=== PATIENT | female | born 1945 | race Caucasian/White ===

== ENCOUNTER 2016-11-29 16:23 | Emergency (ER) | payer MEDICARE, OTHER ==
[~2016-11-29 16:23] MED LIST: ACET-704 PO; CARB200T PO; CIPR500T PO; CITA40TA12 PO; DIPH25CA58 PO; ESTR2TAB PO; FURO-68 PO; GABA-585 PO; GLYB5TAB3 PO; HYDR-971 PO; IBUP200T43 PO; IBUP800T PO; LOPE2TAB56 PO; MEMA10TA PO; METF500T4 PO; METH4TAB2 PO; OXYC-323 PO; PHEN100T2 PO; POTA10CA PO; PRAV40TA2 PO; PRIM50TA PO; RANI300T3 PO; TRIA1TAB5 PO; provastatin PO
--- NOTE | 2016-11-29 16:44 | ED.ADGEN ---
Past History Past Medical History: Anxiety, Diabetes, GERD, High Cholesterol, Hypertension, Seizure, Other Past Surgical History: Appendectomy, Hysterectomy, Tonsillectomy, Other Alcohol Use: Rarely Drug Use: None Adult General HPI HPI Patient is a 71-year-old female with a history of gait disturbance and frequent falls presents emergency department by EMS for a laceration/skin tear on her left arm and small abrasion above her left eye. Patient denies any other injuries. She states that she simply fell. She said it happened quickly. To me, she denies any loss of consciousness and states that she does not want any workup other than to have her abrasions evaluated. Review of Systems Review of Systems Constitutional: Denies fever or chills [] Eyes: Denies change in visual acuity, redness, or eye pain [] HENT: Denies nasal congestion or sore throat [] Respiratory: Denies cough or shortness of breath [] Cardiovascular: No additional information not addressed in HPI [] GI: Denies abdominal pain, nausea, vomiting, bloody stools or diarrhea [] : Denies dysuria or hematuria [] Musculoskeletal: Denies back pain or joint pain [] Integument: Denies rash or skin lesions [] Neurologic: Denies headache, focal weakness or sensory changes [] Endocrine: Denies polyuria or polydipsia [] Allergies Allergies Allergies Coded Allergies Type Severity Reaction Last Updated Verified banana Allergy Intermediate 10/13/15 Yes erythromycin base Allergy Intermediate 10/13/15 No Physical Exam Physical Exam Constitutional: Well developed, well nourished, no acute distress, non-toxic appearance. [] HENT: Normocephalic, atraumatic, bilateral external ears normal, oropharynx moist, no oral exudates, nose normal. [] Eyes: PERRLA, EOMI, conjunctiva normal, no discharge. [] Neck: Normal range of motion, no tenderness, supple, no stridor. [] Cardiovascular:Heart rate regular rhythm, no murmur [] Lungs & Thorax: Bilateral breath sounds clear to auscultation [] Abdomen: Bowel sounds normal, soft, no tenderness, no masses, no pulsatile masses. [] Skin: Warm, dry, no erythema, no rash. Large 8 x 1 cm skin tear to the left forearm, minor abrasion to the left eyebrow [] Back: No tenderness, no CVA tenderness. [] Extremities: No tenderness, no cyanosis, no clubbing, ROM intact, no edema. [] Neurologic: Alert and oriented X 3, normal motor function, normal sensory function, no focal deficits noted. [] Psychologic: Affect normal, judgement normal, mood normal. [] EKG EKG [] Radiology/Procedures Radiology/Procedures [] Course & Med Decision Making Course & Med Decision Making Pertinent Labs and Imaging studies reviewed. (See chart for details) Wounds were cleaned and dressed. Patient was given supportive care and follow- up instructions. [] Final Impression Final Impression Skin tear [] Problems: Dragon Disclaimer Dragon Disclaimer This electronic medical record was generated, in whole or in part, using a voice recognition dictation system. FELY ANDRADE MD Nov 29, 2016 16:44
[2016-11-29 17:30] VITALS: BP 146/61
== END 2016-11-29 17:30 | disposition home or self-care (01) ==
LOC: ER 16:23
DX: S41.112A Laceration without foreign body of left upper arm, initial encounter (principal); S00.212A Abrasion of left eyelid and periocular area, initial encounter; E11.9 Type 2 diabetes mellitus without complications; K21.9 Gastro-esophageal reflux disease without esophagitis; I10 Essential (primary) hypertension; E78.00 Pure hypercholesterolemia, unspecified; Z88.1 Allergy status to other antibiotic agents; Z91.018 Allergy to other foods; W19.XXXA Unspecified fall, initial encounter; Y93.89 Activity, other specified; Y99.8 Other external cause status; Y92.89 Other specified places as the place of occurrence of the external cause
CPT/HCPCS: 99284

== ENCOUNTER 2017-07-17 12:39 | Observation (INO) | payer OTHER ==
[~2017-07-17] VITALS: Ht 170.2 cm; Wt 102.3 kg
[~2017-07-17 12:39] MED LIST changes: -IBUP200T43 PO; +IBUP200T44 PO; -IBUP800T PO; +IBUP800T19 PO
[2017-07-17] MEDS ORDERED: IV NORMAL SALINE 1,000ML 1,000 ML IV ONE (12:45)
--- NOTE | 2017-07-17 12:56 | PHYS DOC ---
Past History Past Medical History: Diabetes, Seizure, Other Past Surgical History: Tonsillectomy, Other Alcohol Use: None Drug Use: None Adult General HPI HPI Patient is a 71 year old F who presents with frequent falls. Family called EMS because the patient was attempting to get up out of her chair and was extremely unsteady on her feet and fell multiple times. Patient has history of seizures however they do not think this was a seizure. When EMS arrived patient was bradycardic with wide complex therefore she received an amp of atropine. Patient and plans of her lies weakness and just not feeling well. Patient is a history of congestive heart failure with hypertension. Patient is currently on Lasix. Patient denies any chest pain returns of breath. Patient denies any loss consciousness. Patient denies any nausea/vomiting/diarrhea. Patient is no other complaints. Review of Systems Review of Systems GEN: Denies fevers, chills, sweats HEENT: Denies blurred vision, sore throat CV: Denies chest pain RESP: Denies shortness of air, cough GI: Denies n/v/d NEURO: Dizziness MSK: Denies weakness, joint pain/swelling All other systems were reviewed and found to be within normal limits, except as documented in this note. Current Medications Current Medications Current Medications Medications (Trade) Dose Ordered Sig/Alirio Start Time Stop Time Status Last Admin Dose Admin Sodium Chloride 1,000 ml @ 1,000 mls/hr 1X ONCE 07/17/17 12:45 07/17/17 13:44 Allergies Allergies Allergies Coded Allergies Type Severity Reaction Last Updated Verified banana Allergy Intermediate 10/13/15 Yes erythromycin base Allergy Intermediate 10/13/15 No Physical Exam Physical Exam GEN.: No apparent distress. Alert and oriented. HEENT: Head is normocephalic, atraumatic NECK: Supple. LUNGS: Decreased breath sounds bilaterally. HEART: Bradycardic, irregular irregular, S1, S2 present. Peripheral pulses intact ABDOMEN: Soft, nontender. Positive bowel sounds. EXTREMITIES: Without any cyanosis. Multiple superficial abrasions to both forearms bilaterally NEUROLOGIC: Normal speech, normal tone, cranial nerves II through XII are grossly intact without any focal neurological deficits PSYCHIATRIC: Normal affect, normal mood. SKIN: No ulcerations Current Patient Data Vital Signs Laboratory Tests Test 07/17/17 13:00 White Blood Count 6.3 x10^3/uL Red Blood Count 3.50 x10^6/uL Hemoglobin 11.9 g/dL Hematocrit 34.8 % Mean Corpuscular Volume 99 fL Mean Corpuscular Hemoglobin 34 pg Mean Corpuscular Hemoglobin Concent 34 g/dL Red Cell Distribution Width 14.2 % Platelet Count 269 x10^3/uL Neutrophils (%) (Auto) 68 % Lymphocytes (%) (Auto) 16 % Monocytes (%) (Auto) 6 % Eosinophils (%) (Auto) 10 % Basophils (%) (Auto) 1 % Neutrophils # (Auto) 4.3 x10^3uL Lymphocytes # (Auto) 1.0 x10^3/uL Monocytes # (Auto) 0.4 x10^3/uL Eosinophils # (Auto) 0.6 x10^3/uL Basophils # (Auto) 0.1 x10^3/uL Sodium Level 136 mmol/L Potassium Level 4.5 mmol/L Chloride Level 104 mmol/L Carbon Dioxide Level 21 mmol/L Anion Gap 11 Blood Urea Nitrogen 45 mg/dL Creatinine 1.6 mg/dL Estimated GFR (Cockcroft-Gault) 32.0 BUN/Creatinine Ratio 28 Glucose Level 160 mg/dL Lactic Acid Level 1.7 mmol/L Calcium Level 8.5 mg/dL Magnesium Level 2.1 mg/dL Total Bilirubin 0.2 mg/dL Aspartate Amino Transf (AST/SGOT) 19 U/L Alanine Aminotransferase (ALT/SGPT) 23 U/L Alkaline Phosphatase 152 U/L Total Protein 7.5 g/dL Albumin 3.3 g/dL Albumin/Globulin Ratio 0.8 Lipase 148 U/L Current Medications Medications (Trade) Dose Ordered Sig/Alirio Route PRN Reason Start Time Stop Time Status Last Admin Dose Admin Sodium Chloride 1,000 ml @ 1,000 mls/hr 1X ONCE IV 07/17/17 12:45 07/17/17 13:44 DC 07/17/17 13:28 EKG EKG 1253: EKG shows A. fib with a rate of 70 no STEMI[] Radiology/Procedures Radiology/Procedures Chest x-ray NAD CT scan of the head NAD[] Course & Med Decision Making Course & Med Decision Making Pertinent Labs and Imaging studies reviewed. (See chart for details) ED course: Patient was seen and examined emergency room CBC, CMP, troponin, UA, EKG, chest x-ray, CT scan of head were ordered 1340: Patient was updated on lab results and CT results and plan to admit for further evaluation and management of her new onset A. fib and bradycardia 1348: Discussed CC/HP/PMH with Dr. Ledesma and recommends admit to the ICU MDM: After reviewing the chart, CC/HPI/PMH, physical exam, [lab results], [ radiological results], I believe the patient has new onset A. fib with symptomatic bradycardia requiring further workup and management at this time. Patient be admitted to ICU. Critical care time was 35 minutes exclusive of procedures. [] Dragon Disclaimer Dragon Disclaimer This electronic medical record was generated, in whole or in part, using a voice recognition dictation system. Departure Departure: Impression: Primary Impression: New onset a-fib Additional Impression: Symptomatic bradycardia Disposition: ADMITTED INPATIENT Admitting Physician: Mark Ledesma Condition: IMPROVED Referrals: MARK LEDESMA MD (PCP) Problem Qualifiers CHARMAINE KYLE DO Jul 17, 2017 12:56
[2017-07-17 13:18] LABS: BASO # 0.1 x10^3/uL (0.0-0.2); BASO % 1 % (0-3); EOS # 0.6 x10^3/uL (0.0-0.7); EOS % 10 % (0-3); HEMATOCRIT 34.8 % (36.0-47.0); HEMOGLOBIN 11.9 g/dL (12.0-15.5); LYMPH % 16 % (24-48); MEAN CORPUSCULAR HEMOGLOBIN 34 pg (25-35); MEAN CORPUSCULAR HGB CONC 34 g/dL (31-37); MEAN CORPUSCULAR VOLUME 99 fL (79-100); MONO # 0.4 x10^3/uL (0.0-1.1); MONO % 6 % (0-9); NEUT # 4.3 x10^3uL (1.8-7.7); NEUT % 68 % (31-73); PLATELET COUNT 269 x10^3/uL (140-400); RED CELL DISTRIBUTION WIDTH 14.2 % (11.5-14.5); WHITE BLOOD COUNT 6.3 x10^3/uL (4.0-11.0)
[2017-07-17 13:26] LABS: ALBUMIN 3.3 g/dL (3.4-5.0); ALBUMIN/GLOBULIN RATIO 0.8 (1.0-1.7); CALCIUM 8.5 mg/dL (8.5-10.1); CREATININE 1.6 mg/dL (0.6-1.0); MAGNESIUM 2.1 mg/dL (1.8-2.4); POTASSIUM 4.5 mmol/L (3.5-5.1); TOTAL BILIRUBIN 0.2 mg/dL (0.2-1.0); TOTAL PROTEIN 7.5 g/dL (6.4-8.2)
--- NOTE | 2017-07-17 13:31 | RAD ---
Portable chest, 07/17/2017: History: Altered mental status Comparison is made to a study from 05/01/2015. The heart size and pulmonary vascularity are normal. No pulmonary infiltrates are seen. There is no evidence of pleural fluid. IMPRESSION: No acute cardiopulmonary abnormality is detected.
--- NOTE | 2017-07-17 13:35 | RAD ---
Indication: Mental status change. Two recent falls. Poor historian and limited clinical exam. Technique: Noncontrast CT head was obtained. CT cervical spine includes axial images and coronal and sagittal reformatted images. Comparison CT head is from November 19, 2004. One or more of the following individualized dose reduction techniques were utilized for this examination: 1. Automated exposure control 2. Adjustment of the mA and/or kV according to patient size 3. Use of iterative reconstruction technique Findings: Head: There is symmetric prominence of the ventricles and sulci. A few areas of decreased attenuation in the supratentorial white matter are nonspecific but most suggestive of minimal small vessel ischemic disease. There is no acute intracranial hemorrhage or extra-axial fluid collection. There is no mass effect or midline shift. Salcedo-white differentiation is preserved. The included paranasal sinuses and mastoid air cells are clear. Cervical spine: There is no fracture or dislocation. Prevertebral soft tissues are within normal limits. Craniovertebral junction is unremarkable. Mild to moderate endplate degenerative changes greatest from C5-C6 through C6-C7. There may be mild canal stenosis at these levels. There are several levels of foraminal narrowing suspected. Canal and foraminal contents would be better evaluated by MRI or postmyelogram CT nonemergently, if warranted clinically. Impression: 1. No acute intracranial findings. Brain parenchymal volume loss and minimal probable small vessel ischemic disease. 2. Negative for fracture or dislocation in the cervical spine. Degenerative changes in the cervical spine.
[2017-07-17] MEDS ORDERED: ACETAMINOPHEN 325 MG TABLET PO PRN (14:00)
[2017-07-17] MEDS ORDERED: MORPHINE SULFATE 4 MG/ML DISP.SYRIN. IV PRN (14:00)
[2017-07-17] MEDS ORDERED: ONDANSETRON PF 4 MG/2 ML VIAL. IV PRN (14:00)
--- NOTE | 2017-07-17 14:40 | EKG ---
[address] [address] Test Date: 2017-07-17 Test Time: 12:51:41 Pat Name: MARY STARR Department: Room: ICU06 1 Gender: F Offc Spec: OSCAR : 1945 Requested By: CHARMAINE KYLE Order Number: [id number] Reading MD: Jb Smiley MD Measurements Intervals [place] Rate: 70 P: VA: QRS: -90 QRSD: 138 T: 13 QT: 466 QTc: 507 Interpretive Statements AFIB RBBB LAFB Electronically Signed On 07-17-2017 16:23:11 SOUS CHEF by Jb Smiley MD
--- NOTE | 2017-07-17 15:00 | NUR ---
The patient, MARY STARR, 71 y/o, F admitted by AKIN GREEN MD, was given written information regarding hospital policies, unit procedures and contact persons. Valuables were checked and left in room. Family here upon admission. Pt states she sees Dr. Ponce for seizures, physician consulted. Dr. Webster consulted in regards to bradycardia and afib which is new onset. Echo ordered for AM. Pt is symptomatic when transferring, appears wear and slow to respond. Pt states this is not her norm. Denies dizzyness or complaints of room spinning. No SOA/N/V/D. Home medication list obtained. Pt bed alarm on and call light within reach. Able to verbalize POC, will continue to monitor. Dr. Webster plan to order lovenox and monitor throughout night, echo for AM.
[2017-07-17 15:36] VITALS: BP 123/54
[2017-07-17 15:37] LABS: AMPHETAMINE/METHAMPHETAMINE NEG (NEG); BARBITURATES POS (NEG); BENZODIAZEPINES NEG (NEG); CANNABINOIDS NEG (NEG); COCAINE NEG (NEG); METHADONE NEG (NEG); OPIATES NEG (NEG); PHENCYCLIDINE NEG (NEG)
[2017-07-17 15:43] LABS: BILIRUBIN,URINE NEG (NEG); CLARITY,URINE CLOUDY; COLOR,URINE YELLOW; GLUCOSE,URINE NEG (NEG)
[2017-07-17 15:44] LABS: BACTERIA,URINE MANY /HPF (0-FEW); NITRITE,URINE NEG (NEG); SQUAMOUS EPITHELIAL CELL,UR MOD /LPF; UROBILINOGEN,URINE 0.2 mg/dL (0.2 mg/dL)
--- NOTE | 2017-07-17 16:05 | CONS ---
DATE OF CONSULTATION: 07/17/2017 REASON FOR CONSULTATION: New onset AFib with bradycardia. HISTORY OF PRESENT ILLNESS: The patient is a 71-year-old woman with past medical history as noted below, who presents to the hospital in the setting of unsteadiness of gait. She apparently had few near syncopal events. Upon arrival to the ER, she was noted to be bradycardic with heart rates in 50s. The patient otherwise denies any chest pain, orthopnea, PND or lower extremity edema. No syncope or palpitations. Denies any new medications, but medication review from her home list reveals multiple anti-seizure medications as well as pain medications. PAST MEDICAL HISTORY: 1. Seizure disorder. 2. Possible dementia. 3. Chronic pain syndrome. 4. Hypertension. SOCIAL HISTORY: The patient denies any alcohol, tobacco or illicit drug use. ALLERGIES: BANANAS and ERYTHROMYCIN BASE. FAMILY HISTORY: Noncontributory. REVIEW OF SYSTEMS: Negative for 10 out of 14 systems reviewed, unless otherwise mentioned above in HPI. CURRENT CARDIOVASCULAR MEDICATIONS: Triamterene/hydrochlorothiazide 1 tablet p.o. b.i.d. PHYSICAL EXAMINATION: VITAL SIGNS: Afebrile, 62, 16, 116/61, 97% on room air. GENERAL: She appears alert and oriented, in no acute distress. HEAD AND NECK: Unremarkable. CARDIAC: Irregularly irregular without any murmurs, rubs or gallops. LUNGS: Clear to auscultation bilaterally. ABDOMEN: Soft, obese, nontender, nondistended. EXTREMITIES: No obvious clubbing, cyanosis or edema. She has multiple bilateral excoriations secondary to itching presumably. NEUROLOGIC: No obvious focal deficits are noted. DIAGNOSTIC STUDIES: EKG demonstrates occasional sinus beats, but most likely this is atrial fibrillation with slow ventricular response. She has a right bundle branch block at baseline. Hemoglobin 11.9, creatinine 1.6. ALT, AST within normal limits. Chest x-ray is unremarkable. IMPRESSION: 1. Lightheadedness and dizziness in the setting of bradycardia, etiology may be related to multiple depressant agents. 2. Mild hypertension. 3. Chronic kidney disease, cannot rule out acute kidney injury. 4. History of seizure disorder, evaluation pending for recurrent seizures, although presentation is not likely to be seizure in nature. RECOMMENDATIONS: Agree with continued monitoring for significant bradycardia. Physical therapy evaluation if she has any persistent lightheadedness, dizziness in the setting of bradycardia then we would consider pacemaker implantation. We will obtain Neurology consult to determine if any medication changes could be made enough to decrease her bradycardia. Thank you for this consultation. MEDINA ROCK MD DR: LAURA/keri JOB#: [id number] / [id number]
[2017-07-17 16:09] VITALS: BP 111/62
[2017-07-17] MEDS ORDERED: ACETAMINOPHEN/CODEINE 300/30MG TABLET PO PRN (18:15)
[2017-07-17] MEDS ORDERED: NON FORMULARY ITEM (Methylprednisolone (Medrol) 1 PKG) PO SCH (18:15)
[2017-07-17] MEDS ORDERED: oxyCODONE/APAP 5/325 1 TAB TABLET PO PRN (18:15)
[2017-07-17] MEDS ORDERED: HYDROcodone/APAP 5/325MG 1 TAB TABLET PO PRN (18:15)
--- NOTE | 2017-07-17 18:26 | NUR ---
Phenobarbital ordered per Dr. Ponce, states he was not aware she was on this medication. Pt states this was ordered by [facility] which she does not follow with them and then Dr. Ledesma reordered for her 2 weeks ago. Will obtain current level.
[2017-07-17] MEDS ORDERED: LEVO25TA4 PO (18:41)
[2017-07-17] MEDS ORDERED: RANI300C PO (18:41)
[2017-07-17] MEDS ORDERED: CITA40TA12 PO (18:41)
[2017-07-17] MEDS ORDERED: FURO-69 PO (18:41)
[2017-07-17 19:11] VITALS: BP 97/54
[2017-07-17] MEDS: TRIAMTERENE/HCTZ 75/50MG TABLET. PO SCH ×2 (20:53→21:00)
[2017-07-17] MEDS: PRAVASTATIN 20 MG TABLET. PO SCH (20:53)
[2017-07-17] MEDS: ENOXAPARIN ** NOTE DOSE ** SYRINGE SQ SCH (20:53)
[2017-07-17] MEDS: FAMOTIDINE 20 MG TABLET PO SCH (20:53)
[2017-07-17] MEDS: GABAPENTIN 300 MG CAPSULE. PO SCH (20:53)
[2017-07-17] MEDS: IV NORMAL SALINE 1,000ML 1,000 ML IV SCH (20:54)
[2017-07-17] MEDS: carBAMazepine 200 MG TABLET PO SCH (20:56)
[2017-07-17] MEDS ORDERED: CITALOPRAM HYDROBROMIDE PO SCH (21:00)
[2017-07-17] MEDS ORDERED: RANITIDINE HCL 300 MG PO SCH (21:00)
[2017-07-17] MEDS ORDERED: PRIMIDONE 50 MG TABLET PO SCH (21:00)
[2017-07-17] MEDS ORDERED: MEMANTINE 10 MG TABLET. PO SCH (21:00)
[2017-07-17 21:31] VITALS: BP 138/52
[2017-07-17] MEDS ORDERED: DIPH25CA58 PO (22:30)
[2017-07-17 22:38] VITALS: BP 109/48
[2017-07-17] MEDS: diphenhydrAMINE HCL 25 MG CAPSULE PO PRN (22:41)
[2017-07-17 23:32] VITALS: BP 106/45
[2017-07-18] VITALS (16 sets, daily range): BP systolic 91–134; BP diastolic 37–78
[2017-07-18] MEDS ORDERED: IBUPROFEN 200 MG TABLET PO SCH
[2017-07-18] MEDS: IV NORMAL SALINE 1,000ML 1,000 ML IV SCH ×2 (05:55→14:54)
[2017-07-18] MEDS: LEVOTHYROXINE 25 MCG TABLET. PO SCH (05:55)
[2017-07-18 06:49] LABS: BASO % 0 % (0-3); EOS # 0.5 x10^3/uL (0.0-0.7); EOS % 7 % (0-3); HEMATOCRIT 31.3 % (36.0-47.0); HEMOGLOBIN 10.4 g/dL (12.0-15.5); LYMPH # 1.3 x10^3/uL (1.0-4.8); LYMPH % 17 % (24-48); MEAN CORPUSCULAR HEMOGLOBIN 33 pg (25-35); MEAN CORPUSCULAR HGB CONC 33 g/dL (31-37); MEAN CORPUSCULAR VOLUME 100 fL (79-100); MONO # 0.6 x10^3/uL (0.0-1.1); MONO % 8 % (0-9); NEUT # 5.3 x10^3uL (1.8-7.7); NEUT % 68 % (31-73); PLATELET COUNT 235 x10^3/uL (140-400); RED BLOOD COUNT 3.13 x10^6/uL (3.50-5.40); RED CELL DISTRIBUTION WIDTH 14.2 % (11.5-14.5); WHITE BLOOD COUNT 7.8 x10^3/uL (4.0-11.0)
[2017-07-18 06:57] LABS: CREATININE 1.4 mg/dL (0.6-1.0); GFR 37.3; POTASSIUM 3.8 mmol/L (3.5-5.1)
[2017-07-18] MEDS: FUROSEMIDE 20 MG TABLET PO SCH (09:00)
[2017-07-18] MEDS ORDERED: PNEUMOC CONJ VACC 23-VALENT 0.5 ML VIAL. VAX IM ONE (09:00)
[2017-07-18] MEDS ORDERED: CITALOPRAM 20 MG TABLET. PO SCH ×2 (09:00→21:00)
[2017-07-18] MEDS: GABAPENTIN 300 MG CAPSULE. PO SCH ×3 (09:16→21:28)
[2017-07-18] MEDS: PHENOBARBITAL 100 MG PO SCH (09:16)
[2017-07-18] MEDS: POTASSIUM CHLORIDE 10 MEQ TABLET.ER. PO SCH ×2 (09:16→21:26)
[2017-07-18] MEDS: TRIAMTERENE/HCTZ 75/50MG TABLET. PO SCH ×2 (09:16→21:28)
[2017-07-18] MEDS: ENOXAPARIN ** NOTE DOSE ** SYRINGE SQ SCH ×2 (09:17→21:30)
[2017-07-18] MEDS: carBAMazepine 200 MG TABLET PO SCH ×2 (09:18→21:28)
--- NOTE | 2017-07-18 09:37 | PDOC ---
PROGRESS NOTES Diagnosis Problem Problems Medical Problems: (1) New onset a-fib Status: Acute (2) Symptomatic bradycardia Status: Acute Assessment Problems Medical Problems: (1) New onset a-fib Status: Acute (2) Symptomatic bradycardia Status: Acute 1. Lightheadedness and dizziness - she is currently denying any lightheadedness. 2. atrial fibrillation with SVR - Continues to have rates in low 40's upper 30' s. + rate response with activity with PT. No current indication for pacemaker. 3. Mild hypertension. - well controlled currently 4. Chronic kidney disease - Bun/ Cr improving. monitor. 5. seizure disorder, Neuro consulted and adjusting medications. Problems: Subjective denies lightheadedness, weakness, chest discomfort or dyspnea. Objective Vital Signs Date Time Temp Pulse Resp B/P (MAP) Pulse Ox O2 Delivery O2 Flow Rate FiO2 07/18/17 08:00 Room Air 07/18/17 07:03 97.3 07/18/17 06:13 52 24 103/49 (67) 97 Intake and Output 07/18/17 07:00 Intake Total 2655 ml Output Total 300 ml Balance 2355 ml Intake Oral 1080 ml IV Total 1575 ml Output Urine Total 300 ml # Voids 4 Abdomen: Normal bowel sounds, Soft Heart: Other (irregular rate and rhythm) General: Alert, Oriented X3, Cooperative Lungs: Clear to auscultation, Normal air movement Neuro: Normal speech Psych/Mental Status: Mood NL Review of Relevant I have reviewed the following items lesley (where applicable) has been applied. Labs Laboratory Tests Test 07/17/17 13:00 07/17/17 15:15 07/18/17 06:20 White Blood Count 6.3 x10^3/uL (4.0-11.0) 7.8 x10^3/uL (4.0-11.0) Red Blood Count 3.50 x10^6/uL (3.50-5.40) 3.13 x10^6/uL (3.50-5.40) Hemoglobin 11.9 g/dL (12.0-15.5) 10.4 g/dL (12.0-15.5) Hematocrit 34.8 % (36.0-47.0) 31.3 % (36.0-47.0) Mean Corpuscular Volume 99 fL (79-100) 100 fL (79-100) Mean Corpuscular Hemoglobin 34 pg (25-35) 33 pg (25-35) Mean Corpuscular Hemoglobin Concent 34 g/dL (31-37) 33 g/dL (31-37) Red Cell Distribution Width 14.2 % (11.5-14.5) 14.2 % (11.5-14.5) Platelet Count 269 x10^3/uL (140-400) 235 x10^3/uL (140-400) Neutrophils (%) (Auto) 68 % (31-73) 68 % (31-73) Lymphocytes (%) (Auto) 16 % (24-48) 17 % (24-48) Monocytes (%) (Auto) 6 % (0-9) 8 % (0-9) Eosinophils (%) (Auto) 10 % (0-3) 7 % (0-3) Basophils (%) (Auto) 1 % (0-3) 0 % (0-3) Neutrophils # (Auto) 4.3 x10^3uL (1.8-7.7) 5.3 x10^3uL (1.8-7.7) Lymphocytes # (Auto) 1.0 x10^3/uL (1.0-4.8) 1.3 x10^3/uL (1.0-4.8) Monocytes # (Auto) 0.4 x10^3/uL (0.0-1.1) 0.6 x10^3/uL (0.0-1.1) Eosinophils # (Auto) 0.6 x10^3/uL (0.0-0.7) 0.5 x10^3/uL (0.0-0.7) Basophils # (Auto) 0.1 x10^3/uL (0.0-0.2) 0.0 x10^3/uL (0.0-0.2) Sodium Level 136 mmol/L (136-145) 139 mmol/L (136-145) Potassium Level 4.5 mmol/L (3.5-5.1) 3.8 mmol/L (3.5-5.1) Chloride Level 104 mmol/L (98-107) 106 mmol/L (98-107) Carbon Dioxide Level 21 mmol/L (21-32) 23 mmol/L (21-32) Anion Gap 11 (6-14) 10 (6-14) Blood Urea Nitrogen 45 mg/dL (7-20) 39 mg/dL (7-20) Creatinine 1.6 mg/dL (0.6-1.0) 1.4 mg/dL (0.6-1.0) Estimated GFR (Cockcroft-Gault) 32.0 37.3 BUN/Creatinine Ratio 28 (6-20) Glucose Level 160 mg/dL (70-99) 133 mg/dL (70-99) Lactic Acid Level 1.7 mmol/L (0.4-2.0) Calcium Level 8.5 mg/dL (8.5-10.1) 8.0 mg/dL (8.5-10.1) Magnesium Level 2.1 mg/dL (1.8-2.4) Total Bilirubin 0.2 mg/dL (0.2-1.0) Aspartate Amino Transf (AST/SGOT) 19 U/L (15-37) Alanine Aminotransferase (ALT/SGPT) 23 U/L (14-59) Alkaline Phosphatase 152 U/L (46-116) Total Protein 7.5 g/dL (6.4-8.2) Albumin 3.3 g/dL (3.4-5.0) Albumin/Globulin Ratio 0.8 (1.0-1.7) Lipase 148 U/L (73-393) Urine Collection Type Unknown Urine Color Yellow Urine Clarity Cloudy Urine pH 5.5 Urine Specific Kenney 1.015 Urine Protein Neg (NEG-TRACE) Urine Glucose (UA) Neg mg/dL (NEG) Urine Ketones (Stick) Neg mg/dL (NEG) Urine Blood Neg (NEG) Urine Nitrite Neg (NEG) Urine Bilirubin Neg (NEG) Urine Urobilinogen Dipstick 0.2 mg/dL (0.2 mg/dL) Urine Leukocyte Esterase Trace (NEG) Urine RBC 1-2 /HPF (0-2) Urine WBC 11-20 /HPF (0-4) Urine Squamous Epithelial Cells Mod /LPF Urine Bacteria Many /HPF (0-FEW) Nasal Screen MRSA (PCR) Negative (Negative) Urine Opiates Screen Neg (NEG) Urine Methadone Screen Neg (NEG) Urine Barbiturates Pos (NEG) Urine Phencyclidine Screen Neg (NEG) Urine Amphetamine/Methamphetamine Neg (NEG) Urine Benzodiazepines Screen Neg (NEG) Urine Cocaine Screen Neg (NEG) Urine Cannabinoids Screen Neg (NEG) Urine Ethyl Alcohol Neg (NEG) Medications Current Medications Sodium Chloride 1,000 ml @ 1,000 mls/hr 1X ONCE IV Last administered on 07/17 13:28; Start 07/17/17 at 12:45; Stop 07/17/17 at 13:44; Status DC Ondansetron HCl (Zofran) 4 mg PRN Q4HRS PRN IV NAUSEA/VOMITING; Start at 14:00; Stop 07/18/17 at 13:59 Morphine Sulfate (Morphine 4mg Syringe) 4 mg PRN Q2HR PRN IV PAIN; Start 07/17 at 14:00; Stop 07/18/17 at 13:59 Acetaminophen (Tylenol) 650 mg PRN Q4HRS PRN PO FEVER; Start 07/17/17 at 14:00 ; Stop 07/18/17 at 13:59 Enoxaparin Sodium (Lovenox 100mg Syringe) 100 mg Q12HR SQ Last administered on 07/18/17 09:17; Start 07/17/17 at 21:00 Acetaminophen/ Codeine Phosphate (Tylenol #3) 1 tab PRN BID PRN PO PAIN Last administered on 07/18/17 00:40; Start 07/17/17 at 18:15 Carbamazepine (TEGretol) 200 mg BID PO Last administered on 07/18/17 09:18; Start 07/17/17 at 21:00 Gabapentin (Neurontin) 300 mg TID PO Last administered on 07/18/17 09:16; Start 07/17/17 at 21:00 Glyburide (Glynase) 6 mg QHS PO ; Start 07/17/17 at 21:00; Stop 07/17/17 at 21 :00; Status DC Acetaminophen/ Hydrocodone Bitart (Lortab 5/325) 1 tab PRN Q6HRS PRN PO PAIN; Start 07/17/17 at 18:15; Stop 07/17/17 at 18:47; Status DC Ibuprofen (Motrin) 600 mg Q6HRS PO ; Start 07/18/17 at 00:00; Stop 07/18/17 at 00:00; Status DC Memantine (Namenda) 10 mg BID PO Last administered on 07/17/17 20:53; Start 07/17/17 at 21:00; Stop 07/18/17 at 09:33; Status DC Oxycodone/ Acetaminophen (Percocet 5/325) 1 tab Q6HRS PRN PO SEVERE PAIN; Start 07/17/17 at 18:15; Stop 07/17/17 at 18:47; Status DC Phenobarbital (Luminal) 100 mg DAILY PO Last administered on 07/18/17 09:16; Start 07/18/17 at 09:00 Primidone (Mysoline) 50 mg HS PO ; Start 07/17/17 at 21:00; Stop 07/17/17 at 21:00; Status DC Triamterene/HCTZ (Maxzide 75/50mg) 1 tab BID PO Last administered on 09:16; Start 07/17/17 at 21:00 Non-Formulary Medication 1 tab BID PO ; Start 07/17/17 at 21:00; Stop at 21:00; Status DC Non-Formulary Medication 1 pkg UD PO ; Start 07/17/17 at 18:15; Stop 07/17/17 at 18:47; Status DC Potassium Chloride (Klor-Con) 10 meq BID PO Last administered on 07/18/17 09: 16; Start 07/18/17 at 09:00 Pravastatin Sodium (Pravachol) 40 mg QHS PO Last administered on 07/17/17 20: 53; Start 07/17/17 at 21:00 Non-Formulary Medication 300 mg BID PO ; Start 07/17/17 at 21:00; Stop at 21:00; Status DC Furosemide (Lasix) 20 mg DAILY PO ; Start 07/18/17 at 09:00 Levothyroxine Sodium (Synthroid) 25 mcg DAILY07 PO Last administered on 05:55; Start 07/18/17 at 07:00 Citalopram Hydrobromide (CeleXA) 40 mg DAILY PO ; Start 07/18/17 at 09:00; Stop 07/18/17 at 09:33; Status DC Famotidine (Pepcid) 20 mg QHS PO Last administered on 07/17/17 20:53; Start 07/17/17 at 21:00 Pneumococcal Polyvalent Vaccine (Pneumovax 23) 0.5 ml ONCE ONCE VAX IM ; Start 07/18/17 at 09:00; Stop 07/18/17 at 09:01; Status DC Sodium Chloride 1,000 ml @ 100 mls/hr Q10H IV Last administered on 07/18/17 05:55; Start 07/17/17 at 19:30 Diphenhydramine HCl (Benadryl) 25 mg PRN Q6HRS PRN PO ITCHING Last administered on 07/17/17 22:41; Start 07/17/17 at 22:30 Citalopram Hydrobromide (CeleXA) 40 mg HS PO ; Start 07/18/17 at 21:00; Status UNV Memantine (Namenda) 10 mg HS PO ; Start 07/18/17 at 21:00; Status UNV Active Scripts Active Reported Benadryl (Diphenhydramine Hcl) 25 Mg Capsule 25 Mg PO PRN Q6HRS PRN Celexa (Citalopram Hydrobromide) 40 Mg Tablet 40 Mg PO DAILY Levothyroxine Sodium 25 Mcg Tablet 1 Tab PO DAILY Ranitidine Hcl 300 Mg Capsule 1 Cap PO DAILY Lasix (Furosemide) 20 Mg Tablet 1 Tab PO DAILY Tylenol With Codeine #3 Tablet (Acetaminophen With Codeine) 1 Each Tablet 1 Tab PO BID PRN Triamterene-Hctz 75-50 Mg Tab (Triamterene/Hydrochlorothiazid) 1 Each Tablet 1 Tab PO BID Pravastatin Sodium 40 Mg Tablet 1 Tab PO QHS Anti-Diarrhea (Loperamide Hcl) 2 Mg Tablet 2 Mg PO Namenda (Memantine Hcl) 10 Mg Tablet 1 Tab PO BID Gabapentin 100 Mg Capsule 300 Mg PO TID Glyburide 5 Mg Tablet 6 Mg PO HS Potassium Chloride 10 Meq Capsule.er 1 Cap PO BID Phenobarbital 100 Mg Tablet 100 Mg PO DAILY Tegretol (Carbamazepine) 200 Mg Tablet 200 Mg PO BID Vitals/I & O Vital Sign - Last 24 Hours 07/17/17 07/17/17 07/17/17 07/17/17 12:49 13:15 13:45 14:00 Temp 98.0 Pulse 81 59 61 Resp 16 16 16 B/P (MAP) 143/64 (90) 125/78 (94) Pulse Ox 100 95 97 O2 Delivery Room Air Room Air Room Air 07/17/17 07/17/17 07/17/17 07/17/17 14:16 15:36 16:00 16:09 Temp 97.0 Pulse 62 53 53 Resp 16 20 20 B/P (MAP) 116/61 (79) 123/54 (77) 111/62 (78) Pulse Ox 97 98 98 O2 Delivery Room Air Room Air Room Air Room Air 07/17/17 07/17/17 07/17/17 07/17/17 17:37 18:14 19:11 20:00 Temp 98.5 Pulse 56 49 Resp 16 47 B/P (MAP) 97/54 (68) Pulse Ox 98 96 O2 Delivery Room Air Room Air Room Air Room Air 07/17/17 07/17/17 07/17/17 07/18/17 21:31 22:38 23:32 00:01 Pulse 57 66 62 Resp 22 20 20 B/P (MAP) 138/52 (80) 109/48 (68) 106/45 (65) Pulse Ox 98 96 98 O2 Delivery Room Air Room Air Room Air Room Air 07/18/17 07/18/17 07/18/17 07/18/17 00:38 00:40 02:39 02:50 Pulse 61 58 Resp 17 16 16 24 B/P (MAP) 126/74 (91) 133/57 (82) Pulse Ox 94 99 O2 Delivery Room Air Room Air Room Air Room Air 07/18/17 07/18/17 07/18/17 07/18/17 04:06 04:16 04:50 05:26 Pulse 52 47 59 Resp 20 B/P (MAP) 95/46 (62) 93/37 (55) 119/59 (79) Pulse Ox 98 O2 Delivery Room Air Room Air 07/18/17 07/18/17 07/18/17 06:13 07:03 08:00 Temp 97.3 Pulse 52 Resp 24 B/P (MAP) 103/49 (67) Pulse Ox 97 O2 Delivery Room Air Room Air Intake and Output 07/17/17 07/17/17 07/18/17 15:00 23:00 07:00 Intake Total 500 ml 1468 ml 687 ml Output Total 300 ml Balance 500 ml 1168 ml 687 ml AHMET WILLIAMSON [employer] Jul 18, 2017 09:37
[2017-07-18] MEDS: levoFLOXacin 500 MG TABLET PO SCH (10:34)
--- NOTE | 2017-07-18 11:01 | NUR ---
Pt worked with therapy today, HR remained in 70s when up walking with PT. Denies feeling SOA, dizzy or weak but was unsteady per PT. HR 38-55 at rest when sleeping and sitting in chair. Pt states she is feeling much better today. Fabienne CHAVEZ states patient is not a candidate for pacemaker at this time. Dr. Ponce here to see patient as well, will see pt in office to start decreasing seizure medications. Spoke with Dr. Ledesma in regards to patients output, pt has a strong urine odor. Fluids continued for hydration and order for Levaquin ordered for UTI.
--- NOTE | 2017-07-18 11:05 | HP ---
ADMIT DATE: 07/17/2017 HISTORY OF PRESENT ILLNESS: This 71-year-old female came in, who apparently fell at home, had EMS take her in and brought her in to the hospital. She was extremely unsteady on her feet, fell multiple times, history of seizures. The patient also had some bradycardia with wide complex evaluation. Apparently, her heart rate went down into the 30s and required an amp of atropine to bring her back into the 50s. The patient was admitted for sick sinus syndrome, bradycardia with multiple syncopal spells. The patient herself denied chest pain, claimed that she was taking large doses of up to 6 tablets of Imodium a day and that is what caused it, but that in and of itself does not appear to be the issue here. She was bradycardic for some other reason and Cardiology is evaluating that. PAST MEDICAL HISTORY: Cataracts, cataract extraction, dementia, history of Alzheimer's, seizures, cardiac disorders, hypercholesterolemia, hypertension, irritable bowel syndrome, abdominal surgery, multiple umbilical hernia repairs, appendectomy, obesity, GERD, hysterectomy, arthritis, back pain, and diabetes. IMMUNIZATIONS: For influenza and pneumococcal are up-to-date. ALLERGIES: Allergic to BANANA and ERYTHROMYCIN BASED COMPOUNDS. HOME MEDICATIONS: Include that of Tylenol, carbamazepine, Tegretol 200 b.i.d., Celexa 40, Benadryl 25, furosemide 20, gabapentin 100, glyburide 5 daily, levothyroxine 25 mcg, loperamide 2 mg daily, Namenda, phenobarbital 100 mg daily, potassium chloride 1 p.o. b.i.d., Zantac 300 mg a day, pravastatin 40 mg, Maxzide 75/50 one b.i.d. FAMILY HISTORY: Basically is history mother with hypertension and cardiovascular disease and father with some form of cancer. SOCIAL HISTORY: The patient denies smoking, alcohol, or drug use. REVIEW OF SYSTEMS: The patient presently denies any chest pain or shortness breath. Denies any abdominal pain. Denies any nausea, vomiting, melena, hematochezia, or hematemesis. The patient otherwise seems to be resting fairly comfortably in that regard there. PHYSICAL EXAMINATION: GENERAL: This is a pleasant white female, moderately obese. VITAL SIGNS: Blood pressure anywhere from 93/52, most recently 120/60, respiratory rate 24, pulse down in the 40s and back up into the 60s, afebrile, respiratory rate 22-24. HEENT: The patient's head was atraumatic, normocephalic. Eyes: PERRLA without jaundice. The mouth and throat were normal. NECK: Supple. LUNGS: Clear. CARDIOVASCULAR: Regular sinus rhythm. ABDOMEN: Soft, protuberant, nontender. No rebound or guarding. Positive bowel sounds. No hepatosplenomegaly. EXTREMITIES: No clubbing, cyanosis, or edema. NEUROLOGIC: The patient was alert and oriented x 3. Speech is fluent, spontaneous, appropriate . Cranial nerves 2 through 12 grossly intact. The patient will be consulted with Neurology, Cardiology for that as well. IMAGING STUDIES: CT scan of the head demonstrated no acute findings. The patient otherwise the neck area demonstrated some degenerative changes to the cervical spine, otherwise unremarkable. IMPRESSION: Sick sinus syndrome, multiple falls, syncope at home with falls at home, morbid obesity, type 2 diabetes, anemia of chronic disease, chronic kidney disease 3, moderate protein malnutrition, possible urinary tract infection. The patient will be seen by Cardiology and Neurology and continue to monitor and evaluate for possible pacemaker placement. AKIN GREEN MD DR: ARPIT/keri JOB#: [id number] / [id number]
--- NOTE | 2017-07-18 12:30 | NUR ---
Pt converted to SR at this time, HR 64 while at rest. Will continue to monitor.
[2017-07-18 14:06] LABS: PHENOBARB 20.1 mcg/mL (15.0-40.0)
--- NOTE | 2017-07-18 14:55 | NUR ---
Pt to transfer to [facility] 124, spoke with Dr. Smith to downgrade patient to telemetry status. Report given to Beverly BRAY.
--- NOTE | 2017-07-18 15:12 | CARD ---
APPROVED REPORT EXAM: Two-dimensional and M-mode echocardiogram with Doppler and color Doppler. Other Information Quality : Fair Rhythm : Atrial Fibrillation, bradycardia INDICATION Atrial Fibrillation 2D DIMENSIONS RVDd3.0 (2.9-3.5cm)Left Atrium(2D)3.5 (1.6-4.0cm) IVSd1.2 (0.7-1.1cm)Aortic Root(2D)2.6 (2.0-3.7cm) LVDd4.2 (3.9-5.9cm)LVOT Diameter2.0 (1.8-2.4cm) PWd1.3 (0.7-1.1cm)LVDs2.7 (2.5-4.0cm) FS (%) 35.2 %SV51.8 ml LVEF(%)64.9 (>50%) Aortic Valve AoV Peak Ming.129.3cm/sAoV VTI26.6cm AO Peak GR.6.7mmHgLVOT Peak Ming.110.3cm/s LVOT VTI 27.47cmAO Mean GR.4mmHg DIANA (VMAX)2.04wp9GCW (VTI)3.35cm2 Mitral Valve MV E Battaomg484.0cm/sMV E Peak Gr.5mmHg MV DECEL [id number] A Eehkemdl604.6cm/s MV E Mean Gr.2mmHgMV NNV46te E/A Ratio1.1MV A [id number] MVA (PHT)4.86cm2 Tricuspid Valve TR P. Ieskhpyg084qj/sRAP OWYHYYVJ5krVm TR Peak Gr.[id number] LEFT VENTRICLE The left ventricle is normal size. There is borderline concentric left ventricular hypertrophy. Left ventricle systolic function is normal. The Ejection Fraction is 55%. There is normal LV segmental wal l motion. Septal motion consistent with conduction abnormality. Tissue Doppler imaging reveals modera te left ventricular diastolic dysfunction. RIGHT VENTRICLE The right ventricle is normal size. The right ventricular systolic function is normal. ATRIA The left atrium size is normal. The right atrium size is normal. The interatrial septum is intact wit h no evidence for an atrial septal defect or patent foramen ovale as noted on 2-D or Doppler imaging. AORTIC VALVE The aortic valve is mildly sclerotic.The aortic valve is trileaflet. Doppler and Color Flow revealed trace aortic regurgitation. There is no significant aortic valvular stenosis. MITRAL VALVE The mitral valve is normal in structure and function. There is no mitral valve stenosis. Doppler and Color Flow revealed trace mitral regurgitation. TRICUSPID VALVE The tricuspid valve is not well visualized. Doppler and Color Flow revealed mild tricuspid regurgitat ion. The PA pressure was estimated at 37 mmHg. There is no tricuspid valve stenosis. PULMONIC VALVE The pulmonic valve is not well visualized. Doppler and Color Flow revealed no pulmonic valvular regur gitation. There is no pulmonic valvular stenosis. GREAT VESSELS The aortic root is normal in size. Pulmonary veins not recorded. The IVC is normal in size and collap ses >50% with inspiration. PERICARDIAL EFFUSION There is no evidence of significant pericardial effusion. Critical Notification Critical Value: No <Conclusion> Left ventricle systolic function is normal. The Ejection Fraction is 55%. There is normal LV segmental wall motion. Septal motion consistent with conduction abnormality.
[2017-07-18] MEDS ORDERED: MEMANTINE 10 MG TABLET. PO SCH (21:00)
[2017-07-18] MEDS: LACTOBACILLUS RHAMNOSUS GG 1 CAPSULE. PO SCH (21:26)
[2017-07-18] MEDS: PRAVASTATIN 20 MG TABLET. PO SCH (21:27)
[2017-07-18] MEDS: FAMOTIDINE 20 MG TABLET PO SCH (21:27)
[2017-07-18] MEDS: diphenhydrAMINE HCL 25 MG CAPSULE PO PRN (21:31)
[2017-07-19] MEDS ORDERED: MELATONIN 3 MG TABLET PO PRN (00:15)
[2017-07-19] MEDS: IV NORMAL SALINE 1,000ML 1,000 ML IV SCH (01:30)
--- NOTE | 2017-07-19 02:58 | CONS ---
DATE OF CONSULTATION: 07/17/2017 NEUROLOGIC CONSULTATION REFERRING PHYSICIAN: Dr. Ledesma. CHIEF COMPLAINT: Mental status changes with history of seizure. HISTORY OF PRESENT ILLNESS: This is a 71-year-old female, who was admitted to Emergency Room after she presented with chief complaints of generalized weakness and difficulty to walk. She did fall twice at home when she tried to stand up. The patient probably had near syncopal event. On arrival to the Emergency Room, she was found to have bradycardia with heart rate of 50s. The patient stated she has been suffering from diarrhea in the last few days and she has been taking Lomotil because she does want to stay long time in the bathroom. Apparently she took 4 tablets of Lomotil 1 day prior to this admission. The patient has longstanding history of seizure, but she has not had seizure for many years. She has been on phenobarbital and carbamazepine. The patient denies any recurrent seizures, chest pain, shortness of breath, or palpitations. She has been suffering from slowly progressive memory loss and possible symptoms of early dementia. In the Emergency Room, the patient was found to have atrial fibrillation with right bundle branch block. PAST MEDICAL HISTORY: Significant for seizure disorder, generalized weakness, chronic pain syndrome, hypertension, GERD, hyperlipidemia, obesity, arthritis, chronic lower back pain, diabetes mellitus. PAST SURGICAL HISTORY: Significant for appendectomy, multiple umbilical hernia repairs, hysterectomy, and cataract extraction. SOCIAL HISTORY: The patient is . She denies smoking, alcohol drinking, or illicit drug use. FAMILY HISTORY: Noncontributory. ALLERGIES: BANANA AND ERYTHROMYCIN BASE. CURRENT MEDICATIONS: Celexa 40 mg p.o. daily, Lasix 20 mg p.o. daily, potassium 10 mEq b.i.d., phenobarbital 100 mg daily, levothyroxine 25 mcg p.o. daily, Pepcid 20 mg at bedtime, pravastatin 40 mg at bedtime, Maxzide 75/50 one tablet b.i.d., Namenda 10 mg b.i.d., gabapentin 300 mg t.i.d., and carbamazepine 200 mg b.i.d. REVIEW OF SYSTEMS: A 10-point review of system was performed as mentioned above in history of present illness. The patient also complains of significant tremor of the hands. PHYSICAL EXAMINATION: GENERAL: Obese white female, not in acute distress. She weighs 225 pounds with BMI of 35.3. VITAL SIGNS: Blood pressure 125/78, pulse is 61, respiratory rate 16, temperature 97, oxygen saturation is 97% on room air. HEENT: Normocephalic, atraumatic, otherwise unremarkable. NECK: Supple, negative for carotid bruit, lymphadenopathy, or thyromegaly. LUNGS: Clear to A and P. CARDIOVASCULAR: Regular rhythm, normal S1, S2. No S3, S4, murmur, or gallop. ABDOMEN: Soft. Bowel sounds positive. Nontender. EXTREMITIES: Negative for cyanosis, clubbing, or pitting edema. SKIN: Shows ____ generalized rash, probably secondary to itching. NEUROLOGICAL EXAM: Mental Status: The patient is alert and oriented x 2. The speech is fluent. There is no language dysfunction. Memory, the patient recalls 2/3 objects immediately and 1/3 after 1 and 3 minutes. Judgment and abstract thinking are fair. The patient denies hallucination or delusion. Cranial Nerves: Visual dean are full. The pupils are reactive to light and accommodation. The extraocular movements are intact. There is no nystagmus. There is no facial motor or sensory deficit. Hearing is intact bilaterally. The palate is elevated symmetrically. Sternocleidomastoid muscles are powerful bilaterally. The patient shrugs her shoulders symmetrically and protrudes her tongue in the midline without fasciculation or atrophy. Motor: No focal muscle bulk was seen. The tone is normal. The strength is 4/5 throughout. The patient has asterixis of both hands. Sensory examination revealed normal pinprick, light touch, vibratory, and position senses. Deep tendon reflexes were symmetric and hypoactive with absent Achilles responses. Gait not tested. LABORATORY DATA: CBC revealed white blood cells of 6300, hemoglobin is 11.9, hematocrit 34.8, platelet count 269,000. Chemistry revealed sodium of 136, potassium 4.5, chloride 104, CO2 of 21, BUN 45, creatinine 1.6, glucose 160, calcium 8.5, magnesium 2.1. Liver enzymes are normal. Alkaline phosphatase is elevated at 152. Urinalysis revealed trace of urinary leukocyte esterase with white blood cells of 11-20. Urine drug screen is positive for barbiturate. DIAGNOSTIC: Initial nonenhanced head CT scan revealed no evidence of acute intracranial process, but generalized cortical atrophy and mild small vessel ischemic changes. CT of the cervical spine revealed multilevel degenerative disk disease at C5-C6 and C6-C7, otherwise unremarkable. Chest x-ray revealed no evidence of acute cardiopulmonary process. IMPRESSION: 1. Mental status changes with asterixis of the upper extremities likely due to underlying renal encephalopathy. 2. Chronic renal failure/dehydration, rule out acute renal failure. 3. New onset of atrial fibrillation with right bundle branch block. 4. Multiple medical problems include hypertension, hyperlipidemia, diabetes mellitus, gastroesophageal reflux disease, and seizure disorder. 5. Early symptoms of dementia. 6. Depression and anxiety. RECOMMENDATION: 1. Correct the underlying dehydration and renal failure. 2. Continue with Cardiology recommendations and workup. 3. We will continue with current home medication for seizure; however, we will arrange for an EEG and check level of carbamazepine and phenobarb and discuss with the patient about the further management for her seizure disorder and possible adjustment for anticonvulsants ____. M Klaudia BARDALES MD DR: STEF/keri JOB#: [id number] / [id number]
[2017-07-19 05:39] VITALS: BP 111/66
[2017-07-19] MEDS: LEVOTHYROXINE 25 MCG TABLET. PO SCH (05:55)
[2017-07-19 06:24] LABS: BASO % 0 % (0-3); EOS # 0.7 x10^3/uL (0.0-0.7); EOS % 9 % (0-3); HEMOGLOBIN 10.9 g/dL (12.0-15.5); LYMPH # 1.1 x10^3/uL (1.0-4.8); LYMPH % 15 % (24-48); MEAN CORPUSCULAR HEMOGLOBIN 34 pg (25-35); MEAN CORPUSCULAR HGB CONC 34 g/dL (31-37); MEAN CORPUSCULAR VOLUME 99 fL (79-100); MONO # 0.5 x10^3/uL (0.0-1.1); MONO % 7 % (0-9); NEUT # 5.2 x10^3uL (1.8-7.7); NEUT % 69 % (31-73); PLATELET COUNT 252 x10^3/uL (140-400); RED BLOOD COUNT 3.24 x10^6/uL (3.50-5.40); RED CELL DISTRIBUTION WIDTH 14.4 % (11.5-14.5); WHITE BLOOD COUNT 7.6 x10^3/uL (4.0-11.0)
[2017-07-19 06:39] LABS: CALCIUM 8.1 mg/dL (8.5-10.1); CREATININE 1.3 mg/dL (0.6-1.0); GFR 40.6; POTASSIUM 3.9 mmol/L (3.5-5.1)
[2017-07-19] MEDS: LACTOBACILLUS RHAMNOSUS GG 1 CAPSULE. PO SCH (07:47)
[2017-07-19] MEDS: TRIAMTERENE/HCTZ 75/50MG TABLET. PO SCH (07:48)
[2017-07-19] MEDS: POTASSIUM CHLORIDE 10 MEQ TABLET.ER. PO SCH (07:48)
[2017-07-19] MEDS: GABAPENTIN 300 MG CAPSULE. PO SCH ×2 (07:48→14:37)
[2017-07-19] MEDS: levoFLOXacin 500 MG TABLET PO SCH (07:48)
[2017-07-19] MEDS: carBAMazepine 200 MG TABLET PO SCH (07:48)
[2017-07-19] MEDS: FUROSEMIDE 20 MG TABLET PO SCH (07:48)
[2017-07-19] MEDS: ENOXAPARIN ** NOTE DOSE ** SYRINGE SQ SCH (07:49)
[2017-07-19] MEDS: PHENOBARBITAL 100 MG PO SCH (07:57)
--- NOTE | 2017-07-19 10:44 | NUR ---
Discontinued IV fluids per order, site flushed and capped. Site will be questionable, possible leakage noted. Dr. Ponce has been in to see pt and awaiting Dr. Smiley, cardiology consult to be completed.
[2017-07-19 10:48] VITALS: BP 128/56
[2017-07-19 13:35] LABS: CARBAM 6.7 mcg/mL (4.0-12.0)
[2017-07-19 14:50] VITALS: BP 110/67
[2017-07-19] MEDS ORDERED: LEVO500T59 PO (16:24)
--- NOTE | 2017-07-19 18:15 | NUR ---
Reviewed discharge instructions and medications with pt. Pt acknowledged understanding and will cook pickled meat antibiotic at [facility]. Antibiotic information sheet given to pt. IV site discontinued, pt dressed and all belongings gathered. Assisted in wheelchair to private vehicle for dismissal at this time.
--- NOTE | 2017-07-20 01:45 | PN ---
DATE: SUBJECTIVE: The patient denies any new medical neurological complaints; however, she had recurrent bouts of diarrhea last night, but she denies abdominal pain, hematochezia or hemoptysis. OBJECTIVE: GENERAL: Moderately obese white female, not in acute distress. VITAL SIGNS: Blood pressure 110/66, respiratory rate 18, pulse is 67, oxygen saturation is at 94%, and temperature 98. HEENT: Normocephalic, atraumatic. NECK: Supple, negative for carotid bruit, lymphadenopathy or thyromegaly. LUNGS: Clear to A and P. CARDIOVASCULAR: Regular rate and rhythm, normal S1, S2. ABDOMEN: Soft. Bowel sounds positive. EXTREMITIES: Negative for cyanosis, clubbing or pitting edema. NEUROLOGICAL EXAM: Mental Status: The patient is alert and oriented x 3. Speech is fluent. There is no language dysfunction. Cranial nerves are intact. No focal motor or sensory deficit. The strength was 4/5 throughout. Sensory examination revealed normal pinprick, light touch, vibratory and position senses. Deep tendon reflexes are symmetric and hypoactive with absent Achilles responses. Gait: The patient uses a walker for ambulation. LABORATORY DATA: CBC revealed white blood cells of 7600, hemoglobin 10.9, hematocrit 32, platelet count 252,000. Chemistry revealed sodium of 140, potassium 3.9, chloride 107, CO2 of 24, BUN 29, creatinine 1.3, glucose 124, and calcium 8.1. IMPRESSION: 1. Mild renal insufficiency - resolved. 2. New-onset of atrial fibrillation with current sinus rhythm. 3. Multiple medical problems include hypertension, hyperlipidemia, diabetes mellitus, gastroesophageal reflux disease and anemia. 4. Early dementia. 5. Seizure disorder - stable. RECOMMENDATIONS: 1. We would continue with current management initiated by Dr. Ledesma and follow Neurology recommendation. 2. Physical therapy as tolerated. M Klaudia BARDALES MD DR: STEF/keri JOB#: [id number] / [id number]
--- NOTE | 2017-07-20 04:25 | PN ---
DATE: SUBJECTIVE: The patient resting fairly comfortably, making fairly good progress overall, had change in mental status. Dr. Ponce, neurologist, reviewed the patient and pointed to multiple renal encephalopathy as the possible cause of this patient's change in mental status, her creatinine has come down from 1.6-1.3, and calcium has remained slightly low at 8.1, blood sugars slightly elevated. The patient also at times still bradycardic, Cardiology to review possible pacemaker placement. OBJECTIVE: VITAL SIGNS: Blood pressure 128/60, respiratory rate 20, pulse 60. Afebrile. GENERAL: The patient is alert and oriented. LUNGS: Diminished, but clear. CARDIOVASCULAR: Regular sinus rhythm. S1, S2. ABDOMEN: Soft, nontender. The patient otherwise will be monitored carefully and will see what Cardiology has to say about making further adjustments after medical treatment there. IMPRESSION: Bradycardia, change in mental status secondary to renal encephalopathy, type 2 diabetes, morbid obesity, anemia of chronic disease, history of seizures, new onset of atrial fibrillation, right bundle branch block, history of hypertension, hyperlipidemia, gastroesophageal reflux disease, history of mild early dementia, depression, anxiety. AKIN GREEN MD DR: ARPIT/keri JOB#: [id number] / [id number]
--- NOTE | 2017-07-20 09:26 | PN ---
DATE: 07/18/2017 SUBJECTIVE: The patient denies any new medical or neurological complaints. She continues to have regular heart beat; however, she denies headaches, visual disturbances, nausea, vomiting, chest pain, shortness of breath, or palpitation. OBJECTIVE: GENERAL: Obese white female, not in acute distress. VITAL SIGNS: Blood pressure ____/78, respiratory rate 18, pulse is 72 and regular, temperature is 97.3, and oxygen saturation is 97% on room air. HEENT: Normocephalic and atraumatic. Otherwise unremarkable. NECK: Supple. Negative for carotid bruit, lymphadenopathy, or thyromegaly. LUNGS: Clear to A and P. CARDIOVASCULAR: Regular rate and rhythm, normal S1 and S2. There is no S3, S4, or murmur. ABDOMEN: Soft. Bowel sounds positive. EXTREMITIES: Negative for cyanosis, clubbing, or edema. NEUROLOGIC: The patient is alert and oriented x3. Speech is fluent. There is no language dysfunction. Memory and judgment ____. The patient denies any hallucination or delusion. Cranial nerves are intact. Motor examination revealed no focal ____ is normal. The strength is 4/5 throughout. Sensory examination revealed normal pin prick to light touch ____. Deep tendon reflexes were symmetrical and hypoactive with absent Achilles responses. Gait is not tested at this time. LABORATORY DATA: CBC revealed white cells of ____, hemoglobin 10.4, hematocrit 31.3, and platelet count 235,000. Chemistry revealed sodium of 139, potassium 3.8, chloride 106, CO2 of 23, BUN 39, creatinine 1.4, glucose is 133, calcium is 8. Barbiturate level is 20.1. IMPRESSION: 1. Encephalopathy, probably due to dehydration versus renal failure. 2. Evidence of early dementia. 3. New-onset of atrial fibrillation. 4. Multiple medical problems to include hypertension, hyperlipidemia, diabetes mellitus, GERD and seizure disorder. 5. Anxiety and depression. 6. Anemia. DIAGNOSTIC DATA: Echocardiogram revealed normal left ventricular systolic function with ejection fraction of 55% and septal motion consistent with ____ abnormalities. EKG revealed evidence of atrial fibrillation with right bundle-branch block. RECOMMENDATIONS: 1. Continue with current management initiated by ____ and Cardiology recommendation. 2. Physical therapy as tolerated. M Klaudia BARDALES MD DR: Guillermo JOB#: [id number] / [id number]
--- NOTE | 2017-07-20 17:42 | DS ---
DATE OF DISCHARGE: 07/19/2017 HOSPITAL COURSE: The patient making fairly good progress. She has come out of her renal encephalopathy. She was noted to have bradycardia and was adjusted of some of her medications. The patient also was noted to have a low calcium, and she will be taking additional calcium supplement there. In any case, the patient made good progress during the rest of her hospitalization. Her heart rate did go down into the 30s, and she was followed by Cardiology. Her medications were adjusted and her heart rate came up into the 60s. IMPRESSION: Bradycardia, change in mental status secondary to renal encephalopathy, type 2 diabetes, morbid obesity, anemia of chronic disease, history of seizures, new onset of atrial fibrillation, right bundle-branch block, history of hypertension, hyperlipidemia, gastroesophageal reflux disease, history of mild early dementia, depression, anxiety. See MRAD. Decreased activity, and follow up accordingly with Cardiology as well as primarily care doctor. AKIN GREEN MD DR: ARPIT/keri JOB#: [id number] / [id number]
== END 2017-07-19 18:15 | disposition home or self-care (01) ==
LOC: ER 12:39 → ICU 13:46 → INTOOBSV 13:46 → OBSVTOIN 13:46 → 1 SOUTH 07-18 14:57
PROVIDERS: ADMIT Family Medicine; ATTEND Family Medicine
DX: I49.5 Sick sinus syndrome (principal); G93.40 Encephalopathy, unspecified; E66.01 Morbid (severe) obesity due to excess calories; E11.22 Type 2 diabetes mellitus with diabetic chronic kidney disease; R55 Syncope and collapse; E44.0 Moderate protein-calorie malnutrition; E78.00 Pure hypercholesterolemia, unspecified; K21.9 Gastro-esophageal reflux disease without esophagitis; M19.90 Unspecified osteoarthritis, unspecified site; D64.9 Anemia, unspecified; I13.0 Hypertensive heart and chronic kidney disease with heart failure and stage 1 through stage 4 chronic kidney disease, or unspecified chronic kidney disease; N18.3 Chronic kidney disease, stage 3 (moderate); I50.9 Heart failure, unspecified; E78.5 Hyperlipidemia, unspecified; F32.9 Major depressive disorder, single episode, unspecified; D63.8 Anemia in other chronic diseases classified elsewhere; G30.9 Alzheimer's disease, unspecified; F02.80 Dementia in other diseases classified elsewhere, unspecified severity, without behavioral disturbance, psychotic disturbance, mood disturbance, and anxiety; I48.91 Unspecified atrial fibrillation; K58.0 Irritable bowel syndrome with diarrhea; F41.9 Anxiety disorder, unspecified; G40.909 Epilepsy, unspecified, not intractable, without status epilepticus; R29.6 Repeated falls; G89.4 Chronic pain syndrome; I45.10 Unspecified right bundle-branch block; Z82.49 Family history of ischemic heart disease and other diseases of the circulatory system
CPT/HCPCS: 36415; 70450; 71010; 72125; 80048; 80053; 80156; 80184; 80307; 81001; 83605; 83690; 83735; 85025; 87040; 87086; 87186; 87324; 87641; 90471; 90732; 93005; 93306; 96360; 96361; 96372; 97161; 97166; 97530; 99291; G0378; G0379; G8978; G8979; G8987; G8988; J1650; Q0163; G0479; J7030

== ENCOUNTER 2018-02-28 13:56 | Observation (INO) | payer OTHER ==
[~2018-02-28] VITALS: Ht 162.6 cm; Wt 96.4 kg
[~2018-02-28 13:56] MED LIST changes: +FURO-69 PO; +LEVO25TA4 PO; +LEVO500T59 PO; -METF500T4 PO; +METF500T5 PO; +RANI300C PO
--- NOTE | 2018-02-28 14:45 | RAD ---
Single view of the chest. 02/28/2018 2:07 PM Indication: NEAR SYNCOPE Comparison: Chest radiograph July 17, 2017 Findings: There is no focal consolidation. There is no pleural effusion or pneumothorax. The cardiomediastinal silhouette and pulmonary vasculature are within normal limits. No acute osseous abnormalities are seen. Impression: No evidence of acute cardiopulmonary process. Electronically signed by: Micah Miller MD (02/28/2018 2:43 PM) [facility]
--- NOTE | 2018-02-28 14:45 | RAD ---
CT Head without contrast 02/28/2018 2:07 PM Indication: NEAR SYNCOPE Comparison: CT of the head without contrast July 17, 2017 Findings: No intracranial hemorrhage is seen. No evidence of acute territorial infarct is seen. Note that CT is limited in sensitivity for acute ischemia. Age-related atrophic changes are noted. Similar mild patchy periventricular and inflammatory hypoattenuation which is nonspecific but most commonly relates to chronic small vessel disease. No abnormal extra axial fluid collection is identified. No mass effect or midline shift is seen. No acute osseous abnormalities are seen. Impression: 1. No acute intracranial process identified 2. Age-related atrophy, and similar mild changes of chronic small vessel disease CT DOSING PQRS STATEMENT: One or more of the following individualized dose reduction techniques were utilized for this examination: 1. Automated exposure control 2. Adjustment of the mA and/or kV according to patient size 3. Use of iterative reconstruction technique Electronically signed by: Micah Miller MD (02/28/2018 2:42 PM) [facility]
[2018-02-28 14:46] LABS: BASO % 1 % (0-3); EOS # 0.5 x10^3/uL (0.0-0.7); EOS % 7 % (0-3); HEMATOCRIT 37.3 % (36.0-47.0); HEMOGLOBIN 12.4 g/dL (12.0-15.5); LYMPH # 1.1 x10^3/uL (1.0-4.8); LYMPH % 16 % (24-48); MEAN CORPUSCULAR HEMOGLOBIN 32 pg (25-35); MEAN CORPUSCULAR HGB CONC 33 g/dL (31-37); MEAN CORPUSCULAR VOLUME 97 fL (79-100); MONO # 0.4 x10^3/uL (0.0-1.1); MONO % 5 % (0-9); NEUT % 71 % (31-73); PLATELET COUNT 300 x10^3/uL (140-400); RED BLOOD COUNT 3.87 x10^6/uL (3.50-5.40); RED CELL DISTRIBUTION WIDTH 14.4 % (11.5-14.5)
[2018-02-28 14:55] LABS: BACTERIA,URINE FEW /HPF (0-FEW); BILIRUBIN,URINE NEG (NEG); CLARITY,URINE CLEAR; COLOR,URINE YELLOW; GLUCOSE,URINE NEG (NEG); NITRITE,URINE NEG (NEG); RBC,URINE 0 /HPF (0-2); SQUAMOUS EPITHELIAL CELL,UR MOD /LPF; UROBILINOGEN,URINE 0.2 mg/dL (0.2 mg/dL); WBC,URINE OCC /HPF (0-4)
[2018-02-28 15:00] LABS: ALBUMIN 3.6 g/dL (3.4-5.0); CALCIUM 8.7 mg/dL (8.5-10.1); CREATININE 1.3 mg/dL (0.6-1.0); GFR 40.5; POTASSIUM 4.1 mmol/L (3.5-5.1); TOTAL BILIRUBIN 0.2 mg/dL (0.2-1.0); TOTAL PROTEIN 7.2 g/dL (6.4-8.2)
[2018-02-28] MEDS ORDERED: IV NORMAL SALINE 500ML 500 ML IV ONE (15:15)
[2018-02-28] MEDS: IV NORMAL SALINE 1,000ML 1,000 ML IV SCH ×2 (15:28→16:15)
--- NOTE | 2018-02-28 15:43 | PHYS DOC ---
Past History Past Medical History: Dementia, Diabetes, Hypertension, Seizure Past Surgical History: Hysterectomy Alcohol Use: None Drug Use: None Adult General Chief Complaint Chief Complaint: NEAR SYCOPE HPI HPI 72-year-old female patient brought in by EMS because of dizziness. Patient states she was visiting her at this hospital and felt generalized weakness with near syncopal episode and blurred vision and headache without chest pain, palpitation, focal neuro deficit, vomiting and diarrhea, urinary symptom, fever and chills. Patient denies history of near syncope. She states for the last 1 week her was admitted at Hospital and she was with her frequently and did not have a good sleep or rest and good food and thinks she is just tired because of lack of sleep and rest. Review of Systems Review of Systems Constitutional: Denies fever or chills, reports generalized weakness. [] Eyes: Denies change in visual acuity, redness, or eye pain [] HENT: Denies nasal congestion or sore throat [] Respiratory: Denies cough or shortness of breath [] Cardiovascular: No additional information not addressed in HPI [] GI: Denies abdominal pain, nausea, vomiting, bloody stools or diarrhea [] : Denies dysuria or hematuria [] Musculoskeletal: Denies back pain or joint pain [] Integument: Denies rash or skin lesions [] Neurologic: Reports headache and dizziness, denies focal weakness or sensory changes [] Endocrine: Denies polyuria or polydipsia [] All other systems were reviewed and found to be within normal limits, except as documented in this note. Current Medications Current Medications Current Medications Medications (Trade) Dose Ordered Sig/Alirio Start Time Stop Time Status Last Admin Dose Admin Sodium Chloride 500 ml @ 0 mls/hr 1X ONCE 02/28/18 15:15 02/28/18 15:17 DC 02/28/18 15:22 500 MLS/HR Allergies Allergies Allergies Coded Allergies Type Severity Reaction Last Updated Verified banana Allergy Intermediate 07/17/17 Yes erythromycin base Allergy Intermediate 07/17/17 No Physical Exam Physical Exam Constitutional: Well developed, well nourished, mild distress, non-toxic appearance. [] HENT: Normocephalic, atraumatic, bilateral external ears normal, oropharynx moist, no oral exudates, nose normal. [] Eyes: PERRLA, EOMI, conjunctiva normal, no discharge. [] Neck: Normal range of motion, no tenderness, supple, no stridor. [] Cardiovascular:Heart rate regular rhythm, no murmur [] Lungs & Thorax: Bilateral breath sounds clear to auscultation [] Abdomen: Bowel sounds normal, soft, no tenderness, no masses, no pulsatile masses. [] Skin: Warm, dry, no erythema, no rash. [] Back: No tenderness, no CVA tenderness. [] Extremities: No tenderness, no cyanosis, no clubbing, ROM intact, no edema. [] Neurologic: Alert and oriented X 3, normal motor function, normal sensory function, no focal deficits noted. [] Psychologic: Affect normal, judgement normal, mood normal. [] Current Patient Data Vital Signs Vital Signs Date Time Temp Pulse Resp B/P (MAP) Pulse Ox O2 Delivery O2 Flow Rate FiO2 02/28/18 15:01 65 16 148/60 (89) 97 Room Air 02/28/18 14:00 98.2 Lab Results Laboratory Tests Test 02/28/18 14:24 02/28/18 14:29 Urine Collection Type Unknown Urine Color Yellow Urine Clarity Clear Urine pH 5.5 Urine Specific [place] 1.020 Urine Protein 30 mg/dl (NEG-TRACE) Urine Glucose (UA) Neg mg/dL (NEG) Urine Ketones (Stick) Neg mg/dL (NEG) Urine Blood Neg (NEG) Urine Nitrite Neg (NEG) Urine Bilirubin Neg (NEG) Urine Urobilinogen Dipstick 0.2 mg/dL (0.2 mg/dL) Urine Leukocyte Esterase Neg (NEG) Urine RBC 0 /HPF (0-2) Urine WBC Occ /HPF (0-4) Urine Squamous Epithelial Cells Mod /LPF Urine Bacteria Few /HPF (0-FEW) White Blood Count 7.0 x10^3/uL (4.0-11.0) Red Blood Count 3.87 x10^6/uL (3.50-5.40) Hemoglobin 12.4 g/dL (12.0-15.5) Hematocrit 37.3 % (36.0-47.0) Mean Corpuscular Volume 97 fL (79-100) Mean Corpuscular Hemoglobin 32 pg (25-35) Mean Corpuscular Hemoglobin Concent 33 g/dL (31-37) Red Cell Distribution Width 14.4 % (11.5-14.5) Platelet Count 300 x10^3/uL (140-400) Neutrophils (%) (Auto) 71 % (31-73) Lymphocytes (%) (Auto) 16 % (24-48) L Monocytes (%) (Auto) 5 % (0-9) Eosinophils (%) (Auto) 7 % (0-3) H Basophils (%) (Auto) 1 % (0-3) Neutrophils # (Auto) 5.0 x10^3uL (1.8-7.7) Lymphocytes # (Auto) 1.1 x10^3/uL (1.0-4.8) Monocytes # (Auto) 0.4 x10^3/uL (0.0-1.1) Eosinophils # (Auto) 0.5 x10^3/uL (0.0-0.7) Basophils # (Auto) 0.0 x10^3/uL (0.0-0.2) Sodium Level 142 mmol/L (136-145) Potassium Level 4.1 mmol/L (3.5-5.1) Chloride Level 107 mmol/L (98-107) Carbon Dioxide Level 29 mmol/L (21-32) Anion Gap 6 (6-14) Blood Urea Nitrogen 22 mg/dL (7-20) H Creatinine 1.3 mg/dL (0.6-1.0) H Estimated GFR (Cockcroft-Gault) 40.5 BUN/Creatinine Ratio 17 (6-20) Glucose Level 152 mg/dL (70-99) H Calcium Level 8.7 mg/dL (8.5-10.1) Total Bilirubin 0.2 mg/dL (0.2-1.0) Aspartate Amino Transferase (AST) 15 U/L (15-37) Alanine Aminotransferase (ALT) 18 U/L (14-59) Alkaline Phosphatase 138 U/L (46-116) H Troponin I Quantitative < 0.017 ng/mL (0-0.055) Total Protein 7.2 g/dL (6.4-8.2) Albumin 3.6 g/dL (3.4-5.0) Albumin/Globulin Ratio 1.0 (1.0-1.7) EKG EKG EKG interpreted by me. EKG at 1430 showed normal sinus rhythm at rate of 69, right axis deviation, left anterior fascicular block, no specific intraventricular block, no acute ST and T-wave abnormalities[] Radiology/Procedures Radiology/Procedures [][address] [address] IMAGING REPORT Signed PATIENT: MARY STARR ACCOUNT: [id number] : 1945 LOCATION: ER AGE: 72 SEX: F EXAM STATUS: REG ER ORD. PHYSICIAN: CHELSEA PEREZ MD REASON: near syncope PROCEDURE: PORTABLE CHEST 1V Single view of the chest. 02/28/2018 2:07 PM Indication: NEAR SYNCOPE [address] [address] IMAGING REPORT Signed PATIENT: MARY STARR ACCOUNT: [id number] : 1945 LOCATION: ER AGE: 72 SEX: F EXAM STATUS: REG ER ORD. PHYSICIAN: CHELSEA PEREZ MD REASON: near syncope PROCEDURE: CT HEAD WO CONTRAST CT Head without contrast 02/28/2018 2:07 PM Indication: NEAR SYNCOPE Comparison: CT of the head without contrast July 17, 2017 Findings: No intracranial hemorrhage is seen. No evidence of acute territorial infarct is seen. Note that CT is limited in sensitivity for acute ischemia. Age-related atrophic changes are noted. Similar mild patchy periventricular and inflammatory hypoattenuation which is nonspecific but most commonly relates to chronic small vessel disease. No abnormal extra axial fluid collection is identified. No mass effect or midline shift is seen. No acute osseous abnormalities are seen. Impression: 1. No acute intracranial process identified 2. Age-related atrophy, and similar mild changes of chronic small vessel disease CT DOSING PQRS STATEMENT: One or more of the following individualized dose reduction techniques were utilized for this examination: 1. Automated exposure control 2. Adjustment of the mA and/or kV according to patient size 3. Use of iterative reconstruction technique Electronically signed by: Micah Stevenson MD (02/28/2018 2:42 PM) [facility] DICTATED AND SIGNED BY: MICAH STEVENSON MD DATE: 02/28/18 2380 CC: AKIN GREEN MD; CHELSEA PEREZ MD ~ Comparison: Chest radiograph July 17, 2017 Findings: There is no focal consolidation. There is no pleural effusion or pneumothorax. The cardiomediastinal silhouette and pulmonary vasculature are within normal limits. No acute osseous abnormalities are seen. Impression: No evidence of acute cardiopulmonary process. Electronically signed by: Micah Stevenson MD (02/28/2018 2:43 PM) [facility] DICTATED AND SIGNED BY: MICAH STEVENSON MD DATE: 02/28/18 1442 CC: AKIN GREEN MD; CHELSEA PEREZ MD ~ Course & Med Decision Making Course & Med Decision Making Pertinent Labs and Imaging studies reviewed. (See chart for details) Evaluation of patient in ER showed 72-year-old female patient with multiple medical problems complaining of generalized weakness and dizziness and near syncope. Patient had unremarkable physical exam and orthostatic vitals labs except for mild dehydration. Patient treated with IV fluid and Dr. Green consulted at 1525 who agreed with plan of admission of the patient. [] Dragon Disclaimer Dragon Disclaimer This electronic medical record was generated, in whole or in part, using a voice recognition dictation system. Departure Departure: Impression: Primary Impression: Near syncope Additional Impressions: Dehydration Generalized weakness Disposition: 09 ADMITTED INPATIENT (At 1525) Referrals: AKIN GREEN MD (PCP) Problem Qualifiers CHELSEA PEREZ MD Feb 28, 2018 15:43
--- NOTE | 2018-02-28 16:16 | NUR ---
NURSING ADMIT: Pt Andrew, February admitted observation to room 125. Belongings accounted for. Routines discussed and pt oriented to room. Pt alert and oriented x4. Slow speech, pt reports this is normal for her alzheimers and seizures. Has been under a lot of stress lately with her husbands health. Will continue to monitor.
[2018-02-28 16:17] VITALS: BP 156/73
[2018-02-28] MEDS ORDERED: PNEUMOC CONJ VACC 23-VALENT 0.5 ML VIAL. VAX IM ONE (17:00)
[2018-02-28] MEDS ORDERED: ESTR2TAB PO (18:14)
[2018-02-28] MEDS ORDERED: ACETAMINOPHEN/CODEINE 300/30MG TABLET PO PRN (19:00)
[2018-02-28 19:29] VITALS: BP 158/80
[2018-02-28] MEDS: carBAMazepine 200 MG TABLET PO SCH (20:27)
[2018-02-28] MEDS: GABAPENTIN 300 MG CAPSULE. PO SCH (20:27)
[2018-02-28] MEDS: TRIAMTERENE/HCTZ 75/50MG TABLET. PO SCH (20:28)
[2018-02-28] MEDS: POTASSIUM CHLORIDE 10 MEQ TABLET.ER. PO SCH (20:28)
[2018-02-28] MEDS ORDERED: LORazepam 0.5 MG TABLET PO PRN (20:45)
[2018-02-28] MEDS ORDERED: PRAVASTATIN 20 MG TABLET. PO SCH (21:00)
[2018-02-28] MEDS ORDERED: CITALOPRAM 20 MG TABLET. PO SCH (21:00)
[2018-02-28] MEDS ORDERED: MEMANTINE 10 MG TABLET. PO SCH (21:00)
--- NOTE | 2018-02-28 21:57 | NUR ---
Nursing Note: Sitting with the pt at the beginning of the shift she is expressing a lot of anxiety and feeling very restless. Pt also reports that she has a headache rating it a 5/10. Pt states that she has been under a lot of stress the past couple of days due to a recent decline in her husbands health. Pt's was sent to a skilled nursing today, and her children are not agreeing with her decision. Pt given PRN pain medication as ordered, and obtained ordered for PRN Ativan. Pt requested to hold of on Pneumonia Vaccine until she was feeling a little better. Sat with pt awhile longer to talk. Pt given a HS snack and settled into bed.
[2018-02-28 22:38] VITALS: BP 138/76
[2018-03-01] MEDS: IV NORMAL SALINE 1,000ML 1,000 ML IV SCH ×2 (04:48→05:20)
[2018-03-01 06:04] VITALS: BP 177/76
[2018-03-01] MEDS: ACETAMINOPHEN/CODEINE 300/30MG TABLET PO PRN ×2 (06:09→06:16)
[2018-03-01 06:28] LABS: CALCIUM 8.1 mg/dL (8.5-10.1); CREATININE 1.1 mg/dL (0.6-1.0); GFR 49.1; POTASSIUM 4.1 mmol/L (3.5-5.1)
[2018-03-01 06:39] LABS: BASO % 1 % (0-3); EOS # 0.5 x10^3/uL (0.0-0.7); EOS % 7 % (0-3); HEMATOCRIT 33.2 % (36.0-47.0); HEMOGLOBIN 11.1 g/dL (12.0-15.5); LYMPH # 1.7 x10^3/uL (1.0-4.8); LYMPH % 24 % (24-48); MEAN CORPUSCULAR HEMOGLOBIN 32 pg (25-35); MEAN CORPUSCULAR HGB CONC 34 g/dL (31-37); MEAN CORPUSCULAR VOLUME 96 fL (79-100); MONO # 0.5 x10^3/uL (0.0-1.1); MONO % 7 % (0-9); NEUT # 4.5 x10^3uL (1.8-7.7); NEUT % 63 % (31-73); PLATELET COUNT 246 x10^3/uL (140-400); RED BLOOD COUNT 3.44 x10^6/uL (3.50-5.40); RED CELL DISTRIBUTION WIDTH 14.4 % (11.5-14.5); WHITE BLOOD COUNT 7.2 x10^3/uL (4.0-11.0)
[2018-03-01] MEDS: POTASSIUM CHLORIDE 10 MEQ TABLET.ER. PO SCH (08:28)
[2018-03-01] MEDS: carBAMazepine 200 MG TABLET PO SCH (08:28)
[2018-03-01] MEDS: TRIAMTERENE/HCTZ 75/50MG TABLET. PO SCH (08:28)
[2018-03-01] MEDS: GABAPENTIN 300 MG CAPSULE. PO SCH (08:28)
[2018-03-01] MEDS ORDERED: ACETAMINOPHEN 500 MG TABLET PO PRN (08:30)
[2018-03-01 08:39] VITALS: BP 159/82
[2018-03-01 08:41] VITALS: BP_SYST 130; BP_SYST 145; BP_DIAS 69; BP_DIAS 77
[2018-03-01] MEDS ORDERED: LORA0.5T96 PO (08:56)
[2018-03-01] MEDS ORDERED: FAMOTIDINE 20 MG TABLET PO SCH (09:00)
[2018-03-01] MEDS ORDERED: ESTRADIOL 1 MG TABLET PO SCH (09:00)
--- NOTE | 2018-03-01 10:01 | HP ---
ADMIT DATE: 02/28/2018 HISTORY OF PRESENT ILLNESS: A 72-year-old female came in through she was at the hospital visiting her when she became increasingly weak and blurred vision, near syncopal episode, palpitations. The patient has had a history of seizure activity. She was seen in the Emergency Room and then she was admitted for observation because of this situation where she could have had obviously a TIA or presyncopal spell. PAST MEDICAL HISTORY: Mild dementia, diabetes, hypertension, seizures. PAST SURGICAL HISTORY: Hysterectomy. SOCIAL HISTORY: The patient has social drinking. Denies smoking, alcohol or drug use. OTHER HISTORY: Cataract surgery, tonsillectomy, dementia, seizures, hypercholesterolemia, hypertension, asthma, irritable bowel syndrome, umbilical hernia, obesity, GERD, ovarian cancer, hysterectomy, musculoskeletal disorders, arthritis, diabetes, hypothyroidism, panic disorder, depression, anxiety and cancer as noted. Influenza and pneumococcal vaccines up-to-date. FAMILY HISTORY: Hypertension in the mother. Mother also with stroke, cardiovascular disease and father with cancer. ALLERGIES: BANANA AND ERYTHROMYCIN. MEDICATIONS: At home include pravastatin 40, Tylenol No. 3, Tegretol, gabapentin, Celexa, lorazepam 0.5, Namenda 10 mg, Maxzide, ranitidine and antidiarrheal medications. REVIEW OF SYSTEMS: The patient feels lightheaded and nears falling over. Denies chest pain, shortness of breath, marked dizziness. PHYSICAL EXAMINATION: GENERAL: Pleasant white female, moderate amount of distress. VITAL SIGNS: Blood pressure 145/77, respiratory rate 20, pulse 70, afebrile. HEENT: The patient's head atraumatic, normocephalic. Eyes: PERRLA without jaundice. Mouth and throat were normal. NECK: Supple, no JVD or thyromegaly. LUNGS: Diminished throughout, but clear. CARDIOVASCULAR: Regular sinus rhythm. S1, S2, without murmur, rub, thrill, or extra heart sounds. ABDOMEN: Soft, nontender, no rebound or guarding. Positive bowel sounds, no hepatosplenomegaly was noted. EXTREMITIES: No clubbing, cyanosis, nor edema. NEUROLOGIC: The patient was alert and oriented x 3. IMPRESSION: Near syncope, transient ischemic attacks. PLAN: The patient will be continued to be monitored carefully, make further evaluation on her as indicated and we will make further assessment as indicated. AKIN GREEN MD DR: ARPIT/keri JOB#: [id number] / [id number]
--- NOTE | 2018-03-01 10:15 | NUR ---
Discharge Note: MARY STARR [address] Discharge instructions and discharge home medications reviewed with PATIENT and a copy given. All questions have been answered and understanding verbalized. The following instructions and handouts were given: MEDICATIONS, FOLLOW UP INSTRUCTIONS, EDUCATIONAL HANDOUTS AND PRESCRIPTION GIVEN TO THE PATIENT. Discontinued lines and drains: PERIPHERAL IV DISCONTINUED WITH NO COMPLICATIONS. Patient discharged to HOME with [id number] via PRIVATE VEHICLE.
== END 2018-03-01 10:15 | disposition home or self-care (01) ==
LOC: ER 13:56 → INTOOBSV 15:33 → 1 SOUTH 15:33
PROVIDERS: ADMIT Family Medicine; ATTEND Family Medicine
DX: R55 Syncope and collapse (principal); E11.51 Type 2 diabetes mellitus with diabetic peripheral angiopathy without gangrene; E86.0 Dehydration; I10 Essential (primary) hypertension; E78.00 Pure hypercholesterolemia, unspecified; E03.9 Hypothyroidism, unspecified; F03.90 Unspecified dementia, unspecified severity, without behavioral disturbance, psychotic disturbance, mood disturbance, and anxiety; G45.9 Transient cerebral ischemic attack, unspecified; J45.909 Unspecified asthma, uncomplicated; K21.9 Gastro-esophageal reflux disease without esophagitis; K58.9 Irritable bowel syndrome, unspecified; Z80.9 Family history of malignant neoplasm, unspecified; Z82.3 Family history of stroke; Z82.49 Family history of ischemic heart disease and other diseases of the circulatory system; Z23 Encounter for immunization; Z85.43 Personal history of malignant neoplasm of ovary; Z90.710 Acquired absence of both cervix and uterus
CPT/HCPCS: 36415; 70450; 71045; 80048; 80053; 81001; 82947; 84484; 85025; 90471; 90732; 96360; 96361; 99285; G0378; J7040; G0379; J7030

== ENCOUNTER 2018-03-17 23:49 | Observation (INO) | payer OTHER ==
[~2018-03-17] VITALS: Ht 170.2 cm; Wt 93.2 kg
[~2018-03-17 23:49] MED LIST changes: +LORA0.5T96 PO; +METF500T16 PO; -METF500T5 PO
--- NOTE | 2018-03-18 00:11 | PHYS DOC ---
Past History Past Medical History: Dementia, Diabetes, Hypertension, Seizure Past Surgical History: Hysterectomy Alcohol Use: None Drug Use: None Adult General Chief Complaint Chief Complaint: LOWER EXT PAIN HPI HPI Patient is a 72 year old female who presents with cellulitis of the left lower leg. Patient states for the past 1-2 weeks she's had erythema and itching to the left lower leg. This progressively spread and now it is circumferential and tracking up towards the knee. Patient states that it's becoming worse she called her primary care who advised her to come in to be seen. Patient has a hx significant for dementia, diabetes, hypertension, seizures [on tegretol] asthma, irritable bowel syndrome, GERD, ovarian cancer, hysterectomy, panic disorder and depression, Review of Systems Review of Systems Constitutional: Denies fever or chills [] Eyes: Denies change in visual acuity, redness, or eye pain [] HENT: Denies nasal congestion or sore throat [] Respiratory: Denies cough or shortness of breath [] Cardiovascular: No additional information not addressed in HPI [] GI: Denies abdominal pain, nausea, vomiting, bloody stools or diarrhea [] : Denies dysuria or hematuria [] Musculoskeletal: Denies back pain or joint pain [] Integument: Denies rash or skin lesions [] Neurologic: Denies headache, focal weakness or sensory changes [] Endocrine: Denies polyuria or polydipsia [] All other systems were reviewed and found to be within normal limits, except as documented in this note. Allergies Allergies Allergies Coded Allergies Type Severity Reaction Last Updated Verified banana Allergy Intermediate 07/17/17 Yes erythromycin base Allergy Intermediate 07/17/17 No Physical Exam Physical Exam Constitutional: Well developed, well nourished, no acute distress, non-toxic appearance. [] HENT: Normocephalic, atraumatic, bilateral external ears normal, oropharynx moist, no oral exudates, nose normal. [] Eyes: PERRLA, EOMI, conjunctiva normal, no discharge. [] Neck: Normal range of motion, no tenderness, supple, no stridor. [] Cardiovascular:Heart rate regular rhythm, no murmur [] Lungs & Thorax: Bilateral breath sounds clear to auscultation [] Abdomen: Bowel sounds normal, soft, no tenderness, no masses, no pulsatile masses. [] Skin: Warm, dry, no erythema, no rash. [] Back: No tenderness, no CVA tenderness. [] Extremities: No tenderness, no cyanosis, no clubbing, ROM intact, no edema. Patient was circumferential erythema consistent with cellulitis to the left lower leg medial aspect greater than lateral aspect with the erythema tracking up towards the knee and covering greater than 70% of the lower extremity[] Neurologic: Alert and oriented X 3, normal motor function, normal sensory function, no focal deficits noted. [] Psychologic: Affect normal, judgement normal, mood normal. [] EKG EKG Bifasicular Block @ 67[] Radiology/Procedures Radiology/Procedures [address] [address] IMAGING REPORT Signed PATIENT: MARY STARR ACCOUNT: [id number] : 1945 LOCATION: ER AGE: 72 SEX: F EXAM STATUS: REG ER ORD. PHYSICIAN: ARIAN DASILVA MD REASON: pain PROCEDURE: VENOUS LOWER EXTREMITY LEFT EXAM: Left lower extremity venous Doppler. HISTORY: Left lower extremity redness, pain/swelling. COMPARISON: None. FINDINGS: Grayscale and Doppler analysis of the left lower extremity deep venous system was performed with graded compression and augmentation. The common femoral, greater saphenous, superficial femoral, popliteal and calf veins were assessed. There is no evidence of deep venous thrombosis. A small popliteal cyst measures 2.0 x 0.5 x 1.9 cm. Subcutaneous edema is noted distally. IMPRESSION: 1. No evidence of deep venous thrombosis. Electronically signed by: Renetta Coelho MD (03/18/2018 1:16 AM) [facility] DICTATED AND SIGNED BY: OSEI COELHO MD DATE: 03/18/18 0115 CC: AKIN GREEN MD; ARIAN DASILVA MD ~ Chest x-ray: NAD[] Course & Med Decision Making Course & Med Decision Making Pertinent Labs and Imaging studies reviewed. (See chart for details) Discussed with the hospitalist who agrees to admit the patient [] Dragon Disclaimer Dragon Disclaimer This electronic medical record was generated, in whole or in part, using a voice recognition dictation system. Departure Departure: Impression: Primary Impression: Cellulitis, leg Disposition: ADMITTED INPATIENT Admitting Physician: Other (Dr Garcia) Condition: STABLE Referrals: AKIN GREEN MD (PCP) ARIAN DASILVA MD Mar 18, 2018 00:11
[2018-03-18 00:47] LABS: BASO % 0 % (0-3); EOS # 0.5 x10^3/uL (0.0-0.7); EOS % 5 % (0-3); HEMATOCRIT 36.1 % (36.0-47.0); HEMOGLOBIN 12.1 g/dL (12.0-15.5); LYMPH # 1.8 x10^3/uL (1.0-4.8); LYMPH % 19 % (24-48); MEAN CORPUSCULAR HEMOGLOBIN 32 pg (25-35); MEAN CORPUSCULAR HGB CONC 34 g/dL (31-37); MEAN CORPUSCULAR VOLUME 97 fL (79-100); MONO # 0.6 x10^3/uL (0.0-1.1); MONO % 7 % (0-9); NEUT # 6.7 x10^3uL (1.8-7.7); NEUT % 69 % (31-73); PLATELET COUNT 318 x10^3/uL (140-400); RED BLOOD COUNT 3.74 x10^6/uL (3.50-5.40); RED CELL DISTRIBUTION WIDTH 14.5 % (11.5-14.5); WHITE BLOOD COUNT 9.6 x10^3/uL (4.0-11.0)
[2018-03-18 00:55] LABS: AMORPHOUS SEDIMENT,UR PRESENT /HPF; BACTERIA,URINE FEW /HPF (0-FEW); BILIRUBIN,URINE NEG (NEG); CLARITY,URINE HAZY; COLOR,URINE YELLOW; GLUCOSE,URINE NEG (NEG); NITRITE,URINE NEG (NEG); RBC,URINE 0 /HPF (0-2); SQUAMOUS EPITHELIAL CELL,UR MOD /LPF; UROBILINOGEN,URINE 0.2 mg/dL (0.2 mg/dL); WBC,URINE RARE /HPF (0-4)
[2018-03-18 00:56] LABS: GRANULAR CASTS,URINE FEW /HPF; HYALINE CASTS, URINE FEW /HPF
[2018-03-18 00:58] LABS: ALBUMIN 3.5 g/dL (3.4-5.0); ALBUMIN/GLOBULIN RATIO 0.8 (1.0-1.7); CREATININE 1.8 mg/dL (0.6-1.0); GFR 27.8; POTASSIUM 4.1 mmol/L (3.5-5.1); TOTAL BILIRUBIN 0.2 mg/dL (0.2-1.0); TOTAL PROTEIN 7.8 g/dL (6.4-8.2)
--- NOTE | 2018-03-18 01:19 | RAD ---
EXAM: Left lower extremity venous Doppler. HISTORY: Left lower extremity redness, pain/swelling. COMPARISON: None. FINDINGS: Grayscale and Doppler analysis of the left lower extremity deep venous system was performed with graded compression and augmentation. The common femoral, greater saphenous, superficial femoral, popliteal and calf veins were assessed. There is no evidence of deep venous thrombosis. A small popliteal cyst measures 2.0 x 0.5 x 1.9 cm. Subcutaneous edema is noted distally. IMPRESSION: 1. No evidence of deep venous thrombosis. Electronically signed by: Renetta Coelho MD (03/18/2018 1:16 AM) [facility]
[2018-03-18] MEDS ORDERED: PIPERACILLIN/TAZOBACTAM 3.375 GM VIAL IV ONE ×2 (01:25→01:27)
[2018-03-18] MEDS ORDERED: IV NORMAL SALINE 50ML 50 ML ONE ×2 (01:25→01:27)
[2018-03-18] MEDS ORDERED: PIPERACILLIN/TAZOBACTAM 3.375 GM in IV NORMAL SALINE 50ML 50 ML IV ONE (01:30)
--- NOTE | 2018-03-18 01:50 | EKG ---
[address] [address] Test Date: 2018-03-18 Test Time: 01:48:08 Pat Name: MARY STARR Department: Room: Gender: F Vest Finisher: ARIE : 1945 Requested By: ARIAN DASILVA Order Number: [id number] Reading MD: Jb Smiley MD Measurements Intervals [place] Rate: 67 P: 23 VA: 168 QRS: -82 QRSD: 134 T: 0 QT: 462 QTc: 491 Interpretive Statements SINUS RHYTHM ABNORMAL LEFT AXIS DEVIATION LEFT ANTERIOR FASCICULAR BLOCK RIGHT BUNDLE BRANCH BLOCK BIFASCICULAR BLOCK Electronically Signed On 03-22-2018 15:12:10 CDT by Jb Smiley MD
--- NOTE | 2018-03-18 02:28 | RAD ---
EXAM: CHEST 2 VIEWS. HISTORY: Chest pain. COMPARISON: February 28, 2018. FINDINGS: Frontal and lateral views of the chest are obtained. There are no confluent infiltrates. There is no pneumothorax or pleural effusion. The heart is not enlarged. The aorta is tortuous but stable in contour. IMPRESSION: 1. No confluent infiltrates. Electronically signed by: Renetta Coelho MD (03/18/2018 2:25 AM) [facility]
[2018-03-18] MEDS ORDERED: MORPHINE SULFATE 4 MG/ML DISP.SYRIN. IV PRN (03:15)
[2018-03-18] MEDS ORDERED: ONDANSETRON PF 4 MG/2 ML VIAL. IV PRN (03:15)
[2018-03-18 03:33] VITALS: BP 167/70
[2018-03-18 05:38] VITALS: BP 109/51
[2018-03-18] MEDS: PIPERACILLIN/TAZOBACTAM 3.375 GM in IV NORMAL SALINE 50ML 50 ML IV SCH ×4 (05:50→23:09)
[2018-03-18 10:19] LABS: CARBAM 10.7 mcg/mL (4.0-12.0)
[2018-03-18 10:40] VITALS: BP 133/71
[2018-03-18] MEDS ORDERED: ACETAMINOPHEN/CODEINE 300/30MG TABLET PO PRN (10:45)
[2018-03-18] MEDS ORDERED: LORazepam 0.5 MG TABLET PO PRN (10:45)
--- NOTE | 2018-03-18 11:18 | HP ---
ADMIT DATE: 03/18/2018 HISTORY OF PRESENT ILLNESS: An 72-year-old female came in through the Emergency Room. The patient was noted to have cellulitis to her left lower leg. She has had this for the last couple of weeks; however, she desired coming into the physician's office to get treated. The patient also notes that she has had a history of diabetes and is probably made it worse. She has extensive swelling and redness to the lower leg as well as pain. PAST MEDICAL HISTORY: Dementia, diabetes, hypertension, history of seizures, hysterectomy, cataracts, tonsillectomy, Alzheimer disease, hypercholesterolemia, has had problems with irritable bowel surgery, umbilical hernia repair, morbid obesity, GERD, history of ovarian cancer, hysterectomy, endocrine disorders of hypothyroidism, psychiatric problems of panic disorder and depression. VACCINATIONS: Influenza and pneumococcal vaccinations are up-to-date. FAMILY HISTORY: Mother had both hypertension and cardiovascular disease and father with some form of cancer. ALLERGIES: The patient has allergies to BANANA AND ERYTHROMYCIN based compounds. HOME MEDICATIONS: Tylenol No. 3, Tegretol 200 mg t.i.d., gabapentin 300 mg b.i.d., Celexa 40 mg a day, estradiol 2 mg daily, and her diarrhea medications, Ativan 0.5 q. 8, Namenda 10 mg at bedtime, potassium chloride 1 cap p.o. b.i.d., pravastatin 40 mg a day, Zantac 300 mg a day and Maxzide daily 75/50. SOCIAL HISTORY: The patient denies smoking, alcohol or drug use. REVIEW OF SYSTEMS: The patient denies any headaches, vision change, blurred vision, or double vision. Denies chest pain or shortness breath. Does have some chilling occasionally. The patient denies abdominal pain, nausea, vomiting, does have swelling, tenderness to that left lower leg and neurologically the patient is baseline for her. PHYSICAL EXAMINATION: GENERAL: This is a pleasant white female, in no apparent distress. VITAL SIGNS: Blood pressure 110/50, respiratory rate 20, pulse 80, afebrile. HEENT: The patient's head was atraumatic, normocephalic. Eyes: PERRLA without jaundice. Mouth and throat were normal. NECK: Supple without JVD or thyromegaly. LUNGS: Clear to auscultation. CARDIOVASCULAR: Regular sinus rhythm, S1, S2. ABDOMEN: Soft, nontender. EXTREMITIES: The patient's lower extremities show multiple nodular hard sclerotic gross, measuring approximately about half to 1.5 cm scattered over the lower legs. Left lower leg shows marked inflammation and irritation to the leg consistent with cellulitis with some mild streaking. The patient's pulses are noted normally in dorsal pedis. IMPRESSION: Cellulitis to the left lower leg, history of dementia, Alzheimer disease, diabetes, also she has chronic kidney disease stage 3. PLAN: The patient will be admitted. Continue on IV antibiotic therapy. Make further evaluation on her as indicated per those results. AKIN GREEN MD DR: ARPIT/keri JOB#: [id number] / [id number]
[2018-03-18] MEDS ORDERED: ENOXAPARIN 30 MG/0.3 ML SYRINGE. SQ SCH (12:30)
[2018-03-18] MEDS: ESTRADIOL 1 MG TABLET PO SCH (14:33)
[2018-03-18] MEDS: carBAMazepine 200 MG TABLET PO SCH ×2 (14:33→20:15)
[2018-03-18] MEDS: LACTOBACILLUS RHAMNOSUS GG 1 CAPSULE. PO SCH ×2 (14:33→19:38)
[2018-03-18 15:04] VITALS: BP 134/74
[2018-03-18 18:36] VITALS: BP 133/74
[2018-03-18] MEDS: POTASSIUM CHLORIDE 10 MEQ TABLET.ER. PO SCH (20:15)
[2018-03-18] MEDS: TRIAMTERENE/HCTZ 75/50MG TABLET. PO SCH (20:15)
[2018-03-18] MEDS: GABAPENTIN 300 MG CAPSULE. PO SCH (20:15)
[2018-03-18] MEDS: MEMANTINE 10 MG TABLET. PO SCH ×2 (20:16→20:50)
[2018-03-18] MEDS ORDERED: APIXABAN 2.5 MG TABLET PO SCH (21:00)
[2018-03-18] MEDS ORDERED: PRAVASTATIN 20 MG TABLET. PO SCH (21:00)
[2018-03-18] MEDS ORDERED: CITALOPRAM 20 MG TABLET. PO SCH (21:00)
[2018-03-18 22:04] VITALS: BP 142/73
[2018-03-19] MEDS: PIPERACILLIN/TAZOBACTAM 3.375 GM in IV NORMAL SALINE 50ML 50 ML IV SCH (05:01)
[2018-03-19 05:22] VITALS: BP 155/87
[2018-03-19 05:52] LABS: BASO # 0.1 x10^3/uL (0.0-0.2); BASO % 1 % (0-3); EOS # 0.5 x10^3/uL (0.0-0.7); EOS % 8 % (0-3); HEMATOCRIT 34.8 % (36.0-47.0); HEMOGLOBIN 11.5 g/dL (12.0-15.5); LYMPH # 1.7 x10^3/uL (1.0-4.8); LYMPH % 25 % (24-48); MEAN CORPUSCULAR HEMOGLOBIN 32 pg (25-35); MEAN CORPUSCULAR HGB CONC 33 g/dL (31-37); MEAN CORPUSCULAR VOLUME 96 fL (79-100); MONO # 0.5 x10^3/uL (0.0-1.1); MONO % 8 % (0-9); NEUT # 4.1 x10^3uL (1.8-7.7); NEUT % 59 % (31-73); PLATELET COUNT 300 x10^3/uL (140-400); RED BLOOD COUNT 3.61 x10^6/uL (3.50-5.40); RED CELL DISTRIBUTION WIDTH 14.2 % (11.5-14.5); WHITE BLOOD COUNT 6.9 x10^3/uL (4.0-11.0)
[2018-03-19] MEDS: LACTOBACILLUS RHAMNOSUS GG 1 CAPSULE. PO SCH (08:20)
[2018-03-19] MEDS: ESTRADIOL 1 MG TABLET PO SCH (08:20)
[2018-03-19] MEDS: TRIAMTERENE/HCTZ 75/50MG TABLET. PO SCH (08:20)
[2018-03-19] MEDS: carBAMazepine 200 MG TABLET PO SCH (08:21)
[2018-03-19] MEDS: POTASSIUM CHLORIDE 10 MEQ TABLET.ER. PO SCH (08:21)
[2018-03-19] MEDS: GABAPENTIN 300 MG CAPSULE. PO SCH (08:21)
[2018-03-19] MEDS ORDERED: FAMOTIDINE 20 MG TABLET PO SCH (09:00)
[2018-03-19] MEDS ORDERED: CEPH500C PO (09:26)
[2018-03-19 11:25] VITALS: BP 121/70
== END 2018-03-19 11:48 | disposition home health service (06) ==
LOC: ER 23:49 → INTOOBSV 03-18 02:18 → 1 SOUTH 03-18 02:18
PROVIDERS: ADMIT Family Medicine; ATTEND Family Medicine
DX: L03.116 Cellulitis of left lower limb (principal); E03.9 Hypothyroidism, unspecified; E11.22 Type 2 diabetes mellitus with diabetic chronic kidney disease; E78.00 Pure hypercholesterolemia, unspecified; G30.9 Alzheimer's disease, unspecified; F02.80 Dementia in other diseases classified elsewhere, unspecified severity, without behavioral disturbance, psychotic disturbance, mood disturbance, and anxiety; I12.9 Hypertensive chronic kidney disease with stage 1 through stage 4 chronic kidney disease, or unspecified chronic kidney disease; J45.909 Unspecified asthma, uncomplicated; K21.9 Gastro-esophageal reflux disease without esophagitis; K58.9 Irritable bowel syndrome, unspecified; N18.3 Chronic kidney disease, stage 3 (moderate); Z82.49 Family history of ischemic heart disease and other diseases of the circulatory system; Z85.43 Personal history of malignant neoplasm of ovary; Z90.710 Acquired absence of both cervix and uterus; Z90.89 Acquired absence of other organs; Z80.9 Family history of malignant neoplasm, unspecified
CPT/HCPCS: 36415; 71046; 80053; 80156; 81001; 83605; 84484; 85025; 85610; 85730; 87040; 93005; 93971; 96365; 96372; 96375; 96376; 99285; G0378; J1650; J2543; G0379

== ENCOUNTER 2018-05-18 17:57 | Observation (INO) | payer OTHER ==
[~2018-05-18] VITALS: Ht 165.1 cm; Wt 90.8 kg
[~2018-05-18 17:57] MED LIST changes: +CEPH500C PO
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
[2018-05-18] MEDS ORDERED: IV RINGERS SOLUTION,LACTATED 1,000 ML IV SCH (18:23)
[2018-05-18 18:50] LABS: BASO % 1 % (0-3); EOS # 0.3 x10^3/uL (0.0-0.7); EOS % 4 % (0-3); HEMATOCRIT 35.3 % (36.0-47.0); HEMOGLOBIN 12.1 g/dL (12.0-15.5); LYMPH # 0.8 x10^3/uL (1.0-4.8); LYMPH % 9 % (24-48); MEAN CORPUSCULAR HEMOGLOBIN 33 pg (25-35); MEAN CORPUSCULAR HGB CONC 34 g/dL (31-37); MEAN CORPUSCULAR VOLUME 95 fL (79-100); MONO # 0.5 x10^3/uL (0.0-1.1); MONO % 5 % (0-9); NEUT # 7.3 x10^3uL (1.8-7.7); NEUT % 81 % (31-73); PLATELET COUNT 355 x10^3/uL (140-400); RED CELL DISTRIBUTION WIDTH 13.9 % (11.5-14.5); WHITE BLOOD COUNT 8.9 x10^3/uL (4.0-11.0)
[2018-05-18 18:56] LABS: ETHANOL < 10 mg/dL (0-10); SALIC 0.6 mg/dL (2.8-20.0)
[2018-05-18] MEDS ORDERED: TETANUS AND DIPHTHERIA TOX/PF 0.5 ML VIAL. VAX IM ONE (19:00)
[2018-05-18 19:03] LABS: ALBUMIN 3.5 g/dL (3.4-5.0); CALCIUM 8.6 mg/dL (8.5-10.1); CREATININE 2.4 mg/dL (0.6-1.0); DIRECT BILIRUBIN 0.1 mg/dL (0.0-0.2); MAGNESIUM 2.2 mg/dL (1.8-2.4); POTASSIUM 3.3 mmol/L (3.5-5.1); TOTAL BILIRUBIN 0.3 mg/dL (0.2-1.0)
[2018-05-18 19:16] LABS: ACETAMIN < 2.0 mcg/mL (10-30)
[2018-05-18 19:19] LABS: BARBITURATES NEG (NEG); BENZODIAZEPINES NEG (NEG); CANNABINOIDS NEG (NEG); COCAINE NEG (NEG); METHADONE NEG (NEG); OPIATES NEG (NEG); PHENCYCLIDINE NEG (NEG)
[2018-05-18 19:20] LABS: AMPHETAMINE/METHAMPHETAMINE NEG (NEG)
[2018-05-18 19:39] LABS: BILIRUBIN,URINE NEG (NEG); CLARITY,URINE CLOUDY; COLOR,URINE YELLOW; GLUCOSE,URINE NEG (NEG); NITRITE,URINE NEG (NEG); UROBILINOGEN,URINE 0.2 mg/dL (0.2 mg/dL)
[2018-05-18 19:40] LABS: BACTERIA,URINE MANY /HPF (0-FEW); GRANULAR CASTS,URINE FEW /HPF; SQUAMOUS EPITHELIAL CELL,UR MOD /LPF; WBC,URINE >40 /HPF (0-4)
[2018-05-18 19:56] LABS: SEDIMENTATION RATE 69 (0-25)
[2018-05-18] MEDS ORDERED: cefTRIAXone IM 1 GM VIAL IM ONE (20:45)
[2018-05-18] MEDS ORDERED: POTASSIUM CHLORIDE 20 MEQ/15 ML ORAL LIQUID. PO ONE (20:45)
--- NOTE | 2018-05-18 22:04 | EKG ---
[address] [address] Test Date: 2018-05-18 Test Time: 18:29:05 Pat Name: MARY STARR Department: Room: Gender: F Rn Acute: : 1945 Requested By: HEBER FLANAGAN Order Number: [id number] Reading MD: Marino Prakash Measurements Intervals [place] Rate: 90 P: -44 ME: 150 QRS: -91 QRSD: 128 T: 38 QT: 414 QTc: 511 Interpretive Statements SINUS RHYTHM ABNORMAL RIGHT SUPERIOR AXIS DEVIATION LEFT ANTERIOR FASCICULAR BLOCK RIGHT BUNDLE BRANCH BLOCK ABNORMAL ECG Electronically Signed On 05-21-2018 11:09:11 CDT by Marino Prakash
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
[2018-05-18] MEDS ORDERED: LORazepam 2 MG/ML VIAL IV PRN (22:30)
[2018-05-18] MEDS ORDERED: ONDANSETRON PF 4 MG/2 ML VIAL. IV PRN (22:30)
[2018-05-18] MEDS ORDERED: LORazepam 2 MG/ML VIAL IV ONE (23:00)
[2018-05-18] MEDS ORDERED: levoFLOXacin 500 MG TABLET PO ONE (23:00)
[2018-05-19 01:16] LABS: CARBAM 10.4 mcg/mL (4.0-12.0)
--- NOTE | 2018-05-19 03:55 | NUR ---
Pt admitted from ER via ambulance to ICU bed3 med/surg overflow. Pt presents A&OX3, denies any complaints of pain, denies any thoughts or suicidal ideations at this time. Oriented unit, nurse, call light and plan of care. V/u stated. A full complete history and assessment obtain by Jannette BRAY. Will continue with admission and plan of care.
[2018-05-19 04:03] VITALS: BP 134/78
[2018-05-19 04:32] LABS: BASO % 1 % (0-3); EOS # 0.4 x10^3/uL (0.0-0.7); EOS % 5 % (0-3); HEMATOCRIT 32.8 % (36.0-47.0); HEMOGLOBIN 11.2 g/dL (12.0-15.5); LYMPH # 1.2 x10^3/uL (1.0-4.8); LYMPH % 15 % (24-48); MEAN CORPUSCULAR HEMOGLOBIN 33 pg (25-35); MEAN CORPUSCULAR HGB CONC 34 g/dL (31-37); MEAN CORPUSCULAR VOLUME 96 fL (79-100); MONO # 0.6 x10^3/uL (0.0-1.1); MONO % 7 % (0-9); NEUT # 5.7 x10^3uL (1.8-7.7); NEUT % 73 % (31-73); PLATELET COUNT 314 x10^3/uL (140-400); RED CELL DISTRIBUTION WIDTH 14.2 % (11.5-14.5); WHITE BLOOD COUNT 7.8 x10^3/uL (4.0-11.0)
[2018-05-19 04:36] LABS: CALCIUM 8.3 mg/dL (8.5-10.1); CREATININE 2.2 mg/dL (0.6-1.0); GFR 22.1; POTASSIUM 3.5 mmol/L (3.5-5.1)
[2018-05-19] MEDS ORDERED: AZEL205. NS (05:30)
[2018-05-19] MEDS ORDERED: ASPI-630 PO (05:30)
[2018-05-19] MEDS ORDERED: TRAZ-85 PO (05:30)
--- NOTE | 2018-05-19 07:38 | NUR ---
This nurse resumed care of the pt. Pt is a 1:1 and is currently sitting in the bed watching television. Pt states, "I want to go home as soon as possible." Consulted Dr. Vance per protocol. This nurse is sitting outside the pt's room as the 1:1, will CTM.
[2018-05-19] MEDS ORDERED: TRIAMCINOLONE ACETONIDE 0.1% TOPICAL CREAM 15GM TUBE. TP SCH (09:00)
[2018-05-19] MEDS ORDERED: KETOCONAZOLE 2% TOPICAL CREAM 30GM TUBE. TP SCH (09:00)
[2018-05-19] MEDS ORDERED: LACTOBACILLUS RHAMNOSUS GG 1 CAPSULE. PO SCH (09:00)
--- NOTE | 2018-05-19 09:25 | NUR ---
Pt decided to leave AMA, Dr. Ledesma aware of this decision. IV discontinued, risks instructed to the pt about leaving AMA. Taxi called for the pt's transportation.
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
[2018-05-19] MEDS ORDERED: levoFLOXacin 250 MG TABLET PO SCH (21:00)
== END 2018-05-19 09:33 | disposition left against medical advice (07) ==
LOC: ER 17:57 → ICU 22:00 → INTOOBSV 22:00
PROVIDERS: ADMIT Family Medicine; ATTEND Family Medicine
DX: T14.91XA Suicide attempt, initial encounter (principal); N39.0 Urinary tract infection, site not specified; E03.9 Hypothyroidism, unspecified; E11.9 Type 2 diabetes mellitus without complications; E78.00 Pure hypercholesterolemia, unspecified; F03.90 Unspecified dementia, unspecified severity, without behavioral disturbance, psychotic disturbance, mood disturbance, and anxiety; F32.9 Major depressive disorder, single episode, unspecified; F41.0 Panic disorder [episodic paroxysmal anxiety]; G40.909 Epilepsy, unspecified, not intractable, without status epilepticus; G47.00 Insomnia, unspecified; E66.9 Obesity, unspecified; E87.6 Hypokalemia; M19.90 Unspecified osteoarthritis, unspecified site; I10 Essential (primary) hypertension; K21.9 Gastro-esophageal reflux disease without esophagitis; K58.9 Irritable bowel syndrome, unspecified; Z80.9 Family history of malignant neoplasm, unspecified; Z82.49 Family history of ischemic heart disease and other diseases of the circulatory system; X78.1XXA Intentional self-harm by knife, initial encounter; Y93.89 Activity, other specified; Y92.89 Other specified places as the place of occurrence of the external cause; Y99.8 Other external cause status; Z23 Encounter for immunization
CPT/HCPCS: 36415; 71046; 80048; 80076; 80156; 80307; 81001; 82550; 83605; 83690; 83735; 83880; 84443; 84484; 85025; 85379; 85610; 85651; 85730; 86592; 87040; 87086; 87641; 90471; 90472; 90714; 90756; 93005; 96361; 96365; 96372; 96375; 99285; G0378; G0480; G6039; J0696; J2060; J2405; J7120; 87186; 96374; G0379; 82003; G0479; Q2035

== ENCOUNTER 2018-07-06 11:26 | Inpatient (IN) | payer OTHER ==
[~2018-07-06] VITALS: Ht 167.6 cm; Wt 90.3 kg
[~2018-07-06 11:26] MED LIST changes: +ASPI-630 PO; +AZEL205. NS; +TRAZ-85 PO
[2018-07-06] MEDS ORDERED: IV NORMAL SALINE 1,000ML 1,000 ML IV SCH (12:00)
--- NOTE | 2018-07-06 12:02 | PHYS DOC ---
Past History Past Medical History: Anxiety, Dementia, Depression, Diabetes, Hypertension, Seizure, UTI Past Surgical History: Hysterectomy Alcohol Use: Rarely Drug Use: None Adult General Chief Complaint Chief Complaint: multiple problem HPI HPI Patient is a 72 year old female with history of dementia and anxiety and recent hospitalization with suicidal ideation brought in by EMS because of complaining of not feeling her legs for 2 or 3 days days. Patient told triage nurse that she had weakness of her legs because of pain and unable to walk for one week. Patient stated to me that she passed out and unable to walk because of her leg are weak but denies any lower extremity pain. Patient denies chest pain, fever and chills, shortness of breath, focal neuro deficit. She is a poor historian. Patient lost her on June 22 and lives by herself. Review of Systems Review of Systems Constitutional: Denies fever or chills [] Eyes: Denies change in visual acuity, redness, or eye pain [] HENT: Denies nasal congestion or sore throat [] Respiratory: Denies cough or shortness of breath [] Cardiovascular: No additional information not addressed in HPI [] GI: Denies abdominal pain, nausea, vomiting, bloody stools or diarrhea [] : Denies dysuria or hematuria [] Musculoskeletal: Denies back pain or joint pain [] Integument: Denies rash or skin lesions [] Neurologic: Denies headache, focal weakness or sensory changes [] Endocrine: Denies polyuria or polydipsia [] All other systems were reviewed and found to be within normal limits, except as documented in this note. Current Medications Current Medications Current Medications Medications (Trade) Dose Ordered Sig/Alirio Start Time Stop Time Status Last Admin Dose Admin Sodium Chloride 1,000 ml @ 1,000 mls/hr Q1H 07/06/18 12:00 07/06/18 12:59 Allergies Allergies Allergies Coded Allergies Type Severity Reaction Last Updated Verified banana Allergy Intermediate 07/17/17 Yes erythromycin base Allergy Intermediate 07/17/17 No Physical Exam Physical Exam Constitutional: Mild distress, non-toxic appearance. [] HENT: Normocephalic, atraumatic, oropharynx moist, no oral exudates, nose normal. [] Eyes: PERRLA, EOMI, conjunctiva normal, no discharge. [] Neck: Normal range of motion, no tenderness, supple, no stridor. [] Cardiovascular:Heart rate regular rhythm, no murmur [] Lungs & Thorax: Bilateral breath sounds clear to auscultation [] Abdomen: Bowel sounds normal, soft, no tenderness, no masses, no pulsatile masses. [] Skin: Warm, extensive erythematous rash under breast, chest and upper abdominal wall and groin like candidiasis rash Back: No tenderness, no CVA tenderness. [] Extremities: No tenderness, no cyanosis, no clubbing, ROM intact, no edema. [] Neurologic: Alert and oriented X 2, normal motor function, normal sensory function, no focal deficits noted. [] Psychologic: Affect anxious, mood normal. [] EKG EKG Urgent interpreted by me. EKG at 1135 showed normal sinus rhythm at rate of 98, right superior axis deviation, left anterior fascicular block, right bundle branch block, bifascicular block, poor R-wave progress in anteroseptal leads, multiple artifact, no acute ST-T wave abnormality Radiology/Procedures Radiology/Procedures [] Course & Med Decision Making Course & Med Decision Making Pertinent Labs reviewed. (See chart for details) Evaluation of patient in ER showed 9-year-old female patient with multiple medical problems brought in by EMS because of different complaints. Patient complaining of lower extremity weakness but was able to move her extremities. Patient was anxious in ER and had extensive candidiasis rash. Dr. Ledesma accepted admission at 1151. Dragon Disclaimer Dragon Disclaimer This electronic medical record was generated, in whole or in part, using a voice recognition dictation system. Departure Departure: Impression: Primary Impression: Generalized weakness Additional Impressions: Anemia Candidiasis of breast Anxiety Renal insufficiency Hypocalcemia Hypoalbuminemia Disposition[place] [id number]) Admitting Physician: Mark Ledesma (accepted the admission at 1152) Condition: STABLE Referrals: MARK LEDESMA MD (PCP) Problem Qualifiers CHELSEA PEREZ MD Jul 06, 2018 12:02
[2018-07-06 12:42] LABS: BASO % 1 % (0-3); EOS % 0 % (0-3); HEMATOCRIT 32.2 % (36.0-47.0); HEMOGLOBIN 10.8 g/dL (12.0-15.5); LYMPH # 0.3 x10^3/uL (1.0-4.8); LYMPH % 4 % (24-48); MEAN CORPUSCULAR HEMOGLOBIN 32 pg (25-35); MEAN CORPUSCULAR HGB CONC 34 g/dL (31-37); MEAN CORPUSCULAR VOLUME 95 fL (79-100); MONO # 0.3 x10^3/uL (0.0-1.1); MONO % 4 % (0-9); NEUT # 6.6 x10^3uL (1.8-7.7); NEUT % 91 % (31-73); PLATELET COUNT 373 x10^3/uL (140-400); RED BLOOD COUNT 3.37 x10^6/uL (3.50-5.40); RED CELL DISTRIBUTION WIDTH 13.8 % (11.5-14.5); WHITE BLOOD COUNT 7.2 x10^3/uL (4.0-11.0)
[2018-07-06 13:03] LABS: ALBUMIN 2.7 g/dL (3.4-5.0); ALBUMIN/GLOBULIN RATIO 0.7 (1.0-1.7); CALCIUM 7.8 mg/dL (8.5-10.1); CREATININE 1.2 mg/dL (0.6-1.0); GFR 44.4; POTASSIUM 3.5 mmol/L (3.5-5.1); TOTAL BILIRUBIN 0.2 mg/dL (0.2-1.0); TOTAL PROTEIN 6.6 g/dL (6.4-8.2)
[2018-07-06] MEDS ORDERED: NON FORMULARY ITEM (Trazodone Hcl 50 MG) PO PRN (13:30)
[2018-07-06] MEDS ORDERED: cefTRIAXone SODIUM 1 GM VIAL IV ONE (13:34)
[2018-07-06] MEDS ORDERED: IV NORMAL SALINE 50ML 50 ML ONE (13:34)
[2018-07-06] MEDS ORDERED: NON FORMULARY ITEM (Cephalexin 1 CAP) PO SCH (14:00)
[2018-07-06] MEDS: HEPARIN PF for SUB-Q USE 5,000 UNIT/0.5 ML VIAL. SQ SCH ×2 (14:00→22:55)
--- NOTE | 2018-07-06 14:16 | RAD ---
Portable chest, 07/06/2018: HISTORY: Shortness of breath Comparison is made to a study from 05/18/2018. The heart size and pulmonary vascularity are normal. No pulmonary infiltrate is seen. There is no evidence of pleural fluid. IMPRESSION: No acute cardiopulmonary abnormality is detected. Electronically signed by: Everton Schmidt MD (07/06/2018 2:13 PM) [facility]
[2018-07-06 14:21] VITALS: BP 154/73
[2018-07-06] MEDS ORDERED: PHEN100T2 PO (15:19)
[2018-07-06] MEDS ORDERED: LEVO25TA4 PO (15:19)
[2018-07-06] MEDS ORDERED: FURO-69 PO (15:19)
[2018-07-06] MEDS ORDERED: MEMA10TA PO (15:19)
[2018-07-06] MEDS ORDERED: FLUCONAZOLE 400MG/200ML PREMIX 200 ML IV SCH (15:30)
[2018-07-06] MEDS ORDERED: FLUCONAZOLE 100 MG TABLET. PO ONE ×2 (16:00→23:00)
[2018-07-06] MEDS: NYSTATIN TOPICAL POWDER 15GM BOTTLE. TP SCH ×2 (16:30→22:56)
[2018-07-06 17:24] LABS: BILIRUBIN,URINE NEG (NEG); CLARITY,URINE HAZY; COLOR,URINE YELLOW; GLUCOSE,URINE NEG (NEG)
[2018-07-06 17:26] LABS: BACTERIA,URINE FEW /HPF (0-FEW); GRANULAR CASTS,URINE OCC /HPF; HYALINE CASTS, URINE OCC /HPF; NITRITE,URINE NEG (NEG); SQUAMOUS EPITHELIAL CELL,UR MOD /LPF; UROBILINOGEN,URINE 1 mg/dL (0.2 mg/dL)
[2018-07-06] MEDS ORDERED: VANCOMYCIN PER PHARMACY MC PRN (18:00)
--- NOTE | 2018-07-06 18:35 | PDOC ---
Exam Note: Jules Note: Please also refer to the separate dictated note~for this date of service dictated separately.~Patient seen individually. Discussed the patient with Nursing staff reviewed the chart.~Reviewed interim history and current functioning. Reviewed vital signs,~Labs/ Radiology~and current medications noted below. Continue current treatment with the changes noted in the dictated addendum note Assessment: Vital Signs: Vital Signs Date Time Temp Pulse Resp B/P (MAP) Pulse Ox O2 Delivery O2 Flow Rate FiO2 07/06/18 17:31 Room Air 07/06/18 14:21 99.2 92 18 154/73 (100) 99 Labs: Laboratory Tests Test 07/06/18 12:15 07/06/18 17:00 White Blood Count 7.2 x10^3/uL (4.0-11.0) Red Blood Count 3.37 x10^6/uL (3.50-5.40) L Hemoglobin 10.8 g/dL (12.0-15.5) L Hematocrit 32.2 % (36.0-47.0) L Mean Corpuscular Volume 95 fL (79-100) Mean Corpuscular Hemoglobin 32 pg (25-35) Mean Corpuscular Hemoglobin Concent 34 g/dL (31-37) Red Cell Distribution Width 13.8 % (11.5-14.5) Platelet Count 373 x10^3/uL (140-400) Neutrophils (%) (Auto) 91 % (31-73) H Lymphocytes (%) (Auto) 4 % (24-48) L Monocytes (%) (Auto) 4 % (0-9) Eosinophils (%) (Auto) 0 % (0-3) Basophils (%) (Auto) 1 % (0-3) Neutrophils # (Auto) 6.6 x10^3uL (1.8-7.7) Lymphocytes # (Auto) 0.3 x10^3/uL (1.0-4.8) L Monocytes # (Auto) 0.3 x10^3/uL (0.0-1.1) Eosinophils # (Auto) 0.0 x10^3/uL (0.0-0.7) Basophils # (Auto) 0.0 x10^3/uL (0.0-0.2) Prothrombin Time 10.4 SEC (9.4-11.4) Prothrombin Time INR 1.0 (0.9-1.1) Sodium Level 141 mmol/L (136-145) Potassium Level 3.5 mmol/L (3.5-5.1) Chloride Level 103 mmol/L (98-107) Carbon Dioxide Level 23 mmol/L (21-32) Anion Gap 15 (6-14) H Blood Urea Nitrogen 16 mg/dL (7-20) Creatinine 1.2 mg/dL (0.6-1.0) H Estimated GFR (Cockcroft-Gault) 44.4 BUN/Creatinine Ratio 13 (6-20) Glucose Level 161 mg/dL (70-99) H Lactic Acid Level 1.8 mmol/L (0.4-2.0) Calcium Level 7.8 mg/dL (8.5-10.1) L Total Bilirubin 0.2 mg/dL (0.2-1.0) Aspartate Amino Transferase (AST) 29 U/L (15-37) Alanine Aminotransferase (ALT) 22 U/L (14-59) Alkaline Phosphatase 87 U/L (46-116) Creatine Kinase 166 U/L (26-192) PQ-[id number]-Y-Type Natriuretic Peptide 509 pg/mL (0-124) H Total Protein 6.6 g/dL (6.4-8.2) Albumin 2.7 g/dL (3.4-5.0) L Albumin/Globulin Ratio 0.7 (1.0-1.7) L Urine Collection Type Void Urine Color Yellow Urine Clarity Hazy Urine pH 5.5 Urine Specific [place] 1.025 Urine Protein 100 mg/dl (NEG-TRACE) Urine Glucose (UA) Neg mg/dL (NEG) Urine Ketones (Stick) 40 mg/dL (NEG) Urine Blood Small (NEG) Urine Nitrite Neg (NEG) Urine Bilirubin Neg (NEG) Urine Urobilinogen Dipstick 1 mg/dL (0.2 mg/dL) Urine Leukocyte Esterase Neg (NEG) Urine RBC 3-5 /HPF (0-2) Urine WBC 1-4 /HPF (0-4) Urine Squamous Epithelial Cells Mod /LPF Urine Bacteria Few /HPF (0-FEW) Urine Hyaline Casts Occ /HPF Urine Granular Casts Occ /HPF Current Medications: Meds: Current Medications Sodium Chloride 1,000 ml @ 1,000 mls/hr Q1H IV Last administered on 07/06/18at 12:36; Start 07/06/18 at 12:00; Stop 07/06/18 at 12:59; Status DC Ceftriaxone Sodium 1 gm/ Sodium Chloride 50 ml @ 100 mls/hr 1X ONCE IV Last administered on 07/06/18at 13:35; Start 07/06/18 at 13:30; Stop 07/06/18 at 17:55 ; Status DC Carbamazepine (TEGretol) 200 mg QID PO ; Start 07/06/18 at 17:00; Status UNV Gabapentin (Neurontin) 300 mg BID PO ; Start 07/06/18 at 21:00; Status UNV Non-Formulary Medication (Aspirin ) 81 mg DAILY PO ; Start 07/07/18 at 09:00; Status UNV Non-Formulary Medication (Azelastine Hcl (Astepro)) 205.5 mcg DAILY NS ; Start 07/07/18 at 09:00; Stop 07/07/18 at 09:00; Status DC Non-Formulary Medication (Cephalexin ) 1 cap TID PO ; Start 07/06/18 at 14:00; Stop 07/06/18 at 17:55; Status DC Non-Formulary Medication (Citalopram Hydrobromide (Celexa)) 40 mg QHS PO ; Start 07/06/18 at 21:00; Status UNV Non-Formulary Medication (Potassium Chloride ) 1 cap BID PO ; Start 07/06/18 at 21:00; Status UNV Non-Formulary Medication (Pravastatin Sodium ) 1 tab QHS PO ; Start 07/06/18 at 21:00; Status UNV Non-Formulary Medication (Ranitidine Hcl ) 1 cap BID PO ; Start 07/06/18 at 21: 00; Status UNV Non-Formulary Medication (Trazodone Hcl ) 50 mg QHS PRN PO INSOMNIA; Start 07/06/18 at 13:30; Stop 07/06/18 at 17:55; Status DC Non-Formulary Medication (Triamterene/ Hydrochlorothiazid (Triamterene-Hctz 75- 50 Mg Tab)) 1 tab BID PO ; Start 07/06/18 at 21:00; Status UNV Heparin Sodium (Porcine) (Heparin Sq) 5,000 unit Q8HRS SQ ; Start 07/06/18 at 14 :00 Sodium Chloride 50 ml @ As Directed STK-MED ONCE .ROUTE ; Start 07/06/18 at 13: 34; Stop 07/06/18 at 13:35; Status DC Ceftriaxone Sodium (Rocephin) 1 gm STK-MED ONCE IV ; Start 07/06/18 at 13:34; Stop 07/06/18 at 17:55; Status DC Fluconazole/ Sodium Chloride 200 ml @ 100 mls/hr Q24H IV ; Start 07/06/18 at 15 :30; Stop 07/06/18 at 15:57; Status DC Fluconazole (Diflucan) 150 mg 1X ONCE PO ; Start 07/06/18 at 16:00; Stop at 16:01; Status DC Nystatin (Nystop) 1 fortunato BID TP Last administered on 07/06/18at 16:30; Start 07/06/18 at 16:30 Furosemide (Lasix) 20 mg DAILY PO ; Start 07/07/18 at 09:00; Status UNV Phenobarbital (Luminal) 100 mg DAILY PO ; Start 07/07/18 at 09:00; Status UNV Non-Formulary Medication (Levothyroxine Sodium ) 1 tab DAILY PO ; Start at 09:00; Status UNV Non-Formulary Medication (Memantine Hcl (Namenda)) 1 tab BID PO ; Start at 21:00; Status UNV Fluconazole (Diflucan) 100 mg DAILY PO ; Start 07/07/18 at 09:00; Status UNV Vancomycin HCl (Vanco Per Pharmacy) 1 each PRN DAILY PRN MC SEE COMMENTS; Start 07/06/18 at 18:00; Status UNV Active Scripts Active Cephalexin 500 Mg Capsule 1 Cap PO TID Reported Namenda (Memantine Hcl) 10 Mg Tablet 1 Tab PO BID Phenobarbital 100 Mg Tablet 100 Mg PO DAILY Levothyroxine Sodium 25 Mcg Tablet 1 Tab PO DAILY Lasix (Furosemide) 20 Mg Tablet 1 Tab PO DAILY Astepro (Azelastine Hcl) 205.5 Mcg/0.137 Ml [place].pump 205.5 Mcg NS DAILY Aspirin 81 Mg Tab.chew 81 Mg PO DAILY Trazodone Hcl 50 Mg Tablet 50 Mg PO QHS PRN Celexa (Citalopram Hydrobromide) 40 Mg Tablet 40 Mg PO QHS LAST DOSE GIVEN: DATE: YESTERDAY TIME: AT BEDTIME NEXT DOSE DUE: DATE: TODAY TIME: AT BEDTIME Ranitidine Hcl 300 Mg Capsule 1 Cap PO BID LAST DOSE GIVEN: DATE: TODAY TIME: AM NEXT DOSE DUE: DATE: TODAY TIME: PM Triamterene-Hctz 75-50 Mg Tab (Triamterene/Hydrochlorothiazid) 1 Each Tablet 1 Tab PO BID LAST DOSE GIVEN: DATE: TIME: AM NEXT DOSE DUE: DATE: TODAY TIME: PM Pravastatin Sodium 40 Mg Tablet 1 Tab PO QHS LAST DOSE GIVEN: DATE: YESTERDAY TIME: AT BEDTIME NEXT DOSE DUE: DATE: TODAY TIME: AT BEDTIME Anti-Diarrhea (Loperamide Hcl) 2 Mg Tablet 2 Mg PO NOT GIVEN TODAY NEXT DOSE DUE: DATE: TODAY TIME: IF AND WHEN NEEDED Gabapentin 100 Mg Capsule 300 Mg PO BID LAST DOSE GIVEN: DATE: TIME: AM NEXT DOSE DUE: DATE: TODAY TIME: PM Potassium Chloride 10 Meq Capsule.er 1 Cap PO BID LAST DOSE GIVEN: DATE: TIME: AM NEXT DOSE DUE: DATE: TODAY TIME: PM Tegretol (Carbamazepine) 200 Mg Tablet 200 Mg PO QID LAST DOSE GIVEN: DATE: TODAY TIME: AM NEXT DOSE DUE: DATE: TODAY TIME: AFTERNOON I have reviewed the current psychotropics carefully including drug interactions. Risk benefit ratio favors no change other than as noted in my dictated progress note. Diagnosis: Problems: (1) Anxiety disorder (2) Major depressive disorder, recurrent episode (3) Mild cognitive disorder KAYLAN CURRAN MD Jul 06, 2018 18:34
[2018-07-06 19:20] VITALS: BP 154/71
[2018-07-06] MEDS ORDERED: DEXTROSE 50% 25 GM / 50ML DISP.SYRIN. IV PRN (20:00)
[2018-07-06] MEDS ORDERED: CITALOPRAM 20 MG TABLET. PO SCH (21:00)
[2018-07-06] MEDS ORDERED: VANCOMYCIN 2 GM in IV NORMAL SALINE 500ML 500 ML IV ONE (21:00)
[2018-07-06] MEDS: FAMOTIDINE 20 MG TABLET PO SCH (22:51)
[2018-07-06] MEDS: PRAVASTATIN 20 MG TABLET. PO SCH (22:52)
[2018-07-06] MEDS: carBAMazepine 200 MG TABLET PO SCH (22:53)
[2018-07-06] MEDS: MIRTAZAPINE 7.5 MG TABLET. PO SCH (22:53)
[2018-07-06] MEDS: POTASSIUM CHLORIDE 10 MEQ TABLET.ER. PO SCH (22:53)
[2018-07-06] MEDS: GABAPENTIN 300 MG CAPSULE. PO SCH (22:53)
[2018-07-06] MEDS: LACTOBACILLUS RHAMNOSUS GG 1 CAPSULE. PO SCH (22:53)
[2018-07-06] MEDS: MEMANTINE 10 MG TABLET. PO SCH (22:54)
[2018-07-06 23:09] VITALS: BP 148/76
[2018-07-07 05:12] VITALS: BP 147/73
[2018-07-07] MEDS: LEVOTHYROXINE 25 MCG TABLET. PO SCH (06:15)
[2018-07-07] MEDS: HEPARIN PF for SUB-Q USE 5,000 UNIT/0.5 ML VIAL. SQ SCH ×3 (06:20→22:19)
[2018-07-07 06:34] LABS: BASO % 0 % (0-3); EOS % 0 % (0-3); HEMATOCRIT 30.2 % (36.0-47.0); HEMOGLOBIN 10.2 g/dL (12.0-15.5); LYMPH # 0.7 x10^3/uL (1.0-4.8); LYMPH % 10 % (24-48); MEAN CORPUSCULAR HEMOGLOBIN 32 pg (25-35); MEAN CORPUSCULAR HGB CONC 34 g/dL (31-37); MEAN CORPUSCULAR VOLUME 94 fL (79-100); MONO # 0.5 x10^3/uL (0.0-1.1); MONO % 7 % (0-9); NEUT # 6.1 x10^3uL (1.8-7.7); NEUT % 83 % (31-73); PLATELET COUNT 325 x10^3/uL (140-400); RED BLOOD COUNT 3.21 x10^6/uL (3.50-5.40); RED CELL DISTRIBUTION WIDTH 13.3 % (11.5-14.5); WHITE BLOOD COUNT 7.3 x10^3/uL (4.0-11.0)
[2018-07-07 06:48] LABS: CALCIUM 7.4 mg/dL (8.5-10.1); CREATININE 1.1 mg/dL (0.6-1.0); GFR 49.1
[2018-07-07 06:52] LABS: POTASSIUM 2.6 mmol/L (3.5-5.1)
--- NOTE | 2018-07-07 07:58 | EKG ---
[address] [address] Test Date: 2018-07-06 Test Time: 11:51:35 Pat Name: MARY STARR Department: Room: 124 A Gender: F [employer] Manager: : [id number] Requested By: CHELSEA PEREZ Order Number: [id number] Reading MD: Jb Smiley MD Measurements Intervals [place] Rate: 98 P: 0 [place]: 170 QRS: -109 QRSD: 136 T: 26 QT: 396 QTc: 508 Interpretive Statements SINUS RHYTHM ABNORMAL RIGHT SUPERIOR AXIS DEVIATION LEFT ANTERIOR FASCICULAR BLOCK RIGHT BUNDLE BRANCH BLOCK BIFASCICULAR BLOCK Electronically Signed On 07-09-2018 14:04:43 NURSING DEPARTMENT CHAIRPERSON by Jb Smiley MD
[2018-07-07] MEDS: INSULIN LISPRO 300 UNITS/3 ML INSULN.PEN. SQ SCH ×3 (08:00→17:00)
[2018-07-07] MEDS: GABAPENTIN 300 MG CAPSULE. PO SCH ×4 (08:49→21:24)
[2018-07-07] MEDS: POTASSIUM CHLORIDE 10 MEQ TABLET.ER. PO SCH ×2 (08:49→21:25)
[2018-07-07] MEDS: LACTOBACILLUS RHAMNOSUS GG 1 CAPSULE. PO SCH ×2 (08:49→21:24)
[2018-07-07] MEDS: FLUCONAZOLE 100 MG TABLET. PO SCH (08:49)
[2018-07-07] MEDS: PHENOBARBITAL 100 MG PO SCH (08:50)
[2018-07-07] MEDS: ASPIRIN 81 MG TAB.CHEW PO SCH (08:50)
[2018-07-07] MEDS: FAMOTIDINE 20 MG TABLET PO SCH ×2 (08:51→21:24)
[2018-07-07] MEDS: TRIAMTERENE/HCTZ 75/50MG TABLET. PO SCH ×2 (08:52→17:16)
[2018-07-07] MEDS: carBAMazepine 200 MG TABLET PO SCH ×4 (08:52→21:25)
[2018-07-07] MEDS: MEMANTINE 10 MG TABLET. PO SCH ×2 (08:52→21:24)
[2018-07-07] MEDS: FUROSEMIDE 20 MG TABLET PO SCH (08:52)
[2018-07-07] MEDS ORDERED: LORazepam 0.5 MG TABLET PO PRN (09:00)
[2018-07-07] MEDS ORDERED: AZELASTINE HCL 205.5 MCG NS SCH (09:00)
[2018-07-07] MEDS ORDERED: ELECTROLYTE (NON-ICU) PROTOCOL MC PRN (09:30)
[2018-07-07] MEDS ORDERED: IOHEXOL 300 MG/ML 75 ML VIAL. IV ONE (09:30)
[2018-07-07] MEDS: NYSTATIN TOPICAL POWDER 15GM BOTTLE. TP SCH ×2 (09:43→21:26)
[2018-07-07] MEDS: LOPERAMIDE 2 MG CAPSULE PO PRN ×2 (09:43→12:50)
[2018-07-07] MEDS ORDERED: GABAPENTIN 100 MG CAPSULE. PO ONE (09:45)
[2018-07-07 10:51] VITALS: BP 115/67
[2018-07-07] MEDS: POTASSIUM CHLORIDE 20 MEQ/15 ML ORAL LIQUID. PO SCH ×2 (10:57→12:50)
--- NOTE | 2018-07-07 13:16 | RAD ---
Examination: CT angiography chest HISTORY: History of shortness of breath, elevated d-dimer COMPARISON: None available technique: Axial CT and radiographic images of chest were performed with IV contrast. Coronal and sagittal 3-D MIP reformats are performed Exposure: One or more of the following individualized dose reduction techniques were utilized for this examination: 1. Automated exposure control 2. Adjustment of the mA and/or kV according to patient size 3. Use of iterative reconstruction technique FINDINGS: The visualized thyroid gland grossly appears unremarkable. The central airways are patent. The ascending aorta measures 3.2 cm in transverse dimension. There is no evidence of filling defect identified in the main pulmonary arterial trunk and right and left main pulmonary arteries. The evaluation of the distal lobar, segmental branches of the pulmonary arteries is limited. Coronary artery calcifications identified The lungs are clear. There is mild decreased attenuation noted in the liver likely hepatic steatosis. The visualized adrenal glands are minimally prominent. Partially visualized cystic structure identified in the left kidney probably a cyst. IMPRESSION: 1. No evidence of central pulmonary embolism. The evaluation the distal lobar, segmental branches of the pulmonary arteries is limited. 2. Coronary artery calcifications. Electronically signed by: Derek Joshua MD (07/07/2018 1:13 PM) [facility]
[2018-07-07 14:36] VITALS: BP 111/71
--- NOTE | 2018-07-07 18:46 | PDOC ---
Exam Note: Jules Note: Please also refer to the separate dictated note~for this date of service dictated separately.~Patient seen individually. Discussed the patient with Nursing staff reviewed the chart.~Reviewed interim history and current functioning. Reviewed vital signs,~Labs/ Radiology~and current medications noted below. Continue current treatment with the changes noted in the dictated addendum note Assessment: Vital Signs: Vital Signs Date Time Temp Pulse Resp B/P (MAP) Pulse Ox O2 Delivery O2 Flow Rate FiO2 07/07/18 14:36 98.0 73 20 111/71 (84) 94 07/07/18 08:30 Room Air I&O Intake and Output 07/07/18 07:00 Intake Total 2250 ml Output Total 757 ml Balance 1493 ml Intake Oral 700 ml IV Total 1550 ml Output Urine Total 600 ml Stool Total 5 ml Urine/Stool Mix 152 ml Labs: Laboratory Tests Test 07/06/18 18:57 07/06/18 20:55 07/07/18 06:00 07/07/18 08:02 D-Dimer (Bina) 2.40 mg/L (0.00-0.50) H Glucose (Fingerstick) 125 mg/dL (70-99) H 112 mg/dL (70-99) H White Blood Count 7.3 x10^3/uL (4.0-11.0) Red Blood Count 3.21 x10^6/uL (3.50-5.40) L Hemoglobin 10.2 g/dL (12.0-15.5) L Hematocrit 30.2 % (36.0-47.0) L Mean Corpuscular Volume 94 fL (79-100) Mean Corpuscular Hemoglobin 32 pg (25-35) Mean Corpuscular Hemoglobin Concent 34 g/dL (31-37) Red Cell Distribution Width 13.3 % (11.5-14.5) Platelet Count 325 x10^3/uL (140-400) Neutrophils (%) (Auto) 83 % (31-73) H Lymphocytes (%) (Auto) 10 % (24-48) L Monocytes (%) (Auto) 7 % (0-9) Eosinophils (%) (Auto) 0 % (0-3) Basophils (%) (Auto) 0 % (0-3) Neutrophils # (Auto) 6.1 x10^3uL (1.8-7.7) Lymphocytes # (Auto) 0.7 x10^3/uL (1.0-4.8) L Monocytes # (Auto) 0.5 x10^3/uL (0.0-1.1) Eosinophils # (Auto) 0.0 x10^3/uL (0.0-0.7) Basophils # (Auto) 0.0 x10^3/uL (0.0-0.2) Sodium Level 141 mmol/L (136-145) Potassium Level 2.6 mmol/L (3.5-5.1) *L Chloride Level 105 mmol/L (98-107) Carbon Dioxide Level 23 mmol/L (21-32) Anion Gap 13 (6-14) Blood Urea Nitrogen 13 mg/dL (7-20) Creatinine 1.1 mg/dL (0.6-1.0) H Estimated GFR (Cockcroft-Gault) 49.1 Glucose Level 104 mg/dL (70-99) H Calcium Level 7.4 mg/dL (8.5-10.1) L Test 07/07/18 12:11 07/07/18 15:55 07/07/18 16:23 Glucose (Fingerstick) 92 mg/dL (70-99) 128 mg/dL (70-99) H Potassium Level 3.8 mmol/L (3.5-5.1) Current Medications: Meds: Current Medications Sodium Chloride 1,000 ml @ 1,000 mls/hr Q1H IV Last administered on 07/06/18at 12:36; Start 07/06/18 at 12:00; Stop 07/06/18 at 12:59; Status DC Ceftriaxone Sodium 1 gm/ Sodium Chloride 50 ml @ 100 mls/hr 1X ONCE IV Last administered on 07/06/18at 13:35; Start 07/06/18 at 13:30; Stop 07/06/18 at 17:55 ; Status DC Carbamazepine (TEGretol) 200 mg QID PO Last administered on 07/07/18at 17:16; Start 07/06/18 at 21:00 Gabapentin (Neurontin) 300 mg BID PO Last administered on 07/07/18at 08:49; Start 07/06/18 at 21:00; Stop 07/07/18 at 09:01; Status DC Aspirin (Children'S Aspirin) 81 mg DAILYWBKFT PO Last administered on at 08:50; Start 07/07/18 at 08:00 Non-Formulary Medication (Azelastine Hcl (Astepro)) 205.5 mcg DAILY NS ; Start 07/07/18 at 09:00; Stop 07/07/18 at 09:00; Status DC Non-Formulary Medication (Cephalexin ) 1 cap TID PO ; Start 07/06/18 at 14:00; Stop 07/06/18 at 17:55; Status DC Citalopram Hydrobromide (CeleXA) 40 mg QHS PO Last administered on 07/06/18at 22 :53; Start 07/06/18 at 21:00 Potassium Chloride (Klor-Con) 10 meq BID PO Last administered on 07/07/18at 08: 49; Start 07/06/18 at 21:00 Pravastatin Sodium (Pravachol) 40 mg QHS PO Last administered on 07/06/18at 22: 52; Start 07/06/18 at 21:00 Famotidine (Pepcid) 40 mg BID PO Last administered on 07/07/18at 08:51; Start 07/06/18 at 21:00 Non-Formulary Medication (Trazodone Hcl ) 50 mg QHS PRN PO INSOMNIA; Start 07/06/18 at 13:30; Stop 07/06/18 at 17:55; Status DC Triamterene/HCTZ (Maxzide 75/50mg) 1 tab [id number] PO Last administered on at 17:16; Start 07/07/18 at 09:00 Heparin Sodium (Porcine) (Heparin Sq) 5,000 unit Q8HRS SQ Last administered on 07/07/18at 12:52; Start 07/06/18 at 14:00 Sodium Chloride 50 ml @ As Directed STK-MED ONCE .ROUTE ; Start 07/06/18 at 13: 34; Stop 07/06/18 at 13:35; Status DC Ceftriaxone Sodium (Rocephin) 1 gm STK-MED ONCE IV ; Start 07/06/18 at 13:34; Stop 07/06/18 at 17:55; Status DC Fluconazole/ Sodium Chloride 200 ml @ 100 mls/hr Q24H IV ; Start 07/06/18 at 15 :30; Stop 07/06/18 at 15:57; Status DC Fluconazole (Diflucan) 150 mg 1X ONCE PO ; Start 07/06/18 at 16:00; Stop at 16:01; Status DC Nystatin (Nystop) 1 fortunato BID TP Last administered on 07/07/18at 09:43; Start 07/06/18 at 16:30 Furosemide (Lasix) 20 mg DAILY PO Last administered on 07/07/18at 08:52; Start 07/07/18 at 09:00 Phenobarbital (Luminal) 100 mg DAILY PO Last administered on 07/07/18at 08:50; Start 07/07/18 at 09:00 Levothyroxine Sodium (Synthroid) 25 mcg DAILY06 PO Last administered on at 06:15; Start 07/07/18 at 06:00 Memantine (Namenda) 10 mg BID PO Last administered on 07/07/18at 08:52; Start 07/06/18 at 21:00 Fluconazole (Diflucan) 100 mg DAILY PO Last administered on 07/07/18at 08:49; Start 07/07/18 at 09:00 Vancomycin HCl (Vanco Per Pharmacy) 1 each PRN DAILY PRN MC SEE COMMENTS Last administered on 07/06/18at 19:05; Start 07/06/18 at 18:00 Lactobacillus Rhamnosus (Culturelle) 1 cap BID PO Last administered on at 08:49; Start 07/06/18 at 21:00 Vancomycin HCl 2 gm/Sodium Chloride 500 ml @ 250 mls/hr 1X ONCE IV Last administered on 07/06/18at 22:48; Start 07/06/18 at 21:00; Stop 07/06/18 at 22:59 ; Status DC Vancomycin HCl 1.25 gm/Sodium Chloride 250 ml @ 167 mls/hr Q24H IV ; Start 07/07/18 at 21:00 Vancomycin HCl (Vancomycin Trough Level) 1 each 1X ONCE MC ; Start 07/08/18 at 20:30; Stop 07/08/18 at 20:31 Influenza Virus Vaccine (Afluria Trivalent [id number] Syringe) 0.5 ml ONCE ONCE VAX IM Last administered on 07/07/18at 08:59; Start 07/07/18 at 09:00; Stop 07/07/18 at 09:01; Status DC Insulin Human Lispro (HumaLOG) 0-7 UNITS TIDWMEALS SQ ; Start 07/07/18 at 08:00 Dextrose 12.5 gm PRN Q15MIN PRN IV SEE COMMENTS; Start 07/06/18 at 20:00 Mirtazapine (Remeron) 7.5 mg QHS PO Last administered on 07/06/18at 22:53; Start 07/06/18 at 21:30 Fluconazole (Diflucan) 150 mg 1X ONCE PO Last administered on 07/06/18at 22:52 ; Start 07/06/18 at 23:00; Stop 07/06/18 at 23:01; Status DC Gabapentin (Neurontin) 300 mg TID PO Last administered on 07/07/18at 12:50; Start 07/07/18 at 09:00 Loperamide HCl (Imodium) 2 mg PRN Q15MIN PRN PO DIARRHEA Last administered on 07/07/18at 12:50; Start 07/07/18 at 09:00 Lorazepam (Ativan) 0.5 mg PRN QID PRN PO ANXIETY / AGITATION Last administered on 07/07/18at 09:43; Start 07/07/18 at 09:00 Mirtazapine (Remeron) 7.5 mg QHS PO ; Start 07/07/18 at 21:00; Stop 07/07/18 at 21:00; Status DC Info (Non-Icu Electrolyte Protocol) 1 ea CONT PRN PRN MC PER PROTOCOL; Start 07/07/18 at 09:30 Iohexol (Omnipaque 300 Mg/ml) 75 ml 1X ONCE IV Last administered on 07/07/18at 11:46; Start 07/07/18 at 09:30; Stop 07/07/18 at 09:31; Status DC Gabapentin (Neurontin) 200 mg 1X ONCE PO Last administered on 07/07/18at 09:49 ; Start 07/07/18 at 09:45; Stop 07/07/18 at 09:46; Status DC Potassium Chloride (KCl Oral Soln) 40 meq Q4HRS PO Last administered on at 12:50; Start 07/07/18 at 10:00; Stop 07/07/18 at 12:01; Status DC Active Scripts Active Reported Namenda (Memantine Hcl) 10 Mg Tablet 1 Tab PO BID Phenobarbital 100 Mg Tablet 100 Mg PO DAILY Levothyroxine Sodium 25 Mcg Tablet 1 Tab PO DAILY Lasix (Furosemide) 20 Mg Tablet 1 Tab PO DAILY Celexa (Citalopram Hydrobromide) 40 Mg Tablet 40 Mg PO QHS LAST DOSE GIVEN: DATE: YESTERDAY TIME: AT BEDTIME NEXT DOSE DUE: DATE: TIME: AT BEDTIME Ranitidine Hcl 300 Mg Capsule 1 Cap PO BID LAST DOSE GIVEN: DATE: TODAY TIME: AM NEXT DOSE DUE: DATE: TODAY TIME: PM Triamterene-Hctz 75-50 Mg Tab (Triamterene/Hydrochlorothiazid) 1 Each Tablet 1 Tab PO BID LAST DOSE GIVEN: DATE: TIME: AM NEXT DOSE DUE: DATE: TIME: PM Pravastatin Sodium 40 Mg Tablet 1 Tab PO QHS LAST DOSE GIVEN: DATE: YES TIME: AT BEDTIME NEXT DOSE DUE: DATE: TIME: AT BEDTIME Anti-Diarrhea (Loperamide Hcl) 2 Mg Tablet 2 Mg PO NOT GIVEN TODAY NEXT DOSE DUE: DATE: TIME: IF AND WHEN NEEDED Gabapentin 100 Mg Capsule 300 Mg PO BID LAST DOSE GIVEN: DATE: TIME: AM NEXT DOSE DUE: DATE: TODAY TIME: PM Potassium Chloride 10 Meq Capsule.er 1 Cap PO BID LAST DOSE GIVEN: DATE: TIME: AM NEXT DOSE DUE: DATE: TODAY TIME: PM Tegretol (Carbamazepine) 200 Mg Tablet 200 Mg PO QID LAST DOSE GIVEN: DATE: TIME: AM NEXT DOSE DUE: DATE: TODAY TIME: AFTERNOON I have reviewed the current psychotropics carefully including drug interactions. Risk benefit ratio favors no change other than as noted in my dictated progress note. Diagnosis: Problems: (1) Major depressive disorder, recurrent episode (2) Anxiety disorder (3) Mild cognitive disorder KAYLAN CURRAN MD Jul 07, 2018 18:46
[2018-07-07 19:40] VITALS: BP 130/57
[2018-07-07] MEDS ORDERED: MIRTAZAPINE 7.5 MG TABLET. PO SCH (21:00)
[2018-07-07] MEDS: MIRTAZAPINE 7.5 MG TABLET. PO SCH (21:25)
[2018-07-07] MEDS: PRAVASTATIN 20 MG TABLET. PO SCH (21:25)
[2018-07-07] MEDS: VANCOMYCIN 1.25 GM in IV NORMAL SALINE 250ML 250 ML IV SCH (21:29)
[2018-07-07 23:00] VITALS: BP 132/61
--- NOTE | 2018-07-07 23:09 | CONS ---
DATE OF CONSULTATION: 07/06/2018 This is a late entry for 07/06/2018 covers elements not covered in my initial note of 07/06/2018. IDENTIFYING DATA: The patient is a 72-year-old female, seen in bed 124, [facility] for a psychiatric consult requested by Dr. Ledesma on account of the patient's severe depression, anxiety, status post of her about 2 weeks ago. Reportedly, the patient has been caring for her with dementia and since he , she has been by herself at home, getting extremely depressed, refusing to eat, losing weight. She has been hospitalized for cellulitis and she has reportedly fungal infection under her breasts and groin area. She has been not taking care of herself at home. I have been asked to consult from a psychiatric standpoint to make recommendations for depression. CHIEF COMPLAINT: "Yes, I have been depressed. No, I have not been suicidal. Yes, I tried to stab myself with a knife in the past, but at that time, I was frustrated." Reportedly, the past suicide gesture with a knife ended up in the knife hitting her sternal area as noted in records by Dr. Ledesma. She was not actively suicidal, but frustrated with the entire situation at the time. HISTORY OF PRESENT ILLNESS: The patient has a history of worsening symptoms of depression for some time, much worse for the past 2 weeks since her . She complains of significant insomnia, poor appetite, weight loss, inability to take care of self. She admits to feeling helpless, hopeless, worthless, has been somewhat paranoid, having increased short-term memory deficits. No active suicidal or homicidal ideation. No clear history of bipolar disorder. PAST PSYCHIATRIC HISTORY: As above. MEDICAL HISTORY: Positive for diabetes mellitus, hypertension, seizure disorder, UTI. SURGICAL HISTORY: Hysterectomy, weakness of legs, inability to walk. She was seen in the ER, diagnosed with generalized weakness, anemia, candidiasis of the breast, renal insufficiency, hypocalcemia, hypoalbuminemia. ALLERGIES: BANANA AND ERYTHROMYCIN. CURRENT PSYCHOTROPICS: Celexa 40 mg a day. She is on Tegretol 200 mg 4 times a day for seizure disorder. FAMILY HISTORY: Noncontributory. CODE STATUS: Full code. SOCIAL HISTORY: No alcohol or drug abuse history is noted. MENTAL STATUS EXAMINATION: The patient was seen individually in the evening of 07/06/2018. She is oriented to place, situation and date. She is lying in bed, quite apathetic, amotivated, admits to being depressed, denied active suicidal ideation. Speech has some latency, coherent. Abstraction fair, computation impaired, language function intact. Attention span short. No active suicidal or homicidal ideation. Mood is depressed. Affect is mood congruent. ASSETS: Supportive family. IMPRESSION: Major depressive disorder, recurrent; anxiety disorder, unspecified; cognitive disorder, unspecified. Rest as above. PLAN: From a psychiatric standpoint given the marked insomnia and poor appetite, we will go ahead and start her on Remeron 7.5 mg p.o. at bedtime to help stimulate her appetite and help with insomnia. She will continue Celexa for now the evening of 07/06/2018, which we will then plan to change this to Cymbalta 30 mg a day on 07/07/2018 depending on her progress and may need to increase it in due course. We will make further recommendations as her hospitalization progresses. Dr. Ledesma, thank you for the opportunity to participate in your patient's care. We will follow with you. KAYLAN CURRAN MD DR: KELLY/keri JOB#: [id number] / [id number]
[2018-07-08] MEDS: metroNIDAZOLE 500 MG TABLET PO SCH ×3 (06:08→22:00)
[2018-07-08] MEDS: LEVOTHYROXINE 25 MCG TABLET. PO SCH (06:08)
[2018-07-08] MEDS: HEPARIN PF for SUB-Q USE 5,000 UNIT/0.5 ML VIAL. SQ SCH ×3 (06:09→22:20)
[2018-07-08 06:27] VITALS: BP 117/55
[2018-07-08 07:01] LABS: BASO % 1 % (0-3); EOS # 0.5 x10^3/uL (0.0-0.7); EOS % 8 % (0-3); HEMATOCRIT 30.2 % (36.0-47.0); HEMOGLOBIN 10.2 g/dL (12.0-15.5); LYMPH # 1.5 x10^3/uL (1.0-4.8); LYMPH % 27 % (24-48); MEAN CORPUSCULAR HEMOGLOBIN 32 pg (25-35); MEAN CORPUSCULAR HGB CONC 34 g/dL (31-37); MEAN CORPUSCULAR VOLUME 94 fL (79-100); MONO # 0.4 x10^3/uL (0.0-1.1); MONO % 7 % (0-9); NEUT # 3.4 x10^3uL (1.8-7.7); NEUT % 58 % (31-73); PLATELET COUNT 355 x10^3/uL (140-400); RED CELL DISTRIBUTION WIDTH 14.1 % (11.5-14.5); WHITE BLOOD COUNT 5.8 x10^3/uL (4.0-11.0)
[2018-07-08 07:12] LABS: CALCIUM 7.6 mg/dL (8.5-10.1); CREATININE 1.3 mg/dL (0.6-1.0); GFR 40.5; POTASSIUM 3.8 mmol/L (3.5-5.1)
[2018-07-08] MEDS: INSULIN LISPRO 300 UNITS/3 ML INSULN.PEN. SQ SCH ×3 (08:00→17:00)
[2018-07-08] MEDS: NYSTATIN TOPICAL POWDER 15GM BOTTLE. TP SCH ×2 (09:00→21:30)
[2018-07-08] MEDS: DULoxetine HCL 30 MG CAPSULE.DR PO SCH (09:08)
[2018-07-08] MEDS: FLUCONAZOLE 100 MG TABLET. PO SCH (09:08)
[2018-07-08] MEDS: POTASSIUM CHLORIDE 10 MEQ TABLET.ER. PO SCH ×2 (09:08→21:29)
[2018-07-08] MEDS: FAMOTIDINE 20 MG TABLET PO SCH ×2 (09:08→21:29)
[2018-07-08] MEDS: ASPIRIN 81 MG TAB.CHEW PO SCH (09:08)
[2018-07-08] MEDS: TRIAMTERENE/HCTZ 75/50MG TABLET. PO SCH ×2 (09:08→16:59)
[2018-07-08] MEDS: carBAMazepine 200 MG TABLET PO SCH ×4 (09:08→21:29)
[2018-07-08] MEDS: GABAPENTIN 300 MG CAPSULE. PO SCH ×3 (09:08→21:28)
[2018-07-08] MEDS: FUROSEMIDE 20 MG TABLET PO SCH (09:08)
[2018-07-08] MEDS: LACTOBACILLUS RHAMNOSUS GG 1 CAPSULE. PO SCH ×2 (09:08→21:00)
[2018-07-08] MEDS: PHENOBARBITAL 100 MG PO SCH (09:09)
[2018-07-08] MEDS: MEMANTINE 10 MG TABLET. PO SCH ×2 (09:09→21:29)
[2018-07-08 11:14] VITALS: BP 135/68
[2018-07-08 14:19] VITALS: BP 130/57
--- NOTE | 2018-07-08 18:52 | PN ---
DATE: 07/08/2018 SUBJECTIVE: The patient in with cellulitis to underneath her breasts, severe as well as yeast infection. The patient also was noted to have Clostridium difficile for her diarrhea that she has been suffering with. She was placed on Flagyl for that. She says she feels a little better, but she is still very depressed, affect, loss of her . PHYSICAL EXAMINATION: VITAL SIGNS: Blood pressure 135/70, respiratory rate 20, pulse 70, afebrile. GENERAL: The patient is alert and oriented x 3. Speech fluent. Cranial nerves 2-12 grossly intact. The patient's breast tissue underneath the breasts. The skin seems to be healing up a little bit better with the vancomycin. She had a positive D-dimer and her CTA was negative for clots, although she does have coronary artery calcifications. LUNGS: The patient's lungs clear. Otherwise, unremarkable. ABDOMEN: Soft, still having diarrhea as indicated. She had slowing down a little bit there. PLAN: We will go ahead and continue with the Flagyl and the vancomycin, and nystatin powder for her breast tissue there. IMPRESSION: Cellulitis, Clostridium difficile colitis, yeast infection under the breast, hyperglycemia, hypocalcemia, and tqfieozd-[id number]-emncrl protein malnutrition. AKIN GREEN MD DR: ARPIT/keri JOB#: [id number] / [id number]
--- NOTE | 2018-07-08 19:16 | PN ---
DATE: 07/07/2018 This is a late entry for 07/07/2018 covers elements not covered in my initial note. SUBJECTIVE: I met with the patient in the evening. Overall, the patient has slept a large part of the day on 07/07/2018 and she slept some the previous night, better than before, but still somewhat disturbed. Appetite is a little better. Subjectively, as I met with her in the evening, she said she felt "better." REVIEW OF SYSTEMS: Positive for some tiredness. No CV, , pulmonary, eye, ENT system symptoms on review. MENTAL STATUS EXAM: The patient is reasonably oriented. Speech is coherent, has some latency. Abstraction fair. Computation impaired. Language function intact. Short-term memory has some impairment, but reasonably oriented. No active suicidal or homicidal ideation. LABORATORY DATA: Reviewed. IMPRESSION: Major depressive disorder, recurrent, insomnia, poor appetite, anxiety disorder, unspecified; cognitive disorder, unspecified. PLAN: From a psychiatric standpoint, continue Remeron 7.5 mg p.o. at bedtime, start Cymbalta [address] of Celexa. The patient also has chronic pain symptoms consequent to peripheral neuropathy and Cymbalta should help with this in addition to being a more robust antidepressant as an SNRI agent as opposed to Celexa being an SSRI agent. We will adjust dosage gradually depending on her progress. KAYLAN CURRAN MD DR: KELLY/keri JOB#: [id number] / [id number]
[2018-07-08 19:28] VITALS: BP 132/65
[2018-07-08 20:42] LABS: VANC TR 14.6 mcg/mL (10.0-20.0)
[2018-07-08] MEDS: VANCOMYCIN 1.25 GM in IV NORMAL SALINE 250ML 250 ML IV SCH (21:27)
[2018-07-08] MEDS: MIRTAZAPINE 7.5 MG TABLET. PO SCH (21:28)
[2018-07-08] MEDS: PRAVASTATIN 20 MG TABLET. PO SCH (21:28)
[2018-07-08 23:12] VITALS: BP 115/52
[2018-07-09 05:06] VITALS: BP 109/51
[2018-07-09] MEDS: metroNIDAZOLE 500 MG TABLET PO SCH ×2 (06:18→14:34)
[2018-07-09] MEDS: LEVOTHYROXINE 25 MCG TABLET. PO SCH (06:18)
[2018-07-09] MEDS: HEPARIN PF for SUB-Q USE 5,000 UNIT/0.5 ML VIAL. SQ SCH (06:19)
[2018-07-09] MEDS: INSULIN LISPRO 300 UNITS/3 ML INSULN.PEN. SQ SCH ×2 (08:00→12:00)
[2018-07-09] MEDS: ASPIRIN 81 MG TAB.CHEW PO SCH (08:55)
[2018-07-09] MEDS: LACTOBACILLUS RHAMNOSUS GG 1 CAPSULE. PO SCH (08:56)
[2018-07-09] MEDS: DULoxetine HCL 30 MG CAPSULE.DR PO SCH (08:56)
[2018-07-09] MEDS: FUROSEMIDE 20 MG TABLET PO SCH (08:57)
[2018-07-09] MEDS: POTASSIUM CHLORIDE 10 MEQ TABLET.ER. PO SCH (08:57)
[2018-07-09] MEDS: FLUCONAZOLE 100 MG TABLET. PO SCH (08:57)
[2018-07-09] MEDS: MEMANTINE 10 MG TABLET. PO SCH (08:58)
[2018-07-09] MEDS: PHENOBARBITAL 100 MG PO SCH (08:58)
[2018-07-09] MEDS: GABAPENTIN 300 MG CAPSULE. PO SCH ×2 (08:58→14:34)
[2018-07-09] MEDS: TRIAMTERENE/HCTZ 75/50MG TABLET. PO SCH (08:58)
[2018-07-09] MEDS: NYSTATIN TOPICAL POWDER 15GM BOTTLE. TP SCH (08:59)
[2018-07-09] MEDS: carBAMazepine 200 MG TABLET PO SCH ×2 (08:59→14:34)
[2018-07-09] MEDS: FAMOTIDINE 20 MG TABLET PO SCH (08:59)
[2018-07-09 10:05] VITALS: BP 118/58
[2018-07-09] MEDS ORDERED: DULO30CA2 PO (10:06)
[2018-07-09] MEDS ORDERED: METR500T PO (10:06)
[2018-07-09] MEDS ORDERED: ASPI-630 PO (10:06)
[2018-07-09] MEDS ORDERED: NYST60PO TP (10:06)
[2018-07-09] MEDS ORDERED: INSU100I11 SQ (10:06)
[2018-07-09] MEDS ORDERED: GABA-586 PO (10:06)
[2018-07-09] MEDS ORDERED: FLUC100T7 PO (10:06)
[2018-07-09] MEDS ORDERED: LACT1CAP19 PO (10:06)
[2018-07-09] MEDS ORDERED: MIRT7.5T8 PO (10:06)
[2018-07-09] MEDS ORDERED: LORA0.5T96 PO (10:06)
--- NOTE | 2018-07-09 18:28 | PN ---
DATE: 07/08/2018 PSYCHIATRIC PROGRESS NOTE This is a late entry, 07/08, covers elements not covered in my initial note. SUBJECTIVE: I met with the patient in the evening. Per nursing report, the patient has been doing better. She slept better last night. Appetite somewhat better according to the patient. Subjectively, she states her mood is improved as well. REVIEW OF SYSTEMS: Still complains of some tiredness. No CV, , pulmonary, eye, ENT system symptoms on review. MENTAL STATUS EXAM: Reasonably oriented. Speech is coherent, has some latency. Abstraction fair, computation impaired, language function intact, attention span short. Mood and affect is somewhat improved. No suicidal ideation. LABORATORY DATA: Reviewed. IMPRESSION: Major depressive disorder, recurrent, in partial remission; anxiety disorder, unspecified. PLAN: From a psychiatric standpoint, maintain Remeron 7.5 mg at bedtime, Cymbalta 30 mg a day, but this may need to be increased gradually perhaps as an outpatient. I have been informed that case management is looking into appropriate post-hospital placement for the patient at this time. KAYLAN CURRAN MD DR: KELLY/keri JOB#: [id number] / [id number]
--- NOTE | 2018-07-10 12:07 | DS ---
DATE OF DISCHARGE: 07/09/2018 A 72-year-old female initially came in through the Emergency Room extremely weak, unable to stand up on her legs, unable to walk for about a week. The patient was also noted to have an infection under her breast from the yeast infection had turned into cellulitis and the patient in term was thought to be septic. She was placed on IV vancomycin for that. The patient was also having severe diarrhea and the patient was found to have C. diff. The patient was placed on oral Flagyl for that. The patient was extremely weak. She received physical and occupational therapy. The patient's other labs demonstrated chronic anemia and blood sugars were brought under control. She had an elevated D-dimer. Her CTA was unremarkable. The patient; however, did note coronary artery calcifications. She was encouraged to go to a nursing facility for further rehabilitation care. She was still extremely weak when she was discharged; however, she refused. Numerous attempts to convince her. In any case, she was discharged home. She will be on a diabetic diet, decreased activity, received PT, OT and make further evaluation on her as indicated. AKIN GREEN MD DR: ARPIT/keri JOB#: [id number] / [id number]
== END 2018-07-09 14:45 | disposition home health service (06) | DRG 871 ==
LOC: ER 11:26 → INTOOBSV 11:59 → 1 SOUTH 11:59 → OBSVTOIN 15:12
PROVIDERS: ADMIT Family Medicine; ATTEND Family Medicine
DX: A41.9 Sepsis, unspecified organism (principal); E43 Unspecified severe protein-calorie malnutrition; B37.89 Other sites of candidiasis; A04.72 Enterocolitis due to Clostridium difficile, not specified as recurrent; L03.90 Cellulitis, unspecified; D64.9 Anemia, unspecified; E11.65 Type 2 diabetes mellitus with hyperglycemia; E83.51 Hypocalcemia; F03.90 Unspecified dementia, unspecified severity, without behavioral disturbance, psychotic disturbance, mood disturbance, and anxiety; F09 Unspecified mental disorder due to known physiological condition; F33.41 Major depressive disorder, recurrent, in partial remission; F41.9 Anxiety disorder, unspecified; G40.909 Epilepsy, unspecified, not intractable, without status epilepticus; G47.00 Insomnia, unspecified; I10 Essential (primary) hypertension; N28.9 Disorder of kidney and ureter, unspecified; Z90.710 Acquired absence of both cervix and uterus; Z87.440 Personal history of urinary (tract) infections; Z88.1 Allergy status to other antibiotic agents; Z91.018 Allergy to other foods; Z68.32 Body mass index [BMI] 32.0-32.9, adult; Z79.84 Long term (current) use of oral hypoglycemic drugs
CPT/HCPCS: 36415; 71045; 71275; 80048; 80053; 80202; 81001; 82550; 82947; 83605; 83880; 84132; 85025; 85379; 85610; 87040; 87070; 87205; 87493; 87641; 90471; 90756; 93005; 96361; 96365; G0378; G0379; J0696; J1815; J3370; J7040; J7050; Q9967; 99285-25; J7030; Q2035

== ENCOUNTER 2018-07-09 22:27 | Inpatient (IN) | payer MEDICARE, OTHER ==
[~2018-07-09] VITALS: Ht 167.6 cm; Wt 85.7 kg
[~2018-07-09 22:27] MED LIST changes: +DULO30CA2 PO; +FLUC100T7 PO; +GABA-586 PO; +INSU100I11 SQ; +LACT1CAP19 PO; +METR500T PO; +MIRT7.5T8 PO; +NYST60PO TP
[2018-07-09] MEDS ORDERED: IV NORMAL SALINE 1,000ML 1,000 ML IV SCH (22:44)
--- NOTE | 2018-07-09 23:01 | EKG ---
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
--- NOTE | 2018-07-09 23:13 | RAD ---
EXAM: Chest, single view. HISTORY: Chest pain. Cough. COMPARISON: 07/07/2018 FINDINGS: A frontal view the chest is obtained. There is no infiltrate, pleural effusion or pneumothorax. The heart is normal in size. IMPRESSION: No acute pulmonary finding. Electronically signed by: Radha Miller MD (07/09/2018 11:09 PM) [facility]
[2018-07-09 23:46] LABS: BASO # 0.1 x10^3/uL (0.0-0.2); BASO % 1 % (0-3); EOS # 0.5 x10^3/uL (0.0-0.7); EOS % 7 % (0-3); HEMATOCRIT 34.9 % (36.0-47.0); HEMOGLOBIN 11.6 g/dL (12.0-15.5); LYMPH # 1.2 x10^3/uL (1.0-4.8); LYMPH % 16 % (24-48); MEAN CORPUSCULAR HEMOGLOBIN 32 pg (25-35); MEAN CORPUSCULAR HGB CONC 33 g/dL (31-37); MEAN CORPUSCULAR VOLUME 95 fL (79-100); MONO # 0.3 x10^3/uL (0.0-1.1); MONO % 5 % (0-9); NEUT % 71 % (31-73); PLATELET COUNT 406 x10^3/uL (140-400); RED BLOOD COUNT 3.68 x10^6/uL (3.50-5.40)
[2018-07-09 23:59] LABS: ALBUMIN 2.8 g/dL (3.4-5.0); ALBUMIN/GLOBULIN RATIO 0.7 (1.0-1.7); CALCIUM 8.1 mg/dL (8.5-10.1); CREATININE 1.4 mg/dL (0.6-1.0); GFR 37.2; POTASSIUM 4.3 mmol/L (3.5-5.1); TOTAL BILIRUBIN 0.2 mg/dL (0.2-1.0); TOTAL PROTEIN 6.9 g/dL (6.4-8.2)
[2018-07-10] VITALS (7 sets, daily range): BP systolic 125–136; BP diastolic 49–83
--- NOTE | 2018-07-10 00:49 | PHYS DOC ---
Adult General Chief Complaint Chief Complaint Generalized weakness HPI HPI 72 years old female with multiple medical problem including C. difficile colitis , depression, cellulitis was discharged today from a hospital presented again to the emergency department with the failure to thrive she is unable to eat or drink diarrhea continuous She denies chest pain no urgency no frequency no abdominal pain Review of Systems Review of Systems Constitutional: Denies fever or chills [] Eyes: Denies change in visual acuity, redness, or eye pain [] HENT: Denies nasal congestion or sore throat [] Respiratory: Denies cough or shortness of breath [] Cardiovascular: No additional information not addressed in HPI [] GI: Denies abdominal pain, nausea, vomiting, : Denies dysuria or hematuria [] Musculoskeletal: Denies back pain or joint pain [] Integument: Denies rash or skin lesions [] Neurologic: Denies headache, focal weakness or sensory changes [] Endocrine: Denies polyuria or polydipsia [] All other systems were reviewed and found to be within normal limits, except as documented in this note. Current Medications Current Medications Current Medications Medications (Trade) Dose Ordered Sig/Alirio Start Time Stop Time Status Last Admin Dose Admin Acetaminophen (Tylenol) 650 mg PRN Q4HRS PRN 07/10/18 00:45 07/11/18 00:44 UNV Ondansetron HCl (Zofran) 4 mg PRN Q4HRS PRN 07/10/18 00:45 07/11/18 00:44 UNV Sodium Chloride 1,000 ml @ 0 mls/hr Q0M 07/10/18 00:45 UNV Allergies Allergies Allergies Coded Allergies Type Severity Reaction Last Updated Verified banana Allergy Intermediate 07/17/17 Yes erythromycin base Allergy Intermediate 07/17/17 No Physical Exam Physical Exam Constitutional: Well developed, well nourished, no acute distress, non-toxic appearance. [] HENT: Normocephalic, atraumatic, bilateral external ears normal, oropharynx moist, no oral exudates, nose normal. [] Eyes: PERRLA, EOMI, conjunctiva normal, no discharge. [] Neck: Normal range of motion, no tenderness, supple, no stridor. [] Cardiovascular:Heart rate regular rhythm, no murmur [] Lungs & Thorax: Bilateral breath sounds clear to auscultation [] Abdomen: Bowel sounds normal, soft, no tenderness, no masses, no pulsatile masses. [] Skin: Warm, dry, no erythema, no rash. [] Back: No tenderness, no CVA tenderness. [] Extremities: No tenderness, no cyanosis, no clubbing, ROM intact, no edema. [] Neurologic: Alert and oriented X 3, normal motor function, normal sensory function, no focal deficits noted. [] Psychologic: Affect normal, judgement normal, mood normal. [] Current Patient Data Lab Results Laboratory Tests Test 07/09/18 23:25 White Blood Count 7.0 x10^3/uL (4.0-11.0) Red Blood Count 3.68 x10^6/uL (3.50-5.40) Hemoglobin 11.6 g/dL (12.0-15.5) L Hematocrit 34.9 % (36.0-47.0) L Mean Corpuscular Volume 95 fL (79-100) Mean Corpuscular Hemoglobin 32 pg (25-35) Mean Corpuscular Hemoglobin Concent 33 g/dL (31-37) Red Cell Distribution Width 14.0 % (11.5-14.5) Platelet Count 406 x10^3/uL (140-400) H Neutrophils (%) (Auto) 71 % (31-73) Lymphocytes (%) (Auto) 16 % (24-48) L Monocytes (%) (Auto) 5 % (0-9) Eosinophils (%) (Auto) 7 % (0-3) H Basophils (%) (Auto) 1 % (0-3) Neutrophils # (Auto) 5.0 x10^3uL (1.8-7.7) Lymphocytes # (Auto) 1.2 x10^3/uL (1.0-4.8) Monocytes # (Auto) 0.3 x10^3/uL (0.0-1.1) Eosinophils # (Auto) 0.5 x10^3/uL (0.0-0.7) Basophils # (Auto) 0.1 x10^3/uL (0.0-0.2) Sodium Level 137 mmol/L (136-145) Potassium Level 4.3 mmol/L (3.5-5.1) Chloride Level 100 mmol/L (98-107) Carbon Dioxide Level 28 mmol/L (21-32) Anion Gap 9 (6-14) Blood Urea Nitrogen 24 mg/dL (7-20) H Creatinine 1.4 mg/dL (0.6-1.0) H Estimated GFR (Cockcroft-Gault) 37.2 BUN/Creatinine Ratio 17 (6-20) Glucose Level 129 mg/dL (70-99) H Calcium Level 8.1 mg/dL (8.5-10.1) L Total Bilirubin 0.2 mg/dL (0.2-1.0) Aspartate Amino Transferase (AST) 35 U/L (15-37) Alanine Aminotransferase (ALT) 28 U/L (14-59) Alkaline Phosphatase 90 U/L (46-116) Troponin I Quantitative < 0.017 ng/mL (0-0.055) Total Protein 6.9 g/dL (6.4-8.2) Albumin 2.8 g/dL (3.4-5.0) L Albumin/Globulin Ratio 0.7 (1.0-1.7) L EKG EKG [] Radiology/Procedures Radiology/Procedures [] Course & Med Decision Making Course & Med Decision Making Pertinent Labs and Imaging studies reviewed. (See chart for details) [] Final Impression Final Impression [] Problems: (1) Clostridium difficile diarrhea Dragon Disclaimer Dragon Disclaimer This electronic medical record was generated, in whole or in part, using a voice recognition dictation system. KEN CLARK MD Jul 10, 2018 00:49
[2018-07-10 01:00] LABS: INFLUENZA A PATIENT NEGATIVE (NEGATIVE); INFLUENZA B PATIENT NEGATIVE (NEGATIVE)
[2018-07-10] MEDS ORDERED: ONDANSETRON PF 4 MG/2 ML VIAL. IV PRN (01:00)
[2018-07-10] MEDS ORDERED: IV NORMAL SALINE 1,000ML 1,000 ML IV SCH (01:00)
[2018-07-10] MEDS ORDERED: ACETAMINOPHEN 325 MG TABLET PO PRN (01:00)
[2018-07-10 01:13] LABS: BACTERIA,URINE 0 /HPF (0-FEW); BILIRUBIN,URINE NEG (NEG); CLARITY,URINE CLEAR; COLOR,URINE YELLOW; GLUCOSE,URINE NEG (NEG); NITRITE,URINE NEG (NEG); RBC,URINE 0 /HPF (0-2); SQUAMOUS EPITHELIAL CELL,UR OCC /LPF; UROBILINOGEN,URINE 0.2 mg/dL (0.2 mg/dL); WBC,URINE RARE /HPF (0-4)
--- NOTE | 2018-07-10 06:27 | NUR ---
PT TRANSFERRED FROM ED TO UNIT BY EMS @ 0200 WITH IVF. PT IS AXO4. PT IS ADMITTED TO DR. QUEEN. ASSESSMENT CHARTED. VSS. PT ABLE TO USE BEDSIDE COMMODE WITH SBA. PT IS ABLE TO TURN FREQUENTLY FOR COMFORT. NO SIGNIFICANT CHANGES IN ASSESSMENT SINCE ARRIVAL TO UNIT. CALL LIGHT IN REACH. ALL NEEDS ADDRESSED. CONTINUE WITH PLAN OF CARE.
--- NOTE | 2018-07-10 23:41 | NUR ---
Pt has been able to get to bedside commode and back with no trouble or needing help with call light in reach. Pt is showing increase in strength in the last few hours during this shift. pt has no complaints. continue to monitor.
[2018-07-11 04:29] VITALS: BP 176/85
--- NOTE | 2018-07-11 05:26 | NUR ---
PT HAS IMPROVED THIS NOC SHIFT WHERE SHE IS MORE CAPABLE OF TRANSFERRING HERSELF TO COMMODE AND BACK TO BED. ASSESSMENT CHARTED. PT ABLE TO SLEEP WELL WITH MINIMAL INTERRUPTIONS. PLANS ARE POSSIBLE TRANSFER TO ANOTHER UNIT IF PATIENT IS IMPROVING. CALL LIGHT IN REACH. CONTINUE WITH PLAN OF CARE.
[2018-07-11 06:25] LABS: BASO % 0 % (0-3); EOS # 0.4 x10^3/uL (0.0-0.7); EOS % 6 % (0-3); HEMATOCRIT 33.4 % (36.0-47.0); HEMOGLOBIN 11.3 g/dL (12.0-15.5); LYMPH # 1.4 x10^3/uL (1.0-4.8); LYMPH % 24 % (24-48); MEAN CORPUSCULAR HEMOGLOBIN 32 pg (25-35); MEAN CORPUSCULAR HGB CONC 34 g/dL (31-37); MEAN CORPUSCULAR VOLUME 94 fL (79-100); MONO # 0.4 x10^3/uL (0.0-1.1); MONO % 7 % (0-9); NEUT # 3.8 x10^3uL (1.8-7.7); NEUT % 63 % (31-73); PLATELET COUNT 381 x10^3/uL (140-400); RED BLOOD COUNT 3.56 x10^6/uL (3.50-5.40)
[2018-07-11 06:42] LABS: ALBUMIN 2.5 g/dL (3.4-5.0); ALBUMIN/GLOBULIN RATIO 0.7 (1.0-1.7); CALCIUM 7.9 mg/dL (8.5-10.1); CREATININE 1.2 mg/dL (0.6-1.0); GFR 44.4; POTASSIUM 3.9 mmol/L (3.5-5.1); TOTAL BILIRUBIN 0.2 mg/dL (0.2-1.0); TOTAL PROTEIN 6.2 g/dL (6.4-8.2)
--- NOTE | 2018-07-11 07:30 | NUR ---
PT PRESSED CALL LIGHT, UPON ENTERING ROOM NURSE OBSERVED PT IN BED WITH SOILED LINENS AND GOWN. PT REQUIRED ASSISTANCE TO CLEAN HERSELF UP AND TRANSFERRING FROM BEDSIDE COMMODE TO BED.
[2018-07-11] MEDS ORDERED: GABAPENTIN 300 MG CAPSULE. PO SCH (10:30)
[2018-07-11] MEDS ORDERED: TRIAMTERENE/HCTZ 75/50MG TABLET. PO SCH (10:30)
[2018-07-11] MEDS ORDERED: LOPERAMIDE 2 MG CAPSULE PO PRN (10:45)
[2018-07-11] MEDS ORDERED: LORazepam 0.5 MG TABLET PO PRN (10:45)
[2018-07-11] MEDS: GABAPENTIN 300 MG CAPSULE. PO SCH ×2 (10:52→20:35)
[2018-07-11] MEDS: PHENOBARBITAL 100 MG PO SCH (10:52)
[2018-07-11] MEDS: FAMOTIDINE 20 MG TABLET PO SCH ×2 (10:52→20:35)
[2018-07-11] MEDS: LEVOTHYROXINE 25 MCG TABLET. PO SCH (10:52)
[2018-07-11] MEDS: FLUCONAZOLE 100 MG TABLET. PO SCH (10:52)
[2018-07-11] MEDS: ASPIRIN 81 MG TAB.CHEW PO SCH (10:52)
[2018-07-11] MEDS: POTASSIUM CHLORIDE 10 MEQ TABLET.ER. PO SCH ×2 (10:53→17:28)
[2018-07-11] MEDS: carBAMazepine 200 MG TABLET PO SCH ×4 (10:53→20:35)
[2018-07-11] MEDS: NYSTATIN TOPICAL POWDER 15GM BOTTLE. TP SCH ×2 (10:56→20:39)
[2018-07-11] MEDS: DULoxetine HCL 30 MG CAPSULE.DR PO SCH (10:56)
[2018-07-11 10:58] VITALS: BP 107/63
[2018-07-11] MEDS: INSULIN LISPRO 300 UNITS/3 ML INSULN.PEN. SQ SCH ×2 (10:59→17:00)
[2018-07-11] MEDS: MEMANTINE 10 MG TABLET. PO SCH ×2 (11:02→20:34)
--- NOTE | 2018-07-11 11:13 | HP ---
ADMIT DATE: 07/10/2018 HISTORY OF PRESENT ILLNESS: A 72-year-old female came back in through the Emergency Room and recently been discharged, who came back in because she was falling at home. The patient had refused to remain in the hospital initially and in the skilled opportunity, but refused. Anyway, the patient is so weak and that she has trouble bearing weight on her legs and consequently is having trouble with this. She is not safe to be left alone at home as she is the only one that lives there presently. Consequently due to the fact that the patient has increased weakness and her inability to care for herself without causing more significant injury to herself and she already has. The patient was admitted in the hospital for further evaluation and treatment thereof. Otherwise, see previous histories. PAST MEDICAL HISTORY: Cataract, tonsillectomy, dementia, epilepsy, hypercholesterolemia, irritable bowel syndrome, umbilical hernia, attempted suicide in the past, obesity, ovarian cancer, hysterectomy, arthritis, hypothyroidism, psychiatric problems, panic disorder, depression, history of cancer. Vaccinations up to date, pressure ulcer healed. C. difficile colitis as well as yeast infection underneath the breast, although those are clearing up very nicely. FAMILY HISTORY: Positive for hypertension, heart disease. Mother, father with cancer. ALLERGIES: BANANA, ERYTHROMYCIN-BASED COMPOUNDS. MEDICATIONS: Include fluconazole, metronidazole, pravastatin, aspirin, carbamazepine, Tegretol, gabapentin, Celexa 40 at bedtime, Cymbalta 30 mg, she is being followed by Psychiatry for that and Remeron 7.5 mg at bedtime, phenobarbital 100 mg daily, lorazepam 0.5 mg, Namenda 10 mg, Lasix 20 mg backside daily, loperamide 2 mg, ranitidine 300 mg, lactobacillus, insulin sliding scale, and nystatin powder. SOCIAL HISTORY: The patient denies smoking, alcohol or drug use. Recently lost her , still grieving over there. REVIEW OF SYSTEMS: Generalized weakness, unable to continue to hold her weight up, does not look like she has any significant orthostasis there. Denies chest pain or shortness of breath. Denies any melena, hematochezia, or hematemesis. Neurologically intact. PHYSICAL EXAMINATION: GENERAL: This is a pleasant white female, moderate amount of distress, generalized weakness. VITAL SIGNS: Blood pressure 130/80, respiratory rate 22, pulse 96, afebrile. HEENT: The patient's head was atraumatic, normocephalic. Eyes: PERRLA without jaundice. Mouth and throat were normal. NECK: Supple without JVD or carotid bruits. No thyromegaly. LUNGS: Diminished throughout, poor movement of air, but otherwise clear. CARDIOVASCULAR: Regular sinus rhythm. ABDOMEN: Soft, protuberant. EXTREMITIES: No clubbing, cyanosis or edema. NEUROLOGIC: The patient was alert and oriented, somewhat depressed, fatigued and will bear weight, high risk for falling and fracturing something else. ASSESSMENT AND PLAN: We will go ahead and continue to monitor the patient accordingly and make further evaluation on her as indicated. AKIN GREEN MD DR: ARPIT/keri JOB#: [id number] / [id number]
--- NOTE | 2018-07-11 12:57 | NUR ---
PT HAS BEEN CONSISTENTLY PRESSING CALL LIGHT TO HAVE 1-2 PERSON ASSIST FROM BED TO TOILET. PT USING WALKER TO TRANSFER FROM TOILET TO BED APPROXIMATELY 3 STEPS. PT REQUIRES 1-2 PERSON ASSIST TO STAND FROM TOILET. PT REQUESTS TO HAVE HELP WITH S[employer]Y-[employer] AND PULLING UP BRIEF. PT CONTINUALLY STATES "MY LEGS ARE SO WEAK RIGHT NOW." PT REPORTS SHE HAS A SON AT HOME THAT HELPS HER BUT HE IS "IN AND OUT OF THE HOUSE" AND UNABLE TO RELY ON HIM AT THIS TIME.
[2018-07-11] MEDS: metroNIDAZOLE 500 MG TABLET PO SCH ×2 (14:58→20:35)
[2018-07-11 18:19] VITALS: BP 179/81
--- NOTE | 2018-07-11 20:00 | NUR ---
Spoke to patient about her requesting 1-2 person assist during day shift. Previous shift, pt was doing everything her self, was stable getting herself up to the commode and moving about her room. Patient states that she hasn't felt like doing anything today because she is down in the dumps emotionally today. Patient also states that she has not been feeling weak today. Patient was taken over to 1 south for a shower. Patient was able to shower herself and dress herself with minimal prompting. Patient was steady on her own feet the entire time. Spoke to patient in depth about feeling down and not wanting to do something vs being physically unable to do things. Patient states that when she is feeling so down, she doesn't want to be alone. Advised patient that if she is misinforming staff, then we can't assist her appropriately or obtain the proper assistance she requires. Patient has done much better and communicating her concerns.
[2018-07-11] MEDS: LACTOBACILLUS RHAMNOSUS GG 1 CAPSULE. PO SCH (20:34)
[2018-07-11] MEDS: TRIAMTERENE/HCTZ 75/50MG TABLET. PO SCH (20:35)
[2018-07-11 21:00] VITALS: BP 123/60
[2018-07-11] MEDS ORDERED: MIRTAZAPINE 7.5 MG TABLET. PO SCH (21:00)
[2018-07-11] MEDS ORDERED: CITALOPRAM 20 MG TABLET. PO SCH (21:00)
[2018-07-11] MEDS ORDERED: PRAVASTATIN 20 MG TABLET. PO SCH (21:00)
[2018-07-12] MEDS: LEVOTHYROXINE 25 MCG TABLET. PO SCH (05:57)
[2018-07-12] MEDS: metroNIDAZOLE 500 MG TABLET PO SCH (05:57)
--- NOTE | 2018-07-12 06:00 | NUR ---
Patient has done well this shift. Patient has been getting up to toilet herself with supervision. Patient has no complaints of dizziness or weakness. Patient has been steady on her feet and has been able to remove undergarments and replace them without assistance. Patient slept well during the night.
[2018-07-12] MEDS: INSULIN LISPRO 300 UNITS/3 ML INSULN.PEN. SQ SCH (08:00)
[2018-07-12 08:30] VITALS: BP 105/52
[2018-07-12] MEDS: LACTOBACILLUS RHAMNOSUS GG 1 CAPSULE. PO SCH (08:55)
[2018-07-12] MEDS: FAMOTIDINE 20 MG TABLET PO SCH (08:55)
[2018-07-12] MEDS: PHENOBARBITAL 100 MG PO SCH (08:56)
[2018-07-12] MEDS: ASPIRIN 81 MG TAB.CHEW PO SCH (08:56)
[2018-07-12] MEDS: POTASSIUM CHLORIDE 10 MEQ TABLET.ER. PO SCH (08:56)
[2018-07-12] MEDS: carBAMazepine 200 MG TABLET PO SCH (08:56)
[2018-07-12] MEDS: FLUCONAZOLE 100 MG TABLET. PO SCH (08:56)
[2018-07-12] MEDS: GABAPENTIN 300 MG CAPSULE. PO SCH (08:56)
[2018-07-12] MEDS: MEMANTINE 10 MG TABLET. PO SCH (08:57)
[2018-07-12] MEDS: DULoxetine HCL 30 MG CAPSULE.DR PO SCH (08:57)
[2018-07-12] MEDS ORDERED: FUROSEMIDE 20 MG TABLET PO SCH (09:00)
[2018-07-12] MEDS: TRIAMTERENE/HCTZ 75/50MG TABLET. PO SCH (09:00)
[2018-07-12] MEDS: NYSTATIN TOPICAL POWDER 15GM BOTTLE. TP SCH (09:01)
--- NOTE | 2018-07-12 09:49 | NUR ---
Dr. Ledesma here this morning, plan is to discharge home with home health services. Patient able to verbalize poc, nurse went into room at this time appeared motivated and asked to get dressed.
[2018-07-12 10:09] VITALS: BP 110/54
[2018-07-12] MEDS ORDERED: LEVO500T59 PO (10:22)
[2018-07-12] MEDS ORDERED: METR500T PO (10:22)
--- NOTE | 2018-07-12 11:03 | NUR ---
Patient ambulated off unit via wheelchair to personal car with daughter. Educated daughter and patient in regards to new medications, plan is to dc home with home health services. Hospice chaplan to follow up with patient for grieving services. IV discontinued and belongings left with patient at this time.
--- NOTE | 2018-07-12 15:43 | DS ---
DATE OF DISCHARGE: 07/12/2018 HOSPITAL COURSE: The patient was admitted for generalized weakness. The patient came in through the Emergency Room. She was falling at home. The patient had previously refused skill from her previous discharge. The patient made good progress during the rest of her hospitalization here and we will continue on her oral Flagyl for the C. diff, started on Levaquin for culture and sensitivity report. She had a pseudomonal infection from her previous admission, so we will keep her on Levaquin. IMPRESSION: Generalized weakness, pseudomonal bronchitis, falling, severe depression, morbid obesity, type 2 diabetes, oquo-vn-mkezjziz protein malnutrition. PLAN: As above. Continue to monitor the patient accordingly and continue with oral antibiotics. She will receive home health counseling and the like as an outpatient. online services manager, Jeanette, spent approximately 30 minutes ____ with the patient, needs to do as well rn social services and home health services to carry out. AKIN GREEN MD DR: ARPIT/keri JOB#: [id number] / [id number]
== END 2018-07-12 11:00 | disposition home health service (06) | DRG 372 ==
LOC: ER 22:27 → ICU 07-10 00:30
PROVIDERS: ADMIT Family Medicine; ATTEND Family Medicine
DX: A04.72 Enterocolitis due to Clostridium difficile, not specified as recurrent (principal); E44.0 Moderate protein-calorie malnutrition; J40 Bronchitis, not specified as acute or chronic; R62.7 Adult failure to thrive; E66.9 Obesity, unspecified; M19.90 Unspecified osteoarthritis, unspecified site; B96.5 Pseudomonas (aeruginosa) (mallei) (pseudomallei) as the cause of diseases classified elsewhere; E11.9 Type 2 diabetes mellitus without complications; E66.01 Morbid (severe) obesity due to excess calories; E78.00 Pure hypercholesterolemia, unspecified; E03.9 Hypothyroidism, unspecified; F03.90 Unspecified dementia, unspecified severity, without behavioral disturbance, psychotic disturbance, mood disturbance, and anxiety; F32.9 Major depressive disorder, single episode, unspecified; G40.909 Epilepsy, unspecified, not intractable, without status epilepticus; W18.39XA Other fall on same level, initial encounter; Y93.89 Activity, other specified; Y92.098 Other place in other non-institutional residence as the place of occurrence of the external cause; Z68.30 Body mass index [BMI] 30.0-30.9, adult; Y99.8 Other external cause status; Z79.899 Other long term (current) drug therapy; Z80.9 Family history of malignant neoplasm, unspecified; Z82.49 Family history of ischemic heart disease and other diseases of the circulatory system; Z90.710 Acquired absence of both cervix and uterus; Z85.43 Personal history of malignant neoplasm of ovary; Z88.1 Allergy status to other antibiotic agents; Z91.018 Allergy to other foods; Z71.89 Other specified counseling
CPT/HCPCS: 36415; 71045; 80053; 81001; 82947; 84484; 85025; 87641; 87804; 93005; 96360; J1815; 99285-25; J7030

== ENCOUNTER 2018-07-14 19:17 | Inpatient (IN) | payer OTHER ==
[~2018-07-14] VITALS: Ht 167.6 cm; Wt 86.4 kg
[~2018-07-14 19:17] MED LIST changes: +HYDR-3165 PO; -HYDR-971 PO
[2018-07-14] MEDS ORDERED: BACITRACIN/POLYMYXIN B TOPICAL OINT 15GM TUBE. TP ONE (19:22)
--- NOTE | 2018-07-14 20:10 | RAD ---
Bilateral knees 3 views each. HISTORY:, Fall Right knee 3 views were taken of the right knee. There is minimal spurring from arthritis. There is no fracture or joint effusion or other acute osseous abnormality. There is vascular calcification Left knee 3 views of the left knee show mild spurring from arthritis. There is a calcification along the lateral femoral condyle probably an old injury. There is no acute fracture or joint effusion. There is extensive vascular calcification. IMPRESSION: 1. Mild arthritis in each knee. 2. No acute fracture. Electronically signed by: Gerry Julian MD (07/14/2018 8:07 PM) [facility]
[2018-07-14] MEDS ORDERED: BACITRACIN TOPICAL OINT 28GM TUBE. TP STA (20:40)
[2018-07-14 20:50] LABS: BASO % 0 % (0-3); EOS # 0.1 x10^3/uL (0.0-0.7); EOS % 1 % (0-3); HEMATOCRIT 37.5 % (36.0-47.0); HEMOGLOBIN 12.6 g/dL (12.0-15.5); LYMPH # 0.8 x10^3/uL (1.0-4.8); LYMPH % 7 % (24-48); MEAN CORPUSCULAR HEMOGLOBIN 32 pg (25-35); MEAN CORPUSCULAR HGB CONC 34 g/dL (31-37); MEAN CORPUSCULAR VOLUME 95 fL (79-100); MONO # 0.6 x10^3/uL (0.0-1.1); MONO % 5 % (0-9); NEUT # 9.5 x10^3uL (1.8-7.7); NEUT % 87 % (31-73); PLATELET COUNT 485 x10^3/uL (140-400); RED BLOOD COUNT 3.95 x10^6/uL (3.50-5.40); RED CELL DISTRIBUTION WIDTH 14.5 % (11.5-14.5)
--- NOTE | 2018-07-14 21:26 | PHYS DOC ---
Past History Past Medical History: Anxiety, Dementia, Depression, Diabetes, Hypertension, Seizure, UTI, Other Past Surgical History: Hysterectomy Alcohol Use: Rarely Drug Use: None Adult General Chief Complaint Chief Complaint: MECHANICAL FALL HPI HPI Patient is a 72-year-old female who presents via EMS with report of multiple falls over the last 24 hours. Patient indicates that she has been feeling very weak. She was just recently discharged from the hospital after being treated for C. difficile. Patient states that she has injury to both her knees from most recent fall. She states that pain is worse in the left knee. She also indicates that she has an infection under both breasts that she has been treating with nystatin cream. She has been treating this for a little over a week but states that she is not seeing any improvement. She also has an area of swelling, pain and erythema under her right arm that extends from the axilla down to her elbow. She rates pain a 7 out of 10. Patient states she is not sure whether or not she has been running a fever. She states that nothing seems to be improving her symptoms. Review of Systems Review of Systems Constitutional: Denies fever or chills [] Respiratory: Denies cough or shortness of breath [] Cardiovascular: No additional information not addressed in HPI [] GI: Denies abdominal pain, nausea, vomiting. Reports continued diarrhea. [] : Denies dysuria or hematuria [] Musculoskeletal: Complains of bilateral knee pain[] Integument: Complains of rash/redness in the folds of both breasts. Also complains of redness, swelling and warmth to right inner arm.[] Neurologic: Denies headache, focal weakness or sensory changes [] All other systems were reviewed and found to be within normal limits, except as documented in this note. Current Medications Current Medications Current Medications Medications (Trade) Dose Ordered Sig/Alirio Start Time Stop Time Status Last Admin Dose Admin Bacitracin (Bacitracin Topical) 1 fortunato 1X STAT 07/14/18 20:40 07/14/18 20:50 DC 07/14/18 20:40 1 FORTUNATO Bacitracin/ Polymyxin B Sulfate (Polysporin) 15 fortunato STK-MED ONCE 07/14/18 19:22 07/14/18 19:23 DC Allergies Allergies Allergies Coded Allergies Type Severity Reaction Last Updated Verified banana Allergy Intermediate 07/14/18 Yes erythromycin base Allergy Intermediate 07/14/18 No Physical Exam Physical Exam Constitutional: Well developed, well nourished, no acute distress, non-toxic appearance. [] HENT: Normocephalic, atraumatic, bilateral external ears normal, oropharynx moist, no oral exudates, nose normal. [] Eyes: PERRLA, EOMI, conjunctiva normal, no discharge. [] Neck: Normal range of motion, no tenderness, supple. [] Cardiovascular:Heart rate regular rhythm [] Lungs & Thorax: Bilateral breath sounds clear to auscultation [] Abdomen: Bowel sounds normal, soft, no tenderness. [] Skin: There is significant redness and warmth with skin breakdown noted in the folds underneath both breasts. Right upper arm also demonstrates erythema, warmth, swelling and tenderness extending from the axilla down to the inner arm around the elbow. [] Extremities: Bilateral knees demonstrate mild abrasions with soft tissue swelling from recent fall. [] Neurologic: Alert and oriented appropriate for patient, normal motor function, normal sensory function, no focal deficits noted. [] Current Patient Data Lab Results Laboratory Tests Test 07/14/18 20:30 White Blood Count 11.0 x10^3/uL (4.0-11.0) # Red Blood Count 3.95 x10^6/uL (3.50-5.40) Hemoglobin 12.6 g/dL (12.0-15.5) Hematocrit 37.5 % (36.0-47.0) Mean Corpuscular Volume 95 fL (79-100) Mean Corpuscular Hemoglobin 32 pg (25-35) Mean Corpuscular Hemoglobin Concent 34 g/dL (31-37) Red Cell Distribution Width 14.5 % (11.5-14.5) Platelet Count 485 x10^3/uL (140-400) H Neutrophils (%) (Auto) 87 % (31-73) H Lymphocytes (%) (Auto) 7 % (24-48) L Monocytes (%) (Auto) 5 % (0-9) Eosinophils (%) (Auto) 1 % (0-3) Basophils (%) (Auto) 0 % (0-3) Neutrophils # (Auto) 9.5 x10^3uL (1.8-7.7) H Lymphocytes # (Auto) 0.8 x10^3/uL (1.0-4.8) L Monocytes # (Auto) 0.6 x10^3/uL (0.0-1.1) Eosinophils # (Auto) 0.1 x10^3/uL (0.0-0.7) Basophils # (Auto) 0.0 x10^3/uL (0.0-0.2) EKG EKG [] Radiology/Procedures Radiology/Procedures [] Course & Med Decision Making Course & Med Decision Making Pertinent Labs and Imaging studies reviewed. (See chart for details) [] Dragon Disclaimer Dragon Disclaimer This electronic medical record was generated, in whole or in part, using a voice recognition dictation system. Departure Departure: Impression: Primary Impression: Cellulitis of right arm Additional Impressions: Clostridium difficile diarrhea Generalized weakness Alanna infection Disposition: ADMITTED INPATIENT Admitting Physician: Akin Ledesma Condition: GOOD Referrals: AKIN LEDESMA MD (PCP) Problem Qualifiers IZZY HACKETT Jr. DO Jul 14, 2018 21:26
[2018-07-14 21:38] LABS: ALBUMIN 2.8 g/dL (3.4-5.0); ALBUMIN/GLOBULIN RATIO 0.6 (1.0-1.7); CREATININE 1.6 mg/dL (0.6-1.0); GFR 31.9; TOTAL BILIRUBIN 0.2 mg/dL (0.2-1.0); TOTAL PROTEIN 7.2 g/dL (6.4-8.2)
[2018-07-14] MEDS ORDERED: VANCOMYCIN 1 GM VIAL. ONE (21:48)
[2018-07-14] MEDS ORDERED: IV NORMAL SALINE 250ML 250 ML ONE (21:48)
[2018-07-14] MEDS ORDERED: VANCOMYCIN 1 GM in IV NORMAL SALINE 250ML 250 ML IV ONE (22:00)
[2018-07-14] MEDS ORDERED: ONDANSETRON PF 4 MG/2 ML VIAL. IV PRN (22:00)
[2018-07-14 23:00] VITALS: BP 122/58
[2018-07-15] MEDS: IV NORMAL SALINE 1,000ML 1,000 ML IV SCH ×3 (00:59→15:17)
[2018-07-15 03:52] VITALS: BP 100/67
[2018-07-15] MEDS: LEVOTHYROXINE 25 MCG TABLET. PO SCH (06:18)
[2018-07-15 06:39] VITALS: BP 142/83
[2018-07-15 07:03] LABS: BASO # 0.1 x10^3/uL (0.0-0.2); BASO % 1 % (0-3); EOS # 0.2 x10^3/uL (0.0-0.7); EOS % 3 % (0-3); HEMATOCRIT 36.8 % (36.0-47.0); HEMOGLOBIN 12.1 g/dL (12.0-15.5); LYMPH # 1.7 x10^3/uL (1.0-4.8); LYMPH % 22 % (24-48); MEAN CORPUSCULAR HEMOGLOBIN 31 pg (25-35); MEAN CORPUSCULAR HGB CONC 33 g/dL (31-37); MEAN CORPUSCULAR VOLUME 95 fL (79-100); MONO # 0.6 x10^3/uL (0.0-1.1); MONO % 8 % (0-9); NEUT # 5.2 x10^3uL (1.8-7.7); NEUT % 67 % (31-73); PLATELET COUNT 441 x10^3/uL (140-400); RED BLOOD COUNT 3.87 x10^6/uL (3.50-5.40); RED CELL DISTRIBUTION WIDTH 14.1 % (11.5-14.5); WHITE BLOOD COUNT 7.8 x10^3/uL (4.0-11.0)
[2018-07-15 07:16] LABS: CALCIUM 8.3 mg/dL (8.5-10.1); CREATININE 1.5 mg/dL (0.6-1.0); GFR 34.3
[2018-07-15] MEDS: DULoxetine HCL 30 MG CAPSULE.DR PO SCH (11:17)
[2018-07-15] MEDS: FAMOTIDINE 20 MG TABLET PO SCH (11:17)
[2018-07-15] MEDS: POTASSIUM CHLORIDE 10 MEQ TABLET.ER. PO SCH ×2 (11:18→20:35)
[2018-07-15] MEDS: MEMANTINE 10 MG TABLET. PO SCH ×2 (11:18→20:35)
[2018-07-15] MEDS: GABAPENTIN 300 MG CAPSULE. PO SCH ×2 (11:18→20:36)
[2018-07-15] MEDS: LACTOBACILLUS RHAMNOSUS GG 1 CAPSULE. PO SCH ×2 (11:18→20:35)
[2018-07-15] MEDS: TRIAMTERENE/HCTZ 75/50MG TABLET. PO SCH ×2 (11:18→20:35)
[2018-07-15 11:36] VITALS: BP 128/52
[2018-07-15] MEDS: NYSTATIN TOPICAL POWDER 15GM BOTTLE. TP SCH ×2 (11:57→20:36)
[2018-07-15] MEDS ORDERED: VANCOMYCIN 1 GM in IV NORMAL SALINE 250ML 250 ML IV ONE (14:00)
[2018-07-15] MEDS ORDERED: VANCOMYCIN PER PHARMACY MC PRN (14:00)
--- NOTE | 2018-07-15 14:09 | NUR ---
Pharmacy Vancomycin Dosing Note S:Consulted to monitor and dose vancomycin started 07/15/18. O:MARY STARR is a 72 year old F with Cellulitis . Height: 5 feet, 6 inches Weight: 85.5 kg [place] Body Weight: 59.30 Adjusted Body Weight: 69.78 Dosing Weight: Actual Other Antibiotics: LABS: Last BUN: 23 Last Creatinine: 1.5 Creatinine Clearance: 38.4 Last WBC: 738 Last Platelets: 441 Vancomycin Dosing: Loading Dose: 2000 mg x1 Dosing Weight: Actual Target Trough: 10-20 A: Initial dosing is based on height, actual weight, renal function, and indication. P: 1. Total Vancomycin loading dose is 2000mg (1000mg in ER and 1000mg on 1 South), then Vancomycin 1250 mg IV q24h starting at 2200 on 07/15/18. 2. Follow up Trough level on 07/17/18 at 2130 3. Pharmacy will continue to monitor, follow and adjust therapy as needed. [facility] 07/15/18 1409 Signed: 07/15/18 at 1412 by GAURAV ANGELA PHA
[2018-07-15] MEDS: FLUCONAZOLE 100 MG TABLET. PO SCH (15:16)
[2018-07-15] MEDS: metroNIDAZOLE 500 MG TABLET PO SCH ×2 (15:16→21:26)
[2018-07-15 16:00] VITALS: BP 118/65
[2018-07-15] MEDS ORDERED: DEXTROSE 50% 25 GM / 50ML DISP.SYRIN. IV PRN (19:15)
[2018-07-15 19:16] VITALS: BP 111/58
[2018-07-15] MEDS: MIRTAZAPINE 7.5 MG TABLET. PO SCH (20:35)
[2018-07-15] MEDS: CITALOPRAM 20 MG TABLET. PO SCH (20:35)
[2018-07-15] MEDS: PRAVASTATIN 20 MG TABLET. PO SCH (20:35)
[2018-07-15] MEDS: HEPARIN PF for SUB-Q USE 5,000 UNIT/0.5 ML VIAL. SQ SCH (21:26)
[2018-07-15] MEDS: VANCOMYCIN 1.25 GM in IV NORMAL SALINE 250ML 250 ML IV SCH (21:26)
[2018-07-15 23:12] VITALS: BP 106/62
[2018-07-16 05:40] VITALS: BP 129/69
[2018-07-16] MEDS: metroNIDAZOLE 500 MG TABLET PO SCH ×3 (06:07→21:07)
[2018-07-16] MEDS: LEVOTHYROXINE 25 MCG TABLET. PO SCH (06:07)
[2018-07-16] MEDS: HEPARIN PF for SUB-Q USE 5,000 UNIT/0.5 ML VIAL. SQ SCH ×3 (06:08→21:07)
[2018-07-16 06:19] LABS: CREATININE 1.3 mg/dL (0.6-1.0); GFR 40.5; POTASSIUM 4.1 mmol/L (3.5-5.1)
[2018-07-16 06:27] LABS: BASO % 0 % (0-3); EOS # 0.3 x10^3/uL (0.0-0.7); EOS % 4 % (0-3); HEMATOCRIT 30.7 % (36.0-47.0); HEMOGLOBIN 10.5 g/dL (12.0-15.5); LYMPH # 1.5 x10^3/uL (1.0-4.8); LYMPH % 20 % (24-48); MEAN CORPUSCULAR HEMOGLOBIN 32 pg (25-35); MEAN CORPUSCULAR HGB CONC 34 g/dL (31-37); MEAN CORPUSCULAR VOLUME 95 fL (79-100); MONO # 0.6 x10^3/uL (0.0-1.1); MONO % 8 % (0-9); NEUT % 68 % (31-73); PLATELET COUNT 366 x10^3/uL (140-400); RED BLOOD COUNT 3.24 x10^6/uL (3.50-5.40); RED CELL DISTRIBUTION WIDTH 14.5 % (11.5-14.5); WHITE BLOOD COUNT 7.5 x10^3/uL (4.0-11.0)
[2018-07-16] MEDS: INSULIN LISPRO 300 UNITS/3 ML INSULN.PEN. SQ SCH ×3 (08:00→17:00)
--- NOTE | 2018-07-16 08:02 | HP ---
ADMIT DATE: 07/14/2018 HISTORY OF PRESENT ILLNESS: The patient readmitted. The patient apparently went home. She refused to be sent to a nursing facility, said she had people there to take care of her, she did not. The patient fell a couple of times at home and apparently not able to take care of herself as the patient has a lot of inflammation under her breast, more so than it was previous where we had it under good control. At any case, the patient came in through the Emergency Room with increased weakness and infection underneath the breast. The patient otherwise also been treated for C. diff, although she says her stool is markedly improved. We will go ahead and continue to monitor the patient accordingly. See previous medication list, previous history is in the chart just from a previous admission. ALLERGIES: She has allergies to BANANAS and ERYTHROMYCIN BASES. FAMILY HISTORY: Unchanged from previous. SOCIAL HISTORY: The patient denies smoking, alcohol or drug use. Recent loss of , still in some type of a denial and loss there, but does not have good family support in terms of able to take care of her at home. REVIEW OF SYSTEMS: The patient has generalized weakness, extremely depressed affect looking. Denies chest pain per se from cardiovascular but does have this massive inflammation of her breast under each side, worsened, as bad as it was when she first came in on her second or first admission. PHYSICAL EXAMINATION: GENERAL: Pleasant white female, moderate amount of distress, looking very weak and depressed. VITAL SIGNS: Blood pressure 118/65, respiratory rate 24, pulse 90, afebrile. Pulse up almost to 100. HEENT: The patient's head was atraumatic, normocephalic. Eyes: PERRLA without jaundice. The mouth and throat were normal. NECK: Supple, no JVD or thyromegaly. LUNGS: Diminished throughout, but clear. CARDIOVASCULAR: Regular sinus rhythm. Massive inflammation to the chest wall from one side to the other end of the breast. ABDOMEN: Soft, nontender, no rebound or guarding, positive bowel sounds. No hepatosplenomegaly was noted. EXTREMITIES: No clubbing, cyanosis, nor edema. NEUROLOGIC: The patient is alert, depressed affect, but seems to be aware of orientation and like. AKIN GREEN MD DR: ARPIT/keri JOB#: [id number] / [id number]
[2018-07-16] MEDS: MEMANTINE 10 MG TABLET. PO SCH ×2 (09:06→20:39)
[2018-07-16] MEDS: TRIAMTERENE/HCTZ 75/50MG TABLET. PO SCH ×2 (09:06→20:39)
[2018-07-16] MEDS: LACTOBACILLUS RHAMNOSUS GG 1 CAPSULE. PO SCH ×2 (09:06→20:39)
[2018-07-16] MEDS: POTASSIUM CHLORIDE 10 MEQ TABLET.ER. PO SCH ×2 (09:06→20:39)
[2018-07-16] MEDS: DULoxetine HCL 30 MG CAPSULE.DR PO SCH (09:06)
[2018-07-16] MEDS: FAMOTIDINE 20 MG TABLET PO SCH (09:06)
[2018-07-16] MEDS: FLUCONAZOLE 100 MG TABLET. PO SCH ×2 (09:06→09:50)
[2018-07-16] MEDS: GABAPENTIN 300 MG CAPSULE. PO SCH ×2 (09:06→20:40)
[2018-07-16] MEDS ORDERED: LORazepam 0.5 MG TABLET PO PRN (09:15)
[2018-07-16] MEDS: PHENOBARBITAL 100 MG PO SCH (09:50)
[2018-07-16] MEDS: carBAMazepine 200 MG TABLET PO SCH ×4 (09:50→20:40)
[2018-07-16] MEDS: ASPIRIN 81 MG TAB.CHEW PO SCH (09:50)
[2018-07-16] MEDS: NYSTATIN TOPICAL POWDER 15GM BOTTLE. TP SCH ×2 (09:50→20:46)
[2018-07-16] MEDS: FUROSEMIDE 20 MG TABLET PO SCH (09:50)
[2018-07-16 10:47] VITALS: BP 103/66
[2018-07-16] MEDS: LOPERAMIDE 2 MG CAPSULE PO PRN ×2 (13:08→20:39)
--- NOTE | 2018-07-16 14:00 | PN ---
DATE: SUBJECTIVE: This is a 72-year-old female who came back in with severe cellulitis of her chest wall area. The patient is unable to take care of herself at home, apparently obvious is the third admission. The patient does not have anybody look after her. She has trouble monitoring her own medications. It is doubtful she has been taking her medications as she has noted. She also fell. She had bruising to her face as well and over the bridge of the nose. She has fallen. She needs to be monitored carefully, but she has no one at home and she barely able to walk. She has to use a walker now. She also showed marked dehydration and renal stasis since her creatinine has gone from 1.6 down to 1.3. Blood sugars are much better now. She shows [id number]-jm-mklxfy protein malnutrition as well. OBJECTIVE: VITAL SIGNS: Blood pressure that of 130/70, respiratory rate 20, pulse 70, afebrile. GENERAL: The patient is alert and oriented, but very lethargic in her speech. The patient continues to be monitored carefully and she definitely needs some type of total care such as the nursing facility or like to help maintain this patient's general health, otherwise she will just keep returning back to the hospital as she has inability to take care of herself and she has no one at home to really help handle her complicated multiple medical conditions. IMPRESSION: Cellulitis to the chest wall, generalized weakness, falling at home, contusions to the face, failure to thrive, imeojhju-rd-bsiddf protein malnutrition, generalized weakness, deconditioning, history of seizures, type 2 diabetes, morbid obesity. AKIN GREEN MD DR: ARPIT/keri JOB#: [id number] / [id number]
[2018-07-16 15:37] VITALS: BP 115/72
[2018-07-16 19:22] VITALS: BP 138/80
[2018-07-16] MEDS: MIRTAZAPINE 7.5 MG TABLET. PO SCH (20:39)
[2018-07-16] MEDS: CITALOPRAM 20 MG TABLET. PO SCH (20:39)
[2018-07-16] MEDS: PRAVASTATIN 20 MG TABLET. PO SCH (20:40)
[2018-07-16] MEDS: VANCOMYCIN 1.25 GM in IV NORMAL SALINE 250ML 250 ML IV SCH (21:08)
[2018-07-16 22:29] VITALS: BP 96/58
--- NOTE | 2018-07-17 01:52 | NUR ---
Nursing: Pt able to call for assistance with amb/toileting throughout the evening. Assist x1 to bathroom as pt is unsteady and tires quickly. Able to pull pants up/down with min assist. Now resting in bed with call light in reach.
[2018-07-17 05:00] VITALS: BP 118/71
[2018-07-17] MEDS: LEVOTHYROXINE 25 MCG TABLET. PO SCH (05:20)
[2018-07-17] MEDS: metroNIDAZOLE 500 MG TABLET PO SCH ×2 (05:20→13:09)
[2018-07-17] MEDS: HEPARIN PF for SUB-Q USE 5,000 UNIT/0.5 ML VIAL. SQ SCH ×2 (05:20→13:09)
[2018-07-17] MEDS: INSULIN LISPRO 300 UNITS/3 ML INSULN.PEN. SQ SCH ×2 (08:00→12:00)
[2018-07-17] MEDS: FAMOTIDINE 20 MG TABLET PO SCH (08:54)
[2018-07-17] MEDS: FUROSEMIDE 20 MG TABLET PO SCH (08:54)
[2018-07-17] MEDS: LACTOBACILLUS RHAMNOSUS GG 1 CAPSULE. PO SCH (08:54)
[2018-07-17] MEDS: DULoxetine HCL 30 MG CAPSULE.DR PO SCH (08:54)
[2018-07-17] MEDS: carBAMazepine 200 MG TABLET PO SCH ×2 (08:54→13:08)
[2018-07-17] MEDS: GABAPENTIN 300 MG CAPSULE. PO SCH (08:54)
[2018-07-17] MEDS: ASPIRIN 81 MG TAB.CHEW PO SCH (08:54)
[2018-07-17] MEDS: TRIAMTERENE/HCTZ 75/50MG TABLET. PO SCH (08:56)
[2018-07-17] MEDS: POTASSIUM CHLORIDE 10 MEQ TABLET.ER. PO SCH (08:56)
[2018-07-17] MEDS: NYSTATIN TOPICAL POWDER 15GM BOTTLE. TP SCH (08:56)
[2018-07-17] MEDS: MEMANTINE 10 MG TABLET. PO SCH (08:56)
[2018-07-17] MEDS: FLUCONAZOLE 100 MG TABLET. PO SCH (08:56)
[2018-07-17] MEDS: PHENOBARBITAL 100 MG PO SCH (09:00)
--- NOTE | 2018-07-17 14:19 | DISCH ---
DISCHARGE ORDERS CONDITION AT DISCHARGE: Stable Code Status: Full SNF STAY <30 DAYS: Yes POST DISCHARGE ORDERS: ACTIVITY ORDERS: Activity as tolerated WEIGHT BEARING STATUS: As tolerated DIET AFTER DISCHARGE: ADA WOUND/INCISION CARE: No wound care needed CHECKS AFTER DISCHARGE: CHECKS AFTER DISCHARGE: Check blood sugar, ac/hs TREATMENT/EQUIPMENT ORDERS: ADAPTIVE EQUIPMENT NEEDED: None, Front wheeled walker DISCHARGE MEDICATIONS: Home Meds Active Scripts Levofloxacin (LEVAQUIN) 500 Mg Tablet, 1 TAB PO DAILY for infection in sputum, # 7 TAB Prov:AKIN GREEN MD 07/12/18 Metronidazole (FLAGYL) 500 Mg Tablet, 500 MG PO Q8HRS for c-diff for 5 Days, # 15 TAB Prov:AKIN GREEN MD 07/12/18 Lorazepam (ATIVAN) 0.5 Mg Tablet, 0.5 MG PO PRN QID PRN for ANXIETY / AGITATION , #20 TAB Prov:AKIN GREEN MD 07/09/18 Lactobacillus Rhamnosus Gg (CULTURELLE) 1 Each Cap.sprink, 1 CAP PO BID for preventative, #60 CAP 3 Refills Prov:AKIN GREEN MD 07/09/18 Nystatin (NYSTOP) 60 Gm Powder, 1 TERRY TP BID for yeast, #1 MISC Prov:AKIN GREEN MD 07/09/18 Gabapentin (GABAPENTIN) 300 Mg Capsule, 300 MG PO TID for neuropathy, #90 CAP 6 Refills Prov:AKIN GREEN MD 07/09/18 Mirtazapine (MIRTAZAPINE) 7.5 Mg Tablet, 7.5 MG PO QHS for sleep aid, #30 TAB 6 Refills Prov:AKIN GREEN MD 07/09/18 Aspirin (ASPIRIN) 81 Mg Tab.chew, 81 MG PO DAILYWBKFT for preventative, #90 TAB.CHEW Prov:AKIN GREEN MD 07/09/18 Duloxetine Hcl (CYMBALTA) 30 Mg Capsule.dr, 30 MG PO DAILY for depression, #30 CAP 6 Refills Prov:AKIN GREEN MD 07/09/18 Fluconazole (DIFLUCAN) 100 Mg Tablet, 100 MG PO DAILY for yeast infection, #5 TAB Prov:AKIN GREEN MD 07/09/18 Reported Medications Memantine Hcl (NAMENDA) 10 Mg Tablet, 1 TAB PO BID for MEMORY, #180 TAB 1 Refill LAST DOSE GIVEN: DATE:Today TIME: AM NEXT DOSE DUE: DATE: Today TIME: PM 07/06/18 Phenobarbital (PHENOBARBITAL) 100 Mg Tablet, 100 MG PO DAILY for SEIZURES, TAB LAST DOSE GIVEN: DATE:Today TIME: AM NEXT DOSE DUE: DATE: Tomorrow TIME:AM 07/06/18 Levothyroxine Sodium (LEVOTHYROXINE SODIUM) 25 Mcg Tablet, 1 TAB PO DAILY for THYROID HORMONE SUPPLEMENT, #30 TAB 5 Refills LAST DOSE GIVEN: DATE:Today TIME: Before Breakfast NEXT DOSE DUE: DATE: Tomorrow TIME: Before Breakfast 07/06/18 Furosemide (LASIX) 20 Mg Tablet, 1 TAB PO DAILY for HIGH BLOOD PRESSUREW, #90 TAB 1 Refill LAST DOSE GIVEN: DATE:Today TIME:AM NEXT DOSE DUE: DATE:Tomorrow TIME:AM 07/06/18 Citalopram Hydrobromide (CELEXA) 40 Mg Tablet, 40 MG PO QHS for DEPRESSION LAST DOSE GIVEN: DATE: YESTERDAY TIME: AT BEDTIME NEXT DOSE DUE: DATE: TODAY TIME: AT BEDTIME 07/17/17 Ranitidine Hcl (RANITIDINE HCL) 300 Mg Capsule, 1 CAP PO BID for HEARTBURN LAST DOSE GIVEN: DATE: TODAY TIME: AM NEXT DOSE DUE: DATE: TODAY TIME: PM 07/17/17 Triamterene/Hydrochlorothiazid (TRIAMTERENE-HCTZ 75-50 MG TAB) 1 Each Tablet, 1 TAB PO BID for HIGH BLOOD PRESSURE LAST DOSE GIVEN: DATE: TIME: AM NEXT DOSE DUE: DATE: TODAY TIME: PM 02/03/15 Pravastatin Sodium (PRAVASTATIN SODIUM) 40 Mg Tablet, 1 TAB PO QHS for HIGH CHOLESTEROL LAST DOSE GIVEN: DATE: YESTERDAY TIME: AT BEDTIME NEXT DOSE DUE: DATE: TODAY TIME: AT BEDTIME 02/03/15 Loperamide Hcl (ANTI-DIARRHEA) 2 Mg Tablet, 2 MG PO PRN for Diarrhea NOT GIVEN TODAY NEXT DOSE DUE: DATE: TODAY TIME: IF AND WHEN NEEDED 12/03/14 Potassium Chloride (POTASSIUM CHLORIDE) 10 Meq Capsule.er, 1 CAP PO BID for SUPPLEMENT LAST DOSE GIVEN: DATE: TIME: AM NEXT DOSE DUE: DATE: TODAY TIME: PM 06/30/14 Carbamazepine (TEGRETOL) 200 Mg Tablet, 200 MG PO QID for PREVENT SEIZURES LAST DOSE GIVEN: DATE: TODAY TIME: AM NEXT DOSE DUE: DATE: TODAY TIME: 8pm 06/30/14 Discontinued Reported Medications Gabapentin (GABAPENTIN) 100 Mg Capsule, 300 MG PO BID for NERVE PAIN LAST DOSE GIVEN: DATE: TODAY TIME: AM NEXT DOSE DUE: DATE: TODAY TIME: PM 12/03/14 Discontinued Scripts Insulin Lispro (HUMALOG) 100 Unit/1 Ml Insuln.pen, 0 UNITS SQ TIDWMEALS for diabetes, #2 EACH As per sliding scale Prov:AKIN GREEN MD 07/09/18 AKIN GREEN MD Jul 17, 2018 14:19
[2018-07-17 15:21] VITALS: BP 105/69
--- NOTE | 2018-07-17 16:13 | NUR ---
Pt's transportation called to go to [facility], IV discontinued. Awaiting transportation.
--- NOTE | 2018-07-17 16:58 | NUR ---
Pt's transportation here for pt to d/c. Pt off the unit via wheelchair accompanied by transportation staff.
== END 2018-07-17 16:59 | DRG 871 ==
LOC: ER 19:17 → 1 SOUTH 22:14
PROVIDERS: ADMIT Family Medicine; ATTEND Family Medicine
DX: A41.9 Sepsis, unspecified organism (principal); E43 Unspecified severe protein-calorie malnutrition; L03.113 Cellulitis of right upper limb; A04.72 Enterocolitis due to Clostridium difficile, not specified as recurrent; E66.01 Morbid (severe) obesity due to excess calories; F32.9 Major depressive disorder, single episode, unspecified; F41.9 Anxiety disorder, unspecified; R62.7 Adult failure to thrive; S00.83XA Contusion of other part of head, initial encounter; B37.9 Candidiasis, unspecified; E11.9 Type 2 diabetes mellitus without complications; E86.0 Dehydration; F03.90 Unspecified dementia, unspecified severity, without behavioral disturbance, psychotic disturbance, mood disturbance, and anxiety; I10 Essential (primary) hypertension; R29.6 Repeated falls; W18.39XA Other fall on same level, initial encounter; Y93.89 Activity, other specified; Z87.440 Personal history of urinary (tract) infections; Z68.30 Body mass index [BMI] 30.0-30.9, adult; Y92.098 Other place in other non-institutional residence as the place of occurrence of the external cause; Y99.8 Other external cause status; Z90.710 Acquired absence of both cervix and uterus
CPT/HCPCS: 36415; 73562; 80048; 80053; 82947; 85025; 87040; 96365; J3370; J7050; 97110; 97530; 99285-25; J7030

== ENCOUNTER 2018-07-20 09:42 | Inpatient (IN) | payer OTHER ==
[~2018-07-20] VITALS: Ht 167.6 cm; Wt 86.0 kg
--- NOTE | 2018-07-20 10:11 | EKG ---
[address] [address] Test Date: 2018-07-20 Test Time: 10:09:07 Pat Name: MARY STARR Department: Room: Gender: F Post Graduate Intern: : 1945 Requested By: IZZY HACKETT Order Number: [id number] Reading MD: Jb Smiley MD Measurements Intervals [place] Rate: 78 P: 37 DE: 178 QRS: -90 QRSD: 132 T: 19 QT: 432 QTc: 497 Interpretive Statements SINUS RHYTHM LAFB Electronically Signed On 07-23-2018 13:20:32 [employer] by Jb Smiley MD
[2018-07-20 10:13] LABS: BASO # 0.1 x10^3/uL (0.0-0.2); BASO % 0 % (0-3); EOS # 0.4 x10^3/uL (0.0-0.7); EOS % 3 % (0-3); HEMATOCRIT 36.5 % (36.0-47.0); HEMOGLOBIN 11.9 g/dL (12.0-15.5); LYMPH % 8 % (24-48); MEAN CORPUSCULAR HEMOGLOBIN 32 pg (25-35); MEAN CORPUSCULAR HGB CONC 33 g/dL (31-37); MEAN CORPUSCULAR VOLUME 96 fL (79-100); MONO # 0.5 x10^3/uL (0.0-1.1); MONO % 4 % (0-9); NEUT # 10.2 x10^3uL (1.8-7.7); NEUT % 84 % (31-73); PLATELET COUNT 387 x10^3/uL (140-400); RED BLOOD COUNT 3.79 x10^6/uL (3.50-5.40); RED CELL DISTRIBUTION WIDTH 15.1 % (11.5-14.5); WHITE BLOOD COUNT 12.1 x10^3/uL (4.0-11.0)
--- NOTE | 2018-07-20 10:25 | PHYS DOC ---
Past History Past Medical History: Dementia, Depression, Diabetes, High Cholesterol, Hypertension Past Surgical History: Appendectomy, Cholecystectomy, Hysterectomy Alcohol Use: None Drug Use: None Adult General Chief Complaint Chief Complaint: SEIZURE HPI HPI Patient is 72-year-old female who presents from rehabilitation unit via EMS with report of recurrent petit mal seizures. Patient reportedly has history of seizure disorder and takes Tegretol and phenobarbital for seizures. Rehabilitation unit also indicates that patient has been a little bit more confused and weaker than usual. Upon arrival, patient denying any specific complaints, stating that she has no pain anywhere to include no chest pain, headache, neck or back pain. She also denies any nausea or vomiting. Review of Systems Review of Systems Constitutional: Denies fever or chills [] Respiratory: Denies cough or shortness of breath [] Cardiovascular: No additional information not addressed in HPI [] GI: Denies abdominal pain, nausea, vomiting or diarrhea [] Musculoskeletal: Denies back pain or joint pain [] Neurologic: Denies headache. Reports seizures. [] All other systems were reviewed and found to be within normal limits, except as documented in this note. Allergies Allergies Allergies Coded Allergies Type Severity Reaction Last Updated Verified banana Allergy Intermediate 07/14/18 Yes erythromycin base Allergy Intermediate 07/14/18 No Physical Exam Physical Exam Constitutional: Well developed, well nourished, no acute distress, non-toxic appearance. [] HENT: Normocephalic, atraumatic, bilateral external ears normal, oropharynx moist, no oral exudates, nose normal. [] Eyes: PERRLA, EOMI, conjunctiva normal, no discharge. [] Neck: Normal range of motion, no tenderness, supple, no stridor. [] Cardiovascular:Heart rate regular rhythm [] Lungs & Thorax: Bilateral breath sounds clear to auscultation [] Abdomen: Bowel sounds normal, soft, no tenderness. [] Skin: Warm, dry, no erythema, no rash. [] Extremities: No tenderness, no cyanosis, no clubbing, ROM intact, no edema. [] Neurologic: Alert and oriented X 3, normal motor function, normal sensory function, no focal deficits noted. [] Current Patient Data Vital Signs Vital Signs Date Time Temp Pulse Resp B/P (MAP) Pulse Ox O2 Delivery O2 Flow Rate FiO2 07/20/18 10:15 77 18 113/51 (71) 98 Room Air 11/16/18 09:54 98.2 Lab Results Laboratory Tests Test 07/20/18 09:58 White Blood Count 12.1 x10^3/uL (4.0-11.0) #H Red Blood Count 3.79 x10^6/uL (3.50-5.40) Hemoglobin 11.9 g/dL (12.0-15.5) L Hematocrit 36.5 % (36.0-47.0) Mean Corpuscular Volume 96 fL (79-100) Mean Corpuscular Hemoglobin 32 pg (25-35) Mean Corpuscular Hemoglobin Concent 33 g/dL (31-37) Red Cell Distribution Width 15.1 % (11.5-14.5) H Platelet Count 387 x10^3/uL (140-400) Neutrophils (%) (Auto) 84 % (31-73) H Lymphocytes (%) (Auto) 8 % (24-48) L Monocytes (%) (Auto) 4 % (0-9) Eosinophils (%) (Auto) 3 % (0-3) Basophils (%) (Auto) 0 % (0-3) Neutrophils # (Auto) 10.2 x10^3uL (1.8-7.7) H Lymphocytes # (Auto) 1.0 x10^3/uL (1.0-4.8) Monocytes # (Auto) 0.5 x10^3/uL (0.0-1.1) Eosinophils # (Auto) 0.4 x10^3/uL (0.0-0.7) Basophils # (Auto) 0.1 x10^3/uL (0.0-0.2) EKG EKG [] Radiology/Procedures Radiology/Procedures [] Course & Med Decision Making Course & Med Decision Making Pertinent Labs and Imaging studies reviewed. (See chart for details) [] Dragon Disclaimer Dragon Disclaimer This electronic medical record was generated, in whole or in part, using a voice recognition dictation system. Departure Departure: Impression: Primary Impression: Recurrent seizures Additional Impressions: Mynzn-jn-wjjouzl kidney injury Hyperkalemia Disposition: ADMITTED INPATIENT Admitting Physician: Mark Ledesma Condition: IMPROVED Referrals: MARK LEDESMA MD (PCP) Problem Qualifiers Additional Impressions: Aluus-eo-khdadeh kidney injury Acute renal failure type: unspecified Chronic kidney disease stage: unspecified stage Qualified Codes: N17.9 - Acute kidney failure, unspecified; N18.9 - Chronic kidney disease, unspecified IZZY HACKETT Jr. DO Jul 20, 2018 10:25
[2018-07-20 10:29] LABS: ALBUMIN 2.9 g/dL (3.4-5.0); ALBUMIN/GLOBULIN RATIO 0.7 (1.0-1.7); CALCIUM 8.6 mg/dL (8.5-10.1); CREATININE 1.7 mg/dL (0.6-1.0); GFR 29.7; POTASSIUM 5.2 mmol/L (3.5-5.1); TOTAL BILIRUBIN 0.2 mg/dL (0.2-1.0); TOTAL PROTEIN 7.2 g/dL (6.4-8.2)
[2018-07-20] MEDS ORDERED: IV NORMAL SALINE 1,000ML 1,000 ML IV ONE (11:00)
[2018-07-20 12:11] LABS: BACTERIA,URINE 0 /HPF (0-FEW); BILIRUBIN,URINE NEG (NEG); CLARITY,URINE HAZY; COLOR,URINE YELLOW; GLUCOSE,URINE NEG (NEG); NITRITE,URINE NEG (NEG); RBC,URINE 0 /HPF (0-2); UROBILINOGEN,URINE 0.2 mg/dL (0.2 mg/dL)
[2018-07-20 12:12] LABS: SQUAMOUS EPITHELIAL CELL,UR FEW /LPF
[2018-07-20 13:52] VITALS: BP 123/76
[2018-07-20] MEDS ORDERED: ASPI-630 PO (14:30)
[2018-07-20] MEDS ORDERED: DULO30CA2 PO (14:30)
[2018-07-20] MEDS ORDERED: NYST15PO9 TP (14:37)
[2018-07-20] MEDS ORDERED: LORA0.5T PO (14:37)
[2018-07-20] MEDS ORDERED: GABA-586 PO (14:37)
[2018-07-20] MEDS ORDERED: LACT1CAP2 PO (14:37)
[2018-07-20] MEDS ORDERED: PRAV40TA PO (14:37)
[2018-07-20] MEDS ORDERED: MIRT7.5T8 PO (14:37)
[2018-07-20] MEDS ORDERED: FLUC100T4 PO (14:39)
[2018-07-20] MEDS ORDERED: METR500T PO (14:43)
[2018-07-20 15:49] LABS: CARBAM 14.6 mcg/mL (4.0-12.0); PHENOBARB 11.8 mcg/mL (15.0-40.0)
[2018-07-20 16:02] VITALS: BP 104/70
[2018-07-20] MEDS ORDERED: LOPERAMIDE 2 MG CAPSULE PO PRN (17:00)
[2018-07-20] MEDS ORDERED: carBAMazepine 200 MG TABLET PO SCH (17:00)
[2018-07-20] MEDS ORDERED: LORazepam 1 MG TABLET PO PRN (17:00)
[2018-07-20] MEDS: INSULIN LISPRO 300 UNITS/3 ML INSULN.PEN. SQ SCH (17:15)
[2018-07-20] MEDS ORDERED: DEXTROSE 50% 25 GM / 50ML DISP.SYRIN. IV PRN (17:15)
[2018-07-20 18:46] VITALS: BP 108/53
[2018-07-20] MEDS: MIRTAZAPINE 7.5 MG TABLET. PO SCH (20:39)
[2018-07-20] MEDS: LACTOBACILLUS RHAMNOSUS GG 1 CAPSULE. PO SCH (20:39)
[2018-07-20] MEDS: PRAVASTATIN 20 MG TABLET. PO SCH (20:40)
[2018-07-20] MEDS: IV NORMAL SALINE 1,000ML 1,000 ML IV SCH (20:40)
[2018-07-20] MEDS: GABAPENTIN 300 MG CAPSULE. PO SCH (20:40)
[2018-07-20] MEDS: metroNIDAZOLE 500 MG TABLET PO SCH (20:40)
[2018-07-20] MEDS: NYSTATIN TOPICAL POWDER 15GM BOTTLE. TP SCH (20:40)
[2018-07-20] MEDS: MEMANTINE 10 MG TABLET. PO SCH (20:40)
[2018-07-20] MEDS: VANCOMYCIN 125 MG/2.5 ML ORAL SOLUTION. PO SCH (20:40)
[2018-07-20] MEDS: TRIAMTERENE/HCTZ 75/50MG TABLET. PO SCH (21:00)
[2018-07-21] MEDS: metroNIDAZOLE 500 MG TABLET PO SCH ×3 (05:26→20:56)
[2018-07-21] MEDS: LEVOTHYROXINE 25 MCG TABLET. PO SCH (05:26)
[2018-07-21] MEDS: IV NORMAL SALINE 1,000ML 1,000 ML IV SCH ×2 (05:26→08:36)
[2018-07-21 05:53] VITALS: BP 160/72
[2018-07-21] MEDS: INSULIN LISPRO 300 UNITS/3 ML INSULN.PEN. SQ SCH ×3 (08:00→17:44)
[2018-07-21] MEDS ORDERED: POTASSIUM CHLORIDE 10 MEQ TABLET.ER. PO SCH (08:00)
[2018-07-21] MEDS: ASPIRIN 81 MG TAB.CHEW PO SCH (08:37)
[2018-07-21] MEDS: FUROSEMIDE 20 MG TABLET PO SCH (08:37)
[2018-07-21] MEDS: FAMOTIDINE 20 MG TABLET PO SCH (08:37)
[2018-07-21] MEDS: LACTOBACILLUS RHAMNOSUS GG 1 CAPSULE. PO SCH ×2 (08:37→20:49)
[2018-07-21] MEDS: TRIAMTERENE/HCTZ 75/50MG TABLET. PO SCH ×2 (08:37→20:49)
[2018-07-21] MEDS: GABAPENTIN 300 MG CAPSULE. PO SCH ×3 (08:37→20:49)
[2018-07-21] MEDS: FLUCONAZOLE 100 MG TABLET. PO SCH (08:37)
[2018-07-21] MEDS: VANCOMYCIN 125 MG/2.5 ML ORAL SOLUTION. PO SCH ×4 (08:37→20:49)
[2018-07-21] MEDS: DULoxetine HCL 30 MG CAPSULE.DR PO SCH (08:37)
[2018-07-21] MEDS: MEMANTINE 10 MG TABLET. PO SCH ×2 (08:37→20:49)
[2018-07-21] MEDS: NYSTATIN TOPICAL POWDER 15GM BOTTLE. TP SCH ×2 (08:38→20:50)
[2018-07-21] MEDS ORDERED: PHENOBARBITAL 100 MG PO SCH (09:00)
[2018-07-21 10:43] VITALS: BP 115/71
[2018-07-21] MEDS: LOPERAMIDE 2 MG CAPSULE PO PRN (13:07)
[2018-07-21 14:58] VITALS: BP 119/72
[2018-07-21] MEDS: PHENobarbital 32.4 MG TABLET. PO SCH (15:45)
--- NOTE | 2018-07-21 18:22 | CONS ---
DATE OF CONSULTATION: 07/20/2018 NEUROLOGIC CONSULTATION REASON FOR CONSULTATION: Generalized weakness and possible breakthrough seizure. HISTORY OF PRESENT ILLNESS: This is a 72-year-old right-handed female, who was admitted through Emergency Room after she presented with a chief complaints of generalized weakness and possible breakthrough seizure. The patient did not recall the seizure; however, on arrival to Emergency Room, she was confused and disoriented. The patient has been recently discharged from [facility] to rehab center. She has had a history of seizure disorder, described as grand mal type of seizure. The last seizure was the day of admission. The patient did not recall the events and she did not feel that she had a usual type of seizure. Currently, she denies headaches, visual disturbances, nausea, vomiting, chest pain, shortness of breath or palpitation, dysarthria or dysphagia. PAST MEDICAL HISTORY: Quite extensive including early dementia, seizure disorder, peripheral neuropathy in the lower extremities, GERD, irritable bowel syndrome, ovarian cancer, urinary incontinence, arthritis, chronic lower back pain, diabetes mellitus, hypothyroidism, depressions and anxiety. PAST SURGICAL HISTORY: Significant for umbilical hernia repair, hysterectomy, and cataract extraction. SOCIAL HISTORY: The patient is . CURRENT HOME MEDICATIONS: Celexa 40 mg at bedtime, Imodium 2 mg p.r.n. for diarrhea, famotidine 20 mg daily, Diflucan 100 mg daily, Cymbalta 30 mg daily, phenobarbital 100 mg daily, furosemide 20 mg daily, aspirin 81 mg daily, levothyroxine 25 mcg p.o. daily. Metronidazole 500 mg q. 8 hours, pravastatin 40 mg at bedtime, memantine 10 mg b.i.d., mirtazapine 7.5 mg at bedtime, gabapentin 300 mg t.i.d., and insulin 0.7 units on sliding scale and lorazepam 1 mg t.i.d. for agitation. PHYSICAL EXAMINATION: GENERAL: Well-developed, well-nourished female, not in acute distress. VITAL SIGNS: Blood pressure 108/53, respiratory rate 20, pulse is 83 and regular, temperature 99.1, oxygen saturation 93% on room air. HEENT: Normocephalic, atraumatic, otherwise unremarkable. NECK: Supple. Negative for carotid bruit, lymphadenopathy, or thyromegaly. LUNGS: Clear to A and P. CARDIOVASCULAR: Regular rate and rhythm, normal S1, S2. ABDOMEN: Soft. Bowel sounds positive. EXTREMITIES: Negative for cyanosis, clubbing or edema. NEUROLOGICAL: Mental Status: The patient is alert and oriented x 3. Speech is slow, but coherent. There is no language dysfunction. Memory, judgment, and abstract thinking are fair. The patient denies hallucination or delusion. CRANIAL NERVES: Visual dean are full. The pupils are reactive to light and accommodation. The extraocular movements are intact. There is no nystagmus. There is no facial motor or sensory deficit. Hearing is intact bilaterally. The palate is elevated symmetrically. Sternocleidomastoid muscles are powerful bilaterally. The patient shrugs her shoulders symmetrically and protrudes her tongue in the midline without fasciculation or atrophy. MOTOR: No focal muscle bulk was seen. The tone is normal. The strength is 4/5 throughout. Sensory examination revealed diminished pinprick and light touch senses and patchy distributions in both lower extremities. Deep tendon reflexes were symmetric and hypoactive without pathology responses. Gait not tested at this time. LABORATORY DATA: CBC revealed white blood cells of 12.1 thousand, hemoglobin 11.9, hematocrit 36.5, and platelet count 387,000. Chemistry revealed sodium of 134, potassium 5.2, chloride 97, CO2 26, BUN 30, creatinine 1.7, glucose 263, and calcium is 8.6. Liver enzymes are normal. Urinalysis is negative for urinary tract infections. Carbamazepine level is 14.6 and phenobarbital 11.8. IMPRESSION: 1. Possible breakthrough seizure described as "petit mal seizure." The patient did not recall the event and high carbamazepine level and low phenobarbital level. 2. Acute/chronic renal failure. 3. Multiple medical problems include diabetes mellitus, hypothyroidism, gastroesophageal reflux disease, arthritis, depressions, anxiety, and dementia. RECOMMENDATIONS: 1. We will hold on carbamazepine for now and check the level in the next morning. 2. Continue with phenobarbital and other home medications. M Klaudia BARDALES MD DR: STEF/keri JOB#: [id number] / [id number]
[2018-07-21 19:23] VITALS: BP 117/77
[2018-07-21] MEDS: CITALOPRAM 20 MG TABLET. PO SCH (20:49)
[2018-07-21] MEDS: PRAVASTATIN 20 MG TABLET. PO SCH (20:49)
[2018-07-21] MEDS: MIRTAZAPINE 7.5 MG TABLET. PO SCH (20:49)
[2018-07-22] MEDS: LEVOTHYROXINE 25 MCG TABLET. PO SCH (05:35)
[2018-07-22] MEDS: metroNIDAZOLE 500 MG TABLET PO SCH ×3 (05:35→20:26)
[2018-07-22 05:47] VITALS: BP 165/74
[2018-07-22 07:13] LABS: CALCIUM 8.4 mg/dL (8.5-10.1); CREATININE 1.4 mg/dL (0.6-1.0); GFR 37.2; POTASSIUM 3.9 mmol/L (3.5-5.1)
[2018-07-22] MEDS: INSULIN LISPRO 300 UNITS/3 ML INSULN.PEN. SQ SCH ×3 (08:00→17:41)
[2018-07-22] MEDS: NYSTATIN TOPICAL POWDER 15GM BOTTLE. TP SCH ×2 (09:00→20:31)
[2018-07-22] MEDS: ASPIRIN 81 MG TAB.CHEW PO SCH (09:17)
[2018-07-22] MEDS: TRIAMTERENE/HCTZ 75/50MG TABLET. PO SCH ×2 (09:17→20:25)
[2018-07-22] MEDS: FLUCONAZOLE 100 MG TABLET. PO SCH (09:17)
[2018-07-22] MEDS: MEMANTINE 10 MG TABLET. PO SCH ×2 (09:17→20:26)
[2018-07-22] MEDS: LACTOBACILLUS RHAMNOSUS GG 1 CAPSULE. PO SCH ×2 (09:17→20:25)
[2018-07-22] MEDS: DULoxetine HCL 30 MG CAPSULE.DR PO SCH (09:18)
[2018-07-22] MEDS: PHENobarbital 32.4 MG TABLET. PO SCH (09:18)
[2018-07-22] MEDS: VANCOMYCIN 125 MG/2.5 ML ORAL SOLUTION. PO SCH ×4 (09:18→20:25)
[2018-07-22] MEDS: FUROSEMIDE 20 MG TABLET PO SCH (09:18)
[2018-07-22] MEDS: FAMOTIDINE 20 MG TABLET PO SCH (09:18)
[2018-07-22] MEDS: GABAPENTIN 300 MG CAPSULE. PO SCH ×3 (09:18→20:26)
[2018-07-22 11:12] VITALS: BP 104/67
[2018-07-22 15:55] VITALS: BP 114/68
--- NOTE | 2018-07-22 17:21 | PN ---
DATE: SUBJECTIVE: The patient is a 72-year-old female in with seizure activity. The patient apparently was having seizure activity at rehab facility. The patient has been doing much better. Dr. Ponce has reviewed the patient and made further evaluation on her and adjustments on her medications. She is making good progress overall and will continue to be monitored accordingly. Otherwise, she is alert and oriented x 3. Speech fluent, spontaneous and appropriate. Cranial nerves 2-12. IMPRESSION: Therefore, seizures, hyperkalemia, chronic kidney disease stage 3, [id number] protein malnutrition, morbid obesity, type 2 diabetes. AKIN GREEN MD DR: ARPIT/keri JOB#: [id number] / [id number]
--- NOTE | 2018-07-22 18:39 | PN ---
DATE: SUBJECTIVE: The patient denies any new medical or neurological complaints. She has been walking a little bit using a walker. She denies headaches, visual disturbances, nausea, vomiting, or vertigo. She continues to have generalized weakness. OBJECTIVE: GENERAL: Well-developed, well-nourished female not in acute distress. VITAL SIGNS: Blood pressure 104/67, respiratory rate 20, pulse is 87, temperature 98.1, oxygen saturation 94% on room air. HEENT: Normocephalic, atraumatic, otherwise unremarkable. NECK: Supple. Negative for carotid bruit, lymphadenopathy, or thyromegaly. LUNGS: Clear to A and P. CARDIOVASCULAR: Regular rate and rhythm. Normal S1, S2. ABDOMEN: Soft. Bowel sounds positive. EXTREMITIES: Negative for cyanosis, clubbing, or edema. NEUROLOGICAL: Mental Status: The patient is alert and oriented x 2. Speech is fluent. There is no language dysfunction. Memory, judgment, and abstract thinking are fair. The patient denies hallucination or delusion. Cranial nerves are intact. Motor examination: No focal motor or sensory deficit. The strength is 4/5 throughout. Deep tendon reflexes are symmetric and hypoactive with absent Achilles responses. Gait: The patient uses a walker for ambulation. IMPRESSION: 1. Questionable of breakthrough seizure, described by ER physicians as petit mal seizure. However, the patient has had a history of grand mal type of seizure. 2. Toxic level of carbamazepine on the day of admission, which was discontinued. 3. History of seizure disorder without recurrence since admission. 4. Multiple medical problems include diabetes mellitus, hypothyroidism, gastroesophageal reflux disease, arthritis, depression, anxiety, and dementia. RECOMMENDATIONS: 1. Continue with current anticonvulsant and home medications. 2. Continue with current management initiated by Dr. Ledesma. The [facility] of [facility]. M Klaudia BARDALES MD DR: STEF/keri JOB#: [id number] / [id number]
[2018-07-22 20:17] VITALS: BP 111/72
[2018-07-22] MEDS: MIRTAZAPINE 7.5 MG TABLET. PO SCH (20:25)
[2018-07-22] MEDS: PRAVASTATIN 20 MG TABLET. PO SCH (20:26)
[2018-07-22] MEDS: CITALOPRAM 20 MG TABLET. PO SCH (20:31)
[2018-07-22 22:53] VITALS: BP 118/56
[2018-07-23 05:56] VITALS: BP 113/73
[2018-07-23] MEDS: metroNIDAZOLE 500 MG TABLET PO SCH ×3 (06:22→21:07)
[2018-07-23] MEDS: LEVOTHYROXINE 25 MCG TABLET. PO SCH (06:22)
[2018-07-23] MEDS: INSULIN LISPRO 300 UNITS/3 ML INSULN.PEN. SQ SCH ×3 (08:00→17:27)
[2018-07-23] MEDS: LACTOBACILLUS RHAMNOSUS GG 1 CAPSULE. PO SCH ×2 (08:15→21:06)
[2018-07-23] MEDS: FUROSEMIDE 20 MG TABLET PO SCH (08:15)
[2018-07-23] MEDS: FLUCONAZOLE 100 MG TABLET. PO SCH (08:15)
[2018-07-23] MEDS: FAMOTIDINE 20 MG TABLET PO SCH (08:15)
[2018-07-23] MEDS: ASPIRIN 81 MG TAB.CHEW PO SCH (08:15)
[2018-07-23] MEDS: TRIAMTERENE/HCTZ 75/50MG TABLET. PO SCH ×2 (08:15→21:07)
[2018-07-23] MEDS: PHENobarbital 32.4 MG TABLET. PO SCH (08:16)
[2018-07-23] MEDS: NYSTATIN TOPICAL POWDER 15GM BOTTLE. TP SCH ×2 (08:16→21:08)
[2018-07-23] MEDS: DULoxetine HCL 30 MG CAPSULE.DR PO SCH (08:16)
[2018-07-23] MEDS: MEMANTINE 10 MG TABLET. PO SCH ×2 (08:16→21:06)
[2018-07-23] MEDS: VANCOMYCIN 125 MG/2.5 ML ORAL SOLUTION. PO SCH ×4 (09:35→21:08)
[2018-07-23] MEDS: GABAPENTIN 300 MG CAPSULE. PO SCH ×3 (09:36→21:06)
--- NOTE | 2018-07-23 10:02 | DISCH ---
DISCHARGE ORDERS CONDITION AT DISCHARGE: Stable Code Status: Full SNF STAY <30 DAYS: Yes POST DISCHARGE ORDERS: ACTIVITY ORDERS: Activity as tolerated WEIGHT BEARING STATUS: As tolerated DIET AFTER DISCHARGE: ADA WOUND/INCISION CARE: No wound care needed CHECKS AFTER DISCHARGE: CHECKS AFTER DISCHARGE: Check blood sugar, ac/hs TREATMENT/EQUIPMENT ORDERS: ADAPTIVE EQUIPMENT NEEDED: None, Front wheeled walker DISCHARGE MEDICATIONS: Home Meds Reported Medications Metronidazole (FLAGYL) 500 Mg Tablet, 1 TAB PO TID for CDIFF INFECTION 07/20/18 Fluconazole (FLUCONAZOLE) 100 Mg Tablet, 1 TAB PO DAILY for YEAST INFECTION 07/20/18 Pravastatin Sodium (PRAVACHOL) 40 Mg Tablet, 1 TAB PO HS for HIGH CHOLESTEROL 07/20/18 Nystatin (NYSTATIN) 15 Gm Powder, 1 TERRY TP BID for YEAST INFECTION BREAST/GROIN 07/20/18 Mirtazapine (MIRTAZAPINE) 7.5 Mg Tablet, 7.5 MG PO HS for DEPRESSION 07/20/18 Lorazepam (LORAZEPAM) 0.5 Mg Tablet, 1 TAB PO TID PRN for ANXIETY 07/20/18 Lactobacillus Acidophilus (ACIDOPHILUS) 1 Each Capsule, 1 EACH PO DAILY for INTESTINAL HEALTH 07/20/18 Gabapentin (GABAPENTIN) 300 Mg Capsule, 300 MG PO TID for NERVE PAIN 07/20/18 Duloxetine Hcl (CYMBALTA) 30 Mg Capsule.dr, 1 CAP PO DAILY for DEPRESSION 07/20/18 Aspirin (ASPIRIN) 81 Mg Tab.chew, 81 MG PO DAILY for HEART HEALTH, TAB 07/20/18 Memantine Hcl (NAMENDA) 10 Mg Tablet, 1 TAB PO BID for MEMORY LAST DOSE GIVEN: DATE:Today TIME: AM NEXT DOSE DUE: DATE: Today TIME: PM 07/06/18 Phenobarbital (PHENOBARBITAL) 100 Mg Tablet, 100 MG PO DAILY for SEIZURES LAST DOSE GIVEN: DATE:Today TIME: AM NEXT DOSE DUE: DATE: Tomorrow TIME:AM 07/06/18 Levothyroxine Sodium (LEVOTHYROXINE SODIUM) 25 Mcg Tablet, 1 TAB PO DAILY for THYROID HORMONE SUPPLEMENT LAST DOSE GIVEN: DATE:Today TIME: Before Breakfast NEXT DOSE DUE: DATE: Tomorrow TIME: Before Breakfast 07/06/18 Furosemide (LASIX) 20 Mg Tablet, 1 TAB PO DAILY for HIGH BLOOD PRESSUREW LAST DOSE GIVEN: DATE:Today TIME:AM NEXT DOSE DUE: DATE:Tomorrow TIME:AM 07/06/18 Citalopram Hydrobromide (CELEXA) 40 Mg Tablet, 40 MG PO QHS for DEPRESSION LAST DOSE GIVEN: DATE: YESTERDAY TIME: AT BEDTIME NEXT DOSE DUE: DATE: TODAY TIME: AT BEDTIME 07/17/17 Ranitidine Hcl (RANITIDINE HCL) 300 Mg Capsule, 1 CAP PO BID for HEARTBURN LAST DOSE GIVEN: DATE: TODAY TIME: AM NEXT DOSE DUE: DATE: TODAY TIME: PM 07/17/17 Triamterene/Hydrochlorothiazid (TRIAMTERENE-HCTZ 75-50 MG TAB) 1 Each Tablet, 1 TAB PO BID for HIGH BLOOD PRESSURE LAST DOSE GIVEN: DATE: TODAY TIME: AM NEXT DOSE DUE: DATE: TODAY TIME: PM 02/03/15 Loperamide Hcl (ANTI-DIARRHEA) 2 Mg Tablet, 2 MG PO PRN for Diarrhea NOT GIVEN TODAY NEXT DOSE DUE: DATE: TODAY TIME: IF AND WHEN NEEDED 12/03/14 Potassium Chloride (POTASSIUM CHLORIDE) 10 Meq Capsule.er, 1 CAP PO BID for SUPPLEMENT LAST DOSE GIVEN: DATE: TODAY TIME: AM NEXT DOSE DUE: DATE: TODAY TIME: PM 06/30/14 Carbamazepine (TEGRETOL) 200 Mg Tablet, 200 MG PO QID for PREVENT SEIZURES LAST DOSE GIVEN: DATE: TODAY TIME: AM NEXT DOSE DUE: DATE: TODAY TIME: 8pm 06/30/14 AKIN GREEN MD Jul 23, 2018 10:02
[2018-07-23] MEDS ORDERED: PHEN32.424 PO (10:14)
[2018-07-23] MEDS ORDERED: FLUC100T4 PO (10:14)
[2018-07-23] MEDS ORDERED: VANC500V PO (10:14)
[2018-07-23] MEDS ORDERED: LACT1CAP2 PO (10:14)
[2018-07-23 11:03] VITALS: BP 118/70
--- NOTE | 2018-07-23 11:47 | DS ---
DATE OF DISCHARGE: 07/23/2018 HOSPITAL COURSE: The patient came in with seizure activity, it was noted in nursing facility, began to have grand mal seizures, came in and was evaluated by Dr. Ponce and adjusted on her medications as well as noting that some of her levels were low, but he adjusted those. She did markedly better and was discharged home for followup as an outpatient. She had an x-ray of her knee. When she had her seizure she fell that showed mild arthritis, otherwise the patient made good progress during the rest of her hospitalization. Her blood sugars were monitored with Accu-Cheks a.c. and at bedtime. IMPRESSION: Therefore; epileptic condition, chronic kidney disease stage 3, type 2 diabetes, morbid obesity, [id number] protein malnutrition. AKIN GREEN MD DR: ARPIT/keri JOB#: [id number] / [id number]
--- NOTE | 2018-07-23 16:56 | PN ---
DATE: SUBJECTIVE: The patient denies any new medical or neurological complaints. OBJECTIVE: GENERAL: Well-developed, well-nourished female, not in acute distress. VITAL SIGNS: Stable, blood pressure 113/73, respiratory rate 18, pulse 67, temperature 98, oxygen saturation 96% on room air. HEENT: Normocephalic, atraumatic, otherwise, unremarkable. NECK: Supple. Negative for carotid bruit, lymphadenopathy or thyromegaly. LUNGS: Clear to A and P. CARDIOVASCULAR: Regular rhythm, normal S1, S2. ABDOMEN: Soft. Bowel sounds positive. EXTREMITIES: Negative for cyanosis, clubbing or pitting edema. NEUROLOGIC: The patient is alert and oriented x 3. The speech is fluent. There is no language dysfunction. Memory, judgment, and abstract thinking are fair. The patient denies hallucination or delusion. Cranial nerves are intact. No focal motor deficit. Strength is 4/5 throughout. Sensory examination revealed diminished pinprick and light touch senses in stocking distributions. Deep tendon reflexes were symmetric and hypoactive with absent Achilles responses. Gait: The patient uses a walker for ambulation. IMPRESSION: 1. Possible breakthrough seizure, no recurrence since admission. 2. History of seizure disorder of unknown etiology. 3. Multiple medical problems include diabetes mellitus, hypothyroidism, dementia, gastroesophageal reflux disease, anxiety, and depressions. RECOMMENDATIONS: 1. The patient is going for 2-week rehabilitation from generalized weakness. 2. Continue with current management initiated by Dr. Ledesma. Followup visit with Dr. Ponce after 2 weeks from discharge. M Klaudia PONCE MD DR: STEF/keri JOB#: [id number] / [id number]
[2018-07-23 20:02] VITALS: BP 129/79
[2018-07-23] MEDS: MIRTAZAPINE 7.5 MG TABLET. PO SCH (21:06)
[2018-07-23] MEDS: PRAVASTATIN 20 MG TABLET. PO SCH (21:06)
[2018-07-23] MEDS: CITALOPRAM 20 MG TABLET. PO SCH (21:07)
[2018-07-23 23:17] VITALS: BP 136/74
[2018-07-24] MEDS: LEVOTHYROXINE 25 MCG TABLET. PO SCH (05:42)
[2018-07-24] MEDS: metroNIDAZOLE 500 MG TABLET PO SCH ×3 (05:42→21:39)
[2018-07-24 05:57] VITALS: BP 114/64
[2018-07-24] MEDS: INSULIN LISPRO 300 UNITS/3 ML INSULN.PEN. SQ SCH ×3 (08:00→17:00)
[2018-07-24] MEDS: PHENobarbital 32.4 MG TABLET. PO SCH (08:32)
[2018-07-24] MEDS: DULoxetine HCL 30 MG CAPSULE.DR PO SCH (08:33)
[2018-07-24] MEDS: ASPIRIN 81 MG TAB.CHEW PO SCH (08:33)
[2018-07-24] MEDS: MEMANTINE 10 MG TABLET. PO SCH ×2 (08:33→21:40)
[2018-07-24] MEDS: FAMOTIDINE 20 MG TABLET PO SCH (08:33)
[2018-07-24] MEDS: GABAPENTIN 300 MG CAPSULE. PO SCH ×3 (08:33→21:39)
[2018-07-24] MEDS: FLUCONAZOLE 100 MG TABLET. PO SCH (08:33)
[2018-07-24] MEDS: TRIAMTERENE/HCTZ 75/50MG TABLET. PO SCH ×2 (08:33→21:40)
[2018-07-24] MEDS: FUROSEMIDE 20 MG TABLET PO SCH (08:33)
[2018-07-24] MEDS: LACTOBACILLUS RHAMNOSUS GG 1 CAPSULE. PO SCH ×2 (08:34→21:39)
[2018-07-24] MEDS: VANCOMYCIN 125 MG/2.5 ML ORAL SOLUTION. PO SCH ×4 (08:35→21:39)
[2018-07-24] MEDS: NYSTATIN TOPICAL POWDER 15GM BOTTLE. TP SCH ×2 (08:36→21:39)
[2018-07-24] MEDS: LOPERAMIDE 2 MG CAPSULE PO PRN (11:18)
[2018-07-24 14:36] VITALS: BP 94/60
[2018-07-24 20:17] VITALS: BP 109/73
[2018-07-24] MEDS: CITALOPRAM 20 MG TABLET. PO SCH (21:39)
[2018-07-24] MEDS: carBAMazepine 200 MG TABLET PO SCH (21:40)
[2018-07-24] MEDS: PRAVASTATIN 20 MG TABLET. PO SCH (21:41)
[2018-07-24] MEDS: MIRTAZAPINE 7.5 MG TABLET. PO SCH (21:41)
[2018-07-24 23:20] VITALS: BP 114/70
[2018-07-25] MEDS: LEVOTHYROXINE 25 MCG TABLET. PO SCH (05:38)
[2018-07-25] MEDS: metroNIDAZOLE 500 MG TABLET PO SCH ×2 (05:38→13:59)
[2018-07-25 06:05] VITALS: BP 114/56
[2018-07-25] MEDS: DULoxetine HCL 30 MG CAPSULE.DR PO SCH (09:08)
[2018-07-25] MEDS: LACTOBACILLUS RHAMNOSUS GG 1 CAPSULE. PO SCH (09:09)
[2018-07-25] MEDS: GABAPENTIN 300 MG CAPSULE. PO SCH ×2 (09:09→13:59)
[2018-07-25] MEDS: FUROSEMIDE 20 MG TABLET PO SCH (09:09)
[2018-07-25] MEDS: FAMOTIDINE 20 MG TABLET PO SCH (09:09)
[2018-07-25] MEDS: PHENobarbital 32.4 MG TABLET. PO SCH (09:09)
[2018-07-25] MEDS: FLUCONAZOLE 100 MG TABLET. PO SCH (09:09)
[2018-07-25] MEDS: TRIAMTERENE/HCTZ 75/50MG TABLET. PO SCH (09:09)
[2018-07-25] MEDS: carBAMazepine 200 MG TABLET PO SCH ×2 (09:09→13:59)
[2018-07-25] MEDS: NYSTATIN TOPICAL POWDER 15GM BOTTLE. TP SCH (09:10)
[2018-07-25] MEDS: VANCOMYCIN 125 MG/2.5 ML ORAL SOLUTION. PO SCH ×2 (09:10→13:59)
[2018-07-25] MEDS: MEMANTINE 10 MG TABLET. PO SCH (09:12)
[2018-07-25] MEDS: ASPIRIN 81 MG TAB.CHEW PO SCH (09:12)
[2018-07-25] MEDS: INSULIN LISPRO 300 UNITS/3 ML INSULN.PEN. SQ SCH ×2 (09:12→12:38)
[2018-07-25 10:42] VITALS: BP 123/76
--- NOTE | 2018-07-25 13:25 | PN ---
DATE: 07/24/2018 SUBJECTIVE: The patient stated she has had ringing of the ears and possible warning for breakthrough seizure. The patient stated when she had a seizure in the past, she usually started having ringing in the ears. Otherwise, she denies any other medical or neurological complaints. OBJECTIVE: GENERAL: Well-developed, well-nourished female, not in acute distress. VITAL SIGNS: Blood pressure 109/73, respiratory rate 18, pulse is 80, temperature 98.1, and oxygen saturation 96% on room air. HEENT: Normocephalic, atraumatic, otherwise unremarkable. NECK: Supple. Negative for carotid bruit, lymphadenopathy or thyromegaly. LUNGS: Clear to A and P. CARDIOVASCULAR: Regular rate rhythm, normal S1, S2. There is no S3, S4 or murmur. ABDOMEN: Soft. Bowel sounds positive. EXTREMITIES: Negative for cyanosis, clubbing or pitting edema. NEUROLOGICAL EXAM: The patient is alert and oriented x 3. Speech is fluent. There is no language dysfunction. Judgment and abstracting thinking are fair. The patient denies hallucination or delusion. Cranial nerves are intact. No focal motor muscle bulk was seen. The strength was 4/5 throughout. Sensory examination revealed diminished pinprick and light touch senses in stocking distributions. Deep tendon reflexes were symmetric and hypoactive with absent Achilles responses. Gait: The patient uses a walker for ambulation. IMPRESSION: 1. Possible breakthrough seizure, preceded by ringing of the ears. 2. Longstanding history of seizure disorder. 3. Multiple medical problems include hypothyroidism, diabetes mellitus, dementia, gastroesophageal reflux, anxiety, and depression. RECOMMENDATIONS: 1. We will resume carbamazepine at 200 mg q.i.d. 2. Continue with current management. 3. Physical therapy as tolerated. M Klaudia BARDALES MD DR: STEF/keri JOB#: [id number] / [id number]
== END 2018-07-25 16:40 | DRG 100 ==
LOC: ER 09:42 → 1 SOUTH 13:23
PROVIDERS: ADMIT Family Medicine; ATTEND Family Medicine
DX: G40.409 Other generalized epilepsy and epileptic syndromes, not intractable, without status epilepticus (principal); N17.0 Acute kidney failure with tubular necrosis; E44.0 Moderate protein-calorie malnutrition; T42.1X5A Adverse effect of iminostilbenes, initial encounter; E03.9 Hypothyroidism, unspecified; E11.22 Type 2 diabetes mellitus with diabetic chronic kidney disease; E11.42 Type 2 diabetes mellitus with diabetic polyneuropathy; E66.01 Morbid (severe) obesity due to excess calories; E78.00 Pure hypercholesterolemia, unspecified; E87.5 Hyperkalemia; F03.90 Unspecified dementia, unspecified severity, without behavioral disturbance, psychotic disturbance, mood disturbance, and anxiety; F32.9 Major depressive disorder, single episode, unspecified; F41.9 Anxiety disorder, unspecified; I12.9 Hypertensive chronic kidney disease with stage 1 through stage 4 chronic kidney disease, or unspecified chronic kidney disease; K21.9 Gastro-esophageal reflux disease without esophagitis; K58.0 Irritable bowel syndrome with diarrhea; M19.90 Unspecified osteoarthritis, unspecified site; Z79.82 Long term (current) use of aspirin; Z79.899 Other long term (current) drug therapy; Z85.43 Personal history of malignant neoplasm of ovary; Z90.49 Acquired absence of other specified parts of digestive tract; Z90.710 Acquired absence of both cervix and uterus; G89.29 Other chronic pain; M54.5 Low back pain; N18.3 Chronic kidney disease, stage 3 (moderate)
CPT/HCPCS: 36415; 80048; 80053; 80156; 80184; 81001; 82947; 85025; 87641; 93005; 96360; 96361; J1815; 97530; 99285-25; J7030

== ENCOUNTER 2018-08-19 16:42 | Inpatient (IN) | payer OTHER ==
[~2018-08-19] VITALS: Ht 167.6 cm; Wt 89.8 kg
[~2018-08-19 16:42] MED LIST changes: +FLUC100T4 PO; +LACT1CAP2 PO; +LORA0.5T PO; +NYST15PO9 TP; -OXYC-323 PO; +OXYC1TAB15 PO; +PHEN32.424 PO; +PRAV40TA PO; +VANC500V PO
--- NOTE | 2018-08-19 18:18 | ED.ADGEN ---
Past History Past Medical History: Dementia, Depression, Diabetes, High Cholesterol, Hypertension Past Surgical History: Appendectomy, Cholecystectomy, Hysterectomy Alcohol Use: None Drug Use: None Adult General Chief Complaint Chief Complaint "... got this infection of my stomach..." HPI HPI Patient is a 72 year old female who presents with above hx and sore on abd. x 2 weeks worse tonight. Patient has somewhat extensive medical history with diagnosis of diabetes, depression, depression, dementia, anxiety disorder. Patient denies any recent travel or specific ill contacts. Does not know her recent baseline sugars. Pt. has hx of Pt normally for with Dr. Ledesma. Review of Systems Review of Systems Constitutional: Subjective complaints of fever or chills [] Eyes: Denies change in visual acuity, redness, or eye pain [] HENT: Denies nasal congestion or sore throat [] Respiratory: Denies cough or shortness of breath [] Cardiovascular: No additional information not addressed in HPI [] GI: Denies abdominal pain, nausea, vomiting, bloody stools or diarrhea [] : Denies dysuria or hematuria [] Musculoskeletal: Denies back pain or joint pain [] Integument: Complains of cellulitis on abdomen Neurologic: Denies headache, focal weakness or sensory changes [] Endocrine: Denies polyuria or polydipsia [] All other systems were reviewed and found to be within normal limits, except as documented in this note. Family History Family History Diabetes and hypertension Current Medications Current Medications Current Medications Medications (Trade) Dose Ordered Sig/Alirio Start Time Stop Time Status Last Admin Dose Admin Ceftriaxone Sodium 1 gm/ Sodium Chloride 50 ml @ 100 mls/hr 1X ONCE 08/19/18 19:15 08/19/18 19:44 DC 08/19/18 19:18 100 MLS/HR Ceftriaxone Sodium (Rocephin) 1 gm STK-MED ONCE 08/19/18 19:12 08/19/18 19:13 DC Diphtheria/ Tetanus/Acell Pertussis (Boostrix) 0.5 ml ONCE ONCE 08/19/18 19:15 08/19/18 19:16 DC 08/19/18 19:19 0.5 ML Lorazepam (Ativan) 1 mg 1X ONCE 08/19/18 20:15 08/19/18 20:16 DC 08/19/18 20:15 1 MG Ondansetron HCl (Zofran) 4 mg PRN Q4HRS PRN 08/19/18 21:00 08/20/18 20:59 Sodium Chloride 50 ml @ As Directed STK-MED ONCE 08/19/18 19:12 08/19/18 19:13 DC Trimethoprim/ Sulfamethoxazole (Bactrim Ds) 1 tab 1X ONCE 08/19/18 19:15 08/19/18 19:16 DC 08/19/18 19:18 1 TAB Allergies Allergies Allergies Coded Allergies Type Severity Reaction Last Updated Verified banana Allergy Intermediate 07/14/18 Yes erythromycin base Allergy Intermediate 07/14/18 No Physical Exam Physical Exam Constitutional: Moderately acute distress, non-toxic appearance. [] HENT: Normocephalic, atraumatic, bilateral external ears normal, oropharynx moist, no oral exudates, nose normal. [] Eyes: PERRLA, EOMI, conjunctiva normal, no discharge. [] Neck: Normal range of motion, no tenderness, supple, no stridor. [] Cardiovascular:Heart rate regular rhythm, no murmur [] Lungs & Thorax: Bilateral breath sounds clear to auscultation [] Abdomen: Bowel sounds normal, soft, somewhat significant cellulitis and generalized skin tenderness, no pointing abscesses appreciated. No masses, no pulsatile masses. [] Does have multiple old surgery scars. Skin: Warm, dry, no erythema, cellulitis as per abdomen Back: No tenderness, no CVA tenderness. [] Extremities: No tenderness, no cyanosis, no clubbing, ROM intact, ankle edema. [ ] Neurologic: Alert and oriented X 3, normal motor function, normal sensory function, no focal deficits noted. [] Psychologic: Affect anxious, , mood normal. [] Current Patient Data Vital Signs Vital Signs Date Time Temp Pulse Resp B/P (MAP) Pulse Ox O2 Delivery O2 Flow Rate FiO2 08/19/18 20:16 69 15 129/94 (106) 100 08/19/18 19:44 Room Air 08/19/18 16:42 98.4 Lab Results Laboratory Tests Test 08/19/18 18:02 08/19/18 18:15 White Blood Count 9.5 x10^3/uL (4.0-11.0) Red Blood Count 3.62 x10^6/uL (3.50-5.40) Hemoglobin 11.6 g/dL (12.0-15.5) L Hematocrit 35.0 % (36.0-47.0) L Mean Corpuscular Volume 97 fL (79-100) Mean Corpuscular Hemoglobin 32 pg (25-35) Mean Corpuscular Hemoglobin Concent 33 g/dL (31-37) Red Cell Distribution Width 15.9 % (11.5-14.5) H Platelet Count 386 x10^3/uL (140-400) Neutrophils (%) (Auto) 67 % (31-73) Lymphocytes (%) (Auto) 14 % (24-48) L Monocytes (%) (Auto) 5 % (0-9) Eosinophils (%) (Auto) 14 % (0-3) H Basophils (%) (Auto) 1 % (0-3) Neutrophils # (Auto) 6.3 x10^3uL (1.8-7.7) Lymphocytes # (Auto) 1.3 x10^3/uL (1.0-4.8) Monocytes # (Auto) 0.5 x10^3/uL (0.0-1.1) Eosinophils # (Auto) 1.4 x10^3/uL (0.0-0.7) H Basophils # (Auto) 0.0 x10^3/uL (0.0-0.2) Sodium Level 143 mmol/L (136-145) Potassium Level 3.4 mmol/L (3.5-5.1) L Chloride Level 104 mmol/L (98-107) Carbon Dioxide Level 26 mmol/L (21-32) Anion Gap 13 (6-14) Blood Urea Nitrogen 21 mg/dL (7-20) H Creatinine 1.1 mg/dL (0.6-1.0) H Estimated GFR (Cockcroft-Gault) 49.1 BUN/Creatinine Ratio 19 (6-20) Glucose Level 154 mg/dL (70-99) H Calcium Level 9.2 mg/dL (8.5-10.1) Total Bilirubin 0.3 mg/dL (0.2-1.0) Aspartate Amino Transferase (AST) 15 U/L (15-37) Alanine Aminotransferase (ALT) 17 U/L (14-59) Alkaline Phosphatase 116 U/L (46-116) Total Protein 7.5 g/dL (6.4-8.2) Albumin 3.2 g/dL (3.4-5.0) L Albumin/Globulin Ratio 0.7 (1.0-1.7) L Urine Collection Type Unknown Urine Color Yellow Urine Clarity Hazy Urine pH 6.5 Urine Specific [place] 1.020 Urine Protein Trace (NEG-TRACE) Urine Glucose (UA) Neg mg/dL (NEG) Urine Ketones (Stick) Neg mg/dL (NEG) Urine Blood Neg (NEG) Urine Nitrite Neg (NEG) Urine Bilirubin Neg (NEG) Urine Urobilinogen Dipstick 0.2 mg/dL (0.2 mg/dL) Urine Leukocyte Esterase Neg (NEG) Urine RBC 1-2 /HPF (0-2) Urine WBC 1-4 /HPF (0-4) Urine Squamous Epithelial Cells Many /LPF Urine Bacteria Many /HPF (0-FEW) EKG EKG [] Radiology/Procedures Radiology/Procedures I interpretation of chest x-ray shows no acute cardiopulmonary findings. No free air under the diaphragm.[] Course & Med Decision Making Course & Med Decision Making Pertinent Labs and Imaging studies reviewed. (See chart for details) Stress presentation, testing and treatment plan with - Will admit for IV antibiotic and further evaluation [] Final Impression Final Impression 1. Cellulitis 2. DM[] 154 3. Anemia 11.6 4. Elevated Bun/Crea 21/1.l Dragon Disclaimer Dragon Disclaimer This electronic medical record was generated, in whole or in part, using a voice recognition dictation system. HEBER FLANAGAN MD Aug 19, 2018 18:18
[2018-08-19 18:26] LABS: BASO % 1 % (0-3); EOS # 1.4 x10^3/uL (0.0-0.7); EOS % 14 % (0-3); HEMOGLOBIN 11.6 g/dL (12.0-15.5); LYMPH # 1.3 x10^3/uL (1.0-4.8); LYMPH % 14 % (24-48); MEAN CORPUSCULAR HEMOGLOBIN 32 pg (25-35); MEAN CORPUSCULAR HGB CONC 33 g/dL (31-37); MEAN CORPUSCULAR VOLUME 97 fL (79-100); MONO # 0.5 x10^3/uL (0.0-1.1); MONO % 5 % (0-9); NEUT # 6.3 x10^3uL (1.8-7.7); NEUT % 67 % (31-73); PLATELET COUNT 386 x10^3/uL (140-400); RED BLOOD COUNT 3.62 x10^6/uL (3.50-5.40); RED CELL DISTRIBUTION WIDTH 15.9 % (11.5-14.5); WHITE BLOOD COUNT 9.5 x10^3/uL (4.0-11.0)
[2018-08-19 18:50] LABS: ALBUMIN 3.2 g/dL (3.4-5.0); ALBUMIN/GLOBULIN RATIO 0.7 (1.0-1.7); CALCIUM 9.2 mg/dL (8.5-10.1); CREATININE 1.1 mg/dL (0.6-1.0); GFR 49.1; POTASSIUM 3.4 mmol/L (3.5-5.1); TOTAL BILIRUBIN 0.3 mg/dL (0.2-1.0); TOTAL PROTEIN 7.5 g/dL (6.4-8.2)
[2018-08-19] MEDS ORDERED: cefTRIAXone SODIUM 1 GM VIAL IV ONE (19:12)
[2018-08-19] MEDS ORDERED: IV NORMAL SALINE 50ML 50 ML ONE (19:12)
[2018-08-19] MEDS ORDERED: SMZ/TMP 800/160MG TABLET. PO ONE (19:15)
[2018-08-19] MEDS ORDERED: DIPHTH,PERTUSS(ACELL),TET TOX 0.5 ML DISP.SYRIN. VAX IM ONE (19:15)
[2018-08-19 19:51] LABS: BACTERIA,URINE MANY /HPF (0-FEW); BILIRUBIN,URINE NEG (NEG); CLARITY,URINE HAZY; COLOR,URINE YELLOW; GLUCOSE,URINE NEG (NEG); NITRITE,URINE NEG (NEG); SQUAMOUS EPITHELIAL CELL,UR MANY /LPF; UROBILINOGEN,URINE 0.2 mg/dL (0.2 mg/dL)
[2018-08-19] MEDS ORDERED: LORazepam 2 MG/ML VIAL ONE (20:11)
[2018-08-19] MEDS ORDERED: LORazepam 2 MG/ML VIAL IV ONE (20:15)
[2018-08-19] MEDS ORDERED: ONDANSETRON PF 4 MG/2 ML VIAL. IV PRN (21:00)
[2018-08-19 23:17] VITALS: BP 139/72
[2018-08-20 05:28] VITALS: BP 137/76
[2018-08-20] MEDS: IPRATRPIUM/ALBUTEROL 0.5/2.5MG 3 ML NEBU. NEB SCH ×4 (06:00→21:18)
[2018-08-20 06:41] LABS: BASO # 0.1 x10^3/uL (0.0-0.2); BASO % 1 % (0-3); EOS # 1.8 x10^3/uL (0.0-0.7); EOS % 18 % (0-3); HEMATOCRIT 31.3 % (36.0-47.0); HEMOGLOBIN 10.5 g/dL (12.0-15.5); LYMPH # 1.6 x10^3/uL (1.0-4.8); LYMPH % 16 % (24-48); MEAN CORPUSCULAR HEMOGLOBIN 33 pg (25-35); MEAN CORPUSCULAR HGB CONC 34 g/dL (31-37); MEAN CORPUSCULAR VOLUME 97 fL (79-100); MONO # 0.7 x10^3/uL (0.0-1.1); MONO % 7 % (0-9); NEUT # 5.7 x10^3uL (1.8-7.7); NEUT % 58 % (31-73); PLATELET COUNT 340 x10^3/uL (140-400); RED BLOOD COUNT 3.23 x10^6/uL (3.50-5.40); RED CELL DISTRIBUTION WIDTH 15.8 % (11.5-14.5); WHITE BLOOD COUNT 9.8 x10^3/uL (4.0-11.0)
[2018-08-20 06:50] LABS: CALCIUM 8.8 mg/dL (8.5-10.1); CREATININE 1.1 mg/dL (0.6-1.0); GFR 49.1; POTASSIUM 3.3 mmol/L (3.5-5.1)
--- NOTE | 2018-08-20 08:13 | RAD ---
EXAM: AP View of the chest DATE: 08/19/2018 4:50 PM INDICATION: SHORT OF BREATH, CHEST PAIN COMPARISON: No Prior FINDINGS: The heart is not enlarged. Mediastinal and hilar contours are normal. No focal parenchymal airspace opacity. No pleural effusion or pneumothorax. IMPRESSION: 1. No radiographic evidence for acute cardiopulmonary process. Electronically signed by: Donny Cannon MD (08/20/2018 8:09 AM) [facility]
[2018-08-20] MEDS ORDERED: SMZ/TMP 800/160MG TABLET. PO SCH (09:00)
[2018-08-20] MEDS: NYSTATIN TOPICAL POWDER 15GM BOTTLE. TP SCH ×2 (09:17→22:28)
[2018-08-20] MEDS ORDERED: ONDANSETRON ODT 4 MG TAB.RAPDIS PO PRN (09:45)
[2018-08-20] MEDS ORDERED: VANCOMYCIN 2 GM in IV NORMAL SALINE 500ML 500 ML IV ONE (11:00)
[2018-08-20] MEDS: VANCOMYCIN PER PHARMACY MC PRN (11:01)
[2018-08-20 11:24] VITALS: BP 158/68
[2018-08-20] MEDS: LORazepam 1 MG TABLET PO PRN ×2 (11:30→22:29)
--- NOTE | 2018-08-20 13:46 | HP ---
ADMIT DATE: 08/19/2018 HISTORY OF PRESENT ILLNESS: The patient came in through the Emergency Room very weak. She has failed outpatient therapy. She has a history of diabetes as well as severe dementia, developed an infection or cellulitis of her abdomen. She has been treated with oral antibiotics, it got worse and the patient was admitted to the hospital for IV antibiotic therapy due to her risk factors including failure of outpatient therapy and failure of controlling her blood sugars. The patient was admitted to start IV antibiotic therapy and monitor her accordingly. PAST MEDICAL HISTORY: Includes cataracts, tonsillectomy, dementia, Alzheimer's disease, epilepsy, numbness, hypercholesterolemia, respiratory problems, irritable bowel syndrome, abdominal surgery, umbilical hernia, morbid obesity, GERD, history of ovarian cancer, hysterectomy, stress incontinence, degenerative arthritis, type 2 diabetes, hypothyroidism, panic disorder, severe depression. VACCINATIONS: Tetanus, influenza and pneumococcal all up to date. She has had a previous history of C. difficile. FAMILY HISTORY: Positive for hypertension and vascular disease in the mother. The father had some form of cancer. ALLERGIES: SHE HAS ALLERGIES TO BANANA AND ERYTHROMYCIN BASE COMPOUNDS. MEDICATIONS: Her medications are listed in the hospital chart including Pravachol 40 mg a day, aspirin 81, gabapentin 300, Celexa 40, Cymbalta 30, phenobarbital 32.4. Remeron 7.5, Cymbalta 30 mg daily, Namenda 10 mg daily, furosemide 20 mg daily, Maxzide 75, lactobacillus, loperamide, Zantac 300, Levothyroxine, antifungals including nystatin. SOCIAL HISTORY: Denies smoking, alcohol or drug use. The patient otherwise basically unremarkable. REVIEW OF SYSTEMS: Except for the abdominal pain. She does have generalized weakness and inflammation and irritation under the breasts have been improved. She denies shortness of breath or chest pain at the present time. PHYSICAL EXAMINATION: GENERAL: This is a very pleasant white female, moderate amount of pain. VITAL SIGNS: Blood pressure 150/68, respiratory 20, pulse 88, afebrile. HEENT: The patient's head was atraumatic, normocephalic. Eyes: PERRLA without jaundice. Mouth and throat were normal. NECK: Supple. LUNGS: Diminished, but clear. CARDIOVASCULAR: Regular sinus rhythm. ABDOMEN: Soft. There is inflammation under the breast and there is an infected area measuring approximately 6.5 cm in one of the folds of the abdominal wall, also expanding up by 2-3 cm laterally. The patient in turn has pussy discharge coming from that. C and S to be performed on that. Otherwise, marked tenderness to the abdomen, slight guarding, but no rebounding, positive bowel sounds. EXTREMITIES: No clubbing, cyanosis. Trace edema. NEUROLOGIC: The patient is alert and oriented x 3, although very depressed, having a lot of stress, loss of , son is also in the hospital with critical problems. IMPRESSION AND PLAN: Cellulitis to the abdominal wall and nonresponsive to outpatient therapy, type 2 diabetes, morbid obesity, chronic kidney disease stage 3, hypokalemia, history of Alzheimer's disease. The patient has been home. It is hard to believe that she is able to take care of herself in the common way so she may need continued rehabilitation care. Otherwise, we will continue put her on IV vancomycin and make further evaluation on her as indicated per those results. AKIN GREEN MD DR: ARPIT/nts JOB#: [id number] / [id number]
[2018-08-20 15:00] VITALS: BP 133/73
[2018-08-20 17:57] VITALS: BP 153/74
[2018-08-20 19:10] VITALS: BP 144/78
[2018-08-20] MEDS ORDERED: CITALOPRAM 20 MG TABLET. PO SCH (22:00)
[2018-08-20] MEDS ORDERED: LORazepam 1 MG TABLET PO PRN (22:00)
[2018-08-20] MEDS: MIRTAZAPINE 7.5 MG TABLET. PO SCH (22:28)
[2018-08-20] MEDS: LACTOBACILLUS RHAMNOSUS GG 1 CAPSULE. PO SCH (22:28)
[2018-08-20] MEDS: GABAPENTIN 300 MG CAPSULE. PO SCH (22:29)
[2018-08-20] MEDS: MEMANTINE 10 MG TABLET. PO SCH (22:29)
[2018-08-20] MEDS: TRIAMTERENE/HCTZ 75/50MG TABLET. PO SCH (22:29)
[2018-08-20] MEDS: PRAVASTATIN 20 MG TABLET. PO SCH (22:30)
[2018-08-20 22:48] VITALS: BP 138/76
[2018-08-21 05:24] VITALS: BP 144/71
[2018-08-21] MEDS: LEVOTHYROXINE 25 MCG TABLET. PO SCH (06:11)
[2018-08-21] MEDS: MEMANTINE 10 MG TABLET. PO SCH ×2 (08:08→20:51)
[2018-08-21] MEDS: LACTOBACILLUS RHAMNOSUS GG 1 CAPSULE. PO SCH ×2 (08:08→20:51)
[2018-08-21] MEDS: PHENobarbital 32.4 MG TABLET. PO SCH (08:08)
[2018-08-21] MEDS: ASPIRIN 81 MG TAB.CHEW PO SCH (08:08)
[2018-08-21] MEDS: POTASSIUM CHLORIDE 10 MEQ TABLET.ER. PO SCH ×2 (08:08→16:35)
[2018-08-21] MEDS: FAMOTIDINE 20 MG TABLET PO SCH ×2 (08:09→20:51)
[2018-08-21] MEDS: FUROSEMIDE 20 MG TABLET PO SCH (08:09)
[2018-08-21] MEDS: GABAPENTIN 300 MG CAPSULE. PO SCH ×3 (08:09→20:51)
[2018-08-21] MEDS: TRIAMTERENE/HCTZ 75/50MG TABLET. PO SCH ×2 (08:09→20:51)
[2018-08-21] MEDS: NYSTATIN TOPICAL POWDER 15GM BOTTLE. TP SCH ×2 (08:12→20:52)
[2018-08-21] MEDS ORDERED: DULoxetine HCL 30 MG CAPSULE.DR PO SCH (09:00)
[2018-08-21] MEDS ORDERED: NON FORMULARY ITEM (Lactobacillus Acidophilus (Acidophilus) 1 EACH) PO SCH (09:00)
[2018-08-21 11:31] VITALS: BP 149/68
[2018-08-21] MEDS: VANCOMYCIN 1.5 GM in IV NORMAL SALINE 500ML 500 ML IV SCH (12:13)
[2018-08-21] MEDS ORDERED: LOPERAMIDE 2 MG CAPSULE PO PRN (12:30)
[2018-08-21] MEDS: LOPERAMIDE 2 MG CAPSULE PO PRN (12:52)
[2018-08-21 15:25] VITALS: BP 117/72
--- NOTE | 2018-08-21 16:56 | PDOC ---
Exam Note: Jules Note: Please also refer to the separate dictated note~for this date of service dictated separately.~Patient seen individually. Discussed the patient with Nursing staff reviewed the chart.~Reviewed interim history and current functioning. Reviewed vital signs,~Labs/ Radiology~and current medications noted below. Continue current treatment with the changes noted in the dictated addendum note. late entry for 08/20/2018 Assessment: Vital Signs: VS - Last 72 Hours, by Label Date Time Temp Pulse Resp B/P (MAP) Pulse Ox O2 Delivery O2 Flow Rate FiO2 08/21/18 15:25 97.6 84 20 117/72 (87) 98 Room Air 08/21/18 11:31 98.3 67 20 149/68 (95) 96 Room Air 08/21/18 08:00 Room Air 08/21/18 05:24 97.7 55 16 144/71 (95) 97 Room Air 08/20/18 22:48 98.4 87 20 138/76 (96) 98 Room Air 08/20/18 19:15 Room Air 08/20/18 19:10 99.0 93 18 144/78 (100) 98 Room Air 08/20/18 17:57 98.6 98 20 153/74 (100) 97 Room Air 08/20/18 15:00 98.6 93 20 133/73 (93) 97 Room Air 08/20/18 11:24 98.6 88 20 158/68 (98) 97 Room Air 08/20/18 10:51 99 Room Air 08/20/18 05:28 98.2 77 18 137/76 (96) 97 Room Air 08/19/18 23:17 97.7 82 20 139/72 (94) 97 Room Air 08/19/18 20:16 69 15 129/94 (106) 100 18 19:44 75 12 141/61 (87) 97 Room Air 08/19/18 19:14 75 12 144/73 (96) 99 Room Air 08/19/18 18:44 76 12 136/67 (90) 100 Room Air 08/19/18 18:14 72 15 149/61 (90) 100 Room Air 08/19/18 17:44 83 12 139/71 (93) 96 Room Air 08/19/18 17:14 84 12 129/69 (89) 97 Room Air 08/19/18 16:42 98.4 89 16 100 Room Air Vital Signs Date Time Temp Pulse Resp B/P (MAP) Pulse Ox O2 Delivery O2 Flow Rate FiO2 08/21/18 15:25 97.6 84 20 117/72 (87) 98 Room Air I&O Intake and Output 08/21/18 07:00 Intake Total 1370 ml Balance 1370 ml Intake Oral 870 ml IV Total 500 ml # Voids 16 # Bowel Movements 2 Labs: Laboratory Tests Test 08/20/18 21:30 08/21/18 07:49 08/21/18 11:56 Glucose (Fingerstick) 152 mg/dL (70-99) H 134 mg/dL (70-99) H 179 mg/dL (70-99) H Current Medications: Meds: Current Medications Ceftriaxone Sodium 1 gm/ Sodium Chloride 50 ml @ 100 mls/hr 1X ONCE IV Last administered on 08/19/18at 19:18; Start 08/19/18 at 19:15; Stop 08/19/18 at 19 :44; Status DC Trimethoprim/ Sulfamethoxazole (Bactrim Ds) 1 tab 1X ONCE PO Last administered on 08/19/18at 19:18; Start 08/19/18 at 19:15; Stop 08/19/18 at 19 :16; Status DC Diphtheria/ Tetanus/Acell Pertussis (Boostrix) 0.5 ml ONCE ONCE VAX IM Last administered on 08/19/18at 19:19; Start 08/19/18 at 19:15; Stop 08/19/18 at 19 :16; Status DC Sodium Chloride 50 ml @ As Directed STK-MED ONCE .ROUTE ; Start 08/19/18 at 19: 12; Stop 08/19/18 at 19:13; Status DC Ceftriaxone Sodium (Rocephin) 1 gm STK-MED ONCE IV ; Start 08/19/18 at 19:12; Stop 08/19/18 at 19:13; Status DC Lorazepam (Ativan) 2 mg STK-MED ONCE .ROUTE ; Start 08/19/18 at 20:11; Stop at 20:12; Status DC Lorazepam (Ativan) 1 mg 1X ONCE IV Last administered on 08/19/18at 20:15; Start 08/19/18 at 20:15; Stop 08/19/18 at 20:16; Status DC Ondansetron HCl (Zofran) 4 mg PRN Q4HRS PRN IV NAUSEA/VOMITING; Start at 21:00; Stop 08/20/18 at 20:59; Status DC Albuterol/ Ipratropium (Duoneb) 3 ml RTQID NEB Last administered on 08/20/18at 10:51; Start 08/20/18 at 08:00; Stop 08/21/18 at 08:00; Status DC Ceftriaxone Sodium 1 gm/ Sodium Chloride 50 ml @ 100 mls/hr Q24H IV ; Start at 19:00; Stop 08/20/18 at 19:00; Status DC Trimethoprim/ Sulfamethoxazole (Bactrim Ds) 1 tab BID PO Last administered on 08/20/18at 09:07; Start 08/20/18 at 09:00; Stop 08/20/18 at 09:54; Status DC Nystatin (Nystop) 1 ej BID TP Last administered on 08/21/18at 08:12; Start at 09:00 Ondansetron HCl (Zofran Odt) 4 mg PRN Q8HRS PRN PO NAUSEA/VOMITING; Start at 09:45 Vancomycin HCl (Vanco Per Pharmacy) 1 each PRN DAILY PRN MC SEE COMMENTS Last administered on 08/20/18at 11:01; Start 08/20/18 at 10:00 Vancomycin HCl 1.5 gm/Sodium Chloride 500 ml @ 250 mls/hr Q24H IV Last administered on 08/21/18at 12:13; Start 08/21/18 at 11:00 Vancomycin HCl (Vancomycin Trough Level) 1 each 1X ONCE MC ; Start 08/22/18 at 10:30; Stop 08/22/18 at 10:31 Vancomycin HCl 2 gm/Sodium Chloride 500 ml @ 250 mls/hr 1X ONCE IV Last administered on 08/20/18at 11:30; Start 08/20/18 at 11:00; Stop 08/20/18 at 12 :59; Status DC Lorazepam (Ativan) 1 mg PRN Q8HRS PRN PO ANXIETY / AGITATION Last administered on 08/20/18at 22:29; Start 08/20/18 at 11:15 Lactobacillus Rhamnosus (Culturelle) 1 cap BID PO Last administered on 08:08; Start 08/20/18 at 21:00 Furosemide (Lasix) 20 mg DAILY PO Last administered on 08/21/18at 08:09; Start 08/21/18 at 09:00 Gabapentin (Neurontin) 300 mg TID PO Last administered on 08/21/18at 14:04; Start 08/20/18 at 22:00 Mirtazapine (Remeron) 7.5 mg HS PO Last administered on 08/20/18at 22:28; Start 08/20/18 at 22:00 Phenobarbital (Luminal) 97.2 mg DAILY PO Last administered on 08/21/18 08:08 ; Start 08/21/18 at 09:00 Aspirin (Children'S Aspirin) 81 mg DAILYWBKFT PO Last administered on at 08:08; Start 08/21/18 at 08:00 Citalopram Hydrobromide (CeleXA) 40 mg QHS PO Last administered on 08/20/18at 22:29; Start 08/20/18 at 22:00 Duloxetine HCl (Cymbalta) 30 mg DAILY PO Last administered on 08/21/18 08:09 ; Start 08/21/18 at 09:00 Non-Formulary Medication (Lactobacillus Acidophilus (Acidophilus)) 1 each DAILY PO ; Start 08/21/18 at 09:00; Stop 08/21/18 at 09:00; Status DC Levothyroxine Sodium (Synthroid) 25 mcg DAILY06 PO Last administered on at 06:11; Start 08/21/18 at 06:00 Lorazepam (Ativan) 1 mg PRN TID PRN PO ANXIETY / AGITATION; Start 08/20/18 at 22:00 Memantine (Namenda) 10 mg BID PO Last administered on 08/21/18 08:08; Start 08/20/18 at 22:00 Potassium Chloride (Klor-Con) 10 meq BIDWMEALS PO Last administered on at 16:35; Start 08/21/18 at 08:00 Pravastatin Sodium (Pravachol) 40 mg QHS PO Last administered on 08/20/18at 22: 30; Start 08/20/18 at 22:00 Famotidine (Pepcid) 20 mg BID PO Last administered on 08/21/18at 08:09; Start 08/21/18 at 09:00 Triamterene/HCTZ (Maxzide 75/50mg) 1 tab BID PO Last administered on at 08:09; Start 08/20/18 at 22:00 Loperamide HCl (Imodium) 2 mg PRN Q15MIN PRN PO DIARRHEA Last administered on 08/21/18at 12:52; Start 08/21/18 at 12:30 Loperamide HCl (Imodium) 2 mg PRN Q15MIN PRN PO DIARRHEA; Start 08/21/18 at 12 :30; Stop 08/21/18 at 12:30; Status DC Active Scripts Active Phenobarbital 32.4 Mg Tablet 97.2 Mg PO DAILY 30 Days Acidophilus (Lactobacillus Acidophilus) 1 Each Capsule 1 Each PO DAILY 30 Days Reported Pravachol (Pravastatin Sodium) 40 Mg Tablet 1 Tab PO HS Nystatin 15 Gm Powder 1 Ej TP BID Mirtazapine 7.5 Mg Tablet 7.5 Mg PO HS Lorazepam 0.5 Mg Tablet 1 Tab PO TID PRN Gabapentin (Gabapentin) 300 Mg Capsule 300 Mg PO TID Cymbalta (Duloxetine Hcl) 30 Mg Capsule.dr 1 Cap PO DAILY Aspirin 81 Mg Tab.chew 81 Mg PO DAILY Namenda (Memantine Hcl) 10 Mg Tablet 1 Tab PO BID LAST DOSE GIVEN: DATE:Today TIME: AM NEXT DOSE DUE: DATE: Today TIME: PM Levothyroxine Sodium 25 Mcg Tablet 1 Tab PO DAILY LAST DOSE GIVEN: DATE:Today TIME: Before Breakfast NEXT DOSE DUE: DATE: Tomorrow TIME: Before Breakfast Lasix (Furosemide) 20 Mg Tablet 1 Tab PO DAILY LAST DOSE GIVEN: DATE:Today TIME:AM NEXT DOSE DUE: DATE:Tomorrow TIME:AM Celexa (Citalopram Hydrobromide) 40 Mg Tablet 40 Mg PO QHS LAST DOSE GIVEN: DATE: YESTERDAY TIME: AT BEDTIME NEXT DOSE DUE: DATE: TODAY TIME: AT BEDTIME Ranitidine Hcl 300 Mg Capsule 1 Cap PO BID LAST DOSE GIVEN: DATE: TODAY TIME: AM NEXT DOSE DUE: DATE: TODAY TIME: PM Triamterene-Hctz 75-50 Mg Tab (Triamterene/Hydrochlorothiazid) 1 Each Tablet 1 Tab PO BID LAST DOSE GIVEN: DATE: TODAY TIME: AM NEXT DOSE DUE: DATE: TODAY TIME: PM Anti-Diarrhea (Loperamide Hcl) 2 Mg Tablet 2 Mg PO PRN NOT GIVEN TODAY NEXT DOSE DUE: DATE: TODAY TIME: IF AND WHEN NEEDED Potassium Chloride 10 Meq Capsule.er 1 Cap PO BID LAST DOSE GIVEN: DATE: TODAY TIME: AM NEXT DOSE DUE: DATE: TODAY TIME: PM I have reviewed the current psychotropics carefully including drug interactions. Risk benefit ratio favors no change other than as noted in my dictated progress note. Diagnosis: Problems: (1) Major depressive disorder, recurrent episode (2) Mild cognitive disorder (3) Anxiety disorder KAYLAN CURRAN MD Aug 21, 2018 16:56
--- NOTE | 2018-08-21 19:56 | PDOC ---
Exam Note: Jules Note: Please also refer to the separate dictated note~for this date of service dictated separately.~Patient seen individually. Discussed the patient with Nursing staff reviewed the chart.~Reviewed interim history and current functioning. Reviewed vital signs,~Labs/ Radiology~and current medications noted below. Continue current treatment with the changes noted in the dictated addendum note Assessment: Vital Signs: Vital Signs Date Time Temp Pulse Resp B/P (MAP) Pulse Ox O2 Delivery O2 Flow Rate FiO2 08/21/18 15:25 97.6 84 20 117/72 (87) 98 Room Air I&O Intake and Output 08/21/18 07:00 Intake Total 1370 ml Balance 1370 ml Intake Oral 870 ml IV Total 500 ml # Voids 16 # Bowel Movements 2 Labs: Laboratory Tests Test 08/20/18 21:30 08/21/18 07:49 08/21/18 11:56 08/21/18 16:54 Glucose (Fingerstick) 152 mg/dL (70-99) H 134 mg/dL (70-99) H 179 mg/dL (70-99) H 167 mg/dL (70-99) H Current Medications: Meds: Current Medications Ceftriaxone Sodium 1 gm/ Sodium Chloride 50 ml @ 100 mls/hr 1X ONCE IV Last administered on 08/19/18at 19:18; Start 08/19/18 at 19:15; Stop 08/19/18 at 19 :44; Status DC Trimethoprim/ Sulfamethoxazole (Bactrim Ds) 1 tab 1X ONCE PO Last administered on 08/19/18at 19:18; Start 08/19/18 at 19:15; Stop 08/19/18 at 19 :16; Status DC Diphtheria/ Tetanus/Acell Pertussis (Boostrix) 0.5 ml ONCE ONCE VAX IM Last administered on 08/19/18at 19:19; Start 08/19/18 at 19:15; Stop 08/19/18 at 19 :16; Status DC Sodium Chloride 50 ml @ As Directed STK-MED ONCE .ROUTE ; Start 08/19/18 at 19: 12; Stop 08/19/18 at 19:13; Status DC Ceftriaxone Sodium (Rocephin) 1 gm STK-MED ONCE IV ; Start 08/19/18 at 19:12; Stop 08/19/18 at 19:13; Status DC Lorazepam (Ativan) 2 mg STK-MED ONCE .ROUTE ; Start 08/19/18 at 20:11; Stop at 20:12; Status DC Lorazepam (Ativan) 1 mg 1X ONCE IV Last administered on 08/19/18at 20:15; Start 08/19/18 at 20:15; Stop 08/19/18 at 20:16; Status DC Ondansetron HCl (Zofran) 4 mg PRN Q4HRS PRN IV NAUSEA/VOMITING; Start at 21:00; Stop 08/20/18 at 20:59; Status DC Albuterol/ Ipratropium (Duoneb) 3 ml RTQID NEB Last administered on 08/20/18at 10:51; Start 08/20/18 at 08:00; Stop 08/21/18 at 08:00; Status DC Ceftriaxone Sodium 1 gm/ Sodium Chloride 50 ml @ 100 mls/hr Q24H IV ; Start at 19:00; Stop 08/20/18 at 19:00; Status DC Trimethoprim/ Sulfamethoxazole (Bactrim Ds) 1 tab BID PO Last administered on 08/20/18at 09:07; Start 08/20/18 at 09:00; Stop 08/20/18 at 09:54; Status DC Nystatin (Nystop) 1 ej BID TP Last administered on 08/21/18at 08:12; Start at 09:00 Ondansetron HCl (Zofran Odt) 4 mg PRN Q8HRS PRN PO NAUSEA/VOMITING; Start at 09:45 Vancomycin HCl (Vanco Per Pharmacy) 1 each PRN DAILY PRN MC SEE COMMENTS Last administered on 08/20/18at 11:01; Start 08/20/18 at 10:00 Vancomycin HCl 1.5 gm/Sodium Chloride 500 ml @ 250 mls/hr Q24H IV Last administered on 08/21/18at 12:13; Start 08/21/18 at 11:00 Vancomycin HCl (Vancomycin Trough Level) 1 each 1X ONCE MC ; Start 08/22/18 at 10:30; Stop 08/22/18 at 10:31 Vancomycin HCl 2 gm/Sodium Chloride 500 ml @ 250 mls/hr 1X ONCE IV Last administered on 08/20/18at 11:30; Start 08/20/18 at 11:00; Stop 08/20/18 at 12 :59; Status DC Lorazepam (Ativan) 1 mg PRN Q8HRS PRN PO ANXIETY / AGITATION Last administered on 08/20/18at 22:29; Start 08/20/18 at 11:15 Lactobacillus Rhamnosus (Culturelle) 1 cap BID PO Last administered on at 08:08; Start 08/20/18 at 21:00 Furosemide (Lasix) 20 mg DAILY PO Last administered on 08/21/18at 08:09; Start 08/21/18 at 09:00 Gabapentin (Neurontin) 300 mg TID PO Last administered on 08/21/18at 14:04; Start 08/20/18 at 22:00 Mirtazapine (Remeron) 7.5 mg HS PO Last administered on 08/20/18at 22:28; Start 08/20/18 at 22:00 Phenobarbital (Luminal) 97.2 mg DAILY PO Last administered on 08/21/18at 08:08 ; Start 08/21/18 at 09:00 Aspirin (Children'S Aspirin) 81 mg DAILYWBKFT PO Last administered on at 08:08; Start 08/21/18 at 08:00 Citalopram Hydrobromide (CeleXA) 40 mg QHS PO Last administered on 08/20/18at 22:29; Start 08/20/18 at 22:00; Stop 08/21/18 at 16:57; Status DC Duloxetine HCl (Cymbalta) 30 mg DAILY PO Last administered on 08/21/18at 08:09 ; Start 08/21/18 at 09:00; Stop 08/21/18 at 16:57; Status DC Non-Formulary Medication (Lactobacillus Acidophilus (Acidophilus)) 1 each DAILY PO ; Start 08/21/18 at 09:00; Stop 08/21/18 at 09:00; Status DC Levothyroxine Sodium (Synthroid) 25 mcg DAILY06 PO Last administered on at 06:11; Start 08/21/18 at 06:00 Lorazepam (Ativan) 1 mg PRN TID PRN PO ANXIETY / AGITATION; Start 08/20/18 at 22:00 Memantine (Namenda) 10 mg BID PO Last administered on 08/21/18at 08:08; Start 08/20/18 at 22:00 Potassium Chloride (Klor-Con) 10 meq BIDWMEALS PO Last administered on at 16:35; Start 08/21/18 at 08:00 Pravastatin Sodium (Pravachol) 40 mg QHS PO Last administered on 08/20/18at 22: 30; Start 08/20/18 at 22:00 Famotidine (Pepcid) 20 mg BID PO Last administered on 08/21/18at 08:09; Start 08/21/18 at 09:00 Triamterene/HCTZ (Maxzide 75/50mg) 1 tab BID PO Last administered on at 08:09; Start 08/20/18 at 22:00 Loperamide HCl (Imodium) 2 mg PRN Q15MIN PRN PO DIARRHEA Last administered on 08/21/18at 12:52; Start 08/21/18 at 12:30 Loperamide HCl (Imodium) 2 mg PRN Q15MIN PRN PO DIARRHEA; Start 08/21/18 at 12 :30; Stop 08/21/18 at 12:30; Status DC Duloxetine HCl (Cymbalta) 40 mg DAILY PO ; Start 08/22/18 at 09:00 Bupropion HCl (Wellbutrin Xl) 150 mg DAILY PO ; Start 08/22/18 at 09:00 Active Scripts Active Phenobarbital 32.4 Mg Tablet 97.2 Mg PO DAILY 30 Days Acidophilus (Lactobacillus Acidophilus) 1 Each Capsule 1 Each PO DAILY 30 Days Reported Pravachol (Pravastatin Sodium) 40 Mg Tablet 1 Tab PO HS Nystatin 15 Gm Powder 1 Ej TP BID Mirtazapine 7.5 Mg Tablet 7.5 Mg PO HS Lorazepam 0.5 Mg Tablet 1 Tab PO TID PRN Gabapentin (Gabapentin) 300 Mg Capsule 300 Mg PO TID Cymbalta (Duloxetine Hcl) 30 Mg Capsule.dr 1 Cap PO DAILY Aspirin 81 Mg Tab.chew 81 Mg PO DAILY Namenda (Memantine Hcl) 10 Mg Tablet 1 Tab PO BID LAST DOSE GIVEN: DATE:Today TIME: AM NEXT DOSE DUE: DATE: Today TIME: PM Levothyroxine Sodium 25 Mcg Tablet 1 Tab PO DAILY LAST DOSE GIVEN: DATE:Today TIME: Before Breakfast NEXT DOSE DUE: DATE: Tomorrow TIME: Before Breakfast Lasix (Furosemide) 20 Mg Tablet 1 Tab PO DAILY LAST DOSE GIVEN: DATE:Today TIME:AM NEXT DOSE DUE: DATE:Tomorrow TIME:AM Celexa (Citalopram Hydrobromide) 40 Mg Tablet 40 Mg PO QHS LAST DOSE GIVEN: DATE: YESTERDAY TIME: AT BEDTIME NEXT DOSE DUE: DATE: TIME: AT BEDTIME Ranitidine Hcl 300 Mg Capsule 1 Cap PO BID LAST DOSE GIVEN: DATE: TODAY TIME: AM NEXT DOSE DUE: DATE: TODAY TIME: PM Triamterene-Hctz 75-50 Mg Tab (Triamterene/Hydrochlorothiazid) 1 Each Tablet 1 Tab PO BID LAST DOSE GIVEN: DATE: TIME: AM NEXT DOSE DUE: DATE: TODAY TIME: PM Anti-Diarrhea (Loperamide Hcl) 2 Mg Tablet 2 Mg PO PRN NOT GIVEN TODAY NEXT DOSE DUE: DATE: TIME: IF AND WHEN NEEDED Potassium Chloride 10 Meq Capsule.er 1 Cap PO BID LAST DOSE GIVEN: DATE: TODAY TIME: AM NEXT DOSE DUE: DATE: TODAY TIME: PM I have reviewed the current psychotropics carefully including drug interactions. Risk benefit ratio favors no change other than as noted in my dictated progress note. Diagnosis: Problems: (1) Cellulitis of left leg (2) Depression with suicidal ideation (3) Clostridium difficile infection (4) Grief reaction (5) Weakness generalized (6) Falls (7) Dysfunctional grieving (8) Clostridium difficile diarrhea (9) Cellulitis of breast (10) Frequent falls (11) Cellulitis (12) Anxiety disorder (13) Major depressive disorder, recurrent episode (14) Mild cognitive disorder (15) Knee contusion (16) Cataract (17) Fibula fracture (18) Skin tear (19) Near syncope (20) Encephalopathy chronic (21) Dehydration (22) Generalized weakness KAYLAN CURRAN MD Aug 21, 2018 19:55
[2018-08-21 20:04] VITALS: BP 132/74
[2018-08-21] MEDS: MIRTAZAPINE 7.5 MG TABLET. PO SCH (20:51)
[2018-08-21] MEDS: PRAVASTATIN 20 MG TABLET. PO SCH (20:52)
--- NOTE | 2018-08-21 20:54 | CONS ---
DATE OF CONSULTATION: 08/20/2018 This late entry 08/20/2018 covers elements not covered in my initial note. This late entry 08/09/2018 covers elements not covered in my initial note. SUBJECTIVE: I met with the patient in the evening. IDENTIFYING DATA: The patient is a 72-year-old female seen in bed 123, [facility] for a psychiatric consult requested by Dr. Ledesma on account of the patient's depression and dysfunctional grieving and being unable to take care of herself. The patient is seen individually in her room. Discussed with nursing staff, reviewed the chart. Per nursing report, the patient has had multiple admissions on our unit over the last few weeks and she has been more depressed and unable to deal with the loss of her who on 06/22/2018 status post cerebrovascular accident. CHIEF COMPLAINT: "Yes, I am depressed." HISTORY OF PRESENT ILLNESS: The patient reportedly has been living at home with her son. She was admitted at this time through the Emergency Room with significant weakness. She had failed outpatient treatment. She does have a history of diabetes, some memory deficits, worsening depression, and had developed cellulitis of her abdomen. She was admitted to the hospital for IV antibiotics, having failed oral antibiotics. She admits to feeling helpless, worthless and reportedly at home she was unable to take care of herself and was defecating and urinating at inappropriate places. Her son reportedly has indicated he is unable to take care of her any longer. 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 PAST PSYCHIATRIC HISTORY: Positive for depression. PAST MEDICAL HISTORY: Positive for cataracts, tonsillectomy, seizure disorder, hyperlipidemia, numbness, respiratory problems, irritable bowel syndrome, status post abdominal surgery, umbilical hernia, morbid obesity, GERD, history of ovarian cancer, stress incontinence, hysterectomy, degenerative arthritis, diabetes mellitus type 2, hypothyroidism, panic disorder. ALLERGIES: BANANA, ERYTHROMYCIN. FAMILY HISTORY: Hypertension, vascular disease in the mother, father had cancer. CURRENT PSYCHOTROPICS: Celexa 40 mg a day, Cymbalta 30 mg a day. She is on phenobarbital for seizures, Remeron 7.5 mg at bedtime, Namenda 10 mg daily. SOCIAL HISTORY: No alcohol or drug abuse history. MENTAL STATUS EXAMINATION: The patient was seen individually in her room at length. She was aware she was in the hospital at [place]. Speech had moderate latency, low in rate and rhythm, low in volume, some of it appeared as a consequent to some cognitive deficits whether they are associated with her seizure disorder or early dementia. Mood is depressed, anxious. Affect is mood congruent. No active suicidal or homicidal ideation. Attention span is short. Language function intact. She does seem fairly compromised and being able to take care of herself. IMPRESSION: From a psychiatric standpoint, major depressive disorder, cognitive disorder, unspecified; anxiety disorder, unspecified. Rest as above. PLAN: From a psychiatric standpoint, she is on two antidepressants, Celexa 40 mg a day and Cymbalta 30 mg a day. It may be best to simplify her psychotropic regimen by stopping the Celexa and increasing the Cymbalta to 40 mg a day. Given her apathy of motivation, we will augment it with Wellbutrin-XL 150 mg in the morning. Maintain Remeron and Namenda at the current dosage. She probably needs placement and I believe Jeanette Bolivar RN case manager is coordinating this. Dr. Ledesma, thank you for the opportunity to participate in your patient's care. We will follow with you. KAYLAN CURRAN MD DR: KELLY/nts JOB#: [id number] / [id number]
[2018-08-21 23:00] VITALS: BP 138/63
[2018-08-21] MEDS: LORazepam 1 MG TABLET PO PRN (23:42)
--- NOTE | 2018-08-22 05:03 | PN ---
DATE: 08/21/2018 SUBJECTIVE: She is resting fairly comfortably. She has been seen by Dr. Vance, getting IV antibiotic therapy for cellulitis to her abdominal area, seems to be improving on that fairly well. OBJECTIVE: VITAL SIGNS: Blood pressure 117/72, respiratory rate 20, pulse 84 and afebrile. LUNGS: Diminished, but clear. CARDIOVASCULAR: Stable. ABDOMEN: Soft, nontender. PLAN: Continue with IV antibiotic therapy and make further evaluation on her as indicated. Continue with such as well as Dr. Vance evaluating the patient as well. AKIN GREEN MD DR: ARPIT/keri JOB#: [id number] / [id number]
[2018-08-22] MEDS: LEVOTHYROXINE 25 MCG TABLET. PO SCH (06:18)
[2018-08-22 06:44] VITALS: BP 139/68
[2018-08-22] MEDS: POTASSIUM CHLORIDE 10 MEQ TABLET.ER. PO SCH ×2 (08:52→17:27)
[2018-08-22] MEDS: TRIAMTERENE/HCTZ 75/50MG TABLET. PO SCH ×2 (08:52→20:35)
[2018-08-22] MEDS: LACTOBACILLUS RHAMNOSUS GG 1 CAPSULE. PO SCH ×2 (08:52→20:34)
[2018-08-22] MEDS: FAMOTIDINE 20 MG TABLET PO SCH ×2 (08:53→20:35)
[2018-08-22] MEDS: GABAPENTIN 300 MG CAPSULE. PO SCH ×3 (08:53→20:34)
[2018-08-22] MEDS: buPROPion XL 150 MG TAB.ER.24H PO SCH (08:53)
[2018-08-22] MEDS: FUROSEMIDE 20 MG TABLET PO SCH (08:53)
[2018-08-22] MEDS: ASPIRIN 81 MG TAB.CHEW PO SCH (08:53)
[2018-08-22] MEDS: MEMANTINE 10 MG TABLET. PO SCH ×2 (08:53→20:35)
[2018-08-22] MEDS: DULoxetine HCL 20 MG CAPSULE.DR PO SCH (08:53)
[2018-08-22] MEDS: LOPERAMIDE 2 MG CAPSULE PO PRN ×2 (08:53→20:36)
[2018-08-22] MEDS: PHENobarbital 32.4 MG TABLET. PO SCH (08:53)
[2018-08-22] MEDS: NYSTATIN TOPICAL POWDER 15GM BOTTLE. TP SCH ×2 (08:56→20:35)
[2018-08-22 10:04] VITALS: BP 133/73
[2018-08-22 11:10] LABS: VANC TR 16.7 mcg/mL (10.0-20.0)
[2018-08-22] MEDS: VANCOMYCIN PER PHARMACY MC PRN (11:19)
[2018-08-22] MEDS: VANCOMYCIN 1.5 GM in IV NORMAL SALINE 500ML 500 ML IV SCH (11:28)
[2018-08-22 14:52] VITALS: BP 116/74
[2018-08-22] MEDS ORDERED: DEXTROSE 50% 25 GM / 50ML DISP.SYRIN. IV PRN (16:45)
[2018-08-22] MEDS: INSULIN LISPRO 300 UNITS/3 ML INSULN.PEN. SQ SCH (17:32)
--- NOTE | 2018-08-22 19:30 | PDOC ---
Exam Note: Jules Note: Please also refer to the separate dictated note~for this date of service dictated separately.~Patient seen individually. Discussed the patient with Nursing staff reviewed the chart.~Reviewed interim history and current functioning. Reviewed vital signs,~Labs/ Radiology~and current medications noted below. Continue current treatment with the changes noted in the dictated addendum note Assessment: Vital Signs: Vital Signs Date Time Temp Pulse Resp B/P (MAP) Pulse Ox O2 Delivery O2 Flow Rate FiO2 08/22/18 14:52 97.9 77 18 116/74 (88) 99 Room Air I&O Intake and Output 08/22/18 07:00 Intake Total 1298 ml Balance 1298 ml Intake Oral 780 ml IV Total 518 ml # Voids 3 Labs: Laboratory Tests Test 08/21/18 20:49 08/22/18 08:03 08/22/18 10:38 08/22/18 11:30 Glucose (Fingerstick) 265 mg/dL (70-99) H 126 mg/dL (70-99) H 171 mg/dL (70-99) H Vancomycin Level Trough 16.7 mcg/mL (10.0-20.0) Vancomycin Last Dose Date 08/21/18 Vancomycin Last Dose Time 1100 Test 08/22/18 16:33 Glucose (Fingerstick) 210 mg/dL (70-99) H Current Medications: Meds: Current Medications Ceftriaxone Sodium 1 gm/ Sodium Chloride 50 ml @ 100 mls/hr 1X ONCE IV Last administered on 08/19/18at 19:18; Start 08/19/18 at 19:15; Stop 08/19/18 at 19 :44; Status DC Trimethoprim/ Sulfamethoxazole (Bactrim Ds) 1 tab 1X ONCE PO Last administered on 08/19/18at 19:18; Start 08/19/18 at 19:15; Stop 08/19/18 at 19 :16; Status DC Diphtheria/ Tetanus/Acell Pertussis (Boostrix) 0.5 ml ONCE ONCE VAX IM Last administered on 08/19/18at 19:19; Start 08/19/18 at 19:15; Stop 08/19/18 at 19 :16; Status DC Sodium Chloride 50 ml @ As Directed STK-MED ONCE .ROUTE ; Start 08/19/18 at 19: 12; Stop 08/19/18 at 19:13; Status DC Ceftriaxone Sodium (Rocephin) 1 gm STK-MED ONCE IV ; Start 08/19/18 at 19:12; Stop 08/19/18 at 19:13; Status DC Lorazepam (Ativan) 2 mg STK-MED ONCE .ROUTE ; Start 08/19/18 at 20:11; Stop at 20:12; Status DC Lorazepam (Ativan) 1 mg 1X ONCE IV Last administered on 08/19/18at 20:15; Start 08/19/18 at 20:15; Stop 08/19/18 at 20:16; Status DC Ondansetron HCl (Zofran) 4 mg PRN Q4HRS PRN IV NAUSEA/VOMITING; Start at 21:00; Stop 08/20/18 at 20:59; Status DC Albuterol/ Ipratropium (Duoneb) 3 ml RTQID NEB Last administered on 08/20/18at 10:51; Start 08/20/18 at 08:00; Stop 08/21/18 at 08:00; Status DC Ceftriaxone Sodium 1 gm/ Sodium Chloride 50 ml @ 100 mls/hr Q24H IV ; Start at 19:00; Stop 08/20/18 at 19:00; Status DC Trimethoprim/ Sulfamethoxazole (Bactrim Ds) 1 tab BID PO Last administered on 08/20/18at 09:07; Start 08/20/18 at 09:00; Stop 08/20/18 at 09:54; Status DC Nystatin (Nystop) 1 ej BID TP Last administered on 08/22/18at 08:56; Start at 09:00 Ondansetron HCl (Zofran Odt) 4 mg PRN Q8HRS PRN PO NAUSEA/VOMITING; Start at 09:45 Vancomycin HCl (Vanco Per Pharmacy) 1 each PRN DAILY PRN MC SEE COMMENTS Last administered on 08/22/18at 11:19; Start 08/20/18 at 10:00 Vancomycin HCl 1.5 gm/Sodium Chloride 500 ml @ 250 mls/hr Q24H IV Last administered on 08/22/18at 11:28; Start 08/21/18 at 11:00 Vancomycin HCl (Vancomycin Trough Level) 1 each 1X ONCE MC Last administered on 08/22/18at 10:30; Start 08/22/18 at 10:30; Stop 08/22/18 at 10:31; Status DC Vancomycin HCl 2 gm/Sodium Chloride 500 ml @ 250 mls/hr 1X ONCE IV Last administered on 08/20/18at 11:30; Start 08/20/18 at 11:00; Stop 08/20/18 at 12 :59; Status DC Lorazepam (Ativan) 1 mg PRN Q8HRS PRN PO ANXIETY / AGITATION Last administered on 08/21/18at 23:42; Start 08/20/18 at 11:15 Lactobacillus Rhamnosus (Culturelle) 1 cap BID PO Last administered on 08:52; Start 08/20/18 at 21:00 Furosemide (Lasix) 20 mg DAILY PO Last administered on 08/22/18at 08:53; Start 08/21/18 at 09:00 Gabapentin (Neurontin) 300 mg TID PO Last administered on 08/22/18at 14:36; Start 08/20/18 at 22:00 Mirtazapine (Remeron) 7.5 mg HS PO Last administered on 08/21/18at 20:51; Start 08/20/18 at 22:00 Phenobarbital (Luminal) 97.2 mg DAILY PO Last administered on 08/22/18at 08:53 ; Start 08/21/18 at 09:00 Aspirin (Children'S Aspirin) 81 mg DAILYWBKFT PO Last administered on at 08:53; Start 08/21/18 at 08:00 Citalopram Hydrobromide (CeleXA) 40 mg QHS PO Last administered on 08/20/18at 22:29; Start 08/20/18 at 22:00; Stop 08/21/18 at 16:57; Status DC Duloxetine HCl (Cymbalta) 30 mg DAILY PO Last administered on 08/21/18at 08:09 ; Start 08/21/18 at 09:00; Stop 08/21/18 at 16:57; Status DC Non-Formulary Medication (Lactobacillus Acidophilus (Acidophilus)) 1 each DAILY PO ; Start 08/21/18 at 09:00; Stop 08/21/18 at 09:00; Status DC Levothyroxine Sodium (Synthroid) 25 mcg DAILY06 PO Last administered on 06:18; Start 08/21/18 at 06:00 Lorazepam (Ativan) 1 mg PRN TID PRN PO ANXIETY / AGITATION; Start 08/20/18 at 22:00 Memantine (Namenda) 10 mg BID PO Last administered on 08/22/18at 08:53; Start 08/20/18 at 22:00 Potassium Chloride (Klor-Con) 10 meq BIDWMEALS PO Last administered on at 17:27; Start 08/21/18 at 08:00 Pravastatin Sodium (Pravachol) 40 mg QHS PO Last administered on 08/21/18at 20: 52; Start 08/20/18 at 22:00 Famotidine (Pepcid) 20 mg BID PO Last administered on 08/22/18at 08:53; Start 08/21/18 at 09:00 Triamterene/HCTZ (Maxzide 75/50mg) 1 tab BID PO Last administered on at 08:52; Start 08/20/18 at 22:00 Loperamide HCl (Imodium) 2 mg PRN Q15MIN PRN PO DIARRHEA Last administered on 08/22/18at 08:53; Start 08/21/18 at 12:30 Loperamide HCl (Imodium) 2 mg PRN Q15MIN PRN PO DIARRHEA; Start 08/21/18 at 12 :30; Stop 08/21/18 at 12:30; Status DC Duloxetine HCl (Cymbalta) 40 mg DAILY PO Last administered on 08/22/18at 08:53 ; Start 08/22/18 at 09:00 Bupropion HCl (Wellbutrin Xl) 150 mg DAILY PO Last administered on 08/22/18at 08:53; Start 08/22/18 at 09:00 Insulin Human Lispro (HumaLOG) 0-7 UNITS TIDWMEALS SQ Last administered on at 17:32; Start 08/22/18 at 17:00 Dextrose 12.5 gm PRN Q15MIN PRN IV SEE COMMENTS; Start 08/22/18 at 16:45 Active Scripts Active Phenobarbital 32.4 Mg Tablet 97.2 Mg PO DAILY 30 Days Acidophilus (Lactobacillus Acidophilus) 1 Each Capsule 1 Each PO DAILY 30 Days Reported Pravachol (Pravastatin Sodium) 40 Mg Tablet 1 Tab PO HS LAST DOSE GIVEN: DATE: YES TIME: AT BEDTIME NEXT DOSE DUE: DATE: TODAY TIME: AT BEDTIME Nystatin 15 Gm Powder 1 Ej TP BID LAST DOSE GIVEN: DATE: TODAY TIME: AM NEXT DOSE DUE: DATE: TODAY TIME: PM Mirtazapine 7.5 Mg Tablet 7.5 Mg PO HS LAST DOSE GIVEN: DATE: TIME: AT BEDTIME NEXT DOSE DUE: DATE: TODAY TIME: AT BEDTIME Lorazepam 0.5 Mg Tablet 1 Tab PO TID PRN LAST DOSE GIVEN: DATE: TIME: 11:42 PM NEXT DOSE DUE: DATE: TODAY TIME: IF/WHEN NEEDED Gabapentin (Gabapentin) 300 Mg Capsule 300 Mg PO TID LAST DOSE GIVEN: DATE: TODAY TIME: 2:00 PM NEXT DOSE DUE: DATE: TODAY TIME: AT BEDTIME Cymbalta (Duloxetine Hcl) 30 Mg Capsule.dr 1 Cap PO DAILY LAST DOSE GIVEN: DATE: TIME: AM NEXT DOSE DUE: DATE: TOMORROW TIME: AM Aspirin 81 Mg Tab.chew 81 Mg PO DAILY LAST DOSE GIVEN: DATE: TODAY TIME: AM NEXT DOSE DUE: DATE: TOMORR TIME: AM Namenda (Memantine Hcl) 10 Mg Tablet 1 Tab PO BID LAST DOSE GIVEN: DATE: TODAY TIME: AM NEXT DOSE DUE: DATE: TODAY TIME: PM Levothyroxine Sodium 25 Mcg Tablet 1 Tab PO DAILY LAST DOSE GIVEN: DATE: TIME: AM NEXT DOSE DUE: DATE: TOMORR TIME: AM Lasix (Furosemide) 20 Mg Tablet 1 Tab PO DAILY LAST DOSE GIVEN: DATE: TODAY TIME: AM NEXT DOSE DUE: DATE: TOMORROW TIME: AM Celexa (Citalopram Hydrobromide) 40 Mg Tablet 40 Mg PO QHS LAST DOSE GIVEN: DATE: TIME: AT BEDTIME NEXT DOSE DUE: DATE: TODAY TIME: AT BEDTIME Ranitidine Hcl 300 Mg Capsule 1 Cap PO BID LAST DOSE GIVEN: DATE: TODAY TIME: AM NEXT DOSE DUE: DATE: TODAY TIME: PM Triamterene-Hctz 75-50 Mg Tab (Triamterene/Hydrochlorothiazid) 1 Each Tablet 1 Tab PO BID LAST DOSE GIVEN: DATE: TIME: AM NEXT DOSE DUE: DATE: TODAY TIME: PM Anti-Diarrhea (Loperamide Hcl) 2 Mg Tablet 2 Mg PO PRN LAST DOSE GIVEN: DATE: TODAY TIME: 852 NEXT DOSE DUE: DATE: TODAY TIME: IF AND WHEN NEEDED FOR DIARRHEA Potassium Chloride 10 Meq Capsule.er 1 Cap PO BID LAST DOSE GIVEN: DATE: TODAY TIME: AM NEXT DOSE DUE: DATE: TODAY TIME: PM I have reviewed the current psychotropics carefully including drug interactions. Risk benefit ratio favors no change other than as noted in my dictated progress note. Diagnosis: Problems: (1) Cellulitis (2) Anxiety disorder (3) Major depressive disorder, recurrent episode (4) Mild cognitive disorder (5) Weakness generalized (6) Grief reaction (7) Falls (8) Clostridium difficile diarrhea (9) Clostridium difficile infection (10) Cellulitis of breast (11) Cellulitis of left leg (12) Frequent falls (13) Dysfunctional grieving (14) Depression with suicidal ideation (15) Knee contusion (16) Cataract (17) Fibula fracture (18) Skin tear (19) Near syncope (20) Dehydration (21) Encephalopathy chronic (22) Generalized weakness KAYLAN CURRAN MD Aug 22, 2018 19:30
[2018-08-22 20:09] VITALS: BP 125/77
[2018-08-22] MEDS: MIRTAZAPINE 7.5 MG TABLET. PO SCH (20:34)
[2018-08-22] MEDS: PRAVASTATIN 20 MG TABLET. PO SCH (20:35)
[2018-08-22] MEDS: LORazepam 1 MG TABLET PO PRN (20:36)
--- NOTE | 2018-08-22 21:49 | PN ---
DATE: 08/21/2018 PSYCHIATRIC PROGRESS NOTE This late entry 08/21/2018 covers elements not covered in my initial note. SUBJECTIVE: I met with the patient in the evening and discussed with nursing staff. Overall, the patient states she is feeling better. She has been more interactive and responsive per nursing report and nursing wonder whether part of her responses are personality driven rather than the grieving noted with the loss of her recently. I addressed this with her individually. She was sitting on the side of her bed, more interactive, working and going to some websites on her handheld smart phone as I met with her in her room. She was more animated, verbal. No CV, , pulmonary, eye, ENT system symptoms on review. MENTAL STATUS EXAM: The patient is reasonably oriented. Speech has less latency. Abstraction fair, computation impaired, language function intact, attention span short. Mood and affect showing improvement. No suicidal ideation. LABORATORY DATA: Reviewed. IMPRESSION: Unchanged from initial note, major depressive disorder, bereavement. PLAN: No change from initial note. I would initiate changes in her psychotropics mentioned in my previous note and we will continue these for now. KAYLAN CURRAN MD DR: KELLY/keri JOB#: [id number] / [id number]
[2018-08-22 22:54] VITALS: BP 133/77
--- NOTE | 2018-08-22 23:55 | PN ---
DATE: 08/22/2018 This note covers elements not covered in my initial note of 08/22/2018. SUBJECTIVE: Discussed with nursing staff. Per nursing report, the patient remains somewhat anxious, following nursing staff around the unit, repeatedly asking the same questions, somewhat obsessive, anxious. Otherwise, she is a little more animated other times of the day. I met with her in her room. REVIEW OF SYSTEMS: No CV, , pulmonary, eye system symptoms on review. MENTAL STATUS EXAM: The patient is reasonably oriented. Speech coherent. She is quite anxious, obsessive, repeatedly asking about transition to shelter that her daughter wants to stay at the shelter long-term and she wants to move in with a friend in [place], [place]. She has many mental conflicts about this and we addressed at some length. Speech coherent, repetitive, abstraction fair, computation impaired, language function intact, attention span short. Mood and affect remain somewhat depressed, anxious, obsessive. LABORATORY DATA: Reviewed. IMPRESSION: Major depressive disorder, recurrent; anxiety disorder, unspecified; cognitive disorder, unspecified. PLAN: Maintain Wellbutrin-XL 150 mg in the morning, duloxetine 40 mg a day from a psychiatric standpoint. May need to increase duloxetine in due course. Once she gets to the shelter, she would benefit from seeing a psychologist there for psychotherapy on a regular basis. KAYLAN CURRAN MD DR: KELLY/keri JOB#: [id number] / [id number]
[2018-08-23] MEDS: LEVOTHYROXINE 25 MCG TABLET. PO SCH (05:09)
[2018-08-23 05:41] VITALS: BP 124/81
[2018-08-23] MEDS: INSULIN LISPRO 300 UNITS/3 ML INSULN.PEN. SQ SCH (08:00)
[2018-08-23] MEDS: ASPIRIN 81 MG TAB.CHEW PO SCH (08:24)
[2018-08-23] MEDS: MEMANTINE 10 MG TABLET. PO SCH (08:24)
[2018-08-23] MEDS: DULoxetine HCL 20 MG CAPSULE.DR PO SCH (08:24)
[2018-08-23] MEDS: TRIAMTERENE/HCTZ 75/50MG TABLET. PO SCH (08:24)
[2018-08-23] MEDS: FAMOTIDINE 20 MG TABLET PO SCH (08:24)
[2018-08-23] MEDS: buPROPion XL 150 MG TAB.ER.24H PO SCH (08:24)
[2018-08-23] MEDS: LACTOBACILLUS RHAMNOSUS GG 1 CAPSULE. PO SCH (08:24)
[2018-08-23] MEDS: GABAPENTIN 300 MG CAPSULE. PO SCH (08:25)
[2018-08-23] MEDS: POTASSIUM CHLORIDE 10 MEQ TABLET.ER. PO SCH (08:25)
[2018-08-23] MEDS: PHENobarbital 32.4 MG TABLET. PO SCH (08:25)
[2018-08-23] MEDS: NYSTATIN TOPICAL POWDER 15GM BOTTLE. TP SCH (08:25)
[2018-08-23] MEDS: FUROSEMIDE 20 MG TABLET PO SCH (08:25)
[2018-08-23] MEDS ORDERED: cefTRIAXone IM 1 GM VIAL IM ONE (09:15)
[2018-08-23 11:11] VITALS: BP 132/64
[2018-08-23] MEDS ORDERED: DULO20CA50 PO (11:40)
[2018-08-23] MEDS ORDERED: BUPR-192 PO (11:40)
--- NOTE | 2018-08-23 14:19 | PN ---
DATE: 08/23/2018 SUBJECTIVE: The patient is resting fairly comfortably without any major problem. She is being seen by Dr. Vance for her situation there with her depression. The patient was going to live with her sister in [facility]; however, she changed her mind and now we have to work with the insurance companies to get her in to the [place] [facility] facility. The patient's Staph aureus grew out of her infection and possible Streptococcus group B. Apparently, the culture report demonstrates that penicillin may be the way to go for her. Consequently, we will switch her over to that as well and make further evaluation on the wound, which is healing fairly well in her abdomen area. She is having some diarrhea. Her C. diff has been negative otherwise. PHYSICAL EXAMINATION: VITAL SIGNS: Blood pressure 120/80, respiratory rate 16, pulse 64, afebrile. LUNGS: Diminished, but clear. CARDIOVASCULAR: Regular sinus rhythm. ABDOMEN: Soft. The wound on her abdomen is healing very nicely. EXTREMITIES: No clubbing, cyanosis, edema. NEUROLOGIC: Baseline with some depression. Obviously she is going to do tremendous adjustments in her life with the of her as well as changing living facilities as well. IMPRESSION: Cellulitis to the abdominal wall, nonresponsive to oral antibiotics at that time as well as severe depression, diarrhea. PLAN: As above. AKIN GREEN MD DR: ARPIT/keri JOB#: [id number] / [id number]
== END 2018-08-23 12:15 | DRG 603 ==
LOC: ER 16:42 → 1 SOUTH 22:11
PROVIDERS: ADMIT Family Medicine; ATTEND Family Medicine
DX: L03.311 Cellulitis of abdominal wall (principal); F33.9 Major depressive disorder, recurrent, unspecified; R45.851 Suicidal ideations; E03.9 Hypothyroidism, unspecified; E11.36 Type 2 diabetes mellitus with diabetic cataract; E66.01 Morbid (severe) obesity due to excess calories; E78.00 Pure hypercholesterolemia, unspecified; E78.5 Hyperlipidemia, unspecified; E87.6 Hypokalemia; F02.80 Dementia in other diseases classified elsewhere, unspecified severity, without behavioral disturbance, psychotic disturbance, mood disturbance, and anxiety; F41.0 Panic disorder [episodic paroxysmal anxiety]; G30.9 Alzheimer's disease, unspecified; G40.909 Epilepsy, unspecified, not intractable, without status epilepticus; M19.90 Unspecified osteoarthritis, unspecified site; K21.9 Gastro-esophageal reflux disease without esophagitis; K58.9 Irritable bowel syndrome, unspecified; N18.3 Chronic kidney disease, stage 3 (moderate); I12.9 Hypertensive chronic kidney disease with stage 1 through stage 4 chronic kidney disease, or unspecified chronic kidney disease; D64.9 Anemia, unspecified; R29.6 Repeated falls; E11.22 Type 2 diabetes mellitus with diabetic chronic kidney disease; Z80.9 Family history of malignant neoplasm, unspecified; Z82.49 Family history of ischemic heart disease and other diseases of the circulatory system; Z83.3 Family history of diabetes mellitus; Z85.43 Personal history of malignant neoplasm of ovary; Z90.49 Acquired absence of other specified parts of digestive tract; Z90.710 Acquired absence of both cervix and uterus; Z88.8 Allergy status to other drugs, medicaments and biological substances; Z91.018 Allergy to other foods; Z90.89 Acquired absence of other organs; Z79.82 Long term (current) use of aspirin; Z79.899 Other long term (current) drug therapy; Z68.32 Body mass index [BMI] 32.0-32.9, adult; Z79.84 Long term (current) use of oral hypoglycemic drugs
CPT/HCPCS: 36415; 71045; 80048; 80053; 80202; 81001; 82947; 83605; 85025; 87040; 87070; 87086; 87186; 87493; 90471; 90715; 94640; J0696; J1815; J2060; J3370; J7040; J7620; 97110; 97530; 97535

== ENCOUNTER 2018-10-31 22:34 | Emergency (ER) | payer OTHER ==
[~2018-10-31] VITALS: Ht 154.9 cm; Wt 89.5 kg
[~2018-10-31 22:34] MED LIST changes: +BUPR-192 PO; +DULO20CA50 PO; +TRAZ-120 PO; -TRAZ-85 PO
[2018-10-31 23:23] LABS: BASO % 0 % (0-3); EOS # 0.9 x10^3/uL (0.0-0.7); EOS % 12 % (0-3); HEMOGLOBIN 12.2 g/dL (12.0-15.5); LYMPH # 1.6 x10^3/uL (1.0-4.8); LYMPH % 21 % (24-48); MEAN CORPUSCULAR HEMOGLOBIN 31 pg (25-35); MEAN CORPUSCULAR HGB CONC 33 g/dL (31-37); MEAN CORPUSCULAR VOLUME 95 fL (79-100); MONO # 0.6 x10^3/uL (0.0-1.1); MONO % 8 % (0-9); NEUT # 4.5 x10^3uL (1.8-7.7); NEUT % 59 % (31-73); PLATELET COUNT 355 x10^3/uL (140-400); RED BLOOD COUNT 3.89 x10^6/uL (3.50-5.40); RED CELL DISTRIBUTION WIDTH 14.6 % (11.5-14.5); WHITE BLOOD COUNT 7.6 x10^3/uL (4.0-11.0)
[2018-10-31 23:38] LABS: ALBUMIN 3.5 g/dL (3.4-5.0); ALBUMIN/GLOBULIN RATIO 0.9 (1.0-1.7); CALCIUM 9.1 mg/dL (8.5-10.1); CREATININE 1.3 mg/dL (0.6-1.0); GFR 40.5; TOTAL BILIRUBIN 0.1 mg/dL (0.2-1.0); TOTAL PROTEIN 7.4 g/dL (6.4-8.2)
[2018-10-31 23:39] LABS: POTASSIUM 4.4 mmol/L (3.5-5.1)
--- NOTE | 2018-10-31 23:46 | RAD ---
EXAM: 3 views left shoulder DATE: 10/31/2018 11:25 PM INDICATION: Fall, left shoulder pain COMPARISON: No Prior FINDINGS/ IMPRESSION: No evidence of acute fracture or dislocation. Joint spaces are preserved without significant degenerative/proliferative change. AC joint degenerative changes are seen. Subtle calcification adjacent to the distal acromion possibly calcific tendinitis. Electronically signed by: Donny Cannon MD (10/31/2018 11:43 PM) [id number]
--- NOTE | 2018-10-31 23:50 | RAD ---
EXAM: 1. AP pelvis, AP and frog-leg lateral views of the left hip 2. AP and lateral views of the left femur DATE: 10/31/2018 11:18 PM INDICATION: left hip pain, fall COMPARISON: No Prior FINDINGS/ IMPRESSION: No evidence of acute fracture or dislocation. Small left os acetabuli is incidentally seen. Atherosclerotic vascular calcifications are seen. Large volume colonic stool content. Electronically signed by: Donny Cannon MD (10/31/2018 11:47 PM) [facility]
--- NOTE | 2018-11-01 00:23 | PHYS DOC ---
Past History Past Medical History: Dementia, Depression, Diabetes, High Cholesterol, Hypertension Past Surgical History: Appendectomy, Cholecystectomy, Hysterectomy Alcohol Use: None Drug Use: None Adult General Chief Complaint Chief Complaint: MECHANICAL FALL HPI HPI 72-year-old female presents via EMS after fall at her care facility 5 hours ago. Patient states she was getting up off of the toilet when she slipped on the smooth for fell on her left side. She has pain in her left hip, left femur, and left shoulder. She denies hitting her head or losing consciousness. She is quite limited in her movements and and does not walk at baseline. Review of Systems Review of Systems Constitutional: Denies fever or chills [] Eyes: Denies change in visual acuity, redness, or eye pain [] HENT: Denies nasal congestion or sore throat [] Respiratory: Denies cough or shortness of breath [] Cardiovascular: No additional information not addressed in HPI [] GI: Denies abdominal pain, nausea, vomiting, bloody stools or diarrhea [] : Denies dysuria or hematuria [] Musculoskeletal: left hip pain, left leg pain, left shoulder pain [] Integument: Denies rash or skin lesions [] Neurologic: Denies headache, focal weakness or sensory changes [] Endocrine: Denies polyuria or polydipsia [] All other systems were reviewed and found to be within normal limits, except as documented in this note. Allergies Allergies Allergies Coded Allergies Type Severity Reaction Last Updated Verified banana Allergy Intermediate 07/14/18 Yes erythromycin base Allergy Intermediate 07/14/18 No Physical Exam Physical Exam Constitutional: Well developed, obese, well nourished, no acute distress, non- toxic appearance. [] HENT: Normocephalic, atraumatic, bilateral external ears normal, oropharynx moist, no oral exudates, nose normal. [] Eyes: PERRLA, EOMI, conjunctiva normal, no discharge. [] Neck: Normal range of motion, no tenderness, supple, no stridor. [] Cardiovascular:Heart rate regular rhythm, no murmur [] Lungs & Thorax: Bilateral breath sounds clear to auscultation [] Abdomen: Bowel sounds normal, soft, no tenderness, no masses, no pulsatile masses. [] Skin: Warm, dry, no erythema, no rash. [] Back: No tenderness, no CVA tenderness. [] Extremities: Tenderness with palpation of the left shoulder, left hip and left femur.[] Neurologic: Alert and oriented X 3, normal motor function, normal sensory function, no focal deficits noted. [] Psychologic: Affect normal, judgement normal, mood normal. [] Current Patient Data Vital Signs Vital Signs Date Time Temp Pulse Resp B/P (MAP) Pulse Ox O2 Delivery O2 Flow Rate FiO2 10/31/18 22:34 97.8 80 16 98 Room Air Lab Results Laboratory Tests Test 10/31/18 23:10 White Blood Count 7.6 x10^3/uL (4.0-11.0) Red Blood Count 3.89 x10^6/uL (3.50-5.40) Hemoglobin 12.2 g/dL (12.0-15.5) Hematocrit 37.0 % (36.0-47.0) Mean Corpuscular Volume 95 fL (79-100) Mean Corpuscular Hemoglobin 31 pg (25-35) Mean Corpuscular Hemoglobin Concent 33 g/dL (31-37) Red Cell Distribution Width 14.6 % (11.5-14.5) H Platelet Count 355 x10^3/uL (140-400) Neutrophils (%) (Auto) 59 % (31-73) Lymphocytes (%) (Auto) 21 % (24-48) L Monocytes (%) (Auto) 8 % (0-9) Eosinophils (%) (Auto) 12 % (0-3) H Basophils (%) (Auto) 0 % (0-3) Neutrophils # (Auto) 4.5 x10^3uL (1.8-7.7) Lymphocytes # (Auto) 1.6 x10^3/uL (1.0-4.8) Monocytes # (Auto) 0.6 x10^3/uL (0.0-1.1) Eosinophils # (Auto) 0.9 x10^3/uL (0.0-0.7) H Basophils # (Auto) 0.0 x10^3/uL (0.0-0.2) Sodium Level 141 mmol/L (136-145) Potassium Level 4.4 mmol/L (3.5-5.1) Chloride Level 103 mmol/L (98-107) Carbon Dioxide Level 30 mmol/L (21-32) Anion Gap 8 (6-14) Blood Urea Nitrogen 38 mg/dL (7-20) H Creatinine 1.3 mg/dL (0.6-1.0) H Estimated GFR (Cockcroft-Gault) 40.5 BUN/Creatinine Ratio 29 (6-20) H Glucose Level 189 mg/dL (70-99) H Calcium Level 9.1 mg/dL (8.5-10.1) Total Bilirubin 0.1 mg/dL (0.2-1.0) L Aspartate Amino Transferase (AST) 19 U/L (15-37) Alanine Aminotransferase (ALT) 15 U/L (14-59) Alkaline Phosphatase 110 U/L (46-116) Total Protein 7.4 g/dL (6.4-8.2) Albumin 3.5 g/dL (3.4-5.0) Albumin/Globulin Ratio 0.9 (1.0-1.7) L EKG EKG [] Radiology/Procedures Radiology/Procedures [] Impressions: EXAM: 1. AP pelvis, AP and frog-leg lateral views of the left hip 2. AP and lateral views of the left femur DATE: 10/31/2018 11:18 PM INDICATION: left hip pain, fall COMPARISON: No Prior FINDINGS/ IMPRESSION: No evidence of acute fracture or dislocation. Small left os acetabuli is incidentally seen. Atherosclerotic vascular calcifications are seen. Large volume colonic stool content. Electronically signed by: Donny Cannon MD (10/31/2018 11:47 PM) [facility] DICTATED AND SIGNED BY: DONNY CANNON MD DATE: 10/31/18 [id number] CC: JOHN PAUL ZUNIGA DO; AKIN GREEN MD EXAM: 3 views left shoulder DATE: 10/31/2018 11:25 PM INDICATION: Fall, left shoulder pain COMPARISON: No Prior FINDINGS/ IMPRESSION: No evidence of acute fracture or dislocation. Joint spaces are preserved without significant degenerative/proliferative change. AC joint degenerative changes are seen. Subtle calcification adjacent to the distal acromion possibly calcific tendinitis. Electronically signed by: Donny Cannon MD (10/31/2018 11:43 PM) [facility] DICTATED AND SIGNED BY: DONNY CANNON MD DATE: 10/31/18 [id number] CC: JOHN PAUL ZUNIGA DO; AKIN GREEN MD Course & Med Decision Making Course & Med Decision Making Pertinent Labs and Imaging studies reviewed. (See chart for details) Patient has no acute fractures or dislocations. She has not requested any pain medication. She is stable to return to her facility. [] Dragon Disclaimer Dragon Disclaimer This electronic medical record was generated, in whole or in part, using a voice recognition dictation system. Departure Departure: Impression: Primary Impression: Falls Disposition: 01 HOME, SELF-CARE Condition: STABLE Referrals: AKIN GREEN MD (PCP) Patient Instructions: Fall Prevention and Home Safety, [id number] Problem Qualifiers Primary Impression: Falls Encounter type: initial encounter Qualified Codes: W19.XXXA - Unspecified fall, initial encounter JOHN PAUL ZUNIGA DO Nov 01, 2018 00:23
[2018-11-01] MEDS ORDERED: KETOROLAC 30 MG/ML VIAL. ONE (00:29)
[2018-11-01 00:30] VITALS: BP 157/57
[2018-11-01] MEDS ORDERED: KETOROLAC 15 MG/ML VIAL. IV ONE (01:00)
== END 2018-11-01 00:33 | disposition home or self-care (01) ==
LOC: ER 22:34
DX: M25.552 Pain in left hip (principal); M79.652 Pain in left thigh; M25.512 Pain in left shoulder; G89.11 Acute pain due to trauma; F03.90 Unspecified dementia, unspecified severity, without behavioral disturbance, psychotic disturbance, mood disturbance, and anxiety; F32.9 Major depressive disorder, single episode, unspecified; E11.9 Type 2 diabetes mellitus without complications; E78.00 Pure hypercholesterolemia, unspecified; Z88.1 Allergy status to other antibiotic agents; Z91.018 Allergy to other foods; W01.0XXA Fall on same level from slipping, tripping and stumbling without subsequent striking against object, initial encounter; Y93.89 Activity, other specified; Y92.89 Other specified places as the place of occurrence of the external cause; Y99.8 Other external cause status
CPT/HCPCS: 36415; 73030; 73502; 73552; 80053; 85025; 96374; 99284; J1885

== ENCOUNTER 2018-11-06 09:00 | Emergency (ER) | payer OTHER ==
--- NOTE | 2018-11-06 09:37 | PHYS DOC ---
Past History Past Medical History: Dementia, Depression, Diabetes, High Cholesterol, Hypertension Past Surgical History: Appendectomy, Cholecystectomy, Hysterectomy Alcohol Use: None Drug Use: None Adult General Chief Complaint Chief Complaint: HIP PAIN HPI HPI 72-year-old female returns to the ED via EMS from her care facility with left hip pain. The patient was seen by myself a few days ago after a fall. The patient's hip x-rays were negative for fracture. the patient she's had any new trauma and she says no." It just hurts". The patient has not seen her PCP. She has not made an orthopedic appointment. Her care facility is not changing of her meds. She tells me that it is most painful when she puts weight on it. She doesn't walk very much at baseline. She denies numbness or tingling. She denies fever or chills. Review of Systems Review of Systems Constitutional: Denies fever or chills [] Eyes: Denies change in visual acuity, redness, or eye pain [] HENT: Denies nasal congestion or sore throat [] Respiratory: Denies cough or shortness of breath [] Cardiovascular: No additional information not addressed in HPI [] GI: Denies abdominal pain, nausea, vomiting, bloody stools or diarrhea [] : Denies dysuria or hematuria [] Musculoskeletal: Left hip pain[] Integument: Denies rash or skin lesions [] Neurologic: Denies headache, focal weakness or sensory changes [] Endocrine: Denies polyuria or polydipsia [] All other systems were reviewed and found to be within normal limits, except as documented in this note. Current Medications Current Medications Current Medications Medications (Trade) Dose Ordered Sig/Alirio Start Time Stop Time Status Last Admin Dose Admin Acetaminophen/ Hydrocodone Bitart (Lortab 5/325) 1 tab 1X ONCE 11/06/18 09:40 11/06/18 09:41 Allergies Allergies Allergies Coded Allergies Type Severity Reaction Last Updated Verified banana Allergy Intermediate 07/14/18 Yes erythromycin base Allergy Intermediate 07/14/18 No Physical Exam Physical Exam Constitutional: Well developed, well nourished, no acute distress, non-toxic appearance. [] HENT: Normocephalic, atraumatic, bilateral external ears normal, oropharynx moist, no oral exudates, nose normal. [] Eyes: PERRLA, EOMI, conjunctiva normal, no discharge. [] Neck: Normal range of motion, no tenderness, supple, no stridor. [] Cardiovascular:Heart rate regular rhythm, no murmur [] Lungs & Thorax: Bilateral breath sounds clear to auscultation [] Abdomen: Bowel sounds normal, soft, no tenderness, no masses, no pulsatile masses. [] Skin: Warm, dry, no erythema, no rash. [] Back: No tenderness, no CVA tenderness. [] Extremities: No tenderness, no cyanosis, no clubbing, ROM intact, no edema. [] Neurologic: Alert and oriented X 3, normal motor function, normal sensory function, no focal deficits noted. [] Psychologic: Affect normal, judgement normal, mood normal. [] EKG EKG [] Radiology/Procedures Radiology/Procedures [] Course & Med Decision Making Course & Med Decision Making Pertinent Labs and Imaging studies reviewed. (See chart for details) I have given the patient 1 [place] for pain. I have recommended that the patient have follow-up with orthopedics if this pain continues. I've also advised that she see her PCP at the care facility to discuss managing her pain. She is stable for discharge at this time. [] Dragon Disclaimer Dragon Disclaimer This electronic medical record was generated, in whole or in part, using a voice recognition dictation system. Departure Departure: Impression: Primary Impression: Left hip pain Disposition: HOME, SELF-CARE Condition: STABLE Referrals: JOSHUA CLAYTON MD (PCP) Patient Instructions: Hip Pain Additional Instructions: If the patient continues to have hip pain, she should have an appointment with orthopedics for further evaluation. In the meantime, the patient should have an appointment with her primary care physician to discuss managing her pain. JOHN PAUL ZUNIGA DO Nov 06, 2018 09:37
[2018-11-06] MEDS: HYDROcodone/APAP 5/325MG 1 TAB TABLET PO ONE (09:40)
[2018-11-06 13:15] VITALS: BP 143/63
== END 2018-11-06 10:25 | disposition home or self-care (01) ==
LOC: ER 09:00
DX: M25.552 Pain in left hip (principal); F32.9 Major depressive disorder, single episode, unspecified; E11.9 Type 2 diabetes mellitus without complications; E78.00 Pure hypercholesterolemia, unspecified; I10 Essential (primary) hypertension; Z88.1 Allergy status to other antibiotic agents; Z91.018 Allergy to other foods
CPT/HCPCS: 99283

== ENCOUNTER 2019-03-04 19:44 | Emergency (ER) | payer OTHER ==
[~2019-03-04] VITALS: Ht 154.9 cm; Wt 95.0 kg
--- NOTE | 2019-03-04 20:17 | PHYS DOC ---
Past History Past Medical History: Dementia, Diabetes, High Cholesterol, Hypothyroid, Other (BETZY JAIN DO) Past Surgical History: Appendectomy, Cholecystectomy, Hysterectomy (BETZY JAIN DO) Smoking: Non-smoker Alcohol Use: None Drug Use: None (BETZY JAIN DO) Adult General Chief Complaint Chief Complaint: SUICDAL IDEATION HPI HPI Patient is a 73-year-old female presents after taking she reports 20 magnesium chelate tablets from [employer], each two tablets contain 200 mg of magnesium as magnesium glycinate chelate and magnesium oxide. She did this at approximately 1830 as a suicide attempt. She currently denies any suicidal or homicidal ideation. This happened after a disagreement with her partner. Denies any other coingestants. On reviewing the number of pills left with in the bottle, it is a bottle of 180 vegetarian caplets. There were 50 pills left with in the bottle. Uncertain as to when the bottle was opened.[] (BETZY JAIN DO) Review of Systems Review of Systems Constitutional: Denies fever or chills [] Eyes: Denies change in visual acuity, redness, or eye pain [] HENT: Denies nasal congestion or sore throat [] Respiratory: Denies cough or shortness of breath [] Cardiovascular: No chest pain or palpitations[] GI: Denies abdominal pain, nausea, vomiting, bloody stools or diarrhea [] : Denies dysuria or hematuria [] Musculoskeletal: Denies back pain or joint pain [] Integument: Denies rash or skin lesions [] Neurologic: Denies headache, focal weakness or sensory changes [] Endocrine: Denies polyuria or polydipsia [] All other systems were reviewed and found to be within normal limits, except as documented in this note. (BETZY JAIN DO) Allergies Allergies Allergies Coded Allergies Type Severity Reaction Last Updated Verified banana Allergy Intermediate 07/14/18 Yes erythromycin base Allergy Intermediate 07/14/18 No (BETZY JAIN DO) Physical Exam Physical Exam Constitutional: Well developed, well nourished, no acute distress, non-toxic appearance. [] HENT: Normocephalic, atraumatic, bilateral external ears normal, oropharynx moist, no oral exudates, nose normal. [] Eyes: PERRLA, EOMI, conjunctiva normal, no discharge. [] Neck: Normal range of motion, no tenderness, supple, no stridor. [] Cardiovascular:Heart rate regular rhythm, no murmur [] Lungs & Thorax: Bilateral breath sounds clear to auscultation [] Abdomen: Bowel sounds normal, soft, no tenderness, no masses, no pulsatile masses. [] Skin: Warm, dry, no erythema, no rash. [] Back: No tenderness, no CVA tenderness. [] Extremities: No tenderness, no cyanosis, no clubbing, ROM intact, no edema. [] Neurologic: Alert and oriented X 3, normal motor function, normal sensory function, no focal deficits noted. [] Psychologic: Affect flat, judgment impaired, mood normal. [] (BETZY JAIN DO) EKG EKG EKG shows a sinus rhythm at 93 bpm, right superior axis at -107, right bundle branch block. Left anterior fascicular block. No ST elevations. QTc of 508 ms, no acute changes when compared with EKG of 07/09/2018. Interpreted by me at 2000 Repeat EKG at approximately 3 hours after the first shows a sinus rhythm at 75 bpm, right superior axis deviation at -101, right bundle-branch block and left anterior fascicular block are present. QTc is 506 ms. Q changes when compared with EKG of earlier this evening. This was interpreted by me at 2256[] (BETZY JAIN DO) Radiology/Procedures Radiology/Procedures [] (BETZY JAIN DO) Course & Med Decision Making Course & Med Decision Making Pertinent Labs and Imaging studies reviewed. (See chart for details) ED course: Patient arrived, was placed in bed, and tolerated exam well. Patient denied any previous suicide attempts however on review of old records, she approximately a year ago had a suicide attempt/gesture. Poison control was contacted, and recommended repeat EKG at the three-hour and repeat magnesium at the 4 hour lesley were obtained. Her story regarding the number of pills that she took changed during her emergency department stay, initially at 20 tablets, later at 5. She was deemed to be medically stable for the [facility] to evaluate while these additional tests were pending. They believe that she would benefit from further mental health admission and recommended involuntary commitment. Her repeat magnesium level at 4 hours was noted to be elevated. She was given IV fluids as well as some diuretics to aid in removal of the magnesium. She was additionally given potassium supplementation. This succeeded in bringing her magnesium level back into the normal limits as well as improved her potassium level. Placement is still pending and is being worked on through the [facility]. Patient cares endorsed to the daytime physician at 6 AM pending transfer to an inpatient mental health facility. Medical decision making: Patient with suicidal gesture. She was treated for the hypermagnesemia. No evidence of acetaminophen, nor salicylate toxicity. No evidence of alcohol intoxication. She appears to be medically appropriate for further treatment at an inpatient mental health facility.[] (BETZY JAIN DO) Course & Med Decision Making Addendum by Dr. Lesley Pollock at 0938: I assumed care of this patient at [address] Jain. Patient remains in stable condition and cooperative with staff. No complaints at this time. Awaiting confirmation of acceptance to inpatient mental health facility. 1209: Patient has been accepted to [facility] by Dr. Camara. Pending confirmation of transport at this time. 1617: Despite acceptance to [facility], the patient will need to be present at a legal hearing to confirm need for admission prior to transport. The patient will remain in the emergency department throughout the evening and into tomorrow until this is accomplished. Patient is otherwise in no acute distress at this time. 1807: Care of patient signed out to Dr. Jain. (LESLEY POLLOCK MD) Dragon Disclaimer Dragon Disclaimer This electronic medical record was generated, in whole or in part, using a voice recognition dictation system. (BETZY JAIN DO) Departure Departure: Impression: Primary Impression: Suicide attempt Additional Impression: Hypermagnesemia Condition: IMPROVED Referrals: JOSHUA CLAYTON MD (PCP) Problem Qualifiers BETZY JAIN DO Mar 04, 2019 20:17 LESLEY POLLOCK MD Mar 05, 2019 09:39
[2019-03-04 20:29] LABS: BASO % 0 % (0-3); EOS # 0.4 x10^3/uL (0.0-0.7); EOS % 5 % (0-3); HEMATOCRIT 38.9 % (36.0-47.0); HEMOGLOBIN 13.3 g/dL (12.0-15.5); LYMPH # 1.7 x10^3/uL (1.0-4.8); LYMPH % 20 % (24-48); MEAN CORPUSCULAR HEMOGLOBIN 33 pg (25-35); MEAN CORPUSCULAR HGB CONC 34 g/dL (31-37); MEAN CORPUSCULAR VOLUME 96 fL (79-100); MONO # 0.5 x10^3/uL (0.0-1.1); MONO % 6 % (0-9); NEUT # 6.1 x10^3uL (1.8-7.7); NEUT % 69 % (31-73); PLATELET COUNT 316 x10^3/uL (140-400); RED BLOOD COUNT 4.07 x10^6/uL (3.50-5.40); RED CELL DISTRIBUTION WIDTH 14.4 % (11.5-14.5); WHITE BLOOD COUNT 8.8 x10^3/uL (4.0-11.0)
--- NOTE | 2019-03-04 21:04 | EKG ---
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
[2019-03-04 21:37] LABS: SALIC 1.1 mg/dL (2.8-20.0)
[2019-03-04 21:38] LABS: ACETAMIN < 2 mcg/mL (10-30); ETHANOL < 10 mg/dL (0-10)
[2019-03-04 21:39] LABS: BARBITURATES POS (NEG); BENZODIAZEPINES NEG (NEG); CANNABINOIDS NEG (NEG); COCAINE NEG (NEG); METHADONE NEG (NEG); OPIATES NEG (NEG); PHENCYCLIDINE NEG (NEG)
[2019-03-04 21:40] LABS: AMPHETAMINE/METHAMPHETAMINE NEG (NEG)
[2019-03-04 21:43] LABS: ALBUMIN 3.6 g/dL (3.4-5.0); ALBUMIN/GLOBULIN RATIO 0.9 (1.0-1.7); CALCIUM 9.3 mg/dL (8.5-10.1); CREATININE 1.3 mg/dL (0.6-1.0); GFR 40.4; MAGNESIUM 2.4 mg/dL (1.8-2.4); POTASSIUM 3.2 mmol/L (3.5-5.1); TOTAL BILIRUBIN 0.3 mg/dL (0.2-1.0); TOTAL PROTEIN 7.5 g/dL (6.4-8.2)
--- NOTE | 2019-03-04 22:57 | EKG ---
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
[2019-03-05] MEDS ORDERED: IV NORMAL SALINE 1,000ML 1,000 ML IV ONE (01:30)
[2019-03-05] MEDS ORDERED: FUROSEMIDE 40 MG/4 ML VIAL IVP ONE (01:45)
[2019-03-05] MEDS ORDERED: POTASSIUM CHLORIDE 20 MEQ TABLET.ER. PO ONE (01:45)
--- NOTE | 2019-03-05 02:23 | EKG ---
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
[2019-03-05 04:59] LABS: CALCIUM 8.6 mg/dL (8.5-10.1); CREATININE 1.3 mg/dL (0.6-1.0); GFR 40.4; MAGNESIUM 2.4 mg/dL (1.8-2.4); POTASSIUM 3.6 mmol/L (3.5-5.1)
[2019-03-05] MEDS ORDERED: GABAPENTIN 100 MG CAPSULE. PO ONE ×2 (10:30→22:00)
[2019-03-05] MEDS ORDERED: FAMOTIDINE 20 MG TABLET PO ONE (22:00)
[2019-03-05] MEDS ORDERED: TRIAMTERENE/HCTZ 75/50MG TABLET. PO ONE (22:00)
[2019-03-05] MEDS ORDERED: MEMANTINE 10 MG TABLET. PO ONE (22:00)
[2019-03-05] MEDS ORDERED: LORazepam 1 MG TABLET PO SCH (22:00)
[2019-03-05] MEDS ORDERED: busPIRone 5 MG TABLET. PO ONE ×2 (22:00→22:30)
[2019-03-05] MEDS ORDERED: PHENobarbital 32.4 MG TABLET. PO SCH (22:00)
[2019-03-05] MEDS ORDERED: ATORVASTATIN CALCIUM 10 MG TABLET. PO SCH (22:00)
[2019-03-05] MEDS ORDERED: metFORMIN 500 MG TABLET PO ONE (22:45)
[2019-03-06] MEDS ORDERED: FAMO20TA5 PO (05:10)
[2019-03-06] MEDS ORDERED: LORA-254 PO ×2 (05:14→05:19)
[2019-03-06] MEDS ORDERED: ONDA4TAB7 PO (05:37)
[2019-03-06] MEDS ORDERED: LIDO700A21 TP (05:37)
[2019-03-06] MEDS ORDERED: PHEN32.424 PO ×2 (05:58)
[2019-03-06] MEDS ORDERED: DICL100G18 TP (05:58)
[2019-03-06] MEDS ORDERED: ACET325T9 PO (05:58)
[2019-03-06] MEDS ORDERED: BUSP10TA PO (05:58)
[2019-03-06] MEDS ORDERED: TRAZ-120 PO ×2 (05:58)
[2019-03-06] MEDS ORDERED: traZODone 50 MG TABLET. PO PRN (06:15)
[2019-03-06] MEDS ORDERED: LOPERAMIDE 2 MG CAPSULE PO PRN (06:15)
[2019-03-06] MEDS ORDERED: ONDANSETRON ODT 4 MG TAB.RAPDIS PO PRN (06:15)
[2019-03-06] MEDS ORDERED: LORazepam 1 MG TABLET PO PRN (06:15)
[2019-03-06] MEDS ORDERED: DICLOFENAC SODIUM 1% TOPICAL GEL 100GM TUBE. TP PRN (06:15)
[2019-03-06] MEDS ORDERED: ACETAMINOPHEN 325 MG TABLET PO PRN (06:15)
[2019-03-06] MEDS ORDERED: PHENobarbital 32.4 MG TABLET. PO SCH ×3 (08:00→21:00)
[2019-03-06] MEDS ORDERED: ASPIRIN 81 MG TAB.CHEW PO SCH (08:00)
[2019-03-06] MEDS ORDERED: DEXTROSE 50% 25 GM / 50ML DISP.SYRIN. IV PRN (08:15)
[2019-03-06] MEDS ORDERED: INSULIN LISPRO 300 UNITS/3 ML INSULN.PEN. SQ ONE (08:37)
[2019-03-06] MEDS ORDERED: FAMOTIDINE 20 MG TABLET PO SCH (09:00)
[2019-03-06] MEDS ORDERED: LIDOCAINE (700MG/PATCH) PATCH. TP SCH (09:00)
[2019-03-06] MEDS ORDERED: TRIAMTERENE/HCTZ 75/50MG TABLET. PO SCH (09:00)
[2019-03-06] MEDS ORDERED: MEMANTINE 10 MG TABLET. PO SCH (09:00)
[2019-03-06] MEDS ORDERED: POTASSIUM CHLORIDE 10 MEQ TABLET.ER. PO SCH (09:00)
[2019-03-06] MEDS ORDERED: GABAPENTIN 300 MG CAPSULE. PO SCH (09:00)
[2019-03-06] MEDS ORDERED: busPIRone 10 MG TABLET. PO SCH (09:00)
[2019-03-06] MEDS ORDERED: FUROSEMIDE 20 MG TABLET PO SCH (09:00)
[2019-03-06 11:05] VITALS: BP 130/75
[2019-03-06] MEDS ORDERED: INSULIN LISPRO 300 UNITS/3 ML INSULN.PEN. SQ SCH (12:00)
[2019-03-06] MEDS ORDERED: traZODone 50 MG TABLET. PO SCH (21:00)
[2019-03-06] MEDS ORDERED: LORazepam 1 MG TABLET PO SCH (21:00)
[2019-03-07] MEDS ORDERED: LEVOTHYROXINE 25 MCG TABLET. PO SCH (06:00)
== END 2019-03-06 11:05 ==
LOC: ER 19:44
DX: T47.1X2A Poisoning by other antacids and anti-gastric-secretion drugs, intentional self-harm, initial encounter (principal); E83.42 Hypomagnesemia; E11.9 Type 2 diabetes mellitus without complications; E78.00 Pure hypercholesterolemia, unspecified; E03.9 Hypothyroidism, unspecified; F03.90 Unspecified dementia, unspecified severity, without behavioral disturbance, psychotic disturbance, mood disturbance, and anxiety; Z88.1 Allergy status to other antibiotic agents; Z91.018 Allergy to other foods; Y92.89 Other specified places as the place of occurrence of the external cause
CPT/HCPCS: 36415; 80048; 80053; 80307; 80329; 82947; 83735; 85025; 93005; 94640; 96372; 96374; 99285; G0480; J1940; Q0162; 82003; J7030

== ENCOUNTER → 2019-10-07 | Outpatient (CLI) | payer MEDICARE, OTHER ==
[~2019-10-07] MED LIST changes: +ACET325T9 PO; +BUSP10TA PO; +CONTRAST GIVEN MC PRN; +DICL100G18 TP; +FAMO20TA5 PO; +IOHEXOL 300 MG/ML 75 ML VIAL. IV ONE; +LIDO700A21 TP; +LORA-254 PO; +ONDA4TAB7 PO
--- NOTE | 2019-10-07 14:42 | RAD ---
EXAM: CT Abdomen with IV contrast INDICATION: Abdominal wound and periumbilical pain TECHNIQUE: Multi-detector row CT images were acquired from the lung bases through the abdomen with the use of IV contrast. Sagittal and coronal images were acquired from the transaxial data. All CT scans performed at this facility utilize dose optimization techniques as appropriate to the exam, including the following: Automated exposure control and adjustment of the mA and/or KV according to patient size (this includes techniques or standardized protocols for targeted exams where dose is indication/reason for exam). IV CONTRAST: Administered ORAL CONTRAST: Administered COMPARISON: None FINDINGS: LOWER CHEST: Unremarkable LIVER: Diffuse hepatic steatosis. BILIARY SYSTEM: Gallbladder is unremarkable. Bile ducts are not dilated. PANCREAS: Unremarkable SPLEEN: Unremarkable ADRENALS: Unremarkable KIDNEYS & URETERS: Left renal midpole 4.9 cm cyst. GASTROINTESTINAL: Surgical sutures across the gastroesophageal junction are present. The bowel in the included field of view shows no findings of obstruction, perforation or acute inflammation. There is no leak of enteric contrast into the peritoneal cavity. MESENTERY/PERITONEUM/RETROPERITONEUM: Unremarkable VASCULAR: Unremarkable LYMPH NODES: No adenopathy OSSEOUS & SOFT TISSUES: Bones are unremarkable. The soft tissues demonstrate ventral abdominal fat soft tissue stranding without evidence of a fluid collection. IMPRESSION: Findings suggesting ventral abdominal wall cellulitis. No hernia or abscess. Electronically signed by: Deep Archibald MD (10/07/2019 2:39 PM) [facility]
== END | disposition home or self-care (01) ==
LOC: CT 08:40
PROVIDERS: ATTEND Internal Medicine
DX: S31.109A Unspecified open wound of abdominal wall, unspecified quadrant without penetration into peritoneal cavity, initial encounter (principal); K76.0 Fatty (change of) liver, not elsewhere classified; N28.1 Cyst of kidney, acquired; X58.XXXA Exposure to other specified factors, initial encounter; Y93.89 Activity, other specified; Y92.89 Other specified places as the place of occurrence of the external cause; Y99.8 Other external cause status
CPT/HCPCS: 74160; Q9967

== ENCOUNTER 2020-08-22 07:13 | Emergency (ER) | payer MEDICARE, OTHER ==
[~2020-08-22] VITALS: Ht 154.9 cm; Wt 95.0 kg
[~2020-08-22 07:13] MED LIST changes: -CONTRAST GIVEN MC PRN; -IOHEXOL 300 MG/ML 75 ML VIAL. IV ONE; +LORA0.5T21 PO; -LORA0.5T96 PO
--- NOTE | 2020-08-22 07:27 | PHYS DOC ---
Past History Past Medical History: Dementia, Diabetes, High Cholesterol, Hypothyroid, Other Past Surgical History: Appendectomy, Cholecystectomy, Hysterectomy Smoking: Non-smoker Alcohol Use: None Drug Use: None General Adult EDM: Chief Complaint: SHORTNESS OF BREATH HPI: HPI: History from patient and EMS. Patient is a 74-year-old female with history of nonoxygen dependent COPD, insulin-dependent diabetes who presents with chief complaint of hypoxia. Per EMS there called the patient's assisted living facility due to a low oxygen reading. EMS states she was satting 84% on room air. They applied 4 L nasal cannula and she improved significantly. Patient denies any complaints to me. She denies any shortness of breath or chest pain. She denies any vomiting. Denies fevers. Denies any generalized weakness. S tates she ambulates with a walker at baseline. States she feels in her usual state health. Notes a cough but states this is baseline for her. Denies any increase in sputum production. States she was recently diagnosed with Covid. She states that she is insulin occasionally for her diabetes. Denies any swelling. States she has not missed any of her medications. States she was to go back to her facility if possible. Review of Systems: Review of Systems: Constitutional: Denies fever or chills Eyes: Denies change in visual acuity HENT: Denies nasal congestion or sore throat Respiratory: Denies cough or shortness of breath Cardiovascular: Denies chest pain or edema GI: Denies abdominal pain, nausea, vomiting, bloody stools or diarrhea : Denies dysuria Musculoskeletal: Denies back pain or joint pain Integument: Denies rash Neurologic: Denies headache, focal weakness or sensory changes Endocrine: Denies polyuria or polydipsia Lymphatic: Denies swollen glands Psychiatric: Denies depression or anxiety Allergies: Allergies: Allergies Coded Allergies Type Severity Reaction Last Updated Verified banana Allergy Intermediate 07/14/18 Yes erythromycin base Allergy Intermediate 07/14/18 No Physical Exam: PE: Constitutional: Well developed, well nourished, no acute distress, non-toxic appearance. [] HENT: Normocephalic, atraumatic, bilateral external ears normal, oropharynx moist, no oral exudates, nose normal. [] Eyes: PERRLA, EOMI, conjunctiva normal, no discharge. [] Neck: Normal range of motion, no tenderness, supple, no stridor. [] Cardiovascular:Heart rate regular rhythm, no murmur [] Lungs & Thorax: Bilateral breath sounds clear to auscultation. Occasional crackles noted in the bases bilaterally. 95% on room air. [] Abdomen: soft, no tenderness, no masses, no pulsatile masses. [] Skin: Warm, dry, no erythema, no rash. [] Back: No tenderness, no CVA tenderness. [] Extremities: No tenderness, no cyanosis, no clubbing, ROM intact, no edema. [] Neurologic: Alert and oriented X 3, normal motor function, normal sensory function, no focal deficits noted. [] Psychologic: Affect normal, judgement normal, mood normal. [] Current Patient Data: Labs: Laboratory Tests Test 08/22/20 07:30 08/22/20 08:45 White Blood Count 9.2 x10^3/uL Red Blood Count 3.96 x10^6/uL Hemoglobin 12.1 g/dL Hematocrit 37.5 % Mean Corpuscular Volume 95 fL Mean Corpuscular Hemoglobin 31 pg Mean Corpuscular Hemoglobin Concent 32 g/dL Red Cell Distribution Width 14.9 % Platelet Count 305 x10^3/uL Neutrophils (%) (Auto) 81 % Lymphocytes (%) (Auto) 10 % Monocytes (%) (Auto) 6 % Eosinophils (%) (Auto) 2 % Basophils (%) (Auto) 0 % Neutrophils # (Auto) 7.5 x10^3uL Lymphocytes # (Auto) 1.0 x10^3/uL Monocytes # (Auto) 0.6 x10^3/uL Eosinophils # (Auto) 0.2 x10^3/uL Basophils # (Auto) 0.0 x10^3/uL Sodium Level 137 mmol/L Potassium Level 3.6 mmol/L Chloride Level 98 mmol/L Carbon Dioxide Level 26 mmol/L Anion Gap 13 Blood Urea Nitrogen 20 mg/dL Creatinine 1.6 mg/dL Estimated GFR (Cockcroft-Gault) 31.7 Glucose Level 180 mg/dL Lactic Acid Level 2.4 mmol/L Calcium Level 8.8 mg/dL Magnesium Level 1.8 mg/dL Troponin I Quantitative < 0.017 ng/mL UR-Inj-S-Type Natriuretic Peptide 127 pg/mL Urine Collection Type U cath Urine Color Yellow Urine Clarity Hazy Urine pH 5.5 Urine Specific [place] 1.025 Urine Protein 100 mg/dl Urine Glucose (UA) Neg mg/dL Urine Ketones (Stick) Neg mg/dL Urine Blood Neg Urine Nitrite Neg Urine Bilirubin Neg Urine Urobilinogen Dipstick 1.0 mg/dL Urine Leukocyte Esterase Neg Urine RBC 0 /HPF Urine WBC Rare /HPF Urine Squamous Epithelial Cells Few /LPF Urine Amorphous Sediment Present /HPF Urine Bacteria 0 /HPF Urine Hyaline Casts Occ /HPF Urine Mucus Slight /LPF Current Medications Medications (Trade) Dose Ordered Sig/Alirio Route PRN Reason Start Time Stop Time Status Last Admin Dose Admin Sodium Chloride 1,000 ml @ 100 mls/hr 1X ONCE IV 08/22/20 07:30 08/22/20 17:29 08/22/20 07:35 Iohexol (Omnipaque 350 Mg/ml) 100 ml 1X ONCE IV 08/22/20 09:00 08/22/20 09:10 DC 08/22/20 09:57 Vital Signs: Vital Signs Date Time Temp Pulse Resp B/P (MAP) Pulse Ox O2 Delivery O2 Flow Rate FiO2 08/22/20 07:13 99.7 96 16 124/67 (86 93 Room Air EKG: EKG: EKG consistent with normal sinus rhythm. Ventricular rate 99 bpm. Left anterior fascicular block present. QTc 504. No acute ischemic changes appreciated. [] Radiology/Procedures: Radiology/Procedures: [place] [address] IMAGING REPORT Signed PATIENT: MRAY STARR ACCOUNT: [id number] : 1945 LOCATION: ER AGE: 74 SEX: F EXAM STATUS: REG ER ORD. PHYSICIAN: RONNY ADHIKARI DO REASON: SOB. eval for PE vs. PNA PROCEDURE: CT ANGIOGRAPHY CHEST CTA scan of the Chest with Contrast (Pulmonary Embolism protocol) 08/22/2020 Clinical History: Shortness of breath. Technique: After the intravenous administration of 60 cc of Omnipaque 350, cont iguous, 0.625 mm axial sections were obtained through the chest. 2 mm axial and 3D MIP coronal and sagittal reconstructed images were obtained. One or more of the following individualized dose reduction techniques were utilized for this study: 1. Automated exposure control. 2. Adjustment of the mA and/or kV according to patient size. 3. Use of iterative reconstruction technique. Findings: Comparison study is dated 07/07/2018. No filling defect is seen within the major branches of either pulmonary artery. There is no CT evidence of pulmonary embolism. The heart is normal in size. Atherosclerotic calcification of the thoracic aorta is seen. The thoracic aorta is mildly tortuous but tapers normally. Extensive coronary calcifications are noted. Patchy peripheral perihilar infiltrates are seen throughout both lung. No pneumothorax or pleural effusion is noted. Impression: 1. There is no CT evidence of pulmonary embolism. 2. Patchy peripheral bilateral perihilar infiltrates which may reflect a viral pneumonia. Electronically signed by: Darrick Gallegos MD (08/22/2020 10:41 AM) [id number] DICTATED AND SIGNED BY: DARRICK GALLEGOS MD DATE: 08/22/20 1034 CC: ZACHERY COOLEY DO; RONNY ADHIKARI DO ~MTH0 0 [][place] [address] IMAGING REPORT Signed PATIENT: MARY STARR ACCOUNT: [id number] : 1945 LOCATION: ER AGE: 74 SEX: F EXAM STATUS: REG ER ORD. PHYSICIAN: RONNY ADHIKARI DO REASON: SOB PROCEDURE: CHEST AP ONLY EXAM: XR CHEST 1V 08/22/2020 7:23 AM CLINICAL INDICATION: Shortness of breath COMPARISON: Chest radiograph 2017 TECHNIQUE: AP view of the chest FINDINGS: The heart and mediastinum are normal. The lungs are hypoexpanded. There is no consolidation, pleural effusion, or pneumothorax. Mild bilateral acromioclavicular degenerative joint disease. IMPRESSION: No acute cardiopulmonary process. Electronically signed by: Tyesha Miller MD (08/22/2020 7:58 AM) [id number] DICTATED AND SIGNED BY: TYESHA MILLER MD DATE: 08/22/20 0757 CC: ZACHERY COOLEY DO; RONNY ADHIKARI DO ~MTH0 0 Heart Score: Risk Factors: Risk Factors: DM, Current or recent (<one month) smoker, HTN, HLP, family hi story of CAD, obesity. Risk Scores: Score 0 - 3: 2.5% MACE over next 6 weeks - Discharge Home Score 4 - 6: 20.3% MACE over next 6 weeks - Admit for Clinical Observation Score 7 - 10: 72.7% MACE over next 6 weeks - Early Invasive Strategies Course & Med Decision Making: Course & Med Decision Making Pertinent Labs and Imaging studies reviewed. (See chart for details) [] Patient is a 74-year-old female who presents from her nursing care facility for hypoxia. Per EMS the patient was 84% on their arrival. They placed her immediately on 4 L nasal cannula. Upon arrival to our emergency department she was satting at 95% on room air. She denies any complaints. Specifically she denies any shortness of breath or chest pain. Patient notes a history of Covid infection approximate 1 month ago. Basic labs were obtained and were grossly unremarkable. Urinalysis without evidence of infection. EKG shows no evidence of acute ischemia. CT imaging was obtained and does show sequela of viral pneumonia. This is likely secondary to her previous Covid infection. No signs of acute infection including fever, increased sputum production, hypoxia, or adventitious lung sounds. Patient was monitored in the emergency department showed no signs of hypoxia on room air. Vital signs remained stable. Patient is requesting discharge back to her assisted living facility. Overall I do feel this is reasonable. She can be monitored closely at their facility. Short- term precautions discussed and understood. Patient is stable for discharge. COVID-19 CRITERIA: The patient was evaluated during the global COVID-19 pandemic, and that diagnosis was suspected/considered upon their initial presentation. Their evaluation, treatment and testing was consistent with current guidelines for patients who present with complaints or symptoms that may be related to COVID-19. Dragon Disclaimer: Dragon Disclaimer: This electronic medical record was generated, in whole or in part, using a voice recognition dictation system. Departure Departure: Impression: Primary Impression: Generalized weakness Disposition: 01 DC HOME SELF CARE/HOMELESS Condition: STABLE Referrals: ZACHERY COOLEY DO (PCP) Patient Instructions: Weakness Additional Instructions: Please follow-up with your primary care physician in the next 2 to 3 days. RONNY ADHIKARI DO Aug 22, 2020 07:27
[2020-08-22] MEDS ORDERED: IV NORMAL SALINE 1,000ML 1,000 ML IV ONE (07:30)
--- NOTE | 2020-08-22 07:46 | EKG ---
[address] [address] Test Date: 2020-08-22 Test Time: 07:31:41 Pat Name: MARY STARR Department: Room: Gender: F Diabetes Trainer: : 1945 Requested By: RONNY ADHIKARI Order Number: [id number] Reading MD: Measurements Intervals [place] Rate: 99 P: -34 NE: 122 QRS: -73 QRSD: 118 T: 20 QT: 388 QTc: 504 Interpretive Statements SINUS RHYTHM ABNORMAL LEFT AXIS DEVIATION R-S TRANSITION ZONE IN V LEADS DISPLACED TO THE LEFT LEFT ANTERIOR FASCICULAR BLOCK PROLONGED QT ABNORMAL ECG RI6.02 No previous ECG available for comparison
--- NOTE | 2020-08-22 08:01 | RAD ---
EXAM: XR CHEST 1V 08/22/2020 7:23 AM CLINICAL INDICATION: Shortness of breath COMPARISON: Chest radiograph 2017 TECHNIQUE: AP view of the chest FINDINGS: The heart and mediastinum are normal. The lungs are hypoexpanded. There is no consolidatio n, pleural effusion, or pneumothorax. Mild bilateral acromioclavicular degenerative joint disease. IMPRESSION: No acute cardiopulmonary process. Electronically signed by: Tyesha Miller MD (08/22/2020 7:58 AM) [id number]
[2020-08-22 08:03] LABS: CALCIUM 8.8 mg/dL (8.5-10.1); CREATININE 1.6 mg/dL (0.6-1.0); GFR 31.7; POTASSIUM 3.6 mmol/L (3.5-5.1)
[2020-08-22 08:08] LABS: BASO % 0 % (0-3); EOS # 0.2 x10^3/uL (0.0-0.7); EOS % 2 % (0-3); HEMATOCRIT 37.5 % (36.0-47.0); HEMOGLOBIN 12.1 g/dL (12.0-15.5); LYMPH % 10 % (24-48); MEAN CORPUSCULAR HEMOGLOBIN 31 pg (25-35); MEAN CORPUSCULAR HGB CONC 32 g/dL (31-37); MEAN CORPUSCULAR VOLUME 95 fL (79-100); MONO # 0.6 x10^3/uL (0.0-1.1); MONO % 6 % (0-9); NEUT # 7.5 x10^3uL (1.8-7.7); NEUT % 81 % (31-73); PLATELET COUNT 305 x10^3/uL (140-400); RED BLOOD COUNT 3.96 x10^6/uL (3.50-5.40); RED CELL DISTRIBUTION WIDTH 14.9 % (11.5-14.5); WHITE BLOOD COUNT 9.2 x10^3/uL (4.0-11.0)
[2020-08-22 08:16] LABS: MAGNESIUM 1.8 mg/dL (1.8-2.4)
[2020-08-22] MEDS ORDERED: IOHEXOL 350 MG/ML 100 ML VIAL. IV ONE (09:00)
[2020-08-22 09:21] LABS: BILIRUBIN,URINE NEG (NEG); CLARITY,URINE HAZY; COLOR,URINE YELLOW; GLUCOSE,URINE NEG (NEG)
[2020-08-22 09:22] LABS: AMORPHOUS SEDIMENT,UR PRESENT /HPF; BACTERIA,URINE 0 /HPF (0-FEW); HYALINE CASTS, URINE OCC /HPF; NITRITE,URINE NEG (NEG); RBC,URINE 0 /HPF (0-2); SQUAMOUS EPITHELIAL CELL,UR FEW /LPF; WBC,URINE RARE /HPF (0-4)
--- NOTE | 2020-08-22 10:43 | RAD ---
CTA scan of the Chest with Contrast (Pulmonary Embolism protocol) 08/22/2020 Clinical History: Shortness of breath. Technique: After the intravenous administration of 60 cc of Omnipaque 350, contiguous, 0.625 mm axial sections were obtained through the chest. 2 mm axial and 3D MIP coronal and sagittal reconstructed images were obtained. One or more of the following individualized dose reduction techniques were utilized for this study: 1. Automated exposure control. 2. Adjustment of the mA and/or kV according to patient size. 3. Use of iterative reconstruction technique. Findings: Comparison study is dated 07/07/2018. No filling defect is seen within the major branches of either pulmonary artery. There is no CT eviden ce of pulmonary embolism. The heart is normal in size. Atherosclerotic calcification of the thoracic aorta is seen. The thoracic aorta is mildly tortuous but tapers normally. Extensive coronary calcific ations are noted. Patchy peripheral perihilar infiltrates are seen throughout both lung. No pneumothorax or pleural eff usion is noted. Impression: 1. There is no CT evidence of pulmonary embolism. 2. Patchy peripheral bilateral perihilar infiltrates which may reflect a viral pneumonia. Electronically signed by: Darrick Gallegos MD (08/22/2020 10:41 AM) [id number]
[2020-08-22 11:08] VITALS: BP 111/68
== END 2020-08-22 12:52 | disposition home or self-care (01) ==
LOC: ER 07:13
DX: R53.1 Weakness (principal); R09.02 Hypoxemia; R05 Cough; E11.9 Type 2 diabetes mellitus without complications; E78.00 Pure hypercholesterolemia, unspecified; E03.9 Hypothyroidism, unspecified; F03.90 Unspecified dementia, unspecified severity, without behavioral disturbance, psychotic disturbance, mood disturbance, and anxiety; Z90.89 Acquired absence of other organs; Z90.710 Acquired absence of both cervix and uterus; Z90.49 Acquired absence of other specified parts of digestive tract; Z91.018 Allergy to other foods
CPT/HCPCS: 36415; 71045; 71275; 80048; 81001; 83605; 83735; 83880; 84484; 85025; 87040; 93005; 96360; 96361; 99285; J7030; Q9967

== ENCOUNTER 2020-09-24 20:44 | Observation (INO) | payer MEDICARE, OTHER ==
[~2020-09-24] VITALS: Ht 162.6 cm; Wt 107.8 kg
[~2020-09-24 20:44] MED LIST changes: -BUPR-192 PO; +BUPR150T7 PO
--- NOTE | 2020-09-24 21:03 | PHYS DOC ---
Past History Past Medical History: Dementia, Diabetes, High Cholesterol, Hypothyroid, Seizure, Other Past Surgical History: Appendectomy, Cholecystectomy, Hysterectomy Smoking: Non-smoker Alcohol Use: None Drug Use: None Adult General Chief Complaint Chief Complaint: SHORTNESS OF BREATH HPI HPI Patient is a 74-year-old female with a past medical history significant for seizure disorder, diabetes, hypertension, hyperlipidemia and dementia who presents from her nursing facility with a chief complaint of shortness of breath. States that over the last day or so she has felt significantly short of breath. States that she is usually able to walk issue but seems to be getting short of breath walking short distances. Denies orthopnea, PND or edema. Denies headache, cold/flu symptoms, chest pain, abdominal pain, nausea, vomiting, diarrhea, dysuria, hematuria or blood in the stool. States to the best of her knowledge she is taking all of her medications as prescribed. Denies any recent travel, illnesses, fevers or known ill contacts but does stay at a skilled nursing. States she did have Covid at the beginning of July. States she is making urine and stool normally with no blood in either. Review of Systems Review of Systems Review of systems otherwise unremarkable except for noted in HPI Allergies Allergies Allergies Coded Allergies Type Severity Reaction Last Updated Verified banana Allergy Intermediate 09/24/20 Yes erythromycin base Allergy Intermediate 09/24/20 No Physical Exam Physical Exam Constitutional: Well developed, well nourished, no acute distress, non-toxic appearance. [] HENT: Normocephalic, atraumatic, oropharynx moist, no oral exudates, nose normal. [] Eyes: conjunctiva normal, no discharge. [] Neck: Normal range of motion,no stridor. [] Cardiovascular: Tachycardia Lungs & Thorax: Patient seems to have difficulty taking a deep breath, has mild rhonchi and decreased breath sounds on the right. Abdomen: soft, no tenderness, no masses, no pulsatile masses. [] Skin: Warm, dry, no erythema, no rash. [] Back: No tenderness, Extremities: No tenderness, no cyanosis, no clubbing, ROM intact, no edema. [] Neurologic: Alert and oriented X 3, normal motor function, normal sensory function, no focal deficits noted. [] Psychologic: Affect normal, judgement normal, mood normal. [] EKG EKG Initial EKG with a rate of 106, QRS of 134, QTc of 491, no STEMI. Does have some inverted T waves in V1. [] Radiology/Procedures Radiology/Procedures []MPRESSION: No acute radiographic abnormality. Stable findings compared to 08/22/2020. Electronically signed by: John Hopkins MD (09/24/2020 9:34 PM) [id number] IMPRESSION: 1. No acute pulmonary embolism. 2. Decreased/evolving pulmonary opacities consistent with atypical pneumonia, consider late phase COVID 19. 3. 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 Electronically signed by: Tyesha Miller MD (09/25/2020 12:05 AM) [id number] Heart Score HEART Score for Chest Pain: HEART Score for Chest Pain Response (Comments) Value History Slighlty/Non-Suspicious 0 ECG Nonspecific Repolarizatio 1 Age > 65 2 Risk Factors >3 Risk Factors or Hx CAD 2 Total 5 Risk Factors: Risk Factors: DM, Current or recent (<one month) smoker, HTN, HLP, family history of CAD, obesity. Risk Scores: Risk Factors: DM, Current or recent (<one month) smoker, HTN, HLP, family history of CAD, obesity. Course & Med Decision Making Course & Med Decision Making Patient is a 74-year-old female who presents with a chief complaint of shortness of breath for about a day Vital signs notable for tachycardia and tachypnea. Glucose 164. Patient required oxygen support in route via EMS, however. In the ED she is saturating about 95% on room air while laying still and does get down to about 90 if exerting herself. Chest x-ray not concerning. EKG noted above with no significant signs of ischemia. Laboratory analysis notable for mild hypomagnesemia and normal low potassium. Replaced orally. Elevated D-dimer. CT with no pulmonary embolism but still has evolving pulmonary opacities suggestive of either atypical pneumonia versus Covid pneumonia. Patient did have Covid diagnosis approximately 2-1/2 months ago. On reevaluation, as long as patient is lying still in bed O2 saturations are about 95% but as soon as she starts talking or even sits up to stand up a drop down to 88 and she gets out of breath. Patient with exertional dyspnea/hypoxia. Recommended admission for continued evaluation and treatment. Patient grateful, verbalized understanding and agreed with plan of admission. [] Dragon Disclaimer Raffy Disclaimer This electronic medical record was generated, in whole or in part, using a voice recognition dictation system. Departure Departure: Impression: Primary Impression: Shortness of breath Additional Impression: Pneumonia Disposition: 09 ADMITTED INPT THIS HOSP Condition: STABLE Referrals: PCP,NO (PCP) Problem Qualifiers ANDIE REES MD Sep 24, 2020 21:03
[2020-09-24 21:36] LABS: BASO # 0.1 x10^3/uL (0.0-0.2); BASO % 1 % (0-3); EOS # 0.8 x10^3/uL (0.0-0.7); EOS % 8 % (0-3); HEMATOCRIT 35.2 % (36.0-47.0); HEMOGLOBIN 11.7 g/dL (12.0-15.5); LYMPH # 1.6 x10^3/uL (1.0-4.8); LYMPH % 17 % (24-48); MEAN CORPUSCULAR HEMOGLOBIN 31 pg (25-35); MEAN CORPUSCULAR HGB CONC 33 g/dL (31-37); MEAN CORPUSCULAR VOLUME 95 fL (79-100); MONO # 0.5 x10^3/uL (0.0-1.1); MONO % 5 % (0-9); NEUT # 6.7 x10^3uL (1.8-7.7); NEUT % 69 % (31-73); PLATELET COUNT 426 x10^3/uL (140-400); RED BLOOD COUNT 3.71 x10^6/uL (3.50-5.40); RED CELL DISTRIBUTION WIDTH 16.1 % (11.5-14.5); WHITE BLOOD COUNT 9.6 x10^3/uL (4.0-11.0)
--- NOTE | 2020-09-24 21:37 | RAD ---
Single view chest dated 09/24/2020. COMPARISON: 08/22/2020. CLINICAL INDICATION: Shortness of breath. FINDINGS: Single upright portable exam performed. Study is limited due to low lung volumes. Heart and mediastin al contours are stable. Lungs are clear. No consolidation or pleural effusion. No pneumothorax. IMPRESSION: No acute radiographic abnormality. Stable findings compared to 08/22/2020. Electronically signed by: John Hopkins MD (09/24/2020 9:34 PM) [id number]
[2020-09-24 21:41] LABS: CALCIUM 8.9 mg/dL (8.5-10.1); CREATININE 1.2 mg/dL (0.6-1.0); GFR 44.2; POTASSIUM 3.8 mmol/L (3.5-5.1)
[2020-09-24 21:54] LABS: ALBUMIN 2.9 g/dL (3.4-5.0); ALBUMIN/GLOBULIN RATIO 0.7 (1.0-1.7); MAGNESIUM 1.7 mg/dL (1.8-2.4); TOTAL BILIRUBIN 0.2 mg/dL (0.2-1.0); TOTAL PROTEIN 7.3 g/dL (6.4-8.2)
[2020-09-24] MEDS ORDERED: POTASSIUM CHLORIDE 20 MEQ TABLET.ER. PO ONE (22:00)
[2020-09-24] MEDS ORDERED: MAGNESIUM OXIDE 400 MG TABLET PO ONE (22:00)
[2020-09-24] MEDS ORDERED: IV RINGERS SOLUTION,LACTATED 1,000 ML IV ONE (22:15)
[2020-09-24] MEDS ORDERED: CONTRAST GIVEN. MC PRN (23:00)
[2020-09-24] MEDS ORDERED: IOHEXOL 350 MG/ML 100 ML VIAL. IV ONE (23:00)
--- NOTE | 2020-09-25 00:07 | RAD ---
Study: CT CHEST WITH CONTRAST - PULMONARY ANGIOGRAM History: Dyspnea Comparison: CT chest 08/22/2020 Technique: Helical CT of the chest performed after the administration of 75 mL Omnipaque 350 intrave nous contrast and timed for angiographic evaluation of the pulmonary arteries per PE protocol. Bowen l and sagittal 3D MIP reformations were obtained. One or more of the following individualized dose reduction techniques were utilized for this examinat ion: 1. Automated exposure control 2. Adjustment of the mA and/or kV according to patient size 3. Use of iterative reconstruction technique. Findings: Pulmonary Arteries: Contrast bolus is adequate. There is no acute pulmonary embolism. Heart/Systemic Vasculature: The heart is normal in size. No pericardial effusion. There are coronary artery calcifications. The thoracic aorta is normal caliber. Mediastinum: No mediastinal or hilar lymphadenopathy. Small hiatal hernia. Lungs: Mild peripheral-predominant groundglass opacities throughout the lungs have mildly decreased a nd are more linear and bandlike. Some of the opacities have resolved. No pleural effusion. Neck/Axilla/Body Wall: Normal. Upper Abdomen: There is a 4.6 cm simple left renal cyst. Borderline hepatic steatosis. Bones: Chronic anterior dislocation of the right sternoclavicular joint is unchanged. There is severe degenerative disc disease in the lower thoracic spine. No acute osseous abnormality. IMPRESSION: 1. No acute pulmonary embolism. 2. Decreased/evolving pulmonary opacities consistent with atypical pneumonia, consider late phase CO VID 19. 3. 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 Electronically signed by: Tyesha Miller MD (09/25/2020 12:05 AM) [id number]
[2020-09-25 00:09] LABS: BACTERIA,URINE 0 /HPF (0-FEW); BILIRUBIN,URINE NEG (NEG); CLARITY,URINE CLEAR; COLOR,URINE YELLOW; GLUCOSE,URINE NEG (NEG); NITRITE,URINE NEG (NEG); RBC,URINE 0 /HPF (0-2); SQUAMOUS EPITHELIAL CELL,UR MANY /LPF; UROBILINOGEN,URINE 0.2 mg/dL (0.2 mg/dL); WBC,URINE OCC /HPF (0-4)
[2020-09-25 00:55] LABS: CALCIUM 8.9 mg/dL (8.5-10.1); CREATININE 1.2 mg/dL (0.6-1.0); GFR 44.2; POTASSIUM 3.5 mmol/L (3.5-5.1)
--- NOTE | 2020-09-25 07:35 | EKG ---
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
[2020-09-25 08:51] VITALS: BP 133/59
[2020-09-25] MEDS ORDERED: INSU100I13 SQ (09:32)
[2020-09-25] MEDS ORDERED: ASCO500T4 PO (09:32)
[2020-09-25] MEDS ORDERED: ALBU2.5V8 IH (09:32)
[2020-09-25] MEDS ORDERED: DULO60CA6 PO (09:32)
[2020-09-25 10:00] VITALS: BP 133/59
--- NOTE | 2020-09-25 10:11 | HP ---
ADMIT DATE: 09/25/2020 ATTENDING PHYSICIAN: Dr. Varner. CHIEF COMPLAINT: Altered mentation, shortness of breath. HISTORY OF PRESENT ILLNESS: The patient is a 74-year-old female from the [facility]. She has seizure disorder along with a profound dementia. She was short of breath. She was hypoventilating. CT and chest x-ray showed no acute infiltrates. She had adequate oxygen saturation 98% on room air. She is somewhat overmedicated and sedated. She was admitted for observation. She did have COVID here at the beginning of July. PAST MEDICAL HISTORY: Significant for chronic dementia, diabetes, hyperlipidemia, hypothyroidism, seizure disorder. PAST SURGICAL HISTORY: Appendectomy, cholecystectomy and hysterectomy. CURRENT MEDICATIONS: Reviewed. She was taking Tylenol, albuterol, ascorbic acid, aspirin, BuSpar, diclofenac gel, Cymbalta, famotidine, Lasix, Neurontin, insulin, Synthroid, Lidoderm patch, loperamide, lorazepam, Namenda, ondansetron, phenobarbital, potassium, trazodone and triamterene/hydrochlorothiazide. ALLERGIES: SHE HAS ALLERGIES TO BANANA AND ERYTHROMYCIN. REVIEW OF SYSTEMS: Significant for generalized dementia, depression, anxiety disorder. All other systems reviewed and determined to be negative. FAMILY HISTORY: Unobtainable due to the patient's confusion. PHYSICAL EXAMINATION: GENERAL: When I saw her, this is a pleasant elderly female who is fairly alert. Her oxygen saturations are adequate. INITIAL VITAL SIGNS: Showed a blood pressure 133/59, pulse 84 and regular, temperature 98.2 degrees Fahrenheit, oxygen saturation 97% on room air. HEENT: Head is without trauma. Pupils are reactive. Sclerae nonicteric. Oropharynx clear. NECK: Supple, no bruits identified. LUNGS: Shallow respirations, but clear. CARDIOVASCULAR: Showed regular heart tones. No gallops. ABDOMEN: Obese, protuberant. No organomegaly. Bowel sounds were normoactive. EXTREMITIES: Show no cyanosis or edema. NEUROLOGIC: Focally intact. Speech is fluent. She is forgetful and pleasantly confused. SKIN: Warm and dry. PERTINENT LABORATORY AND X-RAY STUDIES: Hemoglobin is 11.7 g/dL, white count 9600. Electrolytes within normal range. Creatinine 1.2 mg/dL, blood sugar is 150. Lactic acid was 2.6. CT of the chest showed no pulmonary embolism, decreased pulmonary opacities with a previous atypical pneumonia, anterior dislocation of the right sternoclavicular joint, which is unchanged. ASSESSMENT: 1. A 74-year-old female, senior care patient with altered mentation. 2. Reported dyspnea, but she has adequate oxygen saturation on room air. 3. Underlying seizure disorder and dementia. 4. Hypothyroidism, on replacement. 5. Type 2 diabetes. PLAN: 1. Observation status. 2. Meds have been simplified. 3. Diet as tolerated. 4. Close monitoring for overnight observation. REZA VARNER MD DR: JUSTYNA/keri JOB#: [id number] / [id number]
--- NOTE | 2020-09-25 10:40 | DS ---
DATE OF DISCHARGE: 09/25/2020 ATTENDING PHYSICIAN: Dr. Varner. FINAL DISCHARGE DIAGNOSES: 1. Altered mentation, resolved. 2. Dyspnea symptomatic, resolved. 3. Remote history of COVID exposure. 4. Dementia. 5. Idiopathic seizure disorder. 6. Essential hypertension. 7. Type 2 diabetes. HISTORY AND PHYSICAL: This is a 74-year-old female, [facility] resident with symptomatic dyspnea. Her x-rays and CT scan were fairly unremarkable. She is somewhat overmedicated. Her meds were simplified. She was admitted for altered mentation, which has since resolved. PHYSICAL EXAMINATION: Please see my dictated note. PERTINENT LABORATORY AND X-RAY STUDIES: The admission hemoglobin was 11.7 g/dL, white count 9600. Chemistry panel unremarkable, normal BUN and creatinine, electrolytes. Nonfasting blood sugar was 150 and her troponin was nonischemic. Her imaging studies showed no acute infiltrates or decompensation. COURSE IN THE HOSPITAL: The patient was admitted overnight. She was monitored. She did well. Diet was advanced. Home meds were simplified. She was ready for discharge. On the second hospital day, we simplified her meds. We will have her continue her ascorbic acid, aspirin, BuSpar, Cymbalta, famotidine, Lasix, regular insulin, Synthroid 25 mcg, Lidoderm patch, Namenda, phenobarbital and potassium doses unchanged. For now, we took the liberty of holding her Voltaren gel, Neurontin, loperamide, lorazepam, trazodone, triamterene doses. These can be restarted if she needs it. She was discharged then from our hospital in stable condition with explicit instructions and followup care. REZA VARNER MD DR: JUSTYNA/keri JOB#: [id number] / [id number]
[2020-09-25] MEDS ORDERED: DULoxetine HCL 60 MG CAPSULE.DR PO SCH (11:00)
[2020-09-25] MEDS ORDERED: LIDOCAINE (700MG/PATCH) PATCH. TP SCH (11:00)
[2020-09-25] MEDS ORDERED: ASPIRIN CHEWABLE 81 MG TABLET. PO SCH (11:00)
--- NOTE | 2020-09-25 12:15 | NUR ---
Patient arrived to the unit via EMS on a gurney. Patient is alert and oriented but forgetful at times. Patient is asking why she is here and [facility]. Chakraborty assessed patient and had determined that the patient is able to return to the [facility] therefore patient is being readied to be discharged back to [facility]. Peripheral IV was removed. CORPORATE LIBRARIAN assisted patient with getting dressed. Patients discharged packet was assembled. Report was called to [facility]. [facility] transportation arrived with wheelchair to transport patient back to the facility. Patient left the unit via wheelchair escorted by the CORPORATE LIBRARIAN to awaiting [facility] personnel.
[2020-09-25] MEDS ORDERED: FAMOTIDINE 20 MG TABLET PO SCH (21:00)
[2020-09-25] MEDS ORDERED: INSULIN GLARGINE SYRINGE. SQ SCH (21:00)
[2020-09-25] MEDS ORDERED: PATCH REMOVAL. MC SCH (23:00)
[2020-09-26] MEDS ORDERED: LEVOTHYROXINE 25 MCG TABLET. PO SCH (09:00)
--- NOTE | 2020-09-28 09:16 | NUR ---
IP: attempt to notify [facility] of patient COVID results, phone rang 10 times with no answer. Will try later.
--- NOTE | 2020-09-28 12:00 | NUR ---
IP: notified nurse Jerad of COVID results.
== END 2020-09-25 12:15 ==
LOC: ER 20:44 → ICU 09-25 00:58 → INTOOBSV 09-25 00:58
PROVIDERS: ADMIT Hospitalist; ATTEND Hospitalist
DX: U07.1 COVID-19 (principal); J12.89 Other viral pneumonia; R41.82 Altered mental status, unspecified; R06.00 Dyspnea, unspecified; E11.9 Type 2 diabetes mellitus without complications; G40.909 Epilepsy, unspecified, not intractable, without status epilepticus; E03.9 Hypothyroidism, unspecified; I10 Essential (primary) hypertension; E78.00 Pure hypercholesterolemia, unspecified; F03.90 Unspecified dementia, unspecified severity, without behavioral disturbance, psychotic disturbance, mood disturbance, and anxiety; S43.204A Unspecified dislocation of right sternoclavicular joint, initial encounter; E78.5 Hyperlipidemia, unspecified; Z90.49 Acquired absence of other specified parts of digestive tract; Z90.710 Acquired absence of both cervix and uterus; X58.XXXA Exposure to other specified factors, initial encounter; Y92.89 Other specified places as the place of occurrence of the external cause; Y93.89 Activity, other specified; Y99.8 Other external cause status
CPT/HCPCS: 36415; 71045; 71275; 80048; 80053; 81001; 82947; 83605; 83735; 83880; 84443; 84481; 84484; 85025; 85379; 87040; 93005; 96361; 96365; 96366; 99285; G0378; J1956; J7120; Q9967; U0003; G0379